=== PATIENT | male | born 1955 | race African-American/Black ===

== ENCOUNTER 2017-06-08 00:54 | Inpatient (IN) | payer MEDICAID ==
[2017-06-08] VITALS (7 sets, daily range): BP systolic 123–177; BP diastolic 65–109
[~2017-06-08] VITALS: Ht 188 cm; Wt 147.9 kg
[~2017-06-08 00:54] MED LIST: ALBUTEROL SULF8.5 GM INH; AMLODIPINE BESYL5 MG ORAL; AMOXICILLIN500 MG ORAL; ASPIR-LOW81 MG ORAL; CARVEDILOL12.5 MG ORAL; FAMOTIDINE20 MG ORAL; FUROSEMIDE40 MG ORAL; LOSARTAN POTASS50 MG ORAL; MELOXICAM7.5 MG PO; METFORMIN HCL500 M1 ORAL; PREDNISONE20 MG ORAL; QVAR7.3 G2 IH; RANEXA500 MG ORAL; SIMVASTATIN20 MG ORAL; TYLENOL WITH C1 EAC2 ORAL; VENTOLIN HFA18 GM INH
[2017-06-08] MEDS ORDERED: Aspirin Baby 81mg ORAL ONE (01:15)
--- NOTE | 2017-06-08 01:19 | Emergency Room Report ---
History of Present Illness General Chief Complaint: Chest Pain Source: Patient, Medical Record Present Illness HPI Patient presents with complaints of midsternal and right-sided chest pain Started about one hour prior to arrival Patient reports off and on however for the past 2 weeks Patient reports recent outpatient workup with the cigarette examiner who reported that everything looked okay Denies any vomiting or diarrhea he does feel mildly short of breath at times Worsening with exertion Denies any change in medications recently denies any fevers chills Allergies: Coded Allergies: No Known Allergies (Unverified , 03/24/16) Patient History Past Medical History: see triage record Pertinent Family History: none Reviewed Nursing Documentation: PMH: Agreed, PSxH: Agreed Nursing Documentation-PMH Hx Cardiac Problems: Yes - 5 stents placed in 2011 Hx Hypertension: Yes Hx Asthma: Yes Hx Diabetes: Yes Hx Cancer: No Hx Gastrointestinal Problems: No Hx Neurological Problems: No Review of Systems All Other Systems: negative except mentioned in HPI Physical Exam Vital Signs Date Time Temp Pulse Resp B/P Pulse Ox O2 Delivery O2 Flow Rate FiO2 06/08/17 00:58 98.4 91 18 177/109 96 Room Air Sp02 EP Interpretation: reviewed, normal General Appearance: well appearing, no apparent distress Head: normocephalic, atraumatic Eyes: bilateral eye EOMI, bilateral eye PERRL ENT: hearing grossly normal, normal pharynx, TMs + canals normal, uvula midline Neck: full range of motion, supple, no meningismus, no bony tend Respiratory: lungs clear, normal breath sounds, no rhonchi, no respiratory distress, no retraction, no accessory muscle use Cardiovascular #1: normal peripheral pulses, regular rate, rhythm, no gallop, no JVD, no murmur, edema - Dependent bilateral lower extremity Gastrointestinal: normal bowel sounds, non tender, soft, no mass, no organomegaly, non-distended, no guarding, no hernia, no pulsatile mass, no rebound Genitourinary: no CVA tenderness Musculoskeletal: normal inspection Neurologic: oriented x3, responsive, cigarette book maker III-XII nml as tested, motor strength/ tone normal, sensory intact Psychiatric: mood/affect normal Skin: warm/dry, other - Dependent edema bilaterally Lymphatic: no adenopathy Medical Decision Making Diagnostic Impression: Primary Impression: ACS (acute coronary syndrome) ER Course Patient is a fairly complex patient with multiple differential to consideration including but not limited to cardiac cardiopulmonary and vascular emergencies Patient's blood work is at baseline levels Chest x-ray shows concerning findings with a wide mediastinum however compared to multiple previous x-rays appears unchanged which is more reassuring Labs Test 06/08/17 01:12 White Blood Count 6.0 K/UL (4.8-10.8) Red Blood Count 4.58 M/UL (4.70-6.10) Hemoglobin 14.2 G/DL (14.2-18.0) Hematocrit 45.3 % (42.0-52.0) Mean Corpuscular Volume 99 FL (80-99) Mean Corpuscular Hemoglobin 31.1 PG (27.0-31.0) Mean Corpuscular Hemoglobin Concent 31.4 G/DL (32.0-36.0) Red Cell Distribution Width 12.9 % (11.6-14.8) Platelet Count 158 K/UL (150-450) Mean Platelet Volume 10.3 FL (6.5-10.1) Neutrophils (%) (Auto) 39.0 % (45.0-75.0) Lymphocytes (%) (Auto) 46.2 % (20.0-45.0) Monocytes (%) (Auto) 11.1 % (1.0-10.0) Eosinophils (%) (Auto) 2.0 % (0.0-3.0) Basophils (%) (Auto) 1.6 % (0.0-2.0) Sodium Level 144 mEQ/L (135-145) Potassium Level 4.0 mEQ/L (3.4-4.9) Chloride Level 102 mEQ/L (98-107) Carbon Dioxide Level 29 mEQ/L (20-30) Anion Gap 13 (5-15) Blood Urea Nitrogen 15 mg/dL (7-23) Creatinine 1.3 mg/dL (0.7-1.2) Estimat Glomerular Filtration Rate > 60 mL/min (>60) Glucose Level 131 mg/dL (74-106) Calcium Level 9.3 mg/dL (8.6-10.2) Total Bilirubin 0.5 mg/dL (0.0-1.2) Aspartate Amino Transf (AST/SGOT) 21 U/L (5-40) Alanine Aminotransferase (ALT/SGPT) 17 U/L (3-41) Alkaline Phosphatase 67 U/L (40-129) Total Creatine Kinase 187 U/L (38-174) Creatine Kinase MB 2.3 ng/mL (< 6.7) Creatine Kinase MB Relative Index 1.2 Troponin I < 0.30 ng/mL (<=0.30) Pro-B-Type Natriuretic Peptide 108 pg/mL (0-125) Total Protein 7.1 g/dL (6.6-8.7) Albumin 4.5 g/dL (3.5-5.2) Globulin 2.6 g/dL Albumin/Globulin Ratio 1.7 (1.0-2.7) Lipase 37 U/L (< 60) EKG Diagnostic Results Rate: normal Rhythm: NSR ST Segments: no acute changes Rhythm Strip Diag. Results EP Interpretation: yes Rate: 64 Rhythm: NSR, no PVC's, no ectopy Chest X-Ray Diagnostic Results Chest X-Ray Diagnostic Results : Chest X-Ray Ordered: Yes # of Views/Limited/Complete: 1 View Indication: Chest Pain EP Interpretation: Yes Interpretation: no consolidation, no effusion, no pneumothorax, other - Aorta is tortuous, similar to previous x-ray Impression: No acute disease Interpreting ER Provider: adeilne mina DO Last Vital Signs Date Time Temp Pulse Resp B/P Pulse Ox O2 Delivery O2 Flow Rate FiO2 06/08/17 00:58 98.4 91 18 177/109 96 Room Air Status: improved Disposition: ADMITTED INPATIENT Condition: Serious ADELINE MINA D.O. Jun 08, 2017 01:19
[2017-06-08 01:35] LABS: BASOPHILS % (AUTO) 1.6 % (0.0-2.0); LYMPHOCYTES % (AUTO) 46.2 % (20.0-45.0); MEAN CORPUSCULAR HEMOGLOBIN 31.1 PG (27.0-31.0); MEAN CORPUSCULAR HGB CONC 31.4 G/DL (32.0-36.0); MEAN CORPUSCULAR VOLUME 99 FL (80-99); MEAN PLATELET VOLUME 10.3 FL (6.5-10.1); MONOCYTES % (AUTO) 11.1 % (1.0-10.0); PLATELET COUNT 158 K/UL (150-450); RED BLOOD COUNT 4.58 M/UL (4.70-6.10); RED CELL DISTRIBUTION WIDTH 12.9 % (11.6-14.8)
[2017-06-08 01:46] LABS: ALANINE AMINOTRANSFERASE 17 U/L (3-41); ALBUMIN/GLOBULIN RATIO 1.7 (1.0-2.7); ASPARTATE AMINO TRANSFERASE 21 U/L (5-40); CALCIUM 9.3 mg/dL (8.6-10.2); CARBON DIOXIDE 29 mEQ/L (20-30); CREATININE 1.3 mg/dL (0.7-1.2); GLOMERULAR FILTRATION RATE > 60 mL/min (>60); HEMOLYSIS 7; LIPASE 37 U/L (< 60); TOTAL PROTEIN 7.1 g/dL (6.6-8.7)
[2017-06-08 01:47] LABS: ANION GAP 13 (5-15); CHLORIDE 102 mEQ/L (98-107); SODIUM 144 mEQ/L (135-145); TROPONIN I < 0.30 ng/mL (<=0.30)
[2017-06-08 01:57] LABS: CKMB 2.3 ng/mL (< 6.7)
[2017-06-08] MEDS ORDERED: Morphine Sulfate 4mg/ml Inj IVP ONE (03:00)
[2017-06-08] MEDS ORDERED: IBUPROFEN800 MG ORAL (03:03)
[2017-06-08] MEDS ORDERED: NITROGLYCERIN0.4 MG SL (03:06)
[2017-06-08] MEDS ORDERED: ISOSORBIDE MONO10 MG PO (03:06)
[2017-06-08] MEDS ORDERED: Ketorolac 30mg Inj IV PRN (07:00)
[2017-06-08] MEDS ORDERED: DuoNeb 0.5-3(2.5)mg/3ml neb HHN PRN (07:00)
[2017-06-08] MEDS ORDERED: Nitroglycerin Subl 0.4mg tab (Bottle Of 25) SL PRN (07:00)
[2017-06-08] MEDS ORDERED: Enalaprilat 2.5mg/2ml Inj IV PRN (07:00)
[2017-06-08] MEDS ORDERED: Miralax 17gm pkt ORAL PRN (07:00)
[2017-06-08] MEDS ORDERED: Diltiazem 25mg/5ml IV PRN (07:00)
[2017-06-08] MEDS: Morphine Sulfate 2mg/ml Inj IVP PRN ×2 (08:33→21:57)
[2017-06-08] MEDS: Aspirin Baby 81mg ORAL SCH (08:33)
[2017-06-08] MEDS: Losartan 50mg tab ORAL SCH (08:37)
[2017-06-08 08:38] LABS: TROPONIN I < 0.30 ng/mL (<=0.30)
--- NOTE | 2017-06-08 11:19 | Diagnostic Imaging Report ---
Indication: Chest pain Comparison: 03/24/16 A single view chest radiograph was obtained. Findings: No definite infiltrate or pulmonary vascular congestion identified. The heart is enlarged. The aorta is mildly enlarged consistent with atherosclerotic vascular disease. The bones are osteopenic. Impression: No acute disease
[2017-06-08] MEDS ORDERED: NovoLOG Insulin Flexpen SUBQ SCH (11:30)
[2017-06-08] MEDS: Heparin 5000 units/ml inj SUBQ SCH ×2 (14:02→21:55)
--- NOTE | 2017-06-08 14:22 | History and Physical ---
History of Present Illness General Date patient seen: Jun 08, 2017 Reason for Hospitalization: Chest Pain Present Illness HPI 62 year old with hx of CAD, s/p stents presented to ER with complaints of midsternal and right-sided chest pain, Started about one hour prior to arrival, for the past 2 weeks Worsening with exertion. because of hx of CAD, he is admitted to telemetry for further work up. Allergies: Coded Allergies: No Known Allergies (Unverified , 03/24/16) Medication History Scheduled Albuterol Sulfate (Ventolin Hfa), 1 PUFF INH EVERY 6 HOURS, (Reported) Albuterol Sulfate* (Albuterol Sulfate Mdi*), 2 PUFF INH Q6H Amlodipine Besylate* (Amlodipine Besylate*), 5 MG ORAL DAILY, (Reported) Amoxicillin* (Amoxil*), 500 MG ORAL THREE TIMES A DAY Aspirin* (Aspir-Low*), 81 MG ORAL DAILY, (Reported) Carvedilol* (Carvedilol*), 12.5 MG ORAL DAILY, (Reported) Furosemide* (Lasix*), 20 MG ORAL DAILY, (Reported) Ibuprofen* (Motrin*), 800 MG ORAL THREE TIMES A DAY, (Reported) Isosorbide Mononitrate (Isosorbide Mononitrate), 10 MG PO DAILY, (Reported) Losartan Potassium* (Losartan Potassium*), 50 MG ORAL DAILY, (Reported) Meloxicam* (Meloxicam*), 7.5 MG PO DAILY, (Reported) Metformin Hcl* (Metformin Hcl*), 500 MG ORAL TWICE A DAY, (Reported) Nitroglycerin (Nitroglycerin), 0.4 MG SL every 5 min x 3 dose, (Reported) Prednisone* (Prednisone*), 40 MG ORAL DAILY Ranolazine* (Ranexa*), 1,000 MG ORAL EVERY 12 HOURS, (Reported) Simvastatin (Zocor), 20 MG ORAL BEDTIME, (Reported) Scheduled PRN Acetaminophen With Codeine (T#3) (Tylenol With Codeine #3 Tablet), 1 TAB ORAL BID PRN for For Pain, (Reported) Famotidine (Famotidine), 20 MG ORAL BID PRN for heart burn , (Reported) Miscellaneous Medications Beclomethasone Dipropionate (Qvar), 80 MCG IH, (Reported) Patient History Healthcare decision maker Resuscitation status Full Code Advanced Directive on File No Past Medical/Surgical History Past Medical/Surgical History: (1) CAD (coronary artery disease) Review of Systems All Other Systems: negative except mentioned in HPI Physical Exam General Appearance: WD/WN, no apparent distress, mild distress Lines, tubes and drains: central line HEENT: normocephalic, anicteric Neck: non-tender, normal alignment Respiratory/Chest: chest wall non-tender, lungs clear, normal breath sounds, no respiratory distress Cardiovascular/Chest: normal peripheral pulses, normal rate Abdomen: normal bowel sounds Last 24 Hour Vital Signs Date Time Temp Pulse Resp B/P Pulse Ox O2 Delivery O2 Flow Rate FiO2 06/08/17 12:00 74 06/08/17 12:00 97.8 77 21 154/105 97 Nasal Cannula 3.0 06/08/17 11:57 78 16 Nasal Cannula 2.0 28 06/08/17 11:00 Nasal Cannula 2.0 28 06/08/17 10:55 98 Nasal Cannula 2.0 28 06/08/17 08:37 123/65 06/08/17 08:36 70 123/65 06/08/17 08:00 81 06/08/17 08:00 97.7 70 20 123/65 95 06/08/17 04:40 98.6 81 17 126/80 97 Nasal Cannula 2.0 06/08/17 03:30 98.6 81 17 126/80 97 Nasal Cannula 2.0 06/08/17 02:30 98.4 86 17 125/85 93 Room Air 06/08/17 01:30 98.4 89 16 177/109 95 Room Air 06/08/17 01:30 89 16 Room Air 06/08/17 00:58 98.4 91 18 177/109 96 Room Air Intake and Output 06/07/17 06/08/17 19:00 07:00 Intake Total 0 ml Balance 0 ml Intake Oral 0 ml Laboratory Tests Test 06/08/17 01:12 06/08/17 07:50 White Blood Count 6.0 K/UL (4.8-10.8) Red Blood Count 4.58 M/UL (4.70-6.10) L Hemoglobin 14.2 G/DL (14.2-18.0) Hematocrit 45.3 % (42.0-52.0) Mean Corpuscular Volume 99 FL (80-99) Mean Corpuscular Hemoglobin 31.1 PG (27.0-31.0) H Mean Corpuscular Hemoglobin Concent 31.4 G/DL (32.0-36.0) L Red Cell Distribution Width 12.9 % (11.6-14.8) Platelet Count 158 K/UL (150-450) Mean Platelet Volume 10.3 FL (6.5-10.1) H Neutrophils (%) (Auto) 39.0 % (45.0-75.0) L Lymphocytes (%) (Auto) 46.2 % (20.0-45.0) H Monocytes (%) (Auto) 11.1 % (1.0-10.0) H Eosinophils (%) (Auto) 2.0 % (0.0-3.0) Basophils (%) (Auto) 1.6 % (0.0-2.0) Sodium Level 144 mEQ/L (135-145) Potassium Level 4.0 mEQ/L (3.4-4.9) Chloride Level 102 mEQ/L (98-107) Carbon Dioxide Level 29 mEQ/L (20-30) Anion Gap 13 (5-15) Blood Urea Nitrogen 15 mg/dL (7-23) Creatinine 1.3 mg/dL (0.7-1.2) H Estimat Glomerular Filtration Rate > 60 mL/min (>60) Glucose Level 131 mg/dL (74-106) H Calcium Level 9.3 mg/dL (8.6-10.2) Total Bilirubin 0.5 mg/dL (0.0-1.2) Aspartate Amino Transf (AST/SGOT) 21 U/L (5-40) Alanine Aminotransferase (ALT/SGPT) 17 U/L (3-41) Alkaline Phosphatase 67 U/L (40-129) Total Creatine Kinase 187 U/L (38-174) H Creatine Kinase MB 2.3 ng/mL (< 6.7) Creatine Kinase MB Relative Index 1.2 Troponin I < 0.30 ng/mL (<=0.30) < 0.30 ng/mL (<=0.30) Pro-B-Type Natriuretic Peptide 108 pg/mL (0-125) Total Protein 7.1 g/dL (6.6-8.7) Albumin 4.5 g/dL (3.5-5.2) Globulin 2.6 g/dL Albumin/Globulin Ratio 1.7 (1.0-2.7) Lipase 37 U/L (< 60) Height (Feet): 6 Height (Inches): 2.00 Weight (Pounds): 326 Medications Current Medications Medications (Trade) Dose Ordered Sig/Saima Route PRN Reason Start Time Stop Time Status Last Admin Dose Admin Acetaminophen (Tylenol) 650 mg Q4H PRN ORAL T>100.5 06/08/17 07:00 07/08/17 06:59 Albuterol/ Ipratropium (DuoNeb 0.5-3(2.5)mg/3ml) 3 ml Q4H PRN HHN Shortness of Breath 06/08/17 07:00 06/13/17 06:59 Amlodipine Besylate (Norvasc) 5 mg DAILY ORAL 06/08/17 09:00 07/08/17 08:59 06/08/17 08:36 Aspirin (ASA) 162 mg DAILY ORAL 06/08/17 09:00 07/08/17 08:59 06/08/17 08:33 Dextrose (Dextrose 50%) STAT PRN IV Hypoglycemia 06/08/17 04:30 07/08/17 04:29 Diltiazem HCl (Cardizem) 10 mg EVERY HOUR PRN IV heart rate more than 120 06/08/17 07:00 07/08/17 06:59 Enalaprilat (Vasotec) 2.5 mg Q6H PRN IV sbp more than 160 06/08/17 07:00 07/08/17 06:59 Furosemide (Lasix) 20 mg DAILY ORAL 06/08/17 09:00 07/08/17 08:59 06/08/17 08:32 Heparin Sodium (Porcine) (Heparin 5000 units/ml) 5,000 units EVERY 8 HOURS SUBQ 06/08/17 14:00 07/08/17 13:59 06/08/17 14:02 Losartan Potassium (Cozaar) 50 mg DAILY ORAL 06/08/17 09:00 07/08/17 08:59 06/08/17 08:37 Metformin HCl (Glucophage) 500 mg BID ORAL 06/08/17 18:00 07/08/17 17:59 Morphine Sulfate (Morphine Sulfate) 2 mg Q4H PRN IVP Severe Pain (Pain Scale 7-10) 06/08/17 07:00 06/15/17 06:59 06/08/17 08:33 Nitroglycerin (Ntg) 0.4 mg Q5MIN X 3 DOSES PRN SL Prn Chest Pain 06/08/17 07:00 07/08/17 06:59 Ondansetron HCl (Zofran) 4 mg Q6H PRN IVP Nausea & Vomiting 06/08/17 07:00 07/08/17 06:59 Polyethylene Glycol (Miralax) 17 gm DAILYPRN PRN ORAL Constipation 06/08/17 07:00 07/08/17 06:59 Temazepam (Restoril) 15 mg HSPRN PRN ORAL Insomnia 06/08/17 21:00 06/15/17 20:59 Assessment/Plan Problem List: (1) ACS (acute coronary syndrome) ICD Codes: I24.9 - Acute ischemic heart disease, unspecified SNOMED: 907182385 (2) Costochondritis ICD Codes: M94.0 - Chondrocostal junction syndrome [[place]] SNOMED: 60811564 (3) CAD (coronary artery disease) ICD Codes: I25.10 - Atherosclerotic heart disease of [place] coronary artery without angina pectoris SNOMED: 94215965 Assessment/Plan serial ekg, troponin, echo cariology to see. dvt prophylaxis symptomatic treatment. KASSANDRA DUNN Jun 08, 2017 14:22
--- NOTE | 2017-06-08 14:23 | Cardiology Report ---
APPROVED REPORT EKG Measurement Heart [id number] Normal sinus rhythm Normal ECG
--- NOTE | 2017-06-08 14:31 | Diagnostic Imaging Report ---
APPROVED REPORT CPT Code: 22666 Present Symptoms Comments: Pain [place] BILATERAL: Imaging reveals a patent deep venous system bilaterally. There is no evidence of thrombus within the femoral, popliteal or tibial segments. The greater saphenous veins are also within normal limits. Doppler indicates normal spontaneous flow within these segments.
--- NOTE | 2017-06-08 15:11 | Cardiology Report ---
APPROVED REPORT EXAM: Two-dimensional and M-mode echocardiogram with Doppler and color Doppler. INDICATION Left Ventricular Function M-Mode DIMENSIONS IVSd2.3 (0.7-1.1cm)Left Atrium (MM)3.9 (1.6-4.0cm) LVDd6.6 (3.5-5.6cm)Aortic Root3.7 (2.0-3.7cm) PWd1.0 (0.7-1.1cm)Aortic Cusp Exc.2.3 (1.5-2.0cm) LVDs4.6 (2.5-4.0cm) PWs1.6 cm Normal left ventricular systolic function and wall motion. Mild left ventricular enlargement. Left ventricular ejection fraction estimated to be 55 %. Moderate left ventricular hypertrophy. Trivial pericardial effusion. Mild right atrial enlargement. Mild to moderate left atrial enlargement. Mild right ventricular enlargement. Normal appearing aortic, mitral, puImonic and tricuspid valves. Mild mitral annulus and aortic root calcification. IVC dilated at 1.8 cm with physiologic collapse. A color flow and spectral Doppler study was performed and revealed: No aortic regurgitation. Trace mitral regurgitation. Left ventricular diastolic function is Grade II, pseudo-normal LV physiology. Trace tricuspid regurgitation. Tricuspid systolic velocities suggests peak right ventricular systolic pressure of 25 mmHg. No pulmonic regurgitation present.
[2017-06-08] MEDS: metFORMIN 500mg tab ORAL SCH (18:15)
[2017-06-09] VITALS: BP 132/77
[2017-06-09 04:00] VITALS: BP 145/82
[2017-06-09] MEDS: Heparin 5000 units/ml inj SUBQ SCH (05:33)
[2017-06-09 06:28] LABS: BASOPHILS % (AUTO) 1.7 % (0.0-2.0); EOSINOPHILS % (AUTO) 1.9 % (0.0-3.0); LYMPHOCYTES % (AUTO) 37.6 % (20.0-45.0); MEAN CORPUSCULAR HGB CONC 31.5 G/DL (32.0-36.0); MEAN CORPUSCULAR VOLUME 102 FL (80-99); MEAN PLATELET VOLUME 11.3 FL (6.5-10.1); MONOCYTES % (AUTO) 9.8 % (1.0-10.0); PLATELET COUNT 137 K/UL (150-450); RED BLOOD COUNT 4.18 M/UL (4.70-6.10); RED CELL DISTRIBUTION WIDTH 13.2 % (11.6-14.8); WHITE BLOOD COUNT 5.4 K/UL (4.8-10.8)
[2017-06-09 06:49] LABS: PROTHROMBIN TIME 10.2 SEC (9.30-11.50)
[2017-06-09 06:52] LABS: CHOLESTEROL 150 mg/dL (< 200); CHOLESTEROL/HDL RATIO 3.7 (3.3-4.4); CRP QUANT < 0.3 mg/dL (< 0.5); HEMOLYSIS 13; LDL CHOLESTEROL (CALC.) 61 mg/dL (60-99)
[2017-06-09 06:59] LABS: TROPONIN I < 0.30 ng/mL (<=0.30)
[2017-06-09 08:00] VITALS: BP 143/90
[2017-06-09] MEDS: metFORMIN 500mg tab ORAL SCH (08:42)
[2017-06-09] MEDS: Losartan 50mg tab ORAL SCH (08:42)
[2017-06-09] MEDS: Aspirin Baby 81mg ORAL SCH (08:44)
[2017-06-09] MEDS: Morphine Sulfate 2mg/ml Inj IVP PRN (11:01)
--- NOTE | 2017-06-09 11:09 | Pulmonology Progress Note ---
Assessment/Plan Problems: (1) ACS (acute coronary syndrome) (2) Costochondritis (3) CAD (coronary artery disease) Assessment/Plan echo noted cardiology consult pending symptomatic treatment Subjective ROS Limited/Unobtainable: No Allergies: Coded Allergies: No Known Allergies (Unverified , 03/24/16) Objective Last 24 Hour Vital Signs Date Time Temp Pulse Resp B/P Pulse Ox O2 Delivery O2 Flow Rate FiO2 06/09/17 08:42 143/90 06/09/17 08:42 83 143/90 06/09/17 08:00 97.5 80 22 143/90 94 Nasal Cannula 2.0 06/09/17 08:00 84 06/09/17 07:56 70 18 Nasal Cannula 2.0 28 06/09/17 07:55 97 Nasal Cannula 2.0 28 06/09/17 07:55 Nasal Cannula 2.0 28 06/09/17 04:00 128 06/09/17 04:00 76 06/09/17 04:00 97.5 70 20 145/82 Nasal Cannula 2.0 06/09/17 00:00 97.7 71 132/77 20 Nasal Cannula 2.0 06/09/17 00:00 71 06/08/17 20:00 76 06/08/17 20:00 97.5 76 22 129/74 95 Nasal Cannula 2.0 06/08/17 19:30 95 Nasal Cannula 2.0 28 06/08/17 19:30 Nasal Cannula 2.0 28 06/08/17 19:30 76 18 Nasal Cannula 2.0 28 06/08/17 16:00 78 06/08/17 16:00 97.6 70 21 144/97 100 Nasal Cannula 2.0 06/08/17 12:00 74 06/08/17 12:00 97.8 77 21 154/105 97 Nasal Cannula 3.0 06/08/17 11:57 78 16 Nasal Cannula 2.0 28 Intake and Output 06/08/17 06/09/17 19:00 07:00 Intake Total 600 ml 700 ml Balance 600 ml 700 ml Intake Oral 600 ml 700 ml # Voids 1 1 # Bowel Movements 1 General Appearance: WD/WN Respiratory/Chest: chest wall non-tender, lungs clear Cardiovascular: normal peripheral pulses, normal rate Abdomen: normal bowel sounds, soft, non tender Genitourinary: normal external genitalia Extremities: no cyanosis Skin: no rash Laboratory Tests 06/09/17 06:00: White Blood Count 5.4, Red Blood Count 4.18L, Hemoglobin 13.4L, Hematocrit 42.5 , Mean Corpuscular Volume 102H, Mean Corpuscular Hemoglobin 32.0H, Mean Corpuscular Hemoglobin Concent 31.5L, Red Cell Distribution Width 13.2, Platelet Count 137L, Mean Platelet Volume 11.3H, Neutrophils (%) (Auto) 49.0, Lymphocytes (%) (Auto) 37.6, Monocytes (%) (Auto) 9.8, Eosinophils (%) (Auto) 1.9, Basophils (%) (Auto) 1.7, Prothrombin Time 10.2, Prothromb Time International Ratio 1.0, Activated Partial Thromboplast Time 28, Troponin I < 0.30, C-Reactive Protein, Quantitative < 0.3, Triglycerides Level 238H, Cholesterol Level 150, LDL Cholesterol 61, HDL Cholesterol 41, Cholesterol/HDL Ratio 3.7, Thyroid Stimulating Hormone (TSH) 1.710 Current Medications Medications (Trade) Dose Ordered Sig/Saima Route PRN Reason Start Time Stop Time Status Last Admin Dose Admin Acetaminophen (Tylenol) 650 mg Q4H PRN ORAL T>100.5 06/08/17 07:00 07/08/17 06:59 Albuterol/ Ipratropium (DuoNeb 0.5-3(2.5)mg/3ml) 3 ml Q4H PRN HHN Shortness of Breath 06/08/17 07:00 06/13/17 06:59 Amlodipine Besylate (Norvasc) 5 mg DAILY ORAL 06/08/17 09:00 07/08/17 08:59 06/09/17 08:42 Aspirin (ASA) 162 mg DAILY ORAL 06/08/17 09:00 07/08/17 08:59 06/09/17 08:44 Dextrose (Dextrose 50%) STAT PRN IV Hypoglycemia 06/08/17 04:30 07/08/17 04:29 Diltiazem HCl (Cardizem) 10 mg EVERY HOUR PRN IV heart rate more than 120 06/08/17 07:00 07/08/17 06:59 Enalaprilat (Vasotec) 2.5 mg Q6H PRN IV sbp more than 160 06/08/17 07:00 07/08/17 06:59 Furosemide (Lasix) 20 mg DAILY ORAL 06/08/17 09:00 07/08/17 08:59 06/09/17 08:42 Heparin Sodium (Porcine) (Heparin 5000 units/ml) 5,000 units EVERY 8 HOURS SUBQ 06/08/17 14:00 07/08/17 13:59 06/09/17 05:33 Losartan Potassium (Cozaar) 50 mg DAILY ORAL 06/08/17 09:00 07/08/17 08:59 06/09/17 08:42 Metformin HCl (Glucophage) 500 mg BID ORAL 06/08/17 18:00 07/08/17 17:59 06/09/17 08:42 Morphine Sulfate (Morphine Sulfate) 2 mg Q4H PRN IVP Severe Pain (Pain Scale 7-10) 06/08/17 07:00 06/15/17 06:59 06/09/17 11:01 Nitroglycerin (Ntg) 0.4 mg Q5MIN X 3 DOSES PRN SL Prn Chest Pain 06/08/17 07:00 07/08/17 06:59 Ondansetron HCl (Zofran) 4 mg Q6H PRN IVP Nausea & Vomiting 06/08/17 07:00 07/08/17 06:59 06/09/17 11:03 Polyethylene Glycol (Miralax) 17 gm DAILYPRN PRN ORAL Constipation 06/08/17 07:00 07/08/17 06:59 Temazepam (Restoril) 15 mg HSPRN PRN ORAL Insomnia 06/08/17 21:00 06/15/17 20:59 KASSANDRA DUNN Jun 09, 2017 11:09
--- NOTE | 2017-06-09 11:23 | Cardiology Progress Note ---
Assessment/Plan Assessment/Plan [id number] Objective Last 24 Hour Vital Signs Date Time Temp Pulse Resp B/P Pulse Ox O2 Delivery O2 Flow Rate FiO2 06/09/17 08:42 143/90 06/09/17 08:42 83 143/90 06/09/17 08:00 97.5 80 22 143/90 94 Nasal Cannula 2.0 06/09/17 08:00 84 06/09/17 07:56 70 18 Nasal Cannula 2.0 28 06/09/17 07:55 97 Nasal Cannula 2.0 28 06/09/17 07:55 Nasal Cannula 2.0 28 06/09/17 04:00 128 06/09/17 04:00 76 06/09/17 04:00 97.5 70 20 145/82 Nasal Cannula 2.0 06/09/17 00:00 97.7 71 132/77 20 Nasal Cannula 2.0 06/09/17 00:00 71 06/08/17 20:00 76 06/08/17 20:00 97.5 76 22 129/74 95 Nasal Cannula 2.0 06/08/17 19:30 95 Nasal Cannula 2.0 28 06/08/17 19:30 Nasal Cannula 2.0 28 06/08/17 19:30 76 18 Nasal Cannula 2.0 28 06/08/17 16:00 78 06/08/17 16:00 97.6 70 21 144/97 100 Nasal Cannula 2.0 06/08/17 12:00 74 06/08/17 12:00 97.8 77 21 154/105 97 Nasal Cannula 3.0 06/08/17 11:57 78 16 Nasal Cannula 2.0 28 Intake and Output 06/08/17 06/09/17 19:00 07:00 Intake Total 600 ml 700 ml Balance 600 ml 700 ml Intake Oral 600 ml 700 ml # Voids 1 1 # Bowel Movements 1 Laboratory Tests Test 06/09/17 06:00 White Blood Count 5.4 K/UL (4.8-10.8) Red Blood Count 4.18 M/UL (4.70-6.10) L Hemoglobin 13.4 G/DL (14.2-18.0) L Hematocrit 42.5 % (42.0-52.0) Mean Corpuscular Volume 102 FL (80-99) H Mean Corpuscular Hemoglobin 32.0 PG (27.0-31.0) H Mean Corpuscular Hemoglobin Concent 31.5 G/DL (32.0-36.0) L Red Cell Distribution Width 13.2 % (11.6-14.8) Platelet Count 137 K/UL (150-450) L Mean Platelet Volume 11.3 FL (6.5-10.1) H Neutrophils (%) (Auto) 49.0 % (45.0-75.0) Lymphocytes (%) (Auto) 37.6 % (20.0-45.0) Monocytes (%) (Auto) 9.8 % (1.0-10.0) Eosinophils (%) (Auto) 1.9 % (0.0-3.0) Basophils (%) (Auto) 1.7 % (0.0-2.0) Prothrombin Time 10.2 SEC (9.30-11.50) Prothromb Time International Ratio 1.0 (0.9-1.1) Activated Partial Thromboplast Time 28 SEC (23-33) Troponin I < 0.30 ng/mL (<=0.30) C-Reactive Protein, Quantitative < 0.3 mg/dL (< 0.5) Triglycerides Level 238 mg/dL (< 150) H Cholesterol Level 150 mg/dL (< 200) LDL Cholesterol 61 mg/dL (60-99) HDL Cholesterol 41 mg/dL (> 60) Cholesterol/HDL Ratio 3.7 (3.3-4.4) Thyroid Stimulating Hormone (TSH) 1.710 uIU/mL (0.300-4.500) VIOLA TAVARES Jun 09, 2017 11:23
[2017-06-09 12:00] VITALS: BP 142/88
--- NOTE | 2017-06-09 23:15 | Consultation ---
DATE OF CONSULTATION: 06/09/2017 CARDIOLOGY CONSULTATION CONSULTING PHYSICIAN: Hussain Sanchez M.D. REFERRING PHYSICIAN: Natalya Hargrove M.D. REASON FOR REFERRAL: Chest pain. HISTORY OF PRESENT ILLNESS: This is a 62-year-old gentleman with history of coronary artery disease and multiple other risk factors. He had a myocardial infarction in 2014, received 5 stents. He presented to the hospital with several days of intermittent pain in the right side of the sternum that lasted only between 1 to 5 second,s not exertional. In fact, when he does exercise and do usual routine activities, he never gets the chest pain. The pain comes on only when he is lying down. No exacerbation with twisting, turning, coughing, breathing, eating or activity that he is able to identify. He does not have any PND. Uses 2 pillows for comfort. No dizziness or lightheadedness on standing. No palpitations and no other chest discomfort. The pain is different than what he experienced with his myocardial infarction 2 years ago. PAST MEDICAL HISTORY: Positive for diabetes, high blood pressure, high cholesterol, heart attack, asthma, and sleep apnea for which he has not yet been prescribed CPAP. No cancer. No stroke. No hepatitis or tuberculosis. No ulcers. No kidney, liver problems, thyroid problems, anemia, or arthritis. ALLERGIC: He is not allergic to any medications. SOCIAL HISTORY: He smokes and drinks on the weekends only. No drug use. He used to work with the [employer], he does not any more, he is retired. REVIEW OF SYSTEMS: Gastrointestinal: He denies any nausea, vomiting, diarrhea, or constipation. Genitourinary: He denies. Pulmonary: Occasional wheezing. Constitutional: Negative. Neurological: Negative. PHYSICAL EXAMINATION: GENERAL: An elderly gentleman, overweight. NECK: Supple. No jugular venous distention. LUNGS: He seemed to be clear to auscultation and percussion. CARDIAC: S1 is normal. S2 is normal. Regular rate and rhythm. No heaves, thrills, or gallops noted. ABDOMEN: Soft and nontender. Positive bowel sounds. Obese. EXTREMITIES: Show no clubbing, cyanosis, no edema. NEUROLOGICALLY: He is awake, alert, responsive, in no apparent respiratory distress. LABORATORY DATA: His echocardiogram shows ejection fraction of 55%, dilated IVC with physiological collapse, no significant valvular regurgitation, diastolic dysfunction of grade 1. EKG, sinus rhythm, normal QRS axis, no ST or T wave abnormalities of any kind. LABORATORY VALUES: White count 5.4, hemoglobin 13.4, and platelet count of 137,000. Sodium is 144, potassium 4.0, chloride 102, bicarb 29, BUN 15, creatinine 1.3, and glucose of 131. CK of 187. Three sets of cardiac enzymes are all negative. Natriuretic peptide is only 108. Triglycerides are 238, cholesterol 150 with an LDL of 61 and HDL of 41 and TSH of 1.7. Coags, INR 1.0 and PTT of 28. A chest x-ray performed in the emergency room shows no acute disease. The official echocardiogram reading shows ejection fraction of 55%. No significant changes from the preliminary report. A venous duplex study shows patent deep venous system bilaterally no evidence of thrombus being documented. ASSESSMENT: 1. Atypical chest pain. 2. History of coronary disease. 3. Diabetes mellitus. 4. Hypertension. 5. Hyperlipidemia. Dr. Hargrove, this patient was seen in cardiac consultation. The patient's pain only lasted approximately 1 to 5 seconds, not exertional, different from the pain that he had from his prior myocardial infarction. EKG is unremarkable. Echocardiogram is unremarkable. Three sets of cardiac enzymes are unremarkable. The pain unlikely to be ischemic in origin. He has had a stress test performed by his audit machine operator approximately 2 weeks ago and he is having followup appointment with his audit machine operator coming up in the next few days. I see no reason to perform any other testing at this time. He may be discharged home with followup with his usual audit machine operator. He should be continued on his aspirin and antiplatelet agents as well as statins that he was taking on prior to his hospitalization. He has also been on some Isordil that he should be continued as well. Hussain Sanchez M.D. DR: ERIN JOB#: [id number] CC:
--- NOTE | 2017-06-11 10:27 | Discharge Summary ---
Discharge Summary Hospital Course Date of Admission Jun 08, 2017 at 02:06 Date of Discharge Jun 09, 2017 at 13:40 Admitting Diagnosis acute coronary syndrome HPI Mannie Lemus is a 62 year old male who was admitted on Jun 08, 2017 at 02: 06 for Acute Coronary Syndrome Hospital Course [id number] Discharge Discharge Disposition Patient was discharged to Home (01) Discharge Diagnoses: Christina Tejeda NP Jun 11, 2017 10:27
--- NOTE | 2017-06-12 05:45 | Discharge Summary 2 SIG ---
DATE OF ADMISSION: 06/08/2017 DATE OF DISCHARGE: 06/09/2017 BLOW TORCH OPERATOR: Hussain Sanchez M.D. BRIEF HOSPITAL COURSE: The patient is a 62-year-old male with a history of coronary artery disease, status post stent, presented to ED complaining of midsternal right-sided chest pain that started an hour prior to arrival. Symptoms had been on and off for the past two weeks and symptoms worsened. On arrival to ED, blood pressure was elevated to 177/109. Blood work was stable. Troponin was negative. He had an EKG done that showed normal sinus rhythm and chest x-ray showed findings with wide mediastinum, however, compared to multiple previous x-ray appeared unchanged. Due to his risk factors, he was admitted to telemetry for cardiac evaluation and was admitted for acute coronary syndrome, costochondritis, and coronary artery disease. Cardiac markers were monitored. He was seen by Dr. Sanchez. His echocardiogram showed ejection fraction of 55% with dilated IVC with physiological collapse, no significant valvular regurgitation, diastolic dysfunction of grade 1. EKG showed no ST to T-wave abnormalities. Lipid panel was checked. LDL was 61. TSH was normal. Venous duplex of lower extremity showed no evidence of thrombus. Three sets of cardiac enzymes were unremarkable. Pain unlikely to be ischemic in origin. He had a stress test done by his home care rn two weeks prior to admission and has followup appointments with home care rn. No further workup was needed. He was continued on his aspirin and antiplatelet agents as well as his antihypertensives. He underwent physical therapy evaluation and was eventually discharged home. FINAL DIAGNOSES: 1. Coronary artery disease. 2. Costochondritis. 3. Diabetes mellitus. 4. Hypertension. 5. Hyperlipidemia. DISCHARGE DISPOSITION: The patient was discharged home. DISCHARGE MEDICATIONS: Refer to medication list. Continue with aspirin and Zocor. FOLLOWUP: The patient is to follow up with his home care rn in a week. Natalya Hargrove M.D. I have been assigned to dictate discharge summary on this account and I was not involved in the patient's management. Christina Tejeda N.P. DR: THELMA JOB#: [id number] CC: HEIDE
== END 2017-06-09 13:40 | disposition home or self-care (01) | DRG 203 ==
LOC: EMR 01:21 → 2E 02:06 → EDBEDREQ 02:43 → 2E 03:31
DX: M94.0 Chondrocostal junction syndrome [Tietze] (principal); I10 Essential (primary) hypertension; I25.10 Atherosclerotic heart disease of native coronary artery without angina pectoris; Z95.5 Presence of coronary angioplasty implant and graft; I25.2 Old myocardial infarction; E11.9 Type 2 diabetes mellitus without complications; E78.5 Hyperlipidemia, unspecified; J45.909 Unspecified asthma, uncomplicated
CPT/HCPCS: 36415; 71010; 80053; 80061; 82550; 82553; 82962; 83690; 83880; 84443; 84484; 85025; 85610; 85730; 86140; 93005; 93306; 93970; 94664; 94760; J1815; J2405

== ENCOUNTER 2018-12-15 10:48 | Inpatient (IN) | payer MEDICAID ==
[~2018-12-15] VITALS: Ht 182.9 cm; Wt 148.3 kg
[~2018-12-15 10:48] MED LIST changes: +IBUPROFEN800 MG ORAL; +ISOSORBIDE MONO10 MG PO; +NITROGLYCERIN0.4 MG SL
--- NOTE | 2018-12-15 10:52 | NUR ---
ED Nurse Note: Pt came into the Er from home w/ complaints of SOB for a couple of days. Pt presented in the Er sating at 88% on room air and having to catch his breath in between words. Pt denies pain. A + O x4. Skin warm to touch. Hx of asthma, 5 stents. Pt put on 6L via face mask and sating at 96%.
[2018-12-15 10:54] VITALS: BP 109/62
--- NOTE | 2018-12-15 11:07 | NUR ---
ED Nurse Note: Called RT
[2018-12-15] MEDS ORDERED: Solu-MEDROL 125mg Inj IVP ONE (11:15)
[2018-12-15] MEDS: Albuterol ud Inhalation HHN SCH ×3 (11:20→11:49)
[2018-12-15] MEDS: Ipratropium 0.02% Inh Soln 2.5ml UD HHN SCH ×3 (11:20→11:49)
[2018-12-15 11:38] LABS: HEMATOCRIT 27.9 % (42.0-52.0); HEMOGLOBIN 8.6 G/DL (14.2-18.0); MEAN CORPUSCULAR VOLUME 105 FL (80-99); PLATELET COUNT 43 K/UL (150-450); RED BLOOD COUNT 2.67 M/UL (4.70-6.10); RED CELL DISTRIBUTION WIDTH 13.7 % (11.6-14.8); WHITE BLOOD COUNT 3.1 K/UL (4.8-10.8)
[2018-12-15 11:46] LABS: ANION GAP 8 mmol/L (5-15); BLOOD UREA NITROGEN 17 mg/dL (7-18); CALCIUM 8.9 MG/DL (8.5-10.1); CARBON DIOXIDE 29 MMOL/L (21-32); CHLORIDE 101 MMOL/L (98-107); CREATININE 1.4 MG/DL (0.55-1.30); POTASSIUM 3.8 MMOL/L (3.5-5.1); SODIUM 138 MMOL/L (136-145)
[2018-12-15 11:58] LABS: ALANINE AMINOTRANSFERASE 10 U/L (12-78); ALBUMIN 3.3 G/DL (3.4-5.0); ALBUMIN/GLOBULIN RATIO 0.8 (1.0-2.7); ALKALINE PHOSPHATASE 76 U/L (46-116); ASPARTATE AMINO TRANSFERASE 19 U/L (15-37); BILIRUBIN,TOTAL 1.9 MG/DL (0.2-1.0); CKMB 1.1 NG/ML (0.0-3.6); CREATINE KINASE 397 U/L (26-308)
[2018-12-15 11:59] LABS: BILIRUBIN,DIRECT 0.5 MG/DL (0.0-0.3)
--- NOTE | 2018-12-15 12:10 | NUR ---
ED Nurse Note: Xray at the bedside.
[2018-12-15] MEDS ORDERED: LISINOPRIL5 MG ORAL (12:12)
[2018-12-15] MEDS ORDERED: TAMOXIFEN CITRA10 MG ORAL (12:12)
[2018-12-15 12:25] VITALS: BP 93/47
[2018-12-15] MEDS ORDERED: Oseltamivir 75mg cap ORAL ONE (12:30)
--- NOTE | 2018-12-15 12:30 | Diagnostic Imaging Report ---
Indication: Dyspnea Comparison: None A single view chest radiograph was obtained. Findings: Pulmonary vascular congestion and prominence of the interstitium noted. Heart is enlarged. The bones are unremarkable. IMPRESSION: CHF
--- NOTE | 2018-12-15 12:34 | NUR ---
ED Nurse Note: Notified ERMD of troponin level of 0.420. Will cont to monitor.
--- NOTE | 2018-12-15 12:52 | NUR ---
ED Nurse Note: Called Tele and Per Brooke, room is still not ready 216, will give us a call back once room is ready
[2018-12-15 12:56] LABS: APPEARANCE,URINE CLEAR; BILIRUBIN, URINE NEGATIVE (NEGATIVE); COLOR,URINE BROWN; GLUCOSE, URINE (UA) NEGATIVE (NEGATIVE); KETONES,URINE NEGATIVE (NEGATIVE); LEUKOCYTE ESTERASE ,URINE 1+ (NEGATIVE); NITRITE,URINE NEGATIVE (NEGATIVE); PH,URINE 6 (4.5-8.0); PROTEIN,URINE 2+ (NEGATIVE); UROBILINOGEN,URINE 8 MG/DL (0.0-1.0)
--- NOTE | 2018-12-15 13:15 | NUR ---
ED Nurse Note: Gave telephone report to GREG Pittman. Bed unavailable. Will call back.
[2018-12-15] MEDS ORDERED: Albuterol/Ipratropium 3ml neb HHN PRN (13:30)
[2018-12-15] MEDS ORDERED: Miralax 17gm pkt ORAL PRN (13:30)
--- NOTE | 2018-12-15 13:55 | NUR ---
ED Nurse Note: Pt transferred to Tele unit. No acute distress noted. Left ER w/ all belongings.
--- NOTE | 2018-12-15 14:00 | NUR ---
NURSE NOTES: Received patient via gurney, report given by GREG Fairbanks. Patient is awake, alert and oriented x4. No signs and symptoms of acute distress noted at this time. Patient on 2 liter Nasal cannula. Heart monitor on. Bed in lowest position with two side rails up, break engaged. Will continue to monitor and follow the plan of care.
--- NOTE | 2018-12-15 14:03 | Emergency Room Report ---
History of Present Illness General Chief Complaint: Dyspnea/Respdistress Source: Patient Present Illness HPI 63-year-old male presents ED for evaluation. Patient complaining of shortness of breath and dizziness 2 days. History of asthma. States he's had a productive cough. Denies fevers or chills. Denies chest pain. Did not receive flu vaccine this year. Also complaining of dizziness. States that just recently his blood pressure medications were changed and he's been having a bad reaction to them. States he was recently switched to lisinopril. No other aggravating relieving factors. Denies any other associated symptoms Allergies: Coded Allergies: No Known Allergies (Unverified , 03/24/16) Patient History Past Medical History: DM, HTN, CAD, asthma Past Surgical History: none Pertinent Family History: none Social History: Denies: smoking, alcohol use, drug use Immunizations: UTD Reviewed Nursing Documentation: PMH: Agreed; PSxH: Agreed Nursing Documentation-PMH Past Medical History: No History, Except For Hx Cardiac Problems: Yes - 5 stents Hx Hypertension: Yes Hx Asthma: Yes Hx Diabetes: Yes - Type 2 Review of Systems All Other Systems: negative except mentioned in HPI Physical Exam Vital Signs Date Time Temp Pulse Resp B/P (MAP) Pulse Ox O2 Delivery O2 Flow Rate FiO2 12/15/18 10:52 99.3 107 21 109/62 84 Room Air 12/15/18 10:54 6.0 12/15/18 10:54 96 Sp02 EP Interpretation: reviewed, normal General Appearance: no apparent distress, alert, GCS 15, non-toxic Head: normocephalic Eyes: bilateral eye normal inspection, bilateral eye PERRL ENT: normal ENT inspection Neck: normal inspection Respiratory: chest non-tender, normal breath sounds, speaking full sentences, wheezing Cardiovascular #1: regular rate, rhythm, no edema Gastrointestinal: normal bowel sounds, non tender, soft, non-distended, no guarding, no rebound Rectal: deferred Genitourinary: no CVA tenderness Musculoskeletal: normal inspection Neurologic: alert, oriented x3, responsive, motor strength/tone normal, sensory intact, speech normal Psychiatric: normal inspection Skin: normal inspection Lymphatic: normal inspection Medical Decision Making Diagnostic Impression: Primary Impression: Influenza A Additional Impressions: Asthma Qualified Codes: J45.909 - Unspecified asthma, uncomplicated CHF (congestive heart failure) Qualified Codes: I50.9 - Heart failure, unspecified Elevated troponin ER Course Hospital Course 63-year-old M presenting to ED with respiratory distress, cough and crackles Differential diagnoses include: Pneumonia, CHF exacerbation, pneumothorax, fluid overload Clinical course Patient placed on stretcher. On guide visitor. After initial history and physical, I ordered nebulizer treatments. I ordered labs, IV fluids, EKG, chest x-ray, blood cultures, UA. Labs - no leukocytosis, hemoglobin/hematocrit stable, electrolytes ok, trop 0.420, BNP elevated, lactic ok CXR -cardiomegaly, interstitial congestion EKG- NSR, no acute ischemic changes interprted by me Patient denies chest pain. Influenza positive. Given aspirin. Given antibiotics. Given Tamiflu. given lasix Case discussed with Dr. Sullivan and he agreed to the patient to his service for further care and support I feel this is a highly complex case requiring extensive working including EKG/ Rhythm strip, Xray/CT/US, Blood/urine lab work, repeat exams while in ED, and administration of strong opiates/narcotics for pain control, admission to hospital or close patient follow up. Diagnosis - influenza A, asthma, CHF, elevated troponin Patient admitted to telemetry in serious condition Labs Test 12/15/18 11:15 12/15/18 12:40 White Blood Count 3.1 K/UL (4.8-10.8) Red Blood Count 2.67 M/UL (4.70-6.10) Hemoglobin 8.6 G/DL (14.2-18.0) Hematocrit 27.9 % (42.0-52.0) Mean Corpuscular Volume 105 FL (80-99) Mean Corpuscular Hemoglobin 32.3 PG (27.0-31.0) Mean Corpuscular Hemoglobin Concent 30.9 G/DL (32.0-36.0) Red Cell Distribution Width 13.7 % (11.6-14.8) Platelet Count 43 K/UL (150-450) Mean Platelet Volume 7.4 FL (6.5-10.1) Neutrophils (%) (Auto) % (45.0-75.0) Lymphocytes (%) (Auto) % (20.0-45.0) Monocytes (%) (Auto) % (1.0-10.0) Eosinophils (%) (Auto) % (0.0-3.0) Basophils (%) (Auto) % (0.0-2.0) Differential Total Cells Counted 100 Neutrophils % (Manual) 48 % (45-75) Lymphocytes % (Manual) 37 % (20-45) Monocytes % (Manual) 7 % (1-10) Eosinophils % (Manual) 0 % (0-3) Basophils % (Manual) 0 % (0-2) Band Neutrophils 8 % (0-8) Platelet Estimate Decreased Platelet Morphology Normal Hypochromasia 1+ Macrocytosis 2+ Sodium Level 138 MMOL/L (136-145) Potassium Level 3.8 MMOL/L (3.5-5.1) Chloride Level 101 MMOL/L (98-107) Carbon Dioxide Level 29 MMOL/L (21-32) Anion Gap 8 mmol/L (5-15) Blood Urea Nitrogen 17 mg/dL (7-18) Creatinine 1.4 MG/DL (0.55-1.30) Estimat Glomerular Filtration Rate > 60 mL/min (>60) Glucose Level 126 MG/DL (74-106) Lactic Acid Level 1.30 mmol/L (0.4-2.0) Calcium Level 8.9 MG/DL (8.5-10.1) Total Bilirubin 1.9 MG/DL (0.2-1.0) Direct Bilirubin 0.5 MG/DL (0.0-0.3) Aspartate Amino Transf (AST/SGOT) 19 U/L (15-37) Alanine Aminotransferase (ALT/SGPT) 10 U/L (12-78) Alkaline Phosphatase 76 U/L (46-116) Total Creatine Kinase 397 U/L (26-308) Creatine Kinase MB 1.1 NG/ML (0.0-3.6) Creatine Kinase MB Relative Index 0.2 Troponin I 0.420 ng/mL (0.000-0.056) Pro-B-Type Natriuretic Peptide 2333 pg/mL (0-125) Total Protein 7.3 G/DL (6.4-8.2) Albumin 3.3 G/DL (3.4-5.0) Globulin 4.0 g/dL Albumin/Globulin Ratio 0.8 (1.0-2.7) Urine Color Brown Urine Appearance Clear Urine pH 6 (4.5-8.0) Urine Specific [place] 1.010 (1.005-1.035) Urine Protein 2+ (NEGATIVE) Urine Glucose (UA) Negative (NEGATIVE) Urine Ketones Negative (NEGATIVE) Urine Blood Negative (NEGATIVE) Urine Nitrite Negative (NEGATIVE) Urine Bilirubin Negative (NEGATIVE) Urine Urobilinogen 8 MG/DL (0.0-1.0) Urine Leukocyte Esterase 1+ (NEGATIVE) Urine RBC 0 /HPF (0 - 0) Urine WBC 0-2 /HPF (0 - 0) Urine Squamous Epithelial Cells None /LPF (NONE/OCC) Urine Bacteria Occasional /HPF (NONE) Urine Mucus Few /LPF (NONE/OCC) EKG Diagnostic Results Rate: normal Rhythm: NSR ST Segments: no acute changes ASA given to the pt in ED: No Rhythm Strip Diag. Results EP Interpretation: yes Rhythm: NSR, no PVC's, no ectopy Chest X-Ray Diagnostic Results Chest X-Ray Diagnostic Results : Chest X-Ray Ordered: Yes # of Views/Limited/Complete: 1 View Indication: Shortness of Breath EP Interpretation: Yes Interpretation: no pneumothorax, other - pulmonary congestion Impression: Other - chf Electronically Signed by: Electronically signed by Luan Khan MD Last Vital Signs Date Time Temp Pulse Resp B/P (MAP) Pulse Ox O2 Delivery O2 Flow Rate FiO2 12/15/18 12:25 99.1 95 21 93/47 98 Simple Mask 6.0 12/15/18 10:54 96 Status: improved Disposition: ADMITTED INPATIENT Condition: Serious Referrals: [facility],REFERRING (PCP) Luan Khan MD Dec 15, 2018 14:03
--- NOTE | 2018-12-15 14:57 | Consultation ---
History of Present Illness General Date patient seen: Dec 15, 2018 Chief Complaint: Dyspnea/Respdistress Present Illness HPI 63 y/o M with hx of DM, HTN, CAD s/p stents x5, asthma presents to ED on 12/15 with 2 days of SOB, dizziness, productive cough Denied f/c, CP Allergies: Coded Allergies: No Known Allergies (Unverified , 03/24/16) Medication History Scheduled Albuterol Sulfate (Ventolin Hfa), 1 PUFF INH EVERY 6 HOURS, (Reported) Albuterol Sulfate* (Albuterol Sulfate Mdi*), 2 PUFF INH Q6H Amlodipine Besylate* (Amlodipine Besylate*), 5 MG ORAL DAILY, (Reported) Amoxicillin* (Amoxil*), 500 MG ORAL THREE TIMES A DAY Aspirin* (Aspir-Low*), 81 MG ORAL DAILY, (Reported) Carvedilol* (Carvedilol*), 12.5 MG ORAL DAILY, (Reported) Furosemide* (Lasix*), 20 MG ORAL DAILY, (Reported) Ibuprofen* (Motrin*), 800 MG ORAL THREE TIMES A DAY, (Reported) Isosorbide Mononitrate (Isosorbide Mononitrate), 10 MG PO DAILY, (Reported) Lisinopril (Lisinopril*), 5 MG ORAL DAILY, (Reported) Losartan Potassium* (Losartan Potassium*), 50 MG ORAL DAILY, (Reported) Meloxicam* (Meloxicam*), 7.5 MG PO DAILY, (Reported) Metformin Hcl* (Metformin Hcl*), 500 MG ORAL TWICE A DAY, (Reported) Nitroglycerin (Nitroglycerin), 0.4 MG SL every 5 min x 3 dose, (Reported) Prednisone* (Prednisone*), 40 MG ORAL DAILY Ranolazine* (Ranexa*), 1,000 MG ORAL EVERY 12 HOURS, (Reported) Simvastatin (Zocor), 20 MG ORAL BEDTIME, (Reported) Tamoxifen Citrate* (Nolvadex*), 20 MG ORAL TWICE A DAY, (Reported) Scheduled PRN Acetaminophen With Codeine (T#3) (Tylenol With Codeine #3 Tablet), 1 TAB ORAL BID PRN for For Pain, (Reported) Famotidine (Famotidine), 20 MG ORAL BID PRN for heart burn , (Reported) Miscellaneous Medications Beclomethasone Dipropionate (Qvar), 80 MCG IH, (Reported) Patient History Healthcare decision maker Resuscitation status Advanced Directive on File Patient History Narrative Pmhx: as above Shx: Denies: smoking, alcohol use, drug use Fhx: non contributory Review of Systems ROS Narrative General Appearance: no apparent distress, alert, non-toxic HEENT: normocephalic normal ENT inspection Neck: normal inspection Respiratory: chest non-tender, normal breath sounds, speaking full sentences, wheezing Cardiovascular: regular rate, rhythm, no edema Gastrointestinal: normal bowel sounds, non tender, soft, non-distended, no guarding, no rebound Genitourinary: no CVA tenderness Musculoskeletal: normal inspection Neurologic: alert, oriented x3, responsive, motor strength/tone normal, sensory intact, speech normal Psychiatric: normal inspection Skin: normal inspection Physical Exam Physical Exam Narrative HEENT: Eyes: bilateral eye normal inspection, bilateral eye PERRL, normal ENT inspection Neck: normal inspection Respiratory: chest non-tender, normal breath sounds, speaking full sentences, wheezing Cardiovascular : regular rate, rhythm, no edema Gastrointestinal: normal bowel sounds, non tender, soft, non-distended, no guarding, no rebound Genitourinary: no CVA tenderness Musculoskeletal: normal inspection Neurologic: alert, oriented x3, responsive, motor strength/tone normal, sensory intact, speech normal Psychiatric: normal inspection Skin: normal inspection Last 24 Hour Vital Signs Date Time Temp Pulse Resp B/P (MAP) Pulse Ox O2 Delivery O2 Flow Rate FiO2 12/15/18 13:53 98.7 100 18 102/52 91 Nasal Cannula 3.0 12/15/18 12:25 99.1 95 21 93/47 98 Simple Mask 6.0 12/15/18 12:00 99 18 97 Simple Mask 6.0 12/15/18 11:49 96 25 96 12/15/18 11:32 97 23 98 12/15/18 11:20 93 24 100 Simple Mask 6.0 12/15/18 10:54 101 32 Simple Mask 6.0 96 12/15/18 10:54 99.3 101 32 109/62 96 Nasal Cannula 6.0 12/15/18 10:52 99.3 107 21 109/62 84 Room Air Laboratory Tests Test 12/15/18 11:15 12/15/18 12:40 White Blood Count 3.1 K/UL (4.8-10.8) L Red Blood Count 2.67 M/UL (4.70-6.10) L Hemoglobin 8.6 G/DL (14.2-18.0) L Hematocrit 27.9 % (42.0-52.0) L Mean Corpuscular Volume 105 FL (80-99) H Mean Corpuscular Hemoglobin 32.3 PG (27.0-31.0) H Mean Corpuscular Hemoglobin Concent 30.9 G/DL (32.0-36.0) L Red Cell Distribution Width 13.7 % (11.6-14.8) Platelet Count 43 K/UL (150-450) L Mean Platelet Volume 7.4 FL (6.5-10.1) Neutrophils (%) (Auto) % (45.0-75.0) Lymphocytes (%) (Auto) % (20.0-45.0) Monocytes (%) (Auto) % (1.0-10.0) Eosinophils (%) (Auto) % (0.0-3.0) Basophils (%) (Auto) % (0.0-2.0) Differential Total Cells Counted 100 Neutrophils % (Manual) 48 % (45-75) Lymphocytes % (Manual) 37 % (20-45) Monocytes % (Manual) 7 % (1-10) Eosinophils % (Manual) 0 % (0-3) Basophils % (Manual) 0 % (0-2) Band Neutrophils 8 % (0-8) Platelet Estimate Decreased L Platelet Morphology Normal Hypochromasia 1+ Macrocytosis 2+ Sodium Level 138 MMOL/L (136-145) Potassium Level 3.8 MMOL/L (3.5-5.1) Chloride Level 101 MMOL/L (98-107) Carbon Dioxide Level 29 MMOL/L (21-32) Anion Gap 8 mmol/L (5-15) Blood Urea Nitrogen 17 mg/dL (7-18) Creatinine 1.4 MG/DL (0.55-1.30) H Estimat Glomerular Filtration Rate > 60 mL/min (>60) Glucose Level 126 MG/DL (74-106) H Lactic Acid Level 1.30 mmol/L (0.4-2.0) Calcium Level 8.9 MG/DL (8.5-10.1) Total Bilirubin 1.9 MG/DL (0.2-1.0) H Direct Bilirubin 0.5 MG/DL (0.0-0.3) H Aspartate Amino Transf (AST/SGOT) 19 U/L (15-37) Alanine Aminotransferase (ALT/SGPT) 10 U/L (12-78) L Alkaline Phosphatase 76 U/L (46-116) Total Creatine Kinase 397 U/L (26-308) H Creatine Kinase MB 1.1 NG/ML (0.0-3.6) Creatine Kinase MB Relative Index 0.2 Troponin I 0.420 ng/mL (0.000-0.056) Pro-B-Type Natriuretic Peptide 2333 pg/mL (0-125) H Total Protein 7.3 G/DL (6.4-8.2) Albumin 3.3 G/DL (3.4-5.0) L Globulin 4.0 g/dL Albumin/Globulin Ratio 0.8 (1.0-2.7) L Urine Color Brown Urine Appearance Clear Urine pH 6 (4.5-8.0) Urine Specific [place] 1.010 (1.005-1.035) Urine Protein 2+ (NEGATIVE) H Urine Glucose (UA) Negative (NEGATIVE) Urine Ketones Negative (NEGATIVE) Urine Blood Negative (NEGATIVE) Urine Nitrite Negative (NEGATIVE) Urine Bilirubin Negative (NEGATIVE) Urine Urobilinogen 8 MG/DL (0.0-1.0) H Urine Leukocyte Esterase 1+ (NEGATIVE) H Urine RBC 0 /HPF (0 - 0) Urine WBC 0-2 /HPF (0 - 0) Urine Squamous Epithelial Cells None /LPF (NONE/OCC) Urine Bacteria Occasional /HPF (NONE) Urine Mucus Few /LPF (NONE/OCC) H Microbiology Date/Time Source Procedure Growth Status 12/15/18 11:15 Nasal Nares Influenza Types A,B Antigen (PEPE) - Final Complete Height (Feet): 6 Weight (Pounds): 327 Medications Current Medications Medications (Trade) Dose Ordered Sig/Saima Route PRN Reason Start Time Stop Time Status Last Admin Dose Admin Acetaminophen (Tylenol) 650 mg Q4H PRN ORAL Fever 12/15/18 13:30 01/14/19 13:29 Albuterol/ Ipratropium (Albuterol/ Ipratropium) 3 ml Q4H PRN HHN Shortness of Breath 2/27/19 13:30 12/20/18 13:29 Amlodipine Besylate (Norvasc) 5 mg DAILY ORAL 12/16/18 09:00 01/15/19 08:59 Aspirin (Ecotrin) 81 mg DAILY ORAL 12/16/18 09:00 01/15/19 08:59 Carvedilol (Coreg) 12.5 mg DAILY ORAL 12/16/18 09:00 01/15/19 08:59 Dextrose (Dextrose 50%) 25 ml Q30M PRN IV Hypoglycemia 12/15/18 13:30 01/14/19 13:29 Dextrose (Dextrose 50%) 50 ml Q30M PRN IV Hypoglycemia 12/15/18 13:30 01/14/19 13:29 Furosemide (Lasix) 40 mg EVERY 8 HOURS IV 12/15/18 22:00 01/14/19 21:59 Insulin Aspart (NovoLOG) BEFORE MEALS AND HS SUBQ 12/15/18 16:30 01/14/19 16:29 Ondansetron HCl (Zofran) 4 mg Q6H PRN IVP Nausea & Vomiting 12/15/18 13:30 01/14/19 13:29 Polyethylene Glycol (Miralax) 17 gm DAILYPRN PRN ORAL Constipation 12/15/18 13:30 01/14/19 13:29 Temazepam (Restoril) 15 mg HSPRN PRN ORAL Insomnia 12/15/18 13:30 12/22/18 13:29 Assessment/Plan Assessment/Plan Abx: Levaquin x1 12/15 Tamiflu x1 12/15 Assessment: URI/bronchitis 2ry to Influenza A -CXR: Pulmonary vascular congestion and prominence of the interstitium noted Afebrile Pancytopenia DM HTN CAD s/p stents x5 asthma Plan: -Continue Tamiflu #1/5 -f/u cx -Monitor CBC/CMP, temperatures -Droplets precautions -breathing treatments Thank you for this consultation. Will continue to follow along with you. Discussed with Marbella Medina M.D. Dec 15, 2018 14:57
[2018-12-15 16:00] VITALS: BP 107/57
--- NOTE | 2018-12-15 16:58 | Cardiology Report ---
APPROVED REPORT EXAM: Two-dimensional and M-mode echocardiogram with Doppler and color Doppler. INDICATION LV FUNCTION M-Mode DIMENSIONS IVSd0.9 (0.7-1.1cm)Left Atrium (MM)4.0 (1.6-4.0cm) LVDd5.4 (3.5-5.6cm)Aortic Root3.1 (2.0-3.7cm) PWd0.9 (0.7-1.1cm)Aortic Cusp Exc.2.4 (1.5-2.0cm) IVSs1.2 cm LVDs4.7 (2.5-4.0cm) PWs1.1 cm Normal left ventricular chamber size . Apical hypokinesis Left ventricular ejection fraction estimated to be50 %. Mild left ventricular hypertrophy. Anterior Echo-free space, may be due to pericardial fat or effusion. All other cardiac chamber sizes are within normal limits. Focal aortic valve sclerosis with adequate cusp excursion. Thickened mitral valve leaflets with normal excursion. Mitral annulus and aortic root calcification. Pulmonic valve not well visualized. Normal tricuspid valve structure. IVC dilated at 2.3 cm with physiologic collapse suggestive of increased RA pressure. A color flow and spectral Doppler study was performed and revealed: No evidence aortic insufficiency. Trace mitral regurgitation. Mitral diastolic velocities suggest reduced left ventricular relaxation c/w mild LV diastolic dysfunction (Grade I). Trace tricuspid regurgitation. Tricuspid systolic velocities suggests peak right ventricular systolic pressure of 24 mmHg.
--- NOTE | 2018-12-15 17:04 | NUR ---
CASE MANAGEMENT: INITIAL REVIEW 12/15/2018 63 YO M PRESENTED TO OUR ED FROM HOME CC: SOB. PMHx: DM. HTN. CAD. ASTHMA. SI: DYSPNEA. DIZZINESS. T 99.3 HR 107 RR 21 B/P 109/62 SATS 84% ON RA WBC 3.1 CR 1.4 GLU 126 TBILI 1.9 DBILI 0.5 ALT 10 TOTAL CK 397 TROPONIN 0.42 AND 0.384 BNP 2333 IS: DUO NEB HHN X1 NS BOLUS X1 SOLU MEDROL IV X1 INFLUENZA A(+) 2D ECHO (EF 50%) CXR (+ CHF) PATIENT ADMITTED TO TELE 12/15/2018 @ 1149 DCP: PATIENT TO BE DISCHARGED TO HOME ONCE MEDICALLY CLEARED. PLAN OF CARE: -Droplets precautions -breathing treatments Addendum: 12/15/18 at 1924 by Azul Morrell CM INTERQUAL MET FOR ACUTE
[2018-12-15] MEDS: NovoLOG Insulin Flexpen SUBQ SCH ×2 (17:11→22:19)
[2018-12-15] MEDS: Oseltamivir 75mg cap ORAL SCH (17:21)
[2018-12-15 18:57] LABS: INR 1.3 (0.9-1.1)
--- NOTE | 2018-12-15 19:26 | NUR ---
HAND-OFF: Report given to GREG Zazueta.
[2018-12-15 19:28] LABS: FERRITIN 696 NG/ML (8-388)
--- NOTE | 2018-12-15 19:30 | NUR ---
NURSE NOTES: Received report from Ovidio Lester RN. patient in bed asleep with no S/S of acute pain or discomfort at this time with at bedside. Kept clean, dry, and comfortable in bed. IV line intact and patent SL. Needs and anticipated and attended and safety precautions in place; siderails x3 up, call light within reach, bed in lowest position, brakes and alarm on at all times. Cardiac monitoring in place per protocol. On NC at 2L,tolerating well with 02 sat at 95%. Will continue plan of care and monitor for any changes noted.
[2018-12-15 19:46] LABS: % IRON SATURATION 6 % (15-50); IRON 12 ug/dL (50-175); TOTAL IRON BINDING CAPACITY 208 ug/dL (250-450)
[2018-12-15 20:00] VITALS: BP 143/70
--- NOTE | 2018-12-15 20:53 | Cardiology Progress Note ---
Assessment/Plan Assessment/Plan The patient is seen and examined, full consult note will be dictated. Objective Last 24 Hour Vital Signs Date Time Temp Pulse Resp B/P (MAP) Pulse Ox O2 Delivery O2 Flow Rate FiO2 12/15/18 16:00 94 12/15/18 16:00 98.1 90 20 107/57 (74) 94 12/15/18 14:36 Nasal Cannula 3.0 12/15/18 13:53 98.7 100 18 102/52 91 Nasal Cannula 3.0 12/15/18 12:25 99.1 95 21 93/47 98 Simple Mask 6.0 12/15/18 12:00 99 18 97 Simple Mask 6.0 12/15/18 11:49 96 25 96 12/15/18 11:32 97 23 98 12/15/18 11:20 93 24 100 Simple Mask 6.0 12/15/18 10:54 101 32 Simple Mask 6.0 96 12/15/18 10:54 99.3 101 32 109/62 96 Nasal Cannula 6.0 12/15/18 10:52 99.3 107 21 109/62 84 Room Air Laboratory Tests Test 12/15/18 11:15 12/15/18 12:40 12/15/18 14:50 12/15/18 18:20 White Blood Count 3.1 K/UL (4.8-10.8) L Red Blood Count 2.67 M/UL (4.70-6.10) L Hemoglobin 8.6 G/DL (14.2-18.0) L Hematocrit 27.9 % (42.0-52.0) L Mean Corpuscular Volume 105 FL (80-99) H Mean Corpuscular Hemoglobin 32.3 PG (27.0-31.0) H Mean Corpuscular Hemoglobin Concent 30.9 G/DL (32.0-36.0) L Red Cell Distribution Width 13.7 % (11.6-14.8) Platelet Count 43 K/UL (150-450) L Mean Platelet Volume 7.4 FL (6.5-10.1) Neutrophils (%) (Auto) % (45.0-75.0) Lymphocytes (%) (Auto) % (20.0-45.0) Monocytes (%) (Auto) % (1.0-10.0) Eosinophils (%) (Auto) % (0.0-3.0) Basophils (%) (Auto) % (0.0-2.0) Differential Total Cells Counted 100 Neutrophils % (Manual) 48 % (45-75) Lymphocytes % (Manual) 37 % (20-45) Monocytes % (Manual) 7 % (1-10) Eosinophils % (Manual) 0 % (0-3) Basophils % (Manual) 0 % (0-2) Band Neutrophils 8 % (0-8) Platelet Estimate Decreased L Platelet Morphology Normal Hypochromasia 1+ Macrocytosis 2+ Sodium Level 138 MMOL/L (136-145) Potassium Level 3.8 MMOL/L (3.5-5.1) Chloride Level 101 MMOL/L (98-107) Carbon Dioxide Level 29 MMOL/L (21-32) Anion Gap 8 mmol/L (5-15) Blood Urea Nitrogen 17 mg/dL (7-18) Creatinine 1.4 MG/DL (0.55-1.30) H Estimat Glomerular Filtration Rate > 60 mL/min (>60) Glucose Level 126 MG/DL (74-106) H Lactic Acid Level 1.30 mmol/L (0.4-2.0) Calcium Level 8.9 MG/DL (8.5-10.1) Total Bilirubin 1.9 MG/DL (0.2-1.0) H Direct Bilirubin 0.5 MG/DL (0.0-0.3) H Aspartate Amino Transf (AST/SGOT) 19 U/L (15-37) Alanine Aminotransferase (ALT/SGPT) 10 U/L (12-78) L Alkaline Phosphatase 76 U/L (46-116) Total Creatine Kinase 397 U/L (26-308) H Creatine Kinase MB 1.1 NG/ML (0.0-3.6) Creatine Kinase MB Relative Index 0.2 Troponin I 0.420 ng/mL (0.000-0.056) 0.384 ng/mL (0.000-0.056) Pro-B-Type Natriuretic Peptide 2333 pg/mL (0-125) H Total Protein 7.3 G/DL (6.4-8.2) Albumin 3.3 G/DL (3.4-5.0) L Globulin 4.0 g/dL Albumin/Globulin Ratio 0.8 (1.0-2.7) L Pending Urine Color Brown Urine Appearance Clear Urine pH 6 (4.5-8.0) Urine Specific [place] 1.010 (1.005-1.035) Urine Protein 2+ (NEGATIVE) H Urine Glucose (UA) Negative (NEGATIVE) Urine Ketones Negative (NEGATIVE) Urine Blood Negative (NEGATIVE) Urine Nitrite Negative (NEGATIVE) Urine Bilirubin Negative (NEGATIVE) Urine Urobilinogen 8 MG/DL (0.0-1.0) H Urine Leukocyte Esterase 1+ (NEGATIVE) H Urine RBC 0 /HPF (0 - 0) Urine WBC 0-2 /HPF (0 - 0) Urine Squamous Epithelial Cells None /LPF (NONE/OCC) Urine Bacteria Occasional /HPF (NONE) Urine Mucus Few /LPF (NONE/OCC) H Reticulocyte Count 0.4 % (0.0-2.0) Sickle Cell Screen Pending Haptoglobin Pending Prothrombin Time 13.4 SEC (9.30-11.50) H Prothromb Time International Ratio 1.3 (0.9-1.1) H Fibrinogen 751 mg/dL (200-400) H Iron Level 12 ug/dL (50-175) L Total Iron Binding Capacity 208 ug/dL (250-450) L Percent Iron Saturation 6 % (15-50) L Unsaturated Iron Binding 196 ug/dL (112-346) Ferritin 696 NG/ML (8-388) H Total Protein (PEP) Pending Albumin (PEP) Pending Globulin (PEP) Pending Evati-[id number] Pending Chpzz-6-Qhcchygng Pending Beta Globulins Pending Beta Gamma Globulin Pending PEP Abnormal Protein Bands Pending Protein Electrophoresis Interpret Pending Carcinoembryonic Antigen Pending Vitamin B12 Level 395 PG/ML (193-986) Folate 11.7 NG/ML (8.6-58.9) Hepatitis A IgM Antibody Pending Hepatitis B Surface Antigen Pending Hepatitis B Core IgM Antibody Pending Hepatitis C Antibody Pending HIV (1&2) Antibody Rapid Negative (NEGATIVE) Microbiology Date/Time Source Procedure Growth Status 12/15/18 11:15 Nasal Nares Influenza Types A,B Antigen (PEPE) - Final Complete Baljeet Cervantes MD Dec 15, 2018 20:53
[2018-12-15] MEDS ORDERED: Heparin 5000 units/ml inj SUBQ SCH (21:00)
[2018-12-15] MEDS ORDERED: Promethazine/Codeine 5ml UD ORAL PRN (22:15)
[2018-12-16] VITALS: BP 136/79
--- NOTE | 2018-12-16 00:48 | NUR ---
NURSE NOTES: Patient placed on NPO status after midnight for ABD US (complete) in the morning. Will continue to monitor
--- NOTE | 2018-12-16 01:54 | NUR ---
NURSE NOTES: Patient in bed asleep with no S/S of distress or discomfort noted. Will continue to monitor
[2018-12-16 04:00] VITALS: BP 103/65
[2018-12-16] MEDS: NovoLOG Insulin Flexpen SUBQ SCH ×4 (06:28→21:09)
[2018-12-16 07:09] LABS: ANION GAP 6 mmol/L (5-15); BLOOD UREA NITROGEN 24 mg/dL (7-18); CALCIUM 9.4 MG/DL (8.5-10.1); CARBON DIOXIDE 31 MMOL/L (21-32); CHLORIDE 105 MMOL/L (98-107); CREATININE 1.3 MG/DL (0.55-1.30); POTASSIUM 4.4 MMOL/L (3.5-5.1); SODIUM 142 MMOL/L (136-145)
--- NOTE | 2018-12-16 07:24 | NUR ---
CASE MANAGEMENT:REVIEW 12/16/18 SI: INFLUENZA A. CHF. ELEVATED TROPONIN 97.5 86 20 103/65 94% ON 3L/NC BUN+24 IS: NORVASC PO QD ASA PO QD COREG PO QD IV LASIX Q8HRS TAMIFLU PO BID : TELEMETRY STATUS DCP; FROM HOME PLAN: DROPLET PRECAUTION
--- NOTE | 2018-12-16 07:30 | NUR ---
HAND-OFF: Report given to Annalisa Vu RN. patient in stable condition, endorsed plan of care
[2018-12-16 08:28] VITALS: BP 118/76
[2018-12-16] MEDS: Carvedilol 12.5mg tab ORAL SCH (08:30)
[2018-12-16] MEDS: Oseltamivir 75mg cap ORAL SCH ×2 (08:30→17:39)
[2018-12-16] MEDS: Aspirin EC 81mg tab ORAL SCH (08:33)
--- NOTE | 2018-12-16 10:19 | Diagnostic Imaging Report ---
Indication: Cough Technique: One view of the chest Comparison: 06/08/2017 Findings: There is bilateral diffuse mild interstitial edema. The pleural spaces are clear. No focal airspace consolidation. The heart is mildly enlarged Impression: Cardiomegaly with mild bilateral interstitial edema
[2018-12-16] MEDS ORDERED: Promethazine/Codeine 5ml UD ORAL PRN (10:30)
--- NOTE | 2018-12-16 10:43 | Consultation ---
History of Present Illness General Date patient seen: Dec 16, 2018 Chief Complaint: Dyspnea/Respdistress Present Illness HPI 63-year-old male with hx of CHF, HTN, CAD, DM, COPD presented to ED for evaluation of shortness of breath and dizziness 2 days and productive cough. He had chills once last week. Denies chest pain. No other aggravating relieving factors. Denies any other associated symptoms. His troponin was elevated and he is admitted to telemetry for further work up. Allergies: Coded Allergies: No Known Allergies (Unverified , 03/24/16) Medication History Scheduled Albuterol Sulfate (Ventolin Hfa), 1 PUFF INH EVERY 6 HOURS, (Reported) Albuterol Sulfate* (Albuterol Sulfate Mdi*), 2 PUFF INH Q6H Amlodipine Besylate* (Amlodipine Besylate*), 5 MG ORAL DAILY, (Reported) Amoxicillin* (Amoxil*), 500 MG ORAL THREE TIMES A DAY Aspirin* (Aspir-Low*), 81 MG ORAL DAILY, (Reported) Carvedilol* (Carvedilol*), 12.5 MG ORAL DAILY, (Reported) Furosemide* (Lasix*), 20 MG ORAL DAILY, (Reported) Ibuprofen* (Motrin*), 800 MG ORAL THREE TIMES A DAY, (Reported) Isosorbide Mononitrate (Isosorbide Mononitrate), 10 MG PO DAILY, (Reported) Lisinopril (Lisinopril*), 5 MG ORAL DAILY, (Reported) Losartan Potassium* (Losartan Potassium*), 50 MG ORAL DAILY, (Reported) Meloxicam* (Meloxicam*), 7.5 MG PO DAILY, (Reported) Metformin Hcl* (Metformin Hcl*), 500 MG ORAL TWICE A DAY, (Reported) Nitroglycerin (Nitroglycerin), 0.4 MG SL every 5 min x 3 dose, (Reported) Prednisone* (Prednisone*), 40 MG ORAL DAILY Ranolazine* (Ranexa*), 1,000 MG ORAL EVERY 12 HOURS, (Reported) Simvastatin (Zocor), 20 MG ORAL BEDTIME, (Reported) Tamoxifen Citrate* (Nolvadex*), 20 MG ORAL TWICE A DAY, (Reported) Scheduled PRN Acetaminophen With Codeine (T#3) (Tylenol With Codeine #3 Tablet), 1 TAB ORAL BID PRN for For Pain, (Reported) Famotidine (Famotidine), 20 MG ORAL BID PRN for heart burn , (Reported) Miscellaneous Medications Beclomethasone Dipropionate (Qvar), 80 MCG IH, (Reported) Patient History Healthcare decision maker Resuscitation status Full Code Advanced Directive on File Past Medical/Surgical History Past Medical/Surgical History: (1) COPD (chronic obstructive pulmonary disease) (2) Morbid obesity (3) History of hypertension (4) Diabetes mellitus (5) CAD (coronary artery disease) (6) CHF (congestive heart failure) Review of Systems All Other Systems: negative except mentioned in HPI Physical Exam General Appearance: WD/WN, no apparent distress Lines, tubes and drains: peripheral HEENT: normocephalic, atraumatic Neck: non-tender, normal alignment Respiratory/Chest: chest wall non-tender, lungs clear Breasts: no masses Cardiovascular/Chest: normal peripheral pulses Abdomen: normal bowel sounds, non tender Extremities: normal range of motion Skin Exam: warm/dry Neurologic: telecommunications support II-XII grossly normal Last 24 Hour Vital Signs Date Time Temp Pulse Resp B/P (MAP) Pulse Ox O2 Delivery O2 Flow Rate FiO2 12/16/18 09:00 Nasal Cannula 3.0 12/16/18 08:30 84 118/76 12/16/18 08:30 84 118/76 12/16/18 08:28 97.6 84 21 118/76 (90) 94 12/16/18 08:10 Nasal Cannula 3.0 32 12/16/18 08:10 95 Nasal Cannula 3.0 32 12/16/18 08:10 91 22 Nasal Cannula 3.0 32 12/16/18 04:00 97.5 86 20 103/65 (78) 94 12/16/18 04:00 78 12/16/18 00:00 85 12/16/18 00:00 97.9 88 19 136/79 (98) 95 12/15/18 21:00 Nasal Cannula 3.0 12/15/18 20:00 87 12/15/18 20:00 97.6 86 18 143/70 (94) 94 12/15/18 16:00 94 12/15/18 16:00 98.1 90 20 107/57 (74) 94 12/15/18 14:36 Nasal Cannula 3.0 12/15/18 13:53 98.7 100 18 102/52 91 Nasal Cannula 3.0 12/15/18 12:25 99.1 95 21 93/47 98 Simple Mask 6.0 12/15/18 12:00 99 18 97 Simple Mask 6.0 12/15/18 11:49 96 25 96 12/15/18 11:32 97 23 98 12/15/18 11:20 93 24 100 Simple Mask 6.0 12/15/18 10:54 101 32 Simple Mask 6.0 96 12/15/18 10:54 99.3 101 32 109/62 96 Nasal Cannula 6.0 12/15/18 10:52 99.3 107 21 109/62 84 Room Air Intake and Output 12/15/18 12/16/18 19:00 07:00 Intake Total 740 ml Balance 740 ml Intake Oral 240 ml IV Total 500 ml # Voids 2 2 # Bowel Movements 1 Laboratory Tests Test 12/15/18 11:15 12/15/18 12:40 12/15/18 14:50 12/15/18 18:20 White Blood Count 3.1 K/UL (4.8-10.8) L Red Blood Count 2.67 M/UL (4.70-6.10) L Hemoglobin 8.6 G/DL (14.2-18.0) L Hematocrit 27.9 % (42.0-52.0) L Mean Corpuscular Volume 105 FL (80-99) H Mean Corpuscular Hemoglobin 32.3 PG (27.0-31.0) H Mean Corpuscular Hemoglobin Concent 30.9 G/DL (32.0-36.0) L Red Cell Distribution Width 13.7 % (11.6-14.8) Platelet Count 43 K/UL (150-450) L Mean Platelet Volume 7.4 FL (6.5-10.1) Neutrophils (%) (Auto) % (45.0-75.0) Lymphocytes (%) (Auto) % (20.0-45.0) Monocytes (%) (Auto) % (1.0-10.0) Eosinophils (%) (Auto) % (0.0-3.0) Basophils (%) (Auto) % (0.0-2.0) Differential Total Cells Counted 100 Neutrophils % (Manual) 48 % (45-75) Lymphocytes % (Manual) 37 % (20-45) Monocytes % (Manual) 7 % (1-10) Eosinophils % (Manual) 0 % (0-3) Basophils % (Manual) 0 % (0-2) Band Neutrophils 8 % (0-8) Platelet Estimate Decreased L Platelet Morphology Normal Hypochromasia 1+ Macrocytosis 2+ Sodium Level 138 MMOL/L (136-145) Potassium Level 3.8 MMOL/L (3.5-5.1) Chloride Level 101 MMOL/L (98-107) Carbon Dioxide Level 29 MMOL/L (21-32) Anion Gap 8 mmol/L (5-15) Blood Urea Nitrogen 17 mg/dL (7-18) Creatinine 1.4 MG/DL (0.55-1.30) H Estimat Glomerular Filtration Rate > 60 mL/min (>60) Glucose Level 126 MG/DL (74-106) H Lactic Acid Level 1.30 mmol/L (0.4-2.0) Calcium Level 8.9 MG/DL (8.5-10.1) Total Bilirubin 1.9 MG/DL (0.2-1.0) H Direct Bilirubin 0.5 MG/DL (0.0-0.3) H Aspartate Amino Transf (AST/SGOT) 19 U/L (15-37) Alanine Aminotransferase (ALT/SGPT) 10 U/L (12-78) L Alkaline Phosphatase 76 U/L (46-116) Total Creatine Kinase 397 U/L (26-308) H Creatine Kinase MB 1.1 NG/ML (0.0-3.6) Creatine Kinase MB Relative Index 0.2 Troponin I 0.420 ng/mL (0.000-0.056) 0.384 ng/mL (0.000-0.056) Pro-B-Type Natriuretic Peptide 2333 pg/mL (0-125) H Total Protein 7.3 G/DL (6.4-8.2) Albumin 3.3 G/DL (3.4-5.0) L Globulin 4.0 g/dL Albumin/Globulin Ratio 0.8 (1.0-2.7) L Pending Urine Color Brown Urine Appearance Clear Urine pH 6 (4.5-8.0) Urine Specific [place] 1.010 (1.005-1.035) Urine Protein 2+ (NEGATIVE) H Urine Glucose (UA) Negative (NEGATIVE) Urine Ketones Negative (NEGATIVE) Urine Blood Negative (NEGATIVE) Urine Nitrite Negative (NEGATIVE) Urine Bilirubin Negative (NEGATIVE) Urine Urobilinogen 8 MG/DL (0.0-1.0) H Urine Leukocyte Esterase 1+ (NEGATIVE) H Urine RBC 0 /HPF (0 - 0) Urine WBC 0-2 /HPF (0 - 0) Urine Squamous Epithelial Cells None /LPF (NONE/OCC) Urine Bacteria Occasional /HPF (NONE) Urine Mucus Few /LPF (NONE/OCC) H Reticulocyte Count 0.4 % (0.0-2.0) Sickle Cell Screen Pending Haptoglobin Pending Prothrombin Time 13.4 SEC (9.30-11.50) H Prothromb Time International Ratio 1.3 (0.9-1.1) H Fibrinogen 751 mg/dL (200-400) H Iron Level 12 ug/dL (50-175) L Total Iron Binding Capacity 208 ug/dL (250-450) L Percent Iron Saturation 6 % (15-50) L Unsaturated Iron Binding 196 ug/dL (112-346) Ferritin 696 NG/ML (8-388) H Total Protein (PEP) Pending Albumin (PEP) Pending Globulin (PEP) Pending Hmqou-8-Rpvikpnas Pending Qdlis-6-Smeekmblv Pending Beta Globulins Pending Beta Gamma Globulin Pending PEP Abnormal Protein Bands Pending Protein Electrophoresis Interpret Pending Carcinoembryonic Antigen Pending Vitamin B12 Level 395 PG/ML (193-986) Folate 11.7 NG/ML (8.6-58.9) Hepatitis A IgM Antibody Pending Hepatitis B Surface Antigen Pending Hepatitis B Core IgM Antibody Pending Hepatitis C Antibody Pending HIV (1&2) Antibody Rapid Negative (NEGATIVE) Test 12/16/18 06:15 Sodium Level 142 MMOL/L (136-145) Potassium Level 4.4 MMOL/L (3.5-5.1) Chloride Level 105 MMOL/L (98-107) Carbon Dioxide Level 31 MMOL/L (21-32) Anion Gap 6 mmol/L (5-15) Blood Urea Nitrogen 24 mg/dL (7-18) H Creatinine 1.3 MG/DL (0.55-1.30) Estimat Glomerular Filtration Rate > 60 mL/min (>60) Glucose Level 150 MG/DL (74-106) H Calcium Level 9.4 MG/DL (8.5-10.1) Troponin I 0.197 ng/mL (0.000-0.056) Microbiology Date/Time Source Procedure Growth Status 12/15/18 11:15 Nasal Nares Influenza Types A,B Antigen (PEPE) - Final Complete Height (Feet): 6 Height (Inches): 0.00 Weight (Pounds): 327 Medications Current Medications Medications (Trade) Dose Ordered Sig/Saima Route PRN Reason Start Time Stop Time Status Last Admin Dose Admin Acetaminophen (Tylenol) 650 mg Q4H PRN ORAL Fever 12/15/18 13:30 01/14/19 13:29 Albuterol/ Ipratropium (Albuterol/ Ipratropium) 3 ml Q4H PRN HHN Shortness of Breath 12/15/18 13:30 12/20/18 13:29 Amlodipine Besylate (Norvasc) 5 mg DAILY ORAL 12/16/18 09:00 01/15/19 08:59 12/16/18 08:30 Aspirin (Ecotrin) 81 mg DAILY ORAL 12/16/18 09:00 01/15/19 08:59 Carvedilol (Coreg) 12.5 mg DAILY ORAL 12/16/18 09:00 01/15/19 08:59 12/16/18 08:30 Dextrose (Dextrose 50%) 25 ml Q30M PRN IV Hypoglycemia 12/15/18 13:30 01/14/19 13:29 Dextrose (Dextrose 50%) 50 ml Q30M PRN IV Hypoglycemia 12/15/18 13:30 01/14/19 13:29 Furosemide (Lasix) 40 mg EVERY 8 HOURS IV 12/15/18 22:00 01/14/19 21:59 12/16/18 06:25 Insulin Aspart (NovoLOG) BEFORE MEALS AND HS SUBQ 12/15/18 16:30 01/14/19 16:29 12/16/18 06:28 Ondansetron HCl (Zofran) 4 mg Q6H PRN IVP Nausea & Vomiting 12/15/18 13:30 01/14/19 13:29 Oseltamivir Phosphate (Tamiflu) 75 mg TWICE A DAY ORAL 12/15/18 18:00 12/20/18 17:59 12/16/18 08:30 Polyethylene Glycol (Miralax) 17 gm DAILYPRN PRN ORAL Constipation 12/15/18 13:30 01/14/19 13:29 Promethazine HCl/ Codeine (Phenergan with Codeine) 5 ml Q6HR PRN ORAL For Cough 12/15/18 22:15 01/14/19 22:14 12/15/18 23:00 Temazepam (Restoril) 15 mg HSPRN PRN ORAL Insomnia 12/15/18 13:30 12/22/18 13:29 Assessment/Plan Problem List: (1) Acute bronchitis ICD Codes: J20.9 - Acute bronchitis, unspecified SNOMED: 34660163 (2) ACS (acute coronary syndrome) ICD Codes: I24.9 - Acute ischemic heart disease, unspecified SNOMED: 253544830 (3) Severe anemia ICD Codes: D64.9 - Anemia, unspecified SNOMED: 028958220 (4) COPD (chronic obstructive pulmonary disease) ICD Codes: J44.9 - Chronic obstructive pulmonary disease, unspecified SNOMED: 65987685 (5) Diabetes mellitus ICD Codes: E11.9 - Type 2 diabetes mellitus without complications SNOMED: 83934053 (6) History of hypertension ICD Codes: Z86.79 - Personal history of other diseases of the circulatory system SNOMED: 115493620 (7) Morbid obesity ICD Codes: E66.01 - Morbid (severe) obesity due to excess calories SNOMED: 155075231 Assessment/Plan respiratory treatment check sputum iv abx anemia w/u pt is not in heart failure sliding scale diabetic diet echocardiogram Natalya Hargrove MD Dec 16, 2018 10:43
--- NOTE | 2018-12-16 10:45 | NUR ---
RADIOLOGY DEPT CHEST X-RAY DONE.-P.DYE
--- NOTE | 2018-12-16 11:02 | Diagnostic Imaging Report ---
Indication: Abdominal distention, abnormal liver function tests, history of cirrhosis Technique: Vicente-scale and duplex images of the upper abdomen were obtained Comparison: none Findings: Gallbladder demonstrate wall thickening. No stones. No pericholecystic fluid. Sonographic Renae's sign is negative Common bile duct measures 4 mm in diameter. No intrahepatic biliary ductal dilatation. Liver demonstrates increased echogenicity, likely due to fatty change. Area of focal sparing is seen in the usual location adjacent to the gallbladder fossa Portal vein and hepatic veins are patent. To and fro flow is seen within the left portal vein. Hepatopedal flow is seen within the main and right portal veins Pancreas is obscured by bowel gas. Spleen is unremarkable. Left kidney measures 14.4 cm in length. Right kidney measures 12 point cm length. Both kidneys demonstrate normal echogenicity. Both kidneys demonstrate cysts. No focal abnormality . Abdominal aorta is partially obscured by bowel gas, visualized portions are non-aneurysmal . Impression: Increased hepatic echogenicity, consistent with hepatocellular disease, likely fatty change. To and fro flow within the left portal vein, could indicate hypertension Negative for gallstones. However, mild gallbladder wall thickening is noted. This could be an artifact of under distention or could be related to the hepatocellular changes, but the possibility of acute acalculous cholecystitis should also be considered. Consider hepatobiliary nuclear scan if there is high clinical suspicion Negative for dilated bile ducts Area of focal sparing of the fatty liver noted adjacent to the gallbladder fossa Incidental finding bilateral renal cysts Note inability to visualize pancreas and portions of the abdominal aorta
[2018-12-16 11:33] LABS: INR 1.2 (0.9-1.1)
[2018-12-16 11:38] LABS: LACTATE DEHYDROGENASE 185 U/L (81-234)
--- NOTE | 2018-12-16 11:56 | Diagnostic Imaging Report ---
APPROVED REPORT CPT Code: 91864 Present Symptoms Comments: TDS due to the body habitus BILATERAL: Imaging reveals a patent deep venous system bilaterally. There is no evidence of thrombus within the common femoral, superficial femoral, popliteal or tibial segments. The greater saphenous veins are within normal limits. Doppler indicates normal spontaneous flow within these segments.
[2018-12-16 12:00] VITALS: BP 95/53
[2018-12-16 12:07] LABS: % IRON SATURATION 20 % (15-50); IRON 36 ug/dL (50-175); TOTAL IRON BINDING CAPACITY 184 ug/dL (250-450)
[2018-12-16 16:00] VITALS: BP 110/65
--- NOTE | 2018-12-16 16:07 | Infectious Diseases Prog Note ---
Assessment/Plan Assessment/Plan Assessment: URI/bronchitis 2ry to Influenza A -12/15 CXR: Cardiomegaly with mild bilateral interstitial edema -CXR: Pulmonary vascular congestion and prominence of the interstitium noted Afebrile Pancytopenia DM HTN CAD s/p stents x5 asthma Plan: -Continue Tamiflu #2/5 -Levaquin #2/5 per pulm -f/u cx -Monitor CBC/CMP, temperatures -Droplets precautions -breathing treatments Thank you for this consultation. Will continue to follow along with you. Discussed with RN. Subjective Allergies: Coded Allergies: No Known Allergies (Unverified , 03/24/16) Subjective afebrile at 3l NC Objective Vital Signs Last 24 Hour Vital Signs Date Time Temp Pulse Resp B/P (MAP) Pulse Ox O2 Delivery O2 Flow Rate FiO2 12/16/18 15:30 81 20 100 Nasal Cannula 3.0 32 12/16/18 15:26 81 21 98 Nasal Cannula 3.0 32 12/16/18 12:00 86 12/16/18 12:00 97.0 87 22 95/53 (67) 95 12/16/18 09:00 Nasal Cannula 3.0 12/16/18 08:30 84 118/76 12/16/18 08:30 84 118/76 12/16/18 08:28 97.6 84 21 118/76 (90) 94 12/16/18 08:10 Nasal Cannula 3.0 32 12/16/18 08:10 95 Nasal Cannula 3.0 32 12/16/18 08:10 91 22 Nasal Cannula 3.0 32 12/16/18 08:00 88 12/16/18 04:00 97.5 86 20 103/65 (78) 94 12/16/18 04:00 78 12/16/18 00:00 85 12/16/18 00:00 97.9 88 19 136/79 (98) 95 12/15/18 21:00 Nasal Cannula 3.0 12/15/18 20:00 87 12/15/18 20:00 97.6 86 18 143/70 (94) 94 Height (Feet): 6 Height (Inches): 0.00 Weight (Pounds): 327 Objective General Appearance: no apparent distress, alert, non-toxic HEENT: normocephalic normal ENT inspection Neck: normal inspection Respiratory: chest non-tender, normal breath sounds, speaking full sentences, wheezing Cardiovascular: regular rate, rhythm, no edema Gastrointestinal: normal bowel sounds, non tender, soft, non-distended, no guarding, no rebound Genitourinary: no CVA tenderness Musculoskeletal: normal inspection Neurologic: alert, oriented x3, responsive, motor strength/tone normal, sensory intact, speech normal Psychiatric: normal inspection Skin: normal inspection Microbiology Date/Time Source Procedure Growth Status 12/15/18 11:15 Nasal Nares Influenza Types A,B Antigen (PEPE) - Final Complete Laboratory Tests Test 12/15/18 18:20 12/16/18 06:15 12/16/18 10:20 12/16/18 11:14 Reticulocyte Count 0.4 % (0.0-2.0) 0.4 % (0.0-2.0) Sickle Cell Screen Negative (Negative) Haptoglobin Pending Prothrombin Time 13.4 SEC (9.30-11.50) H 12.7 SEC (9.30-11.50) H Prothromb Time International Ratio 1.3 (0.9-1.1) H 1.2 (0.9-1.1) H Fibrinogen 751 mg/dL (200-400) H Iron Level 12 ug/dL (50-175) L 36 ug/dL (50-175) L Total Iron Binding Capacity 208 ug/dL (250-450) L 184 ug/dL (250-450) L Percent Iron Saturation 6 % (15-50) L 20 % (15-50) Unsaturated Iron Binding 196 ug/dL (112-346) 148 ug/dL (112-346) Ferritin 696 NG/ML (8-388) H Total Protein (PEP) 6.8 g/dL (6.0-8.5) Albumin (PEP) 3.2 g/dL (2.9-4.4) Globulin (PEP) 3.6 g/dL (2.2-3.9) Albumin/Globulin Ratio 0.9 (0.7-1.7) Csvsc-7-Fpfzlwrcj 0.5 g/dL (0.0-0.4) H Nuqmj-4-Kmzfrrfrw 0.7 g/dL (0.4-1.0) Beta Globulins 1.0 g/dL (0.7-1.3) Beta Gamma Globulin 1.3 g/dL (0.4-1.8) PEP Abnormal Protein Bands Not observed g/dL (Not Protein Electrophoresis Interpret Comment (.) Carcinoembryonic Antigen 1.6 ng/mL (0.0-4.7) Pending Vitamin B12 Level 395 PG/ML (193-986) 484 PG/ML (193-986) Folate 11.7 NG/ML (8.6-58.9) 12.9 NG/ML (8.6-58.9) Hepatitis A IgM Antibody Negative (Negative) Hepatitis B Surface Antigen Negative (Negative) Hepatitis B Core IgM Antibody Negative (Negative) Hepatitis C Antibody <0.1 s/co ratio HIV (1&2) Antibody Rapid Negative (NEGATIVE) Sodium Level 142 MMOL/L (136-145) Potassium Level 4.4 MMOL/L (3.5-5.1) Chloride Level 105 MMOL/L (98-107) Carbon Dioxide Level 31 MMOL/L (21-32) Anion Gap 6 mmol/L (5-15) Blood Urea Nitrogen 24 mg/dL (7-18) H Creatinine 1.3 MG/DL (0.55-1.30) Estimat Glomerular Filtration Rate > 60 mL/min (>60) Glucose Level 150 MG/DL (74-106) H Calcium Level 9.4 MG/DL (8.5-10.1) Troponin I 0.197 ng/mL (0.000-0.056) Stool Occult Blood Pending Erythrocyte Sedimentation Rate 122 MM/HR (0-20) H Activated Partial Thromboplast Time 35 SEC (23-33) H Lactate Dehydrogenase 185 U/L (81-234) Current Medications Medications (Trade) Dose Ordered Sig/Saima Route PRN Reason Start Time Stop Time Status Last Admin Dose Admin Acetaminophen (Tylenol) 650 mg Q4H PRN ORAL Fever 12/15/18 13:30 01/14/19 13:29 Albuterol/ Ipratropium (Albuterol/ Ipratropium) 3 ml Q4H PRN HHN Shortness of Breath 12/15/18 13:30 12/20/18 13:29 Amlodipine Besylate (Norvasc) 5 mg DAILY ORAL 12/16/18 09:00 01/15/19 08:59 12/16/18 08:30 Aspirin (Ecotrin) 81 mg DAILY ORAL 12/16/18 09:00 01/15/19 08:59 Carvedilol (Coreg) 12.5 mg DAILY ORAL 12/16/18 09:00 01/15/19 08:59 12/16/18 08:30 Dextrose (Dextrose 50%) 25 ml Q30M PRN IV Hypoglycemia 12/15/18 13:30 01/14/19 13:29 Dextrose (Dextrose 50%) 50 ml Q30M PRN IV Hypoglycemia 12/15/18 13:30 01/14/19 13:29 Furosemide (Lasix) 40 mg DAILY IV 12/17/18 09:00 01/14/19 21:59 Insulin Aspart (NovoLOG) BEFORE MEALS AND HS SUBQ 12/15/18 16:30 01/14/19 16:29 12/16/18 12:19 Levofloxacin 100 ml @ 100 mls/hr Q24H IVPB 12/16/18 12:00 12/23/18 11:59 12/16/18 12:19 Ondansetron HCl (Zofran) 4 mg Q6H PRN IVP Nausea & Vomiting 12/15/18 13:30 01/14/19 13:29 Oseltamivir Phosphate (Tamiflu) 75 mg TWICE A DAY ORAL 12/15/18 18:00 12/20/18 17:59 12/16/18 08:30 Polyethylene Glycol (Miralax) 17 gm DAILYPRN PRN ORAL Constipation 12/15/18 13:30 01/14/19 13:29 Promethazine HCl/ Codeine (Phenergan with Codeine) 5 ml Q4H PRN ORAL For Cough 12/16/18 10:30 01/15/19 10:29 Temazepam (Restoril) 15 mg HSPRN PRN ORAL Insomnia 12/15/18 13:30 12/22/18 13:29 Theophylline (Ismael-Dur) 100 mg EVERY 12 HOURS ORAL 12/16/18 21:00 01/15/19 20:59 Marbella Lynn M.D. Dec 16, 2018 16:07
--- NOTE | 2018-12-16 19:44 | NUR ---
HAND-OFF: Report given to DEVON GARZA.
[2018-12-16 20:00] VITALS: BP 108/73
[2018-12-16] MEDS: Theophylline ER 100mg ORAL SCH (21:07)
[2018-12-17] VITALS: BP 107/64
[2018-12-17 04:00] VITALS: BP 121/66
[2018-12-17] MEDS: NovoLOG Insulin Flexpen SUBQ SCH (05:56)
--- NOTE | 2018-12-17 07:13 | NUR ---
HAND-OFF: Report given to Ovidio Lester RN. Patient in stable condition, endorsed plan of care.
--- NOTE | 2018-12-17 07:14 | NUR ---
NURSE NOTES: Received report from GREG Zazueta. Pt is lying comfortably in semi-fowlers with no sign of distress. Pt is A+Ox4 and denies pain/SOB. Respirations are even and unlabored on room air. IV site is patent, intact, and saline locked. Bed is at lowest position, brakes engaged, side rails x2, bed side table and call light within reach. Pt is in stable condition at this time; will continue to monitor.
[2018-12-17 07:22] LABS: HEMATOCRIT 27.9 % (42.0-52.0); HEMOGLOBIN 8.7 G/DL (14.2-18.0); MEAN CORPUSCULAR VOLUME 105 FL (80-99); PLATELET COUNT 44 K/UL (150-450); RED BLOOD COUNT 2.67 M/UL (4.70-6.10); RED CELL DISTRIBUTION WIDTH 13.6 % (11.6-14.8); WHITE BLOOD COUNT 2.6 K/UL (4.8-10.8)
[2018-12-17 07:44] LABS: ANION GAP 6 mmol/L (5-15); BLOOD UREA NITROGEN 28 mg/dL (7-18); CALCIUM 9.2 MG/DL (8.5-10.1); CARBON DIOXIDE 31 MMOL/L (21-32); CHLORIDE 104 MMOL/L (98-107); CREATININE 1.3 MG/DL (0.55-1.30); SODIUM 141 MMOL/L (136-145)
[2018-12-17 08:00] VITALS: BP 98/65
[2018-12-17] MEDS ORDERED: TAMIFLU75 MG ORAL (08:44)
--- NOTE | 2018-12-17 08:47 | Consultation ---
Consult Note Assessment/Plan Patient seen at the request of HMO Discussed with Dr Sullivan yesterday Will dc home on Tamiflu and tapering steroids Jaskaran Ac MD Dec 17, 2018 08:47
[2018-12-17] MEDS: Carvedilol 12.5mg tab ORAL SCH (09:00)
[2018-12-17] MEDS: Aspirin EC 81mg tab ORAL SCH (09:10)
[2018-12-17] MEDS: Theophylline ER 100mg ORAL SCH (09:10)
[2018-12-17] MEDS: Oseltamivir 75mg cap ORAL SCH (09:10)
[2018-12-17 09:15] VITALS: BP 104/63
--- NOTE | 2018-12-17 09:55 | NUR ---
NURSE NOTES: Patient discharged home per Dr. Ac's order. All discharge instructions explained to patient and girl friend, verbalized understanding. Herat monitor removed and returned to quality assurance monitor chassis, ID band removed and placed in shredder, IV removed. Patient received a new prescription as well, patient received all his belongings and the vasquez money. Patient discharged home, self care in stable condition.
--- NOTE | 2018-12-17 10:26 | NUR ---
REHAB MED PT NOTE CONSULT KATRINA MACIAS COMPLETED, PATIENT REFUSED THE NEED FOR CONTINUED PT, AMBULATES WITH SPC WITH SUPERVISION. NO SKILLD NEEDS AT THIS TIME, DC PT. ALEENA ARBOLEDA PT DPT Addendum: 12/17/18 at 1026 by ALEENA ARBOLEDA PT Amended: Links added.
--- NOTE | 2018-12-17 10:43 | Consultation ---
Consult Note Consult Note History of Present Illness General Date patient seen: December 17, 2018 Chief Complaint: Dyspnea Present Illness HPI 63-year-old male with hx of CHF, HTN, CAD, DM, COPD presented to ED for evaluation of shortness of breath and dizziness 2 days and productive cough. He had chills once last week. Denies chest pain. No other aggravating relieving factors. Denies any other associated symptoms. His troponin was elevated and he is admitted to telemetry for further work up. he was also found to be positive for influenza. Allergies: Coded Allergies: No Known Allergies (Unverified , 03/24/16) Medication History Scheduled Albuterol Sulfate (Ventolin Hfa), 1 PUFF INH EVERY 6 HOURS, (Reported) Albuterol Sulfate* (Albuterol Sulfate Mdi*), 2 PUFF INH Q6H Amlodipine Besylate* (Amlodipine Besylate*), 5 MG ORAL DAILY, (Reported) Amoxicillin* (Amoxil*), 500 MG ORAL THREE TIMES A DAY Aspirin* (Aspir-Low*), 81 MG ORAL DAILY, (Reported) Carvedilol* (Carvedilol*), 12.5 MG ORAL DAILY, (Reported) Furosemide* (Lasix*), 20 MG ORAL DAILY, (Reported) Ibuprofen* (Motrin*), 800 MG ORAL THREE TIMES A DAY, (Reported) Isosorbide Mononitrate (Isosorbide Mononitrate), 10 MG PO DAILY, (Reported) Lisinopril (Lisinopril*), 5 MG ORAL DAILY, (Reported) Losartan Potassium* (Losartan Potassium*), 50 MG ORAL DAILY, (Reported) Meloxicam* (Meloxicam*), 7.5 MG PO DAILY, (Reported) Metformin Hcl* (Metformin Hcl*), 500 MG ORAL TWICE A DAY, (Reported) Nitroglycerin (Nitroglycerin), 0.4 MG SL every 5 min x 3 dose, (Reported) Prednisone* (Prednisone*), 40 MG ORAL DAILY Ranolazine* (Ranexa*), 1,000 MG ORAL EVERY 12 HOURS, (Reported) Simvastatin (Zocor), 20 MG ORAL BEDTIME, (Reported) Tamoxifen Citrate* (Nolvadex*), 20 MG ORAL TWICE A DAY, (Reported) Scheduled PRN Acetaminophen With Codeine (T#3) (Tylenol With Codeine #3 Tablet), 1 TAB ORAL BID PRN for For Pain, (Reported) Famotidine (Famotidine), 20 MG ORAL BID PRN for heart burn , (Reported) Miscellaneous Medications Beclomethasone Dipropionate (Qvar), 80 MCG IH, (Reported) Patient History Healthcare decision maker Resuscitation status Full Code Advanced Directive on File Past Medical/Surgical History Past Medical/Surgical History: (1) COPD (chronic obstructive pulmonary disease) (2) Morbid obesity (3) History of hypertension (4) Diabetes mellitus (5) CAD (coronary artery disease) (6) CHF (congestive heart failure) ROS Review of Systems All Other Systems: negative except mentioned in HPI Physical Exam Physical Exam General Appearance: WD/WN, no apparent distress Lines, tubes and drains: peripheral HEENT: normocephalic, atraumatic Neck: non-tender, normal alignment Respiratory/Chest: chest wall non-tender, lungs clear Breasts: no masses Cardiovascular/Chest: normal peripheral pulses Abdomen: normal bowel sounds, non tender Extremities: normal range of motion Skin Exam: warm/dry Neurologic: respiratory manager II-XII grossly normal Last 24 Hour Vital Signs Date Time Temp Pulse Resp B/P (MAP) Pulse Ox O2 Delivery O2 Flow Rate FiO2 12/16/18 09:00 Nasal Cannula 3.0 12/16/18 08:30 84 118/76 12/16/18 08:30 84 118/76 12/16/18 08:28 97.6 84 21 118/76 (90) 94 12/16/18 08:10 Nasal Cannula 3.0 32 12/16/18 08:10 95 Nasal Cannula 3.0 32 12/16/18 08:10 91 22 Nasal Cannula 3.0 32 12/16/18 04:00 97.5 86 20 103/65 (78) 94 12/16/18 04:00 78 12/16/18 00:00 85 12/16/18 00:00 97.9 88 19 136/79 (98) 95 12/15/18 21:00 Nasal Cannula 3.0 12/15/18 20:00 87 12/15/18 20:00 97.6 86 18 143/70 (94) 94 12/15/18 16:00 94 12/15/18 16:00 98.1 90 20 107/57 (74) 94 12/15/18 14:36 Nasal Cannula 3.0 12/15/18 13:53 98.7 100 18 102/52 91 Nasal Cannula 3.0 12/15/18 12:25 99.1 95 21 93/47 98 Simple Mask 6.0 12/15/18 12:00 99 18 97 Simple Mask 6.0 12/15/18 11:49 96 25 96 12/15/18 11:32 97 23 98 12/15/18 11:20 93 24 100 Simple Mask 6.0 12/15/18 10:54 101 32 Simple Mask 6.0 96 12/15/18 10:54 99.3 101 32 109/62 96 Nasal Cannula 6.0 12/15/18 10:52 99.3 107 21 109/62 84 Room Air Intake and Output 12/15/18 12/16/18 19:00 07:00 Intake Total 740 ml Balance 740 ml Intake Oral 240 ml IV Total 500 ml # Voids 2 2 # Bowel Movements 1 Laboratory Tests Test 12/15/18 11:15 12/15/18 12:40 12/15/18 14:50 12/15/18 18:20 White Blood Count 3.1 K/UL (4.8-10.8) L Red Blood Count 2.67 M/UL (4.70-6.10) L Hemoglobin 8.6 G/DL (14.2-18.0) L Hematocrit 27.9 % (42.0-52.0) L Mean Corpuscular Volume 105 FL (80-99) H Mean Corpuscular Hemoglobin 32.3 PG (27.0-31.0) H Mean Corpuscular Hemoglobin Concent 30.9 G/DL (32.0-36.0) L Red Cell Distribution Width 13.7 % (11.6-14.8) Platelet Count 43 K/UL (150-450) L Mean Platelet Volume 7.4 FL (6.5-10.1) Neutrophils (%) (Auto) % (45.0-75.0) Lymphocytes (%) (Auto) % (20.0-45.0) Monocytes (%) (Auto) % (1.0-10.0) Eosinophils (%) (Auto) % (0.0-3.0) Basophils (%) (Auto) % (0.0-2.0) Differential Total Cells Counted 100 Neutrophils % (Manual) 48 % (45-75) Lymphocytes % (Manual) 37 % (20-45) Monocytes % (Manual) 7 % (1-10) Eosinophils % (Manual) 0 % (0-3) Basophils % (Manual) 0 % (0-2) Band Neutrophils 8 % (0-8) Platelet Estimate Decreased L Platelet Morphology Normal Hypochromasia 1+ Macrocytosis 2+ Sodium Level 138 MMOL/L (136-145) Potassium Level 3.8 MMOL/L (3.5-5.1) Chloride Level 101 MMOL/L (98-107) Carbon Dioxide Level 29 MMOL/L (21-32) Anion Gap 8 mmol/L (5-15) Blood Urea Nitrogen 17 mg/dL (7-18) Creatinine 1.4 MG/DL (0.55-1.30) H Estimat Glomerular Filtration Rate > 60 mL/min (>60) Glucose Level 126 MG/DL (74-106) H Lactic Acid Level 1.30 mmol/L (0.4-2.0) Calcium Level 8.9 MG/DL (8.5-10.1) Total Bilirubin 1.9 MG/DL (0.2-1.0) H Direct Bilirubin 0.5 MG/DL (0.0-0.3) H Aspartate Amino Transf (AST/SGOT) 19 U/L (15-37) Alanine Aminotransferase (ALT/SGPT) 10 U/L (12-78) L Alkaline Phosphatase 76 U/L (46-116) Total Creatine Kinase 397 U/L (26-308) H Creatine Kinase MB 1.1 NG/ML (0.0-3.6) Creatine Kinase MB Relative Index 0.2 Troponin I 0.420 ng/mL (0.000-0.056) 0.384 ng/mL (0.000-0.056) Pro-B-Type Natriuretic Peptide 2333 pg/mL (0-125) H Total Protein 7.3 G/DL (6.4-8.2) Albumin 3.3 G/DL (3.4-5.0) L Globulin 4.0 g/dL Albumin/Globulin Ratio 0.8 (1.0-2.7) L Pending Urine Color Brown Urine Appearance Clear Urine pH 6 (4.5-8.0) Urine Specific [place] 1.010 (1.005-1.035) Urine Protein 2+ (NEGATIVE) H Urine Glucose (UA) Negative (NEGATIVE) Urine Ketones Negative (NEGATIVE) Urine Blood Negative (NEGATIVE) Urine Nitrite Negative (NEGATIVE) Urine Bilirubin Negative (NEGATIVE) Urine Urobilinogen 8 MG/DL (0.0-1.0) H Urine Leukocyte Esterase 1+ (NEGATIVE) H Urine RBC 0 /HPF (0 - 0) Urine WBC 0-2 /HPF (0 - 0) Urine Squamous Epithelial Cells None /LPF (NONE/OCC) Urine Bacteria Occasional /HPF (NONE) Urine Mucus Few /LPF (NONE/OCC) H Reticulocyte Count 0.4 % (0.0-2.0) Sickle Cell Screen Pending Haptoglobin Pending Prothrombin Time 13.4 SEC (9.30-11.50) H Prothromb Time International Ratio 1.3 (0.9-1.1) H Fibrinogen 751 mg/dL (200-400) H Iron Level 12 ug/dL (50-175) L Total Iron Binding Capacity 208 ug/dL (250-450) L Percent Iron Saturation 6 % (15-50) L Unsaturated Iron Binding 196 ug/dL (112-346) Ferritin 696 NG/ML (8-388) H Total Protein (PEP) Pending Albumin (PEP) Pending Globulin (PEP) Pending Iwydq-[id number] Pending Edagk-4-Dhvtpuzhj Pending Beta Globulins Pending Beta Gamma Globulin Pending PEP Abnormal Protein Bands Pending Protein Electrophoresis Interpret Pending Carcinoembryonic Antigen Pending Vitamin B12 Level 395 PG/ML (193-986) Folate 11.7 NG/ML (8.6-58.9) Hepatitis A IgM Antibody Pending Hepatitis B Surface Antigen Pending Hepatitis B Core IgM Antibody Pending Hepatitis C Antibody Pending HIV (1&2) Antibody Rapid Negative (NEGATIVE) Test 12/16/18 06:15 Sodium Level 142 MMOL/L (136-145) Potassium Level 4.4 MMOL/L (3.5-5.1) Chloride Level 105 MMOL/L (98-107) Carbon Dioxide Level 31 MMOL/L (21-32) Anion Gap 6 mmol/L (5-15) Blood Urea Nitrogen 24 mg/dL (7-18) H Creatinine 1.3 MG/DL (0.55-1.30) Estimat Glomerular Filtration Rate > 60 mL/min (>60) Glucose Level 150 MG/DL (74-106) H Calcium Level 9.4 MG/DL (8.5-10.1) Troponin I 0.197 ng/mL (0.000-0.056) Microbiology Date/Time Source Procedure Growth Status 12/15/18 11:15 Nasal Nares Influenza Types A,B Antigen (PEPE) - Final Complete Height (Feet): 6 Height (Inches): 0.00 Weight (Pounds): 327 Medications Current Medications Medications (Trade) Dose Ordered Sig/Saima Route PRN Reason Start Time Stop Time Status Last Admin Dose Admin Acetaminophen (Tylenol) 650 mg Q4H PRN ORAL Fever 12/15/18 13:30 01/14/19 13:29 Albuterol/ Ipratropium (Albuterol/ Ipratropium) 3 ml Q4H PRN HHN Shortness of Breath 12/15/18 13:30 12/20/18 13:29 Amlodipine Besylate (Norvasc) 5 mg DAILY ORAL 12/16/18 09:00 01/15/19 08:59 12/16/18 08:30 Aspirin (Ecotrin) 81 mg DAILY ORAL 12/16/18 09:00 01/15/19 08:59 Carvedilol (Coreg) 12.5 mg DAILY ORAL 12/16/18 09:00 01/15/19 08:59 12/16/18 08:30 Dextrose (Dextrose 50%) 25 ml Q30M PRN IV Hypoglycemia 12/15/18 13:30 01/14/19 13:29 Dextrose (Dextrose 50%) 50 ml Q30M PRN IV Hypoglycemia 12/15/18 13:30 01/14/19 13:29 Furosemide (Lasix) 40 mg EVERY 8 HOURS IV 12/15/18 22:00 01/14/19 21:59 12/16/18 06:25 Insulin Aspart (NovoLOG) BEFORE MEALS AND HS SUBQ 12/15/18 16:30 01/14/19 16:29 12/16/18 06:28 Ondansetron HCl (Zofran) 4 mg Q6H PRN IVP Nausea & Vomiting 12/15/18 13:30 01/14/19 13:29 Oseltamivir Phosphate (Tamiflu) 75 mg TWICE A DAY ORAL 12/15/18 18:00 12/20/18 17:59 12/16/18 08:30 Polyethylene Glycol (Miralax) 17 gm DAILYPRN PRN ORAL Constipation 12/15/18 13:30 01/14/19 13:29 Promethazine HCl/ Codeine (Phenergan with Codeine) 5 ml Q6HR PRN ORAL For Cough 12/15/18 22:15 01/14/19 22:14 12/15/18 23:00 Temazepam (Restoril) 15 mg HSPRN PRN ORAL Insomnia 12/15/18 13:30 12/22/18 13:29 Assessment/Plan Assessment/Plan Assessment/Plan Problem List: (1) Acute bronchitis ICD Codes: J20.9 - Acute bronchitis, secondary to influenza SNOMED: 93465671 (2) ACS (acute coronary syndrome) ICD Codes: I24.9 - Acute ischemic heart disease, unspecified SNOMED: 930040571 (3) Severe anemia ICD Codes: D64.9 - Anemia, unspecified SNOMED: 498891315 (4) COPD (chronic obstructive pulmonary disease) ICD Codes: J44.9 - Chronic obstructive pulmonary disease, unspecified SNOMED: 68385140 (5) Diabetes mellitus ICD Codes: E11.9 - Type 2 diabetes mellitus without complications SNOMED: 51503041 (6) History of hypertension ICD Codes: Z86.79 - Personal history of other diseases of the circulatory system SNOMED: 769550628 (7) Morbid obesity ICD Codes: E66.01 - Morbid (severe) obesity due to excess calories SNOMED: 288451739 Assessment/Plan I will discharge him home today on oral Tamiflu. Outpatient follow-up Jaskaran Ac MD Dec 17, 2018 10:43
--- NOTE | 2018-12-17 14:19 | Consultation ---
History of Present Illness General Date patient seen: Dec 16, 2018 Chief Complaint: Dyspnea/Respdistress Present Illness Allergies: Coded Allergies: No Known Allergies (Unverified , 03/24/16) Medication History Scheduled Albuterol Sulfate (Ventolin Hfa), 1 PUFF INH EVERY 6 HOURS, (Reported) Amlodipine Besylate* (Amlodipine Besylate*), 5 MG ORAL DAILY, (Reported) Aspirin* (Aspir-Low*), 81 MG ORAL DAILY, (Reported) Carvedilol* (Carvedilol*), 12.5 MG ORAL DAILY, (Reported) Furosemide* (Lasix*), 20 MG ORAL DAILY, (Reported) Ibuprofen* (Motrin*), 800 MG ORAL THREE TIMES A DAY, (Reported) Isosorbide Mononitrate (Isosorbide Mononitrate), 10 MG PO DAILY, (Reported) Lisinopril (Lisinopril*), 5 MG ORAL DAILY, (Reported) Losartan Potassium* (Losartan Potassium*), 50 MG ORAL DAILY, (Reported) Meloxicam* (Meloxicam*), 7.5 MG PO DAILY, (Reported) Metformin Hcl* (Metformin Hcl*), 500 MG ORAL TWICE A DAY, (Reported) Nitroglycerin (Nitroglycerin), 0.4 MG SL every 5 min x 3 dose, (Reported) Oseltamivir Phosphate (Tamiflu), 75 MG ORAL TWICE A DAY Prednisone* (Prednisone*), 40 MG ORAL DAILY Ranolazine* (Ranexa*), 1,000 MG ORAL EVERY 12 HOURS, (Reported) Simvastatin (Zocor), 20 MG ORAL BEDTIME, (Reported) Tamoxifen Citrate* (Nolvadex*), 20 MG ORAL TWICE A DAY, (Reported) Scheduled PRN Acetaminophen With Codeine (T#3) (Tylenol With Codeine #3 Tablet), 1 TAB ORAL BID PRN for For Pain, (Reported) Famotidine (Famotidine), 20 MG ORAL BID PRN for heart burn , (Reported) Miscellaneous Medications Beclomethasone Dipropionate (Qvar), 80 MCG IH, (Reported) Discontinued Medications Albuterol Sulfate* (Albuterol Sulfate Mdi*), 2 PUFF INH Q6H Discontinued Reason: MD discontinued med Amoxicillin* (Amoxil*), 500 MG ORAL THREE TIMES A DAY Discontinued Reason: MD discontinued med Patient History Healthcare decision maker Resuscitation status Full Code Advanced Directive on File Physical Exam Last 24 Hour Vital Signs Date Time Temp Pulse Resp B/P (MAP) Pulse Ox O2 Delivery O2 Flow Rate FiO2 12/17/18 09:15 97.8 77 20 104/63 (77) 97 12/17/18 09:00 Nasal Cannula 3.0 12/17/18 09:00 77 104/63 12/17/18 09:00 77 104/63 12/17/18 08:00 75 12/17/18 08:00 97.8 77 20 98/65 (76) 97 12/17/18 07:55 100 20 92 Room Air 21 12/17/18 07:55 100 20 92 Room Air 21 12/17/18 07:35 100 20 Room Air 21 12/17/18 07:35 Room Air 21 12/17/18 07:35 92 Room Air 21 12/17/18 04:59 79 20 100 Nasal Cannula 3.0 32 12/17/18 04:59 75 20 99 Nasal Cannula 3.0 32 12/17/18 04:52 75 20 98 Nasal Cannula 3.0 32 12/17/18 04:47 75 20 100 Nasal Cannula 3.0 32 12/17/18 04:00 97.0 82 20 121/66 (84) 97 12/17/18 04:00 75 12/17/18 00:00 79 12/17/18 00:00 98.2 82 19 107/64 (78) 99 12/16/18 23:38 Nasal Cannula 3.0 32 12/16/18 23:38 Nasal Cannula 3.0 32 12/16/18 21:00 Nasal Cannula 3.0 12/16/18 20:40 75 20 100 Nasal Cannula 3.0 32 12/16/18 20:32 71 20 100 Nasal Cannula 3.0 32 12/16/18 20:32 100 Nasal Cannula 3.0 32 12/16/18 20:32 Nasal Cannula 3.0 32 12/16/18 20:31 71 20 Nasal Cannula 3.0 32 12/16/18 20:00 98.5 84 19 108/73 (85) 98 12/16/18 20:00 80 12/16/18 16:00 94 12/16/18 16:00 96.7 76 23 110/65 (80) 95 12/16/18 15:30 81 20 100 Nasal Cannula 3.0 32 12/16/18 15:26 81 21 98 Nasal Cannula 3.0 32 Intake and Output 12/16/18 12/17/18 19:00 07:00 Intake Total 200 ml Balance 200 ml Intake Oral 200 ml # Voids 2 2 Laboratory Tests Test 12/17/18 06:35 White Blood Count 2.6 K/UL (4.8-10.8) L Red Blood Count 2.67 M/UL (4.70-6.10) L Hemoglobin 8.7 G/DL (14.2-18.0) L Hematocrit 27.9 % (42.0-52.0) L Mean Corpuscular Volume 105 FL (80-99) H Mean Corpuscular Hemoglobin 32.7 PG (27.0-31.0) H Mean Corpuscular Hemoglobin Concent 31.3 G/DL (32.0-36.0) L Red Cell Distribution Width 13.6 % (11.6-14.8) Platelet Count 44 K/UL (150-450) L Mean Platelet Volume 8.5 FL (6.5-10.1) Neutrophils (%) (Auto) % (45.0-75.0) Lymphocytes (%) (Auto) % (20.0-45.0) Monocytes (%) (Auto) % (1.0-10.0) Eosinophils (%) (Auto) % (0.0-3.0) Basophils (%) (Auto) % (0.0-2.0) Differential Total Cells Counted 100 Neutrophils % (Manual) 46 % (45-75) Lymphocytes % (Manual) 46 % (20-45) H Monocytes % (Manual) 3 % (1-10) Eosinophils % (Manual) 0 % (0-3) Basophils % (Manual) 0 % (0-2) Band Neutrophils 5 % (0-8) Platelet Estimate Decreased L Platelet Morphology Normal Hypochromasia 1+ Anisocytosis Macrocytosis 1+ Sodium Level 141 MMOL/L (136-145) Potassium Level 4.0 MMOL/L (3.5-5.1) Chloride Level 104 MMOL/L (98-107) Carbon Dioxide Level 31 MMOL/L (21-32) Anion Gap 6 mmol/L (5-15) Blood Urea Nitrogen 28 mg/dL (7-18) H Creatinine 1.3 MG/DL (0.55-1.30) Estimat Glomerular Filtration Rate > 60 mL/min (>60) Glucose Level 104 MG/DL (74-106) Calcium Level 9.2 MG/DL (8.5-10.1) Troponin I 0.268 ng/mL (0.000-0.056) C-Reactive Protein, Quantitative 11.7 mg/dL (0.00-0.90) H Height (Feet): 6 Height (Inches): 0.00 Weight (Pounds): 327 Assessment/Plan Assessment/Plan Hematology Consult Note RFC: Pancytopenia eval DOS: 10/15/19 RESaqib MD: Cintia ENCISO 63-year-old male with hx of CHF, HTN, CAD, DM, COPD presented to ED for evaluation of shortness of breath and dizziness 2 days and productive cough. He had chills once last week. Denies chest pain. No other aggravating relieving factors. Denies any other associated symptoms. His troponin was elevated and he is admitted to telemetry for further work up. he was also found to be positive for influenza. Noted to have pancytopenia and heme consulted Allergies: Coded Allergies: No Known Allergies (Unverified , 03/24/16) Medication History Scheduled Albuterol Sulfate (Ventolin Hfa), 1 PUFF INH EVERY 6 HOURS, (Reported) Albuterol Sulfate* (Albuterol Sulfate Mdi*), 2 PUFF INH Q6H Amlodipine Besylate* (Amlodipine Besylate*), 5 MG ORAL DAILY, (Reported) Amoxicillin* (Amoxil*), 500 MG ORAL THREE TIMES A DAY Aspirin* (Aspir-Low*), 81 MG ORAL DAILY, (Reported) Carvedilol* (Carvedilol*), 12.5 MG ORAL DAILY, (Reported) Furosemide* (Lasix*), 20 MG ORAL DAILY, (Reported) Ibuprofen* (Motrin*), 800 MG ORAL THREE TIMES A DAY, (Reported) Isosorbide Mononitrate (Isosorbide Mononitrate), 10 MG PO DAILY, (Reported) Lisinopril (Lisinopril*), 5 MG ORAL DAILY, (Reported) Losartan Potassium* (Losartan Potassium*), 50 MG ORAL DAILY, (Reported) Meloxicam* (Meloxicam*), 7.5 MG PO DAILY, (Reported) Metformin Hcl* (Metformin Hcl*), 500 MG ORAL TWICE A DAY, (Reported) Nitroglycerin (Nitroglycerin), 0.4 MG SL every 5 min x 3 dose, (Reported) Prednisone* (Prednisone*), 40 MG ORAL DAILY Ranolazine* (Ranexa*), 1,000 MG ORAL EVERY 12 HOURS, (Reported) Simvastatin (Zocor), 20 MG ORAL BEDTIME, (Reported) Tamoxifen Citrate* (Nolvadex*), 20 MG ORAL TWICE A DAY, (Reported) Scheduled PRN Acetaminophen With Codeine (T#3) (Tylenol With Codeine #3 Tablet), 1 TAB ORAL BID PRN for For Pain, (Reported) Famotidine (Famotidine), 20 MG ORAL BID PRN for heart burn , (Reported) Miscellaneous Medications Beclomethasone Dipropionate (Qvar), 80 MCG IH, (Reported) Patient History Healthcare decision maker Resuscitation status Full Code Advanced Directive on File Past Medical/Surgical History Past Medical/Surgical History: (1) COPD (chronic obstructive pulmonary disease) (2) Morbid obesity (3) History of hypertension (4) Diabetes mellitus (5) CAD (coronary artery disease) (6) CHF (congestive heart failure) ROS Review of Systems All Other Systems: negative except mentioned in HPI Physical Exam Physical Exam General Appearance: WD/WN, no apparent distress Lines, tubes and drains: peripheral HEENT: normocephalic, atraumatic Neck: non-tender, normal alignment Respiratory/Chest: chest wall non-tender, lungs clear Breasts: no masses Cardiovascular/Chest: normal peripheral pulses Abdomen: normal bowel sounds, non tender Extremities: normal range of motion Skin Exam: warm/dry 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 of 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 II-XII grossly normal Last 24 Hour Vital Signs Date Time Temp Pulse Resp B/P (MAP) Pulse Ox O2 Delivery O2 Flow Rate FiO2 12/16/18 09:00 Nasal Cannula 3.0 12/16/18 08:30 84 118/76 12/16/18 08:30 84 118/76 12/16/18 08:28 97.6 84 21 118/76 (90) 94 12/16/18 08:10 Nasal Cannula 3.0 32 12/16/18 08:10 95 Nasal Cannula 3.0 32 12/16/18 08:10 91 22 Nasal Cannula 3.0 32 12/16/18 04:00 97.5 86 20 103/65 (78) 94 12/16/18 04:00 78 12/16/18 00:00 85 12/16/18 00:00 97.9 88 19 136/79 (98) 95 12/15/18 21:00 Nasal Cannula 3.0 12/15/18 20:00 87 12/15/18 20:00 97.6 86 18 143/70 (94) 94 12/15/18 16:00 94 12/15/18 16:00 98.1 90 20 107/57 (74) 94 12/15/18 14:36 Nasal Cannula 3.0 12/15/18 13:53 98.7 100 18 102/52 91 Nasal Cannula 3.0 12/15/18 12:25 99.1 95 21 93/47 98 Simple Mask 6.0 12/15/18 12:00 99 18 97 Simple Mask 6.0 12/15/18 11:49 96 25 96 12/15/18 11:32 97 23 98 12/15/18 11:20 93 24 100 Simple Mask 6.0 12/15/18 10:54 101 32 Simple Mask 6.0 96 12/15/18 10:54 99.3 101 32 109/62 96 Nasal Cannula 6.0 12/15/18 10:52 99.3 107 21 109/62 84 Room Air Intake and Output 12/15/18 12/16/18 19:00 07:00 Intake Total 740 ml Balance 740 ml Intake Oral 240 ml IV Total 500 ml # Voids 2 2 # Bowel Movements 1 Laboratory Tests Test 12/15/18 11:15 12/15/18 12:40 12/15/18 14:50 12/15/18 18:20 White Blood Count 3.1 K/UL (4.8-10.8) L Red Blood Count 2.67 M/UL (4.70-6.10) L Hemoglobin 8.6 G/DL (14.2-18.0) L Hematocrit 27.9 % (42.0-52.0) L Mean Corpuscular Volume 105 FL (80-99) H Mean Corpuscular Hemoglobin 32.3 PG (27.0-31.0) H Mean Corpuscular Hemoglobin Concent 30.9 G/DL (32.0-36.0) L Red Cell Distribution Width 13.7 % (11.6-14.8) Platelet Count 43 K/UL (150-450) L Mean Platelet Volume 7.4 FL (6.5-10.1) Neutrophils (%) (Auto) % (45.0-75.0) Lymphocytes (%) (Auto) % (20.0-45.0) Monocytes (%) (Auto) % (1.0-10.0) Eosinophils (%) (Auto) % (0.0-3.0) Basophils (%) (Auto) % (0.0-2.0) Differential Total Cells Counted 100 Neutrophils % (Manual) 48 % (45-75) Lymphocytes % (Manual) 37 % (20-45) Monocytes % (Manual) 7 % (1-10) Eosinophils % (Manual) 0 % (0-3) Basophils % (Manual) 0 % (0-2) Band Neutrophils 8 % (0-8) Platelet Estimate Decreased L Platelet Morphology Normal Hypochromasia 1+ Macrocytosis 2+ Sodium Level 138 MMOL/L (136-145) Potassium Level 3.8 MMOL/L (3.5-5.1) Chloride Level 101 MMOL/L (98-107) Carbon Dioxide Level 29 MMOL/L (21-32) Anion Gap 8 mmol/L (5-15) Blood Urea Nitrogen 17 mg/dL (7-18) Creatinine 1.4 MG/DL (0.55-1.30) H Estimat Glomerular Filtration Rate > 60 mL/min (>60) Glucose Level 126 MG/DL (74-106) H Lactic Acid Level 1.30 mmol/L (0.4-2.0) Calcium Level 8.9 MG/DL (8.5-10.1) Total Bilirubin 1.9 MG/DL (0.2-1.0) H Direct Bilirubin 0.5 MG/DL (0.0-0.3) H Aspartate Amino Transf (AST/SGOT) 19 U/L (15-37) Alanine Aminotransferase (ALT/SGPT) 10 U/L (12-78) L Alkaline Phosphatase 76 U/L (46-116) Total Creatine Kinase 397 U/L (26-308) H Creatine Kinase MB 1.1 NG/ML (0.0-3.6) Creatine Kinase MB Relative Index 0.2 Troponin I 0.420 ng/mL (0.000-0.056) 0.384 ng/mL (0.000-0.056) Pro-B-Type Natriuretic Peptide 2333 pg/mL (0-125) H Total Protein 7.3 G/DL (6.4-8.2) Albumin 3.3 G/DL (3.4-5.0) L Globulin 4.0 g/dL Albumin/Globulin Ratio 0.8 (1.0-2.7) L Pending Urine Color Brown Urine Appearance Clear Urine pH 6 (4.5-8.0) Urine Specific [place] 1.010 (1.005-1.035) Urine Protein 2+ (NEGATIVE) H Urine Glucose (UA) Negative (NEGATIVE) Urine Ketones Negative (NEGATIVE) Urine Blood Negative (NEGATIVE) Urine Nitrite Negative (NEGATIVE) Urine Bilirubin Negative (NEGATIVE) Urine Urobilinogen 8 MG/DL (0.0-1.0) H Urine Leukocyte Esterase 1+ (NEGATIVE) H Urine RBC 0 /HPF (0 - 0) Urine WBC 0-2 /HPF (0 - 0) Urine Squamous Epithelial Cells None /LPF (NONE/OCC) Urine Bacteria Occasional /HPF (NONE) Urine Mucus Few /LPF (NONE/OCC) H Reticulocyte Count 0.4 % (0.0-2.0) Sickle Cell Screen Pending Haptoglobin Pending Prothrombin Time 13.4 SEC (9.30-11.50) H Prothromb Time International Ratio 1.3 (0.9-1.1) H Fibrinogen 751 mg/dL (200-400) H Iron Level 12 ug/dL (50-175) L Total Iron Binding Capacity 208 ug/dL (250-450) L Percent Iron Saturation 6 % (15-50) L Unsaturated Iron Binding 196 ug/dL (112-346) Ferritin 696 NG/ML (8-388) H Total Protein (PEP) Pending Albumin (PEP) Pending Globulin (PEP) Pending [id number] Pending [id number] Pending Beta Globulins Pending Beta Gamma Globulin Pending PEP Abnormal Protein Bands Pending Protein Electrophoresis Interpret Pending Carcinoembryonic Antigen Pending Vitamin B12 Level 395 PG/ML (193-986) Folate 11.7 NG/ML (8.6-58.9) Hepatitis A IgM Antibody Pending Hepatitis B Surface Antigen Pending Hepatitis B Core IgM Antibody Pending Hepatitis C Antibody Pending HIV (1&2) Antibody Rapid Negative (NEGATIVE) Test 12/16/18 06:15 Sodium Level 142 MMOL/L (136-145) Potassium Level 4.4 MMOL/L (3.5-5.1) Chloride Level 105 MMOL/L (98-107) Carbon Dioxide Level 31 MMOL/L (21-32) Anion Gap 6 mmol/L (5-15) Blood Urea Nitrogen 24 mg/dL (7-18) H Creatinine 1.3 MG/DL (0.55-1.30) Estimat Glomerular Filtration Rate > 60 mL/min (>60) Glucose Level 150 MG/DL (74-106) H Calcium Level 9.4 MG/DL (8.5-10.1) Troponin I 0.197 ng/mL (0.000-0.056) Microbiology Date/Time Source Procedure Growth Status 12/15/18 11:15 Nasal Nares Influenza Types A,B Antigen (PEPE) - Final Complete Height (Feet): 6 Height (Inches): 0.00 Weight (Pounds): 327 Medications Current Medications Medications (Trade) Dose Ordered Sig/Saima Route PRN Reason Start Time Stop Time Status Last Admin Dose Admin Acetaminophen (Tylenol) 650 mg Q4H PRN ORAL Fever 12/15/18 13:30 01/14/19 13:29 Albuterol/ Ipratropium (Albuterol/ Ipratropium) 3 ml Q4H PRN HHN Shortness of Breath 12/15/18 13:30 12/20/18 13:29 Amlodipine Besylate (Norvasc) 5 mg DAILY ORAL 12/16/18 09:00 01/15/19 08:59 12/16/18 08:30 Aspirin (Ecotrin) 81 mg DAILY ORAL 12/16/18 09:00 01/15/19 08:59 Carvedilol (Coreg) 12.5 mg DAILY ORAL 12/16/18 09:00 01/15/19 08:59 12/16/18 08:30 Dextrose (Dextrose 50%) 25 ml Q30M PRN IV Hypoglycemia 12/15/18 13:30 01/14/19 13:29 Dextrose (Dextrose 50%) 50 ml Q30M PRN IV Hypoglycemia 12/15/18 13:30 01/14/19 13:29 Furosemide (Lasix) 40 mg EVERY 8 HOURS IV 12/15/18 22:00 01/14/19 21:59 12/16/18 06:25 Insulin Aspart (NovoLOG) BEFORE MEALS AND HS SUBQ 12/15/18 16:30 01/14/19 16:29 12/16/18 06:28 Ondansetron HCl (Zofran) 4 mg Q6H PRN IVP Nausea & Vomiting 12/15/18 13:30 01/14/19 13:29 Oseltamivir Phosphate (Tamiflu) 75 mg TWICE A DAY ORAL 12/15/18 18:00 12/20/18 17:59 12/16/18 08:30 Polyethylene Glycol (Miralax) 17 gm DAILYPRN PRN ORAL Constipation 12/15/18 13:30 01/14/19 13:29 Promethazine HCl/ Codeine (Phenergan with Codeine) 5 ml Q6HR PRN ORAL For Cough 12/15/18 22:15 01/14/19 22:14 12/15/18 23:00 Temazepam (Restoril) 15 mg HSPRN PRN ORAL Insomnia 12/15/18 13:30 12/22/18 13:29 Assessment/Plan # Pancytopenia -- multiple etiologies could be related to underlying liver disease, medication-induced, infection versus viral syndrome --> peripheral smear has been ordered and does not show significant abnormalities: is wnl --> Medications have been reviewed, no major culprits noted --> Continue to monitor for improvement, trend cbc --> Hep panel and HIV have been ordered and are negative --> US abd shows fatty liver, no other major changes --> consider other causes, infections that could contribute --> reverse isolation if ANC is <2000 --> Give neupogen if ANC <1000 --> Transfuse if hgb <7, with 1 unit prbc --> consider bone marrow biopsy if no other causes are found # Anemia of chronic disease (or of iron deficiency) due to underlying chronic medical issues, multifactorial --> Anemia workup has been ordered --> No evidence of hemolysis is noted, peripheral smear has been reviewed. --> Hgb goal >7. Transfuse prn. --> Epogen or iron at this time is not particularly indicated --> Medications have been reviewed # Acute bronchitis --> improved with abx, pulm has been consulted # r/o ACS (acute coronary syndrome) --> currently chest pain free # COPD (chronic obstructive pulmonary disease) --> no evidence of exacerbation # Diabetes mellitus --> accuchecks qac and qhs --> insulin as required, bs goal <120 pre-prandial The timing of this note does not necessarily reflect the time of the patient was seen. Greatly appreciate consultation. Timoteo Stafford MD Dec 17, 2018 14:19
--- NOTE | 2018-12-18 00:35 | General Progress Note ---
Assessment/Plan Assessment/Plan Assessment/Plan # Pancytopenia -- multiple etiologies could be related to underlying liver disease, medication-induced, infection versus viral syndrome --> peripheral smear has been ordered and does not show significant abnormalities: is wnl --> Medications have been reviewed, no major culprits noted --> Continue to monitor for improvement, trend cbc --> Hep panel and HIV have been ordered and are negative --> US abd shows fatty liver, no other major changes --> consider other causes, infections that could contribute --> reverse isolation if ANC is <2000 --> Give neupogen if ANC <1000 --> Transfuse if hgb <7, with 1 unit prbc --> consider bone marrow biopsy if no other causes are found # Anemia of chronic disease (or of iron deficiency) due to underlying chronic medical issues, multifactorial --> Anemia workup has been ordered --> No evidence of hemolysis is noted, peripheral smear has been reviewed. --> Hgb goal >7. Transfuse prn. --> Epogen or iron at this time is not particularly indicated --> Medications have been reviewed # Acute bronchitis --> improved with abx, pulm has been consulted # r/o ACS (acute coronary syndrome) --> currently chest pain free # COPD (chronic obstructive pulmonary disease) --> no evidence of exacerbation # Diabetes mellitus --> accuchecks qac and qhs --> insulin as required, bs goal <120 pre-prandial The timing of this note does not necessarily reflect the time of the patient was seen. Greatly appreciate consultation. Subjective Date patient seen: Dec 17, 2018 Constitutional: Denies: no symptoms, chills, diaphoresis, fever, malaise, weakness, other HEENT: Denies: no symptoms, eye pain, blurred vision, tearing, double vision, ear pain, ear discharge, nose pain, nose congestion, throat pain, throat swelling, mouth pain, mouth swelling, other Cardiovascular: Denies: no symptoms, chest pain, edema, irregular heart rate, lightheadedness, palpitations, syncope, other Respiratory: Denies: no symptoms, cough, orthopnea, shortness of breath, SOB with excertion, SOB at rest, sputum, stridor, wheezing, other Neurologic/Psychiatric: Denies: no symptoms, anxiety, depressed, emotional problems, headache, numbness, paresthesia, pre-existing deficit, seizure, tingling, tremors, weakness, other Hematologic/Lymphatic: Denies: no symptoms, anemia, easy bleeding, easy bruising, other Allergies: Coded Allergies: No Known Allergies (Unverified , 03/24/16) Subjective 12/17:seen by bedside, awake, comfortable, no acute distress. Objective Last 24 Hour Vital Signs Date Time Temp Pulse Resp B/P (MAP) Pulse Ox O2 Delivery O2 Flow Rate FiO2 12/17/18 09:15 97.8 77 20 104/63 (77) 97 12/17/18 09:00 Nasal Cannula 3.0 12/17/18 09:00 77 104/63 12/17/18 09:00 77 104/63 12/17/18 08:00 75 12/17/18 08:00 97.8 77 20 98/65 (76) 97 12/17/18 07:55 100 20 92 Room Air 21 12/17/18 07:55 100 20 92 Room Air 21 12/17/18 07:35 100 20 Room Air 21 12/17/18 07:35 Room Air 21 12/17/18 07:35 92 Room Air 21 12/17/18 04:59 79 20 100 Nasal Cannula 3.0 32 12/17/18 04:59 75 20 99 Nasal Cannula 3.0 32 12/17/18 04:52 75 20 98 Nasal Cannula 3.0 32 12/17/18 04:47 75 20 100 Nasal Cannula 3.0 32 12/17/18 04:00 97.0 82 20 121/66 (84) 97 12/17/18 04:00 75 Laboratory Tests 12/17/18 06:35: White Blood Count 2.6L, Red Blood Count 2.67L, Hemoglobin 8.7L, Hematocrit 27.9L , Mean Corpuscular Volume 105H, Mean Corpuscular Hemoglobin 32.7H, Mean Corpuscular Hemoglobin Concent 31.3L, Red Cell Distribution Width 13.6, Platelet Count 44L, Mean Platelet Volume 8.5, Neutrophils (%) (Auto) , Lymphocytes (%) (Auto) , Monocytes (%) (Auto) , Eosinophils (%) (Auto) , Basophils (%) (Auto) , Differential Total Cells Counted 100, Neutrophils % ( Manual) 46, Lymphocytes % (Manual) 46H, Monocytes % (Manual) 3, Eosinophils % ( Manual) 0, Basophils % (Manual) 0, Band Neutrophils 5, Platelet Estimate DecreasedL, Platelet Morphology Normal, Hypochromasia 1+, Anisocytosis , Macrocytosis 1+, Sodium Level 141, Potassium Level 4.0, Chloride Level 104, Carbon Dioxide Level 31, Anion Gap 6, Blood Urea Nitrogen 28H, Creatinine 1.3, Estimat Glomerular Filtration Rate > 60, Glucose Level 104, Calcium Level 9.2, Troponin I 0.268H, C-Reactive Protein, Quantitative 11.7H Height (Feet): 6 Height (Inches): 0.00 Weight (Pounds): 327 Objective Physical Exam General Appearance: WD/WN, no apparent distress Lines, tubes and drains: peripheral HEENT: normocephalic, atraumatic Neck: non-tender, normal alignment Respiratory/Chest: chest wall non-tender, lungs clear Breasts: no masses Cardiovascular/Chest: normal peripheral pulses Abdomen: normal bowel sounds, non tender Extremities: normal range of motion Skin Exam: warm/dry Neurologic: consultant intern II-XII grossly normal Timoteo Stafford MD Dec 18, 2018 00:35
--- NOTE | 2018-12-19 12:26 | NUR ---
CASE MANAGEMENT: CM review and clinical information (face sheet/ ER MD notes/ H&P/ progress notes) faxed to [facility] @ [phone]
--- NOTE | 2018-12-20 08:20 | Discharge Summary ---
Discharge Summary Discharge Summary _ DATE OF ADMISSION: 12/15/2018 DATE OF DISCHARGE: 12/17/2018 DISCHARGED BY: Dr. Ac REASON FOR ADMISSION: 63 years old male with past medical history of coronary artery disease, status post stents x5, diabetes mellitus, hypertension, asthma, presented to emergency department complaining of shortness of breath productive cough and dizziness for 2 days. He denied chest pain and palpitation. Upon evaluation patient was found to have a positive rapid influenza screen test for influenza type A. Noted elevation of troponin -0.42 and elevated pro BNP , otherwise no leukocytosis , stable electrolytes , lactic acid within normal limits. Chest x-ray revealed evidence of cardiomegaly, interstitial congestion. EKG revealed normal sinus rhythm, no acute ischemic changes. In emergency department patient received aspirin, Tamiflu, diuretic, and started on antibiotics. Hand held nebulizing treatment with bronchodilator provided. Patient received 1 dose of steroid. Patient was admitted for further management to telemetry floor. 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 Billy LOUIS specialist Dr. Burk medical technologist clinical/oncologist Dr. Stafford [facility] COURSE: Patient admitted to telemetry floor. Patient placed on droplet isolation. Patient continued on Tamiflu and empiric antibiotics. Blood cultures were negative. Supplemental oxygen provided as needed to keep pulse oximetry above 92%. Pulmonary toilet provided. Patient was started on Theodur . Antitussive provided as needed. Venous duplex bilateral lower extremity revealed no evidence of acute DVT. DVT prophylaxis provided. Serial troponin trending down. Telemetry revealed sinus rhythm no acute ischemic changes. Patient denied chest pain. Echocardiogram revealed ejection fraction of 50% with mild left ventricular hypertrophy and apical hypokinesis. Right ventricular systolic pressure of 24. Patient was on diuresis with close monitoring of volumes and cardiorenal parameters Follow-up chest x-ray revealed improvement in congestion. Pressfitter followed. Anti-failure antiplatelet and antihypertensive regimen were continued. Patient was recommended to follow-up with chain hoist operator as outpatient Patient noted to have pancytopenia. Hematology consulted. Abdominal ultrasound revealed increased hepatic echogenicity consistent with hepatocellular disease likely fatty liver, but was negative for gallstones and dilated bile ducts. LFT remained stable. Hepatitis panel was negative. HIV test was nonreactive. SPEP was unremarkable. Per medical technologist clinical, other causes such as current infection , could contribute to pancytopenia as well needed Monitor CBC as outpatient and if continued to be pancytopenic , consider bone marrow biopsy, if no other causes will be found. Stool for occult blood was negative. CEA was within normal limits. Anemia workup was consistent with anemia of chronic disease. Hemoglobin and hematocrit were closely monitored with goal to keep hemoglobin above 7. Prior to discharge hemoglobin 8.7 hematocrit 27.9. Platelets 44, WBC 2.6. Blood sugar was managed with sliding scale of insulin. Blood pressure was managed with current regimen of antihypertensive and remained stable. Patient stabilized and was discharged home on Tamiflu to complete the course. Patient to follow-up with primary care provider and outpatient chain hoist operator for further management FINAL DIAGNOSES: Influenza A Acute bronchitis due to influenza type A ACS History of coronary artery disease, status post stents x5 COPD/asthma Diabetes mellitus Hypertension Morbid obesity Pancytopenia DISCHARGE MEDICATIONS: See Medication Reconciliation list. DISCHARGE INSTRUCTIONS: Patient was discharged home . Follow up with primary care provider in one week and his chain hoist operator per insurance. I have been assigned to dictate discharge summary for this account. I was not involved in the patient's management. Jena Lucero NP Dec 20, 2018 08:20
--- NOTE | 2018-12-20 11:21 | NUR ---
*-* INSURANCE *-* ALL CLINICALS, REVIEWS AND INTERQUAL FAXED TO: [facility] WAN:[place] P:[phone] F:[phone]
== END 2018-12-17 09:55 | disposition home or self-care (01) | DRG 113 ==
LOC: EMR 11:40 → MERGE 11:40 → 2E 11:49 → EDBEDREQ 12:34 → 2E 15:05
DX: J10.1 Influenza due to other identified influenza virus with other respiratory manifestations (principal); D61.818 Other pancytopenia; I24.9 Acute ischemic heart disease, unspecified; E66.01 Morbid (severe) obesity due to excess calories; Z68.41 Body mass index [BMI] 40.0-44.9, adult; E11.9 Type 2 diabetes mellitus without complications; I10 Essential (primary) hypertension; D63.8 Anemia in other chronic diseases classified elsewhere; J44.9 Chronic obstructive pulmonary disease, unspecified; I25.10 Atherosclerotic heart disease of native coronary artery without angina pectoris; Z95.5 Presence of coronary angioplasty implant and graft
CPT/HCPCS: 36415; 71045; 76700; 80048; 80053; 81003; 82248; 82270; 82378; 82550; 82553; 82607; 82728; 82746; 82962; 83010; 83540; 83550; 83605; 83615; 83880; 84165; 84484; 85007; 85025; 85044; 85060; 85384; 85610; 85651; 85660; 85730; 86140; 86703; 86705; 86709; 86710; 86803; 87040; 87070; 87205; 87340; 93005; 93306; 93970; 94640; 94664; 94760; 96365; 96375; 99285; J1815; J7620

== ENCOUNTER 2019-02-06 19:37 | Inpatient (IN) | payer MEDICAID ==
[~2019-02-06] VITALS: Ht 188 cm; Wt 143.3 kg
--- NOTE | 2019-02-06 00:30 | NUR ---
NURSE NOTES: Received pt and report from GREG Cloud from ER. Pt's Tele overflow to SDU. Pt was seen in ER for severe anemia, CHF. Pt's AOx4, in no acute distress. VS stable. SR on classroom monitor. On 2L/NC. Pt had 1 unit of PRBC given in ER, he has 1 more unit to be given here ( total 2 units PRBC). No skin issues noted. All belongings were kept by his . His signed the form. He has his walking cane with him. Call light within reach, bed in low and locked position. Will continue to monitor. Addendum: 02/07/19 at 0716 by JORDAN MICHELLE RN RN Wrong date, it's 02/07/19 for the admitting note.
[~2019-02-06 19:37] MED LIST changes: +LISINOPRIL5 MG ORAL; +TAMIFLU75 MG ORAL; +TAMOXIFEN CITRA10 MG ORAL
[2019-02-06] MEDS ORDERED: Solu-MEDROL 125mg Inj IVP ONE (20:00)
[2019-02-06] MEDS: Albuterol ud Inhalation HHN SCH ×3 (20:11→20:37)
[2019-02-06] MEDS: Ipratropium 0.02% Inh Soln 2.5ml UD HHN SCH ×3 (20:11→20:36)
--- NOTE | 2019-02-06 20:15 | NUR ---
ED Nurse Note: RECIEVED PT FROM HOME WITH C/O HAVING DIZZINESS AND WEAKNESS WITH SOB SINCE LEAVING HOSPITAL IN NOVEMBER, PT WITH AND DENIES CP OR ANY PAIN, PT NOTED TO HAVE SOB ON EXERTION, WALKING WITH CANE DUE TO WEAKNESS, PT IMMEDIATELY GOWNED AND PLACED ON CARDIAC MONITORING, V/S STABLE, WILL START ORDERS AND RESUME CARE ORDERED BY MD, PT ASKED TO HAVE OXYGEN STATING IT MAKES HIM FEEL BETTER, PT PLACED ON 2L N/C BY TRIAGE NURSE FOR COMFORT, MD AWARE AND STATES OK.
--- NOTE | 2019-02-06 20:15 | NUR ---
[place] umana in EDM - 02/07/19 at 0035 by AMY ED Nurse Note: RECIEVED PT FROM HOME WITH C/O HAVING INTERMITTENT DIZZINESS AND WEAKNESS ALSONG WITH SOB SINCE HE LEFT HOSPITAL IN NOVEMBER AND STATES JUST CANT TAKE THE DIZZINESS ANY MORE, PT ANAYA CP, BNOT
--- NOTE | 2019-02-06 20:15 | NUR ---
ED Nurse Note: RECIEVED PT FROM HOME WITH C/O HAVING INTERMITTENT DIZZINESS AND WEAKNESS ALSONG WITH SOB SINCE HE LEFT HOSPITAL IN NOVEMBER AND STATES JUST CANT TAKE THE DIZZINESS ANY MORE, PT ANAYA NORMAN, BNOT
[2019-02-06] MEDS ORDERED: CLOPIDOGREL75 MG ORAL (20:21)
[2019-02-06] MEDS ORDERED: NEURONTIN300 MG ORAL (20:21)
[2019-02-06] MEDS ORDERED: VITAMIN D22000 UNIT PO (20:21)
[2019-02-06 20:40] LABS: HEMATOCRIT 20.6 % (42.0-52.0); MEAN CORPUSCULAR VOLUME 97 FL (80-99); PLATELET COUNT 31 K/UL (150-450); RED BLOOD COUNT 2.13 M/UL (4.70-6.10); RED CELL DISTRIBUTION WIDTH 14.9 % (11.6-14.8); WHITE BLOOD COUNT 3.6 K/UL (4.8-10.8)
[2019-02-06 20:55] LABS: HEMOGLOBIN 6.8 G/DL (14.2-18.0)
[2019-02-06 21:00] VITALS: BP 135/74
[2019-02-06 21:00] LABS: ANION GAP 7 mmol/L (5-15); BLOOD UREA NITROGEN 15 mg/dL (7-18); CALCIUM 8.9 MG/DL (8.5-10.1); CARBON DIOXIDE 30 MMOL/L (21-32); CHLORIDE 103 MMOL/L (98-107); CREATININE 1.1 MG/DL (0.55-1.30); POTASSIUM 4.1 MMOL/L (3.5-5.1); SODIUM 140 MMOL/L (136-145)
[2019-02-06 21:13] LABS: ALANINE AMINOTRANSFERASE 14 U/L (12-78); ALBUMIN 3.4 G/DL (3.4-5.0); ALBUMIN/GLOBULIN RATIO 0.8 (1.0-2.7); ALKALINE PHOSPHATASE 108 U/L (46-116); ASPARTATE AMINO TRANSFERASE 15 U/L (15-37); BILIRUBIN,TOTAL 0.9 MG/DL (0.2-1.0); CKMB 1.1 NG/ML (0.0-3.6); CREATINE KINASE 41 U/L (26-308)
--- NOTE | 2019-02-06 21:33 | Emergency Room Report ---
History of Present Illness General Chief Complaint: Dyspnea/Respdistress Source: Patient (Luan Khan MD) Present Illness HPI 63-year-old male presents ED for evaluation. Complaining of several days of shortness of breath and dizziness. States that he's been coughing. States that he was admitted here in November for similar presentation. States that after discharge never got better. States his cough is productive with yellowish phlegm. Denies fevers or chills. Denies chest pain. No other aggravating relieving factors. Denies any other associated symptoms (Luan Khan MD) Allergies: Coded Allergies: No Known Allergies (Unverified , 03/24/16) Patient History Past Medical History: DM, HTN, CAD, CHF, asthma Pertinent Family History: none Social History: Denies: smoking, alcohol use, drug use Immunizations: UTD Reviewed Nursing Documentation: PMH: Agreed; PSxH: Agreed (Luan Khan MD) Nursing Documentation-PMH Past Medical History: No History, Except For Hx Cardiac Problems: Yes - 5 stents placed in 2011, CHF, CAD Hx Hypertension: Yes - high cholesterol Hx Asthma: Yes Hx Diabetes: Yes Hx Cancer: No Hx Gastrointestinal Problems: Yes Hx Neurological Problems: No (Luan Khan MD) Review of Systems All Other Systems: negative except mentioned in HPI (Luan Khan MD) Physical Exam Vital Signs Date Time Temp Pulse Resp B/P (MAP) Pulse Ox O2 Delivery O2 Flow Rate FiO2 02/06/19 19:54 92 20 134/76 90 Room Air 02/06/19 20:00 2.0 28 Sp02 EP Interpretation: reviewed, normal General Appearance: no apparent distress, alert, GCS 15, non-toxic, obese Head: normocephalic, atraumatic Eyes: bilateral eye normal inspection, bilateral eye PERRL ENT: hearing grossly normal, normal pharynx, no angioedema, normal voice Neck: full range of motion, supple/symm/no masses Respiratory: chest non-tender, speaking full sentences, wheezing Cardiovascular #1: regular rate, rhythm, no edema Cardiovascular #2: 2+ carotid (R), 2+ carotid (L), 2+ radial (R), 2+ radial (L) , 2+ dorsalis pedis (R), 2+ dorsalis pedis (L) Gastrointestinal: normal bowel sounds, non tender, soft, non-distended, no guarding, no rebound Rectal: deferred Genitourinary: normal inspection, no CVA tenderness Musculoskeletal: back normal, gait/station normal, normal range of motion, non- tender Neurologic: alert, oriented x3, responsive, motor strength/tone normal, sensory intact, speech normal Psychiatric: judgement/insight normal, memory normal, mood/affect normal, no suicidal/homicidal ideation Reflexes: 3+ bicep (R), 3+ bicep (L), 3+ tricep (R), 3+ tricep (L), 3+ knee (R) , 3+ knee (L) Skin: normal color, no rash, warm/dry, well hydrated Lymphatic: no adenopathy (Luan Khan MD) Medical Decision Making Diagnostic Impression: Primary Impression: COPD (chronic obstructive pulmonary disease) Qualified Codes: J44.9 - Chronic obstructive pulmonary disease, unspecified Additional Impressions: Morbid obesity Severe anemia CHF exacerbation Qualified Codes: I50.9 - Heart failure, unspecified Labs Test 02/06/19 20:15 02/06/19 20:50 White Blood Count 3.6 K/UL (4.8-10.8) Red Blood Count 2.13 M/UL (4.70-6.10) Hemoglobin 6.8 G/DL (14.2-18.0) Hematocrit 20.6 % (42.0-52.0) Mean Corpuscular Volume 97 FL (80-99) Mean Corpuscular Hemoglobin 32.0 PG (27.0-31.0) Mean Corpuscular Hemoglobin Concent 33.2 G/DL (32.0-36.0) Red Cell Distribution Width 14.9 % (11.6-14.8) Platelet Count 31 K/UL (150-450) Mean Platelet Volume 11.4 FL (6.5-10.1) Neutrophils (%) (Auto) % (45.0-75.0) Lymphocytes (%) (Auto) % (20.0-45.0) Monocytes (%) (Auto) % (1.0-10.0) Eosinophils (%) (Auto) % (0.0-3.0) Basophils (%) (Auto) % (0.0-2.0) Sodium Level 140 MMOL/L (136-145) Potassium Level 4.1 MMOL/L (3.5-5.1) Chloride Level 103 MMOL/L (98-107) Carbon Dioxide Level 30 MMOL/L (21-32) Anion Gap 7 mmol/L (5-15) Blood Urea Nitrogen 15 mg/dL (7-18) Creatinine 1.1 MG/DL (0.55-1.30) Estimat Glomerular Filtration Rate > 60 mL/min (>60) Glucose Level 103 MG/DL (74-106) Calcium Level 8.9 MG/DL (8.5-10.1) Total Bilirubin 0.9 MG/DL (0.2-1.0) Aspartate Amino Transf (AST/SGOT) 15 U/L (15-37) Alanine Aminotransferase (ALT/SGPT) 14 U/L (12-78) Alkaline Phosphatase 108 U/L (46-116) Total Creatine Kinase 41 U/L (26-308) Creatine Kinase MB 1.1 NG/ML (0.0-3.6) Creatine Kinase MB Relative Index 2.6 Troponin I 0.002 ng/mL (0.000-0.056) Pro-B-Type Natriuretic Peptide 846 pg/mL (0-125) Total Protein 7.6 G/DL (6.4-8.2) Albumin 3.4 G/DL (3.4-5.0) Globulin 4.2 g/dL Albumin/Globulin Ratio 0.8 (1.0-2.7) (Luan Khan MD) ER Course Patient presents with shortness of breath and noted to have anemia and CHF exacerbation. He is resting comfortably. He was signed out to me for pending transferred to outside hospital based on insurance. Insurance unable to transfer patient. Patient will be admitted here. I discussed the case with Dr. Ac who will admit. (Tolu Leyva MD) EKG Diagnostic Results Rate: normal Rhythm: NSR ST Segments: no acute changes ASA given to the pt in ED: No (Luan Khan MD) Rhythm Strip Diag. Results EP Interpretation: yes Rhythm: NSR, no PVC's, no ectopy (Luan Khan MD) Chest X-Ray Diagnostic Results Chest X-Ray Diagnostic Results : Chest X-Ray Ordered: Yes # of Views/Limited/Complete: 1 View Indication: Shortness of Breath EP Interpretation: Yes Interpretation: no pneumothorax, other - bilateral interstitial congestion. cardiomegaly Impression: Other - chf/pneumonia Electronically Signed by: Electronically signed by Luan Khan MD (Luan Khan MD) Last Vital Signs Date Time Temp Pulse Resp B/P (MAP) Pulse Ox O2 Delivery O2 Flow Rate FiO2 02/06/19 20:49 97 20 100 Nasal Cannula 2.0 28 02/06/19 19:54 134/76 Status: improved (Luan Khan MD) Status: improved (Tolu Leyva MD) Disposition: ADMITTED INPATIENT Condition: Serious Referrals: [facility],REFERRING (PCP) Luan Khan MD Feb 06, 2019 21:33 Tolu Leyva MD Feb 06, 2019 23:31
[2019-02-06 21:40] LABS: INR 1.1 (0.9-1.1)
--- NOTE | 2019-02-06 21:59 | NUR ---
Spoke with Catarina at [facility],labs,v/s updated, clinicals, face sheet, EKG faxed to [phone] as requested.
--- NOTE | 2019-02-06 22:00 | NUR ---
ED Nurse Note: PT CONTINUES TO REST QUIETLY IN BED, AWAKE AND ALERT, PT LAB RESULTS NOTED WITH VERY LOW BLOOD COUNTS AND NEEDS TO HAVE BLOOD TRANSFUSION, AT [facility] EXPLAINING TO PT, PT AGREES BUT IS ALSO BEING PREPARED FOR TRANSFER, MD WILL ORDER BLOOD AND STATES TO TRANSFUSE FAST CAN BEFORE TRANSFER, PT SIGNED CONSENT FORM, CONTINUES TO DENY HAVING ANY PAIN, NO SOB NOTED AT REST, V/S STABLE, NAD OR CHANGES NOTED, WILL CONTINUE TO MONITOR.
[2019-02-06 23:00] VITALS: BP 122/71
--- NOTE | 2019-02-06 23:05 | NUR ---
ED Nurse Note: PT BEING STARTED ON BLOOD TRANSFUSION OF PRBC'S, UNIT PROTOCOL FOLLOWED, STAYED AT BEDSIDE WITH PT FOR FIRST 15 MINUTES, NO S/S OF REACTION NOTED, PT TOLERATED WELL, PT NOW BEING ADMITTED HERE FOR ADMISSON, PT IS AWARE AND AGREES, WILL CONTINUE TO CLOSELY MONITOR AND PREPARE FOR ADMISSION.
--- NOTE | 2019-02-07 00:10 | NUR ---
ED Nurse Note: REPORT CALLED TO FLOOR NURSE GREG ORTEGA ON UNIT, PT BEING TAKEN TO FLOOR BED FOR ADMISSION, PT BLOOD TRANSFUSION AT [facility] FOR 1ST UNIT, PT TOLERATED WELL, PT USING URINAL X 2 AFTER LASIX GIVEN ALSO, DENIES CP OR ANY PAIN, NO SOB OR LABORED BREATHING AND NADNOTED DURING PT TRANSPORT TO FLOOR VIA GURNEY AND ACLS PROTOCOLS. PT PRESENT ALSO.
[2019-02-07 00:30] VITALS: BP 136/75
--- NOTE | 2019-02-07 00:30 | NUR ---
NURSE NOTES: Received pt and report from GREG Cloud from ER. Pt's Tele overflow to SDU. Pt was seen in ER for severe anemia, CHF. Pt's AOx4, in no acute distress. VS stable. SR on security monitor. On 2L/NC. Pt had 1 unit of PRBC given in ER, he has 1 more unit to be given here ( total 2 units PRBC). No skin issues noted. All belongings were kept by his . His signed the form. He has his walking cane with him. Call light within reach, bed in low and locked position. Will continue to monitor.
[2019-02-07 00:47] LABS: BILIRUBIN, URINE NEGATIVE (NEGATIVE); GLUCOSE, URINE (UA) NEGATIVE (NEGATIVE); KETONES,URINE NEGATIVE (NEGATIVE); LEUKOCYTE ESTERASE ,URINE NEGATIVE (NEGATIVE); NITRITE,URINE NEGATIVE (NEGATIVE); PH,URINE 7 (4.5-8.0); PROTEIN,URINE NEGATIVE (NEGATIVE); UROBILINOGEN,URINE 8 MG/DL (0.0-1.0)
[2019-02-07 00:49] LABS: APPEARANCE,URINE CLEAR; COLOR,URINE YELLOW
--- NOTE | 2019-02-07 01:00 | NUR ---
NURSE NOTES: Dr. Jimenez called back for admitting orders. All orders noted and carried out. Pt's resting in bed, watching TV, running PRBc with no adverse reaction noted. He has Left wrist 18G and Right AC 22G, both are intact and patent. Will continue to monitor.
--- NOTE | 2019-02-07 02:30 | Consultation ---
DATE OF CONSULTATION: 02/06/2019 CARDIOLOGY CONSULTATION CONSULTING PHYSICIAN: Roberto Jimenez M.D. REQUESTING PHYSICIAN: Jaskaran Ac M.D. REASON FOR CONSULTATION: Congestive heart failure. HISTORY OF PRESENT ILLNESS: This is a 63-year-old male who presented to the emergency room with several days of progressive shortness of breath. He has also been coughing and has felt dizzy. He was hospitalized about a month ago with similar symptoms and states he never improved. However, he has not had any new followup care. He has cough productive of yellow sputum. He has not had chest pain or leg swelling. His evaluation in the emergency room was notable for significantly low hemoglobin level and signs of acute congestive heart failure. I have been asked to assist with cardiovascular care. PAST MEDICAL HISTORY: Coronary artery disease, history of coronary stents, congestive heart failure, COPD, hypertensive heart disease, type 2 diabetes mellitus, diabetic neuropathy, osteoarthritis, degenerative disk disease, hyperlipidemia, and peptic ulcer disease. ALLERGIES: None. MEDICATIONS: Prior to admission, reviewed and reconciled. FAMILY HISTORY: Noncontributory. SOCIAL HISTORY: No current smoking, alcohol, or substance abuse. REVIEW OF SYSTEMS: He has had cough and sputum production. No history of abnormal blood clotting. No history of thyroid disorder. He is on anti-lipid therapy. He is on oral therapy for diabetes. There is no history of seizure or stroke. He takes Neurontin for neuropathy. There is no history of prostate cancer. He is on tamoxifen, unclear why at this time. PHYSICAL EXAMINATION: VITAL SIGNS: Blood pressure 134/76, pulse 92, respiratory rate 20, and afebrile. HEENT: Conjunctivae pink. Oropharynx clear. NECK: Supple. Jugular venous pressure elevated. LUNGS: With bilateral rales. CARDIAC: Regular rhythm and rate. Normal S1 and S2 with a fourth heart sound. A 1/6 systolic murmur at apex. ABDOMEN: Soft and nontender. EXTREMITIES: Trace dependent edema. LABORATORY DATA: White count 3.6, hemoglobin 6.8, MCV 97, and platelet count is 31,000. Sodium 140, potassium 4.1, bicarbonate 30, BUN 15, and creatinine 1.1. Troponin negative. Pro-natriuretic peptide 846. Albumin 3.4. IMPRESSION: 1. Acute diastolic congestive heart failure. 2. Pancytopenia with severe anemia and thrombocytopenia. 3. Ischemic cardiomyopathy. 4. Hypertensive heart disease. 5. Type 2 diabetes mellitus. 6. Polypharmacy. 7. COPD exacerbation. PLAN: 1. Packed red cell transfusions. 2. Discontinue all anti-platelet drugs. 3. Hold nonsteroidal drugs. 4. Hold tamoxifen for now. 5. Diuresis with intravenous loop diuretic. 6. Replace potassium as needed. 7. Insulin titration by sliding scale. 8. Stepwise titration of antihypertensive drugs. 9. Stool occult blood studies. 10. Intravenous steroids with caution. 11. Echocardiogram . 12. Serial troponin levels. 13. Further recommendations to follow based on clinical course. Roberto Jimenez M.D. DR: PABLO JOB#: [id number] CC:
[2019-02-07 04:00] VITALS: BP 143/92
--- NOTE | 2019-02-07 04:10 | NUR ---
NURSE NOTES: Finished the second unit of PRBC, no adverse reactions noted. VS stable. Afebrile. Pt's sleeping in bed, with eyes closed, in no acute distress. is at the bed side. Will continue to monitor.
[2019-02-07 06:06] LABS: HEMATOCRIT 26.9 % (42.0-52.0); HEMOGLOBIN 8.7 G/DL (14.2-18.0); MEAN CORPUSCULAR VOLUME 96 FL (80-99); PLATELET COUNT 26 K/UL (150-450); RED BLOOD COUNT 2.79 M/UL (4.70-6.10); RED CELL DISTRIBUTION WIDTH 16.5 % (11.6-14.8); WHITE BLOOD COUNT 2.8 K/UL (4.8-10.8)
[2019-02-07] MEDS: NovoLOG Insulin Flexpen SUBQ SCH ×4 (06:30→20:38)
[2019-02-07] MEDS ORDERED: NovoLOG Insulin Flexpen SUBQ SCH (06:30)
[2019-02-07 06:47] LABS: ALANINE AMINOTRANSFERASE 12 U/L (12-78); ALBUMIN 3.3 G/DL (3.4-5.0); ALBUMIN/GLOBULIN RATIO 0.6 (1.0-2.7); ALKALINE PHOSPHATASE 109 U/L (46-116); ANION GAP 8 mmol/L (5-15); ASPARTATE AMINO TRANSFERASE 13 U/L (15-37); BILIRUBIN,TOTAL 1.4 MG/DL (0.2-1.0); BLOOD UREA NITROGEN 12 mg/dL (7-18); CARBON DIOXIDE 29 MMOL/L (21-32); CHLORIDE 101 MMOL/L (98-107); POTASSIUM 4.3 MMOL/L (3.5-5.1); SODIUM 138 MMOL/L (136-145)
[2019-02-07 06:52] LABS: BILIRUBIN,DIRECT 0.3 MG/DL (0.0-0.3)
--- NOTE | 2019-02-07 07:30 | NUR ---
HAND-OFF: Report given to GREG Mendez.
[2019-02-07 08:00] VITALS: BP 127/66
[2019-02-07] MEDS ORDERED: Lisinopril 20mg tab ORAL SCH (09:00)
[2019-02-07] MEDS: Solu-MEDROL 40mg Inj IVP SCH ×2 (09:15→20:37)
[2019-02-07] MEDS: Carvedilol 12.5mg tab ORAL SCH ×2 (09:16→20:35)
--- NOTE | 2019-02-07 09:21 | Diagnostic Imaging Report ---
Indication: Shortness of breath Technique: One view of the chest Comparison: 12/10/2018 Findings: Body habitus limits evaluation. The heart is enlarged. There is mild interstitial congestion. No focal airspace consolidation. The aorta is tortuous and ectatic. Extent of interstitial edema is similar to that seen on the prior study Impression: Interstitial edema, similar to prior exam of 12/16/2018 Cardiomegaly
--- NOTE | 2019-02-07 09:59 | History & Physical ---
History and Physical History & Physicial HISTORY OF PRESENT ILLNESS: This is a 63-year-old male who presented to the emergency room with several days of progressive shortness of breath. He has also been coughing and has felt dizzy. He was hospitalized about a month ago with similar symptoms and states he never improved. However, he has not had any new followup care. He has cough productive of yellow sputum. He has not had chest pain or leg swelling. His evaluation in the emergency room was notable for significantly low hemoglobin level and signs of acute congestive heart failure. He is also noted to be pancytopenic. PAST MEDICAL HISTORY: Coronary artery disease, history of coronary stents, congestive heart failure, COPD, hypertensive heart disease, type 2 diabetes mellitus, diabetic neuropathy, osteoarthritis, degenerative disk disease, hyperlipidemia, and peptic ulcer disease. ALLERGIES: None. MEDICATIONS: Prior to admission, reviewed and reconciled. FAMILY HISTORY: Noncontributory. SOCIAL HISTORY: No current smoking, alcohol, or substance abuse. REVIEW OF SYSTEMS: He has had cough and sputum production. No history of abnormal blood clotting. No history of thyroid disorder. He is on anti-lipid therapy. He is on oral therapy for diabetes. There is no history of seizure or stroke. He takes Neurontin for neuropathy. There is no history of prostate cancer. He is on tamoxifen, unclear why at this time. PHYSICAL EXAMINATION: VITAL SIGNS: Blood pressure 134/76, pulse 92, respiratory rate 20, and afebrile. HEENT: Conjunctivae pink. Oropharynx clear. NECK: Supple. Jugular venous pressure elevated. LUNGS: With bilateral rales. CARDIAC: Regular rhythm and rate. Normal S1 and S2 with a fourth heart sound. A 1/6 systolic murmur at apex. ABDOMEN: Soft and nontender. EXTREMITIES: Trace dependent edema. LABORATORY DATA: White count 3.6, hemoglobin 6.8, MCV 97, and platelet count is 31,000. Sodium 140, potassium 4.1, bicarbonate 30, BUN 15, and creatinine 1.1. Troponin negative. Pro-natriuretic peptide 846. Albumin 3.4. IMPRESSION: 1. Acute diastolic congestive heart failure. 2. Pancytopenia with severe anemia and thrombocytopenia. 3. Ischemic cardiomyopathy. 4. Hypertensive heart disease. 5. Type 2 diabetes mellitus. 6. Polypharmacy. PLAN: 1. Packed red cell transfusions. 2. Discontinue all anti-platelet drugs. 3. Hold nonsteroidal drugs. 4. Hold tamoxifen for now. 5. Diuresis with intravenous loop diuretic. 6. Replace potassium as needed. 7. Insulin titration by sliding scale. 8. Stepwise titration of antihypertensive drugs. 9. Stool occult blood studies. 10. DC steroids 11. Echocardiogram ordered. 12. Serial troponin levels. 13. Further recommendations to follow based on clinical course. Jaskaran Ac M.D. Jaskaran Ac MD Feb 07, 2019 09:59
--- NOTE | 2019-02-07 11:52 | NUR ---
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 RESPIRATORY DISTRESS SI:DIZZINESS . ANEMIA . SOB VS: BP 134/76, P 92, T 98.4, RR 20, SpO2 90 on 2.0L O2 NC WBC 3.6, RBC 2.13, Hgb 6.8, Hct 20.6 CXR Impression: Interstitial edema. Cardiomegaly. IS:SOLU-MEDROL 125mg IVP ATROVENT 500mcg HHN PROVENTIL 5mg HHN NS x1L IV LEVOFLOXACIN 150ml IVPB LASIX 40mg IV ADMITTED TO SDU DCP: RETURN HOME
[2019-02-07 12:00] VITALS: BP 109/67
--- NOTE | 2019-02-07 12:25 | Cardiology Report ---
APPROVED REPORT EKG Measurement Heart [id number] Normal sinus rhythm Low voltage QRS Borderline ECG
--- NOTE | 2019-02-07 13:03 | Cardiology Report ---
APPROVED REPORT EXAM: Two-dimensional and M-mode echocardiogram with Doppler and color Doppler. INDICATION Congestive Heart Failure M-Mode DIMENSIONS IVSd2.6 (0.7-1.1cm)Left Atrium (MM)4.1 (1.6-4.0cm) LVDd4.9 (3.5-5.6cm)Aortic Root3.9 (2.0-3.7cm) PWd1.3 (0.7-1.1cm)Aortic Cusp Exc.2.3 (1.5-2.0cm) LVDs3.7 (2.5-4.0cm) PWs1.2 cm Normal left ventricular chamber size, systolic function and wall motion. Left ventricular ejection fraction estimated to be 55 %. Mild left ventricular hypertrophy. Anterior Echo-free space, may be due to pericardial fat or effusion. Mild left atrial enlargement. Right cardiac chamber sizes are within normal limits. Focal aortic valve sclerosis with adequate cusp excursion. Mild aortic root dilatation. Mildly thickened mitral valve leaflets with normal excursion. Mild mitral annulus and aortic root calcification. Pulmonic valve not well visualized. Normal tricuspid valve structure. IVC is normal in size with physiological collapse. A color flow and spectral Doppler study was performed and revealed: Trace aortic insufficiency. Trace mitral regurgitation. Mitral inflow velocities indicates possible pseudo normalization pattern implying significant left ventricular diastolic dysfunction (Grade II). Trace tricuspid regurgitation. Tricuspid systolic velocities suggests peak right ventricular systolic pressure of 13 mmHg. No pulmonic regurgitation present.
--- NOTE | 2019-02-07 14:23 | NUR ---
NURSE NOTES: pt transferred to 2E as ordered, condition stable, report given to YVETTE RN.
--- NOTE | 2019-02-07 14:25 | NUR ---
NURSE NOTES: Pt received from GREG Mendez alert and oriented x4 with no acute s/s of SOB. On 2L NC, no s/s of SOB. at bedside. IV site asymptomatic and patent. Belongings all with patient - signed with transferring and receiving RN. No wounds noted upon transfer. Bed in lowest position, HOB elevated. Belongings and call light within reach.
--- NOTE | 2019-02-07 15:10 | NUR ---
*-* INSURANCE *-* ALL CLINICALS AND REVIEWS HAVE BEEN FAXED TO: [facility] F:[phone]
[2019-02-07 16:00] VITALS: BP 131/75
--- NOTE | 2019-02-07 19:15 | NUR ---
HAND-OFF: Report given to GREG Raymond. No acute s/s of distress.
--- NOTE | 2019-02-07 19:20 | NUR ---
NURSE NOTES: received pt from GREG Nathan. pt alert and talkative. at bedside. no acute distress noted, no c/o or discomfort. bed locked and at the lowest position, call light within reach. education provided to call for help when help needed, pt verbalized understanding. will continue to monitor.
[2019-02-07 20:00] VITALS: BP 94/45
--- NOTE | 2019-02-07 22:34 | NUR ---
NURSE NOTES: Dr Ac gave orders for full code. order carried out.
[2019-02-08] VITALS: BP 102/54
--- NOTE | 2019-02-08 01:45 | Progress Note ---
DATE: 02/07/2019 CARDIOLOGY PROGRESS NOTE SUBJECTIVE: The patient was transfused a total of 2 units of packed red blood cells yesterday evening. He was also concomitantly diuresed. His intake and output is slightly negative following these interventions. He is less short of breath. OBJECTIVE: GENERAL: He continues to have episodes of low range blood pressure this evening, earlier 123/79 and now 94/45, heart rate , and respiratory rate 18. LUNGS: With rales. CARDIAC: Regular rhythm and rate. Normal S1 and S2. A 1/6 systolic murmur at apex. ABDOMEN: Soft. EXTREMITIES: Trace edema. LABORATORY DATA: Echocardiogram performed, revealed normal ejection fraction with diastolic dysfunction, no pulmonary hypertension, and PA systolic pressure of 13. White count 2.8, hemoglobin 8.7, and platelet count 26,000. Potassium 4.3, BUN 12, creatinine 1, and magnesium 1.7. Pro-natriuretic peptide 1170. IMPRESSION: 1. Severe anemia. 2. Pancytopenia. 3. Acute diastolic congestive heart failure. 4. Hypertensive heart disease. 5. Ischemic cardiomyopathy. 6. Hypomagnesemia. 7. Paroxysmal bronchospasm. 8. Chronic obstructive pulmonary disease. PLAN: 1. Steroids with taper per primary care physician. 2. Recheck hemoglobin. Transfuse for further drop. 3. Holding all anti-platelet therapy. 4. Cautious diuresis. 5. IV magnesium. 6. Hold parameters for antihypertensive drugs. 7. Consider Hematology consult. Roberto Jimenez M.D. DR: EUNICE JOB#: [id number] CC:
[2019-02-08 04:00] VITALS: BP 101/52
[2019-02-08] MEDS: NovoLOG Insulin Flexpen SUBQ SCH (05:49)
--- NOTE | 2019-02-08 06:24 | NUR ---
NURSE NOTES: pt remains in stable condition, no acute distress, no change of condition, all needs met during my shift. will endorse pt to incoming nurse.
--- NOTE | 2019-02-08 07:29 | NUR ---
NURSE NOTES: Received report from GREG Mes[place]. Patient is sitting in bed and eating his breakfast, A/O x4. Breathing un labored in room air. IV site patent and asymptomatic. Safety precaution in place; side rails X2 up, call light and bed side table within reach, bed in lowest position, brakes engaged. Will continue the taylor of care.
--- NOTE | 2019-02-08 07:30 | NUR ---
HAND-OFF: Report given to GREG Lester.
[2019-02-08 08:00] VITALS: BP 139/86
[2019-02-08 08:18] LABS: HEMATOCRIT 25.9 % (42.0-52.0); HEMOGLOBIN 8.4 G/DL (14.2-18.0); MEAN CORPUSCULAR VOLUME 95 FL (80-99); PLATELET COUNT 28 K/UL (150-450); RED BLOOD COUNT 2.72 M/UL (4.70-6.10); RED CELL DISTRIBUTION WIDTH 17.6 % (11.6-14.8); WHITE BLOOD COUNT 3.2 K/UL (4.8-10.8)
[2019-02-08 08:30] LABS: ANION GAP 7 mmol/L (5-15); BLOOD UREA NITROGEN 22 mg/dL (7-18); CALCIUM 9.3 MG/DL (8.5-10.1); CARBON DIOXIDE 29 MMOL/L (21-32); CHLORIDE 101 MMOL/L (98-107); CREATININE 1.1 MG/DL (0.55-1.30); POTASSIUM 4.8 MMOL/L (3.5-5.1); SODIUM 137 MMOL/L (136-145)
[2019-02-08] MEDS: Solu-MEDROL 40mg Inj IVP SCH (08:39)
[2019-02-08 08:40] VITALS: BP 139/86
[2019-02-08] MEDS: Carvedilol 12.5mg tab ORAL SCH (08:40)
[2019-02-08] MEDS ORDERED: Lisinopril 20mg tab ORAL SCH (09:00)
--- NOTE | 2019-02-08 09:19 | Pulmonology Progress Note ---
Assessment/Plan Assessment/Plan IMPRESSION: 1. Acute diastolic congestive heart failure. 2. Pancytopenia with severe anemia and thrombocytopenia. 3. Ischemic cardiomyopathy. 4. Hypertensive heart disease. 5. Type 2 diabetes mellitus. 6. Polypharmacy. PLAN: 1. Packed red cell transfusions. 2. Discontinue all anti-platelet drugs. 3. Hold nonsteroidal drugs. 4. Hold tamoxifen for now. 5. Diuresis with intravenous loop diuretic. Will increase to 60 mg Lasix on dc 6. Replace potassium as needed. 7. Insulin titration by sliding scale. 8. Stepwise titration of antihypertensive drugs. 9. Stool occult blood studies. 10. DC steroids 11. Echocardiogram ordered. 12. Serial troponin levels. 13. Further recommendations to follow based on clinical course. Dc home Subjective Interval Events: Much better Constitutional: Reports: no symptoms HEENT: Repors: no symptoms Respiratory: Reports: no symptoms Cardiovascular: Reports: no symptoms Gastrointestinal/Abdominal: Reports: no symptoms Genitourinary: Reports: no symptoms Allergies: Coded Allergies: No Known Allergies (Unverified , 03/24/16) Objective Last 24 Hour Vital Signs Date Time Temp Pulse Resp B/P (MAP) Pulse Ox O2 Delivery O2 Flow Rate FiO2 02/08/19 08:40 139/86 02/08/19 08:40 139/86 02/08/19 08:40 72 139/86 02/08/19 08:00 97.7 72 20 139/86 (103) 98 02/08/19 04:00 97.7 64 20 101/52 (68) 98 02/08/19 04:00 68 02/08/19 00:00 97.5 80 20 102/54 (70) 100 02/08/19 00:00 75 02/07/19 21:00 Nasal Cannula 2.0 02/07/19 20:35 78 94/45 02/07/19 20:00 79 02/07/19 20:00 98.2 78 20 94/45 (61) 96 02/07/19 17:40 123/70 02/07/19 16:00 96.5 77 18 131/75 (93) 96 02/07/19 16:00 75 02/07/19 13:00 109/67 02/07/19 12:00 77 02/07/19 12:00 Nasal Cannula 2.0 02/07/19 12:00 96.1 79 18 109/67 (81) 94 Intake and Output 02/07/19 02/08/19 19:00 07:00 Intake Total 750 ml Output Total 1400 ml Balance -650 ml Intake Oral 750 ml Output Urine Total 1400 ml # Voids 3 General Appearance: no acute distress HEENT: normocephalic Respiratory/Chest: chest wall non-tender, lungs clear Cardiovascular: normal peripheral pulses, normal rate Abdomen: normal bowel sounds Extremities: no cyanosis Microbiology Date/Time Source Procedure Growth Status 02/06/19 20:55 Blood Blood Culture - Preliminary NO GROWTH AFTER 24 HOURS Resulted 02/06/19 20:40 Blood Blood Culture - Preliminary NO GROWTH AFTER 24 HOURS Resulted Laboratory Tests 02/08/19 07:45: White Blood Count 3.2L, Red Blood Count 2.72L, Hemoglobin 8.4L, Hematocrit 25.9L , Mean Corpuscular Volume 95, Mean Corpuscular Hemoglobin 31.0, Mean Corpuscular Hemoglobin Concent 32.5, Red Cell Distribution Width 17.6H, Platelet Count 28L, Mean Platelet Volume 7.1, Neutrophils (%) (Auto) , Lymphocytes (%) (Auto) , Monocytes (%) (Auto) , Eosinophils (%) (Auto) , Basophils (%) (Auto) , Neutrophils % (Manual) [Pending], Lymphocytes % (Manual) [Pending], Platelet Estimate [Pending], Platelet Morphology [Pending], Sodium Level 137, Potassium Level 4.8, Chloride Level 101, Carbon Dioxide Level 29, Anion Gap 7, Blood Urea Nitrogen 22H, Creatinine 1.1, Estimat Glomerular Filtration Rate > 60, Glucose Level 144H, Calcium Level 9.3 Current Medications Medications (Trade) Dose Ordered Sig/Saima Route PRN Reason Start Time Stop Time Status Last Admin Dose Admin Carvedilol (Coreg) 12.5 mg EVERY 12 HOURS ORAL 02/07/19 09:00 03/09/19 08:59 02/08/19 08:40 Dextrose (Dextrose 50%) 25 ml Q30M PRN IV Hypoglycemia 02/07/19 01:00 03/09/19 00:59 Dextrose (Dextrose 50%) 50 ml Q30M PRN IV Hypoglycemia 02/07/19 01:00 03/09/19 00:59 Famotidine (Pepcid) 20 mg BID ORAL 02/07/19 09:00 03/09/19 08:59 02/08/19 08:40 Furosemide (Lasix) 20 mg DAILY IV 02/07/19 09:00 03/09/19 08:59 02/08/19 08:39 Gabapentin (Neurontin) 300 mg THREE TIMES A DAY ORAL 02/07/19 09:00 03/09/19 08:59 02/08/19 08:40 Insulin Aspart (NovoLOG) BEFORE MEALS AND HS SUBQ 02/07/19 06:30 03/09/19 06:29 02/08/19 05:49 Isosorbide Dinitrate (Isordil) 20 mg TID ORAL 02/07/19 09:00 03/09/19 08:59 02/08/19 08:40 Lisinopril (Prinivil) 20 mg DAILY ORAL 02/08/19 09:00 03/10/19 08:59 02/08/19 08:40 Methylprednisolone Sodium Succinate (Solu-MEDROL) 40 mg EVERY 12 HOURS IVP 02/07/19 09:00 03/09/19 08:59 02/08/19 08:39 Jaskaran Ac MD Feb 08, 2019 09:19
[2019-02-08] MEDS ORDERED: FUROSEMIDE40 MG ORAL (09:21)
--- NOTE | 2019-02-08 10:20 | NUR ---
NURSE NOTES: Patient discharged home, self care per dr. Moctezuma's order. discharge instructions explained to patient and his , verbalized understanding. ID band removed. Heart monitor removed and returned to generation engineering technologist. IV line discontinued. Patient received a new prescription. Patient went home with his in stable condition and with private car.
--- NOTE | 2019-02-08 23:30 | Progress Note ---
DATE: 02/08/2019 CARDIOLOGY PROGRESS NOTE SUBJECTIVE: The patient's condition has improved. He is not short of breath. He has been transfused 2 units of packed cells. No new bleeding signs are noted. OBJECTIVE: VITAL SIGNS: Blood pressure 139/86, pulse 72, and respirations 20. Afebrile. LUNGS: Few rales. HEART: Regular rhythm and rate. Normal S1, S2 with a 1/6 systolic murmur at the apex. ABDOMEN: Soft and nontender. EXTREMITIES: Trace edema. LABORATORY DATA: White count 3.3, hemoglobin 8.4, and platelets 28,000. Potassium 4.8, BUN 22, and creatinine 1.1. IMPRESSION: 1. Acute diastolic congestive heart failure, now compensated. 2. Severe anemia and pancytopenia status post transfusions, now stabilized with no active bleeding despite low platelet counts. 3. Type 2 diabetes mellitus. 4. Hypomagnesemia status post replacement therapy. 5. Chronic obstructive pulmonary disease exacerbation with paroxysmal bronchospasm. 6. Ischemic cardiomyopathy with stable angina. PLAN: 1. No additional diuresis. 2. Monitor blood counts. 3. Transfuse as needed. 4. Holding anti-platelet therapy. 5. Reassess continued use of tamoxifen. 6. Would avoid heparin products. 7. Titrate antihypertensives. 8. Steroid taper. 9. Inhaled bronchodilators. 10. Close outpatient followup with respect to blood count. Roberto Jimenez M.D. DR: VINH JOB#: [id number] CC:
--- NOTE | 2019-02-09 11:38 | Discharge Summary ---
Discharge Summary Discharge Summary _ DATE OF ADMISSION: 02/06/2019 DATE OF DISCHARGE: 02/08/2019 DISCHARGED BY: Dr. Ac REASON FOR ADMISSION: 63 years old male with past medical history of coronary artery disease , status post coronary stents, congestive heart failure, COPD, hypertensive heart disease, type 2 diabetes mellitus, diabetic neuropathy, osteoarthritis, degenerative disc disease, hyperlipidemia, peptic ulcer disease, presented to the emergency department with several day of progressive shortness of breath. Patient reported productive cough with yellow phlegm production, no hemoptysis. Patient felt dizzy. Patient was hospitalized about a month ago with similar symptoms and stated that he had never improved, although patient did not have any follow-up care after discharge. Patient denied chest pain . Patient denied leg swelling. Upon evaluation in emergency department , patient was found to have signs of acute congestive heart failure and severe anemia. Hemoglobin 6.8, hematocrit 20.6 , WBC 3.6, platelet count -31. Troponin was negative . EKG revealed sinus rhythm, no acute ischemic changes. Pro BNP 846. Lactic acid within normal limits. Chest x-ray revealed interstitial edema. Patient subsequently admitted to telemetry floor for further management. CONSULTANTS: manager solar Dr. Jimenez [facility]: Patient admitted to telemetry floor. Patient was transfused with 2 units of packed red blood cells. Cardiology consult was requested. Echocardiogram revealed preserved ejection fraction of 55% with mild left ventricular hypertrophy. No evidence of wall motion abnormality. Right ventricular systolic pressure of 13. Significant left ventricular diastolic dysfunction grade 2. All antiplatelet therapy was discontinued. All nonsteroidal anti-inflammatory medication were discontinued. Patient started on diuresis with intravenous loop diuretic with close monitoring of volumes and cardiorenal parameters. Electrolytes were corrected as needed. Renal parameters were closely monitored. Serial troponins were negative. EKG revealed no acute ischemic changes . Patient was ruled out for acute SC. Antihypertensive medications were stepwise titrated to keep blood pressure under control. Blood pressure eventually was controlled with GIOVANNI inhibitor, beta-darlyn and diuretic. Nitrates were continued. Supplemental oxygen provided as needed to keep pulse oximetry 100%. Pulmonary toilet with bronchodilator provided [id number] and as needed. Patient started on intravenous steroids with caution . Patient started on empiric antibiotics. Blood cultures were negative. GI prophylaxis provided. Blood sugar was managed with sliding scale of insulin. Blood counts were closely monitored. No evidence of bleeding. Patient undergone transfusion of 2 units of packed red blood cells. Stool for occult blood was ordered , but patientdid not provide any specimen. Hold all antiplatelet therapy, nonsteroid anti-inflammatory medication on discharge. Steroids were discontinued prior to discharge. Prior to discharge hemoglobin 8.4, hematocrit 25.9, platelet count 28. WBC 3.2. Patient was stabilized and ready for discharge home. Recommended outpatient follow-up with preventive maintenance engineer due to pancytopenia. FINAL DIAGNOSES: Acute diastolic congestive heart failure Severe anemia requiring transfusion Pancytopenia with severe anemia and thrombocytopenia COPD exacerbation with paroxysmal bronchospasm Ischemic cardiomyopathy with stable angina Hypertensive heart disease Type 2 diabetes mellitus Hypomagnesemia DISCHARGE MEDICATIONS: See Medication Reconciliation list. DISCHARGE INSTRUCTIONS: Patient was discharged home . Follow up with primary care provider in one week. Recommended outpatient follow-up with a preventive maintenance engineer. I have been assigned to dictate discharge summary for this account. I was not involved in the patient's management. Management. Jena Lucero NP Feb 09, 2019 11:38
== END 2019-02-08 10:20 | disposition home or self-care (01) | DRG 194 ==
LOC: EMR 20:10 → 2W 23:16 → EDBEDREQ 23:27 → 2E 02-07 15:08
PROC: 30233N1 Transfusion of Nonautologous Red Blood Cells into Peripheral Vein, Percutaneous Approach (ICD-10-PCS; principal; 2019-02-06)
DX: I11.0 Hypertensive heart disease with heart failure (principal); D61.818 Other pancytopenia; D69.6 Thrombocytopenia, unspecified; E11.40 Type 2 diabetes mellitus with diabetic neuropathy, unspecified; J44.1 Chronic obstructive pulmonary disease with (acute) exacerbation; E83.42 Hypomagnesemia; I50.31 Acute diastolic (congestive) heart failure; I25.5 Ischemic cardiomyopathy; Z95.5 Presence of coronary angioplasty implant and graft; I25.118 Atherosclerotic heart disease of native coronary artery with other forms of angina pectoris; M19.90 Unspecified osteoarthritis, unspecified site; E78.5 Hyperlipidemia, unspecified
CPT/HCPCS: 36415; 71045; 80048; 80053; 81003; 82248; 82550; 82553; 82962; 83605; 83735; 83880; 84484; 85007; 85025; 85610; 85730; 86850; 86900; 86901; 86920; 87040; 93005; 93306; 94640; 96365; 96375; 96376; 99285; J1815

== ENCOUNTER 2019-03-11 18:47 | Inpatient (IN) | payer MEDICAID ==
[~2019-03-11] VITALS: Ht 190.5 cm; Wt 142.4 kg
[~2019-03-11 18:47] MED LIST changes: +CLOPIDOGREL75 MG ORAL; +NEURONTIN300 MG ORAL; +VITAMIN D22000 UNIT PO
--- NOTE | 2019-03-11 18:50 | NUR ---
ED Nurse Note: Patient wheeled into ED c/o dizziness since yesterday, patient reports of having 10/10 in his "anus hole". patient is difficult to understand however is alert and oriented x4, denies any numbness or tingling senssation in extremeties. Patient was complainign of SOB, placed patient on 2 liters nasal cannula.
[2019-03-11] MEDS ORDERED: UNOBMED (18:51)
[2019-03-11 18:52] VITALS: BP 94/45
--- NOTE | 2019-03-11 19:06 | Emergency Room Report ---
History of Present Illness General Chief Complaint: Dizziness Source: Medical Record Present Illness HPI This is a 63-year-old male with multiple medical problems, including coronary artery disease, congestive heart failure with an ejection fraction of 55%, anemia, hypertension, who complains of dizziness that is nonspecific for the last 2 days. He denies any abdominal pain. He denies any shortness of breath or chest pain. No exacerbating or relieving factor. He denies any fall. No other associated symptoms. He states that he was recently admitted in the hospital and had a blood transfusion. He denies any black, tarry stool. Allergies: Coded Allergies: No Known Allergies (Unverified , 03/24/16) Patient History Past Medical History: see triage record Pertinent Family History: unable to obtain Nursing Documentation-[facility] Past Medical History: No History, Except For Hx Cardiac Problems: Yes Hx Hypertension: Yes Hx Asthma: Yes Hx Diabetes: Yes Hx Cancer: No Hx Gastrointestinal Problems: Yes Hx Neurological Problems: Yes Hx Dizziness: Yes Review of Systems All Other Systems: negative except mentioned in HPI Physical Exam Vital Signs Date Time Temp Pulse Resp B/P (MAP) Pulse Ox O2 Delivery O2 Flow Rate FiO2 03/11/19 18:49 98.4 95 17 91/41 (58) 97 Nasal Cannula 2.0 General Appearance: well appearing, no apparent distress Head: normocephalic, atraumatic ENT: hearing grossly normal, normal voice Neck: full range of motion, supple Respiratory: normal inspection, normal breath sounds, no respiratory distress, speaking full sentences Cardiovascular #1: regular rate, rhythm, no edema Gastrointestinal: normal bowel sounds, non tender, soft, other - non melanotic stool Rectal: normal exam Musculoskeletal: no calf tenderness Neurologic: alert, normal gait Psychiatric: mood/affect normal Skin: no rash Procedures Critical Care Time Critical Care Time I spent 35 minutes in critical care time on this patient. This included review of medical records, nursing notes, discussion with the patient, multiple evaluations. This time was not spent on other patients. This time was not spent on procedures. Medical Decision Making Diagnostic Impression: Primary Impression: Severe anemia ER Course Patient presented with a significant complexity or risk requiring multiple bedside evaluations. I was particularly concerned about blood loss anemia, congestive heart failure, acute squandered syndrome, metabolic derangement, arrhythmia. Rectal exam was done. No evidence of hemorrhoids. According the , the patient has been struggling with constipation. He has been on stool softeners as well. Patient is significantly anemic. The patient did have an episode of hypotension but then it resolved after IV bolus. The patient is not tachycardic. No evidence of gastric intestinal bleeding. Renal function is getting progressively worse. I've typed and crossed 2 units of blood. The patient regarding the risk and benefits of transfusion. The first unit has been ordered for transfusion. I discussed this with the admitting doctor, who was accepted for admission and will admit the patient to D telemetry unit. I feel the patient is stable for telemetry. patient has an elevated troponin. However, the patient has no chest pain or short of breath. acute coronary syndrome unlikely. There are no dynamic EKG changes. Laboratory Tests Test 03/11/19 19:00 White Blood Count 3.0 K/UL (4.8-10.8) L Red Blood Count 1.75 M/UL (4.70-6.10) L Hemoglobin 5.3 G/DL (14.2-18.0) *L Hematocrit 15.5 % (42.0-52.0) L Mean Corpuscular Volume 88 FL (80-99) Mean Corpuscular Hemoglobin 30.3 PG (27.0-31.0) Mean Corpuscular Hemoglobin Concent 34.2 G/DL (32.0-36.0) Red Cell Distribution Width 17.8 % (11.6-14.8) H Platelet Count 17 K/UL (150-450) L Mean Platelet Volume 6.4 FL (6.5-10.1) L Neutrophils (%) (Auto) % (45.0-75.0) Lymphocytes (%) (Auto) % (20.0-45.0) Monocytes (%) (Auto) % (1.0-10.0) Eosinophils (%) (Auto) % (0.0-3.0) Basophils (%) (Auto) % (0.0-2.0) Neutrophils % (Manual) Pending Lymphocytes % (Manual) Pending Platelet Estimate Pending Platelet Morphology Pending Sodium Level 136 MMOL/L (136-145) Potassium Level 3.4 MMOL/L (3.5-5.1) L Chloride Level 99 MMOL/L (98-107) Carbon Dioxide Level 24 MMOL/L (21-32) Anion Gap 13 mmol/L (5-15) Blood Urea Nitrogen 42 mg/dL (7-18) H Creatinine 2.7 MG/DL (0.55-1.30) H Estimate Glomerular Filtration Rate 29.0 mL/min (>60) Glucose Level 151 MG/DL (74-106) H Calcium Level 8.7 MG/DL (8.5-10.1) Total Bilirubin 1.8 MG/DL (0.2-1.0) H Direct Bilirubin 1.2 MG/DL (0.0-0.3) H Aspartate Amino Transferase (AST) 14 U/L (15-37) L Alanine Aminotransferase (ALT) 13 U/L (12-78) Alkaline Phosphatase 80 U/L (46-116) Troponin I 0.134 ng/mL (0.000-0.056) Total Protein 7.7 G/DL (6.4-8.2) Albumin 2.7 G/DL (3.4-5.0) L Globulin 5.0 g/dL Albumin/Globulin Ratio 0.5 (1.0-2.7) L EKG Diagnostic Results EKG Time: 19:06 Rate: normal Rhythm: NSR ST Segments: no acute changes Rhythm Strip Diag. Results Rhythm Strip Time: 19:06 EP Interpretation: yes Rhythm: NSR Last Vital Signs Date Time Temp Pulse Resp B/P (MAP) Pulse Ox O2 Delivery O2 Flow Rate FiO2 03/11/19 18:49 98.4 95 17 91/41 (58) 97 Nasal Cannula 2.0 Disposition: ADMITTED INPATIENT Condition: Serious PARTHA LR March 11, 2019 19:06
[2019-03-11 19:40] LABS: ANION GAP 13 mmol/L (5-15); BLOOD UREA NITROGEN 42 mg/dL (7-18); CALCIUM 8.7 MG/DL (8.5-10.1); CARBON DIOXIDE 24 MMOL/L (21-32); CHLORIDE 99 MMOL/L (98-107); CREATININE 2.7 MG/DL (0.55-1.30); POTASSIUM 3.4 MMOL/L (3.5-5.1); SODIUM 136 MMOL/L (136-145)
[2019-03-11 19:45] LABS: HEMATOCRIT 15.5 % (42.0-52.0); MEAN CORPUSCULAR VOLUME 88 FL (80-99); PLATELET COUNT 17 K/UL (150-450); RED BLOOD COUNT 1.75 M/UL (4.70-6.10); RED CELL DISTRIBUTION WIDTH 17.8 % (11.6-14.8)
[2019-03-11 19:48] LABS: HEMOGLOBIN 5.3 G/DL (14.2-18.0)
[2019-03-11 19:51] LABS: ALANINE AMINOTRANSFERASE 13 U/L (12-78); ALBUMIN 2.7 G/DL (3.4-5.0); ALBUMIN/GLOBULIN RATIO 0.5 (1.0-2.7); ALKALINE PHOSPHATASE 80 U/L (46-116); ASPARTATE AMINO TRANSFERASE 14 U/L (15-37); BILIRUBIN,TOTAL 1.8 MG/DL (0.2-1.0)
[2019-03-11 19:53] LABS: BILIRUBIN,DIRECT 1.2 MG/DL (0.0-0.3)
--- NOTE | 2019-03-11 20:00 | NUR ---
ED Nurse Note: Consent for blood signed by patient.
--- NOTE | 2019-03-11 20:45 | NUR ---
ED Nurse Note: Patient's blood pressure has seen no changes and has remained in the 80s range, Dr. Osorio notified and aware. given verbal order for 500mL bolus.
[2019-03-11] MEDS ORDERED: Sodium Chloride 550 ML IV SCH (21:00)
--- NOTE | 2019-03-11 21:19 | NUR ---
ED Nurse Note: blood transfusion started
--- NOTE | 2019-03-11 21:34 | NUR ---
ED Nurse Note: Patient tolerated 15 minutes of blood transfusion well. Per Dr. Osorio's orders. patient will go up once blood pressure is in the upper 90s
--- NOTE | 2019-03-11 21:40 | NUR ---
ED Nurse Note: Patient is still reporting pain in the anus area, received order for 1000mg tylenol
[2019-03-11] MEDS ORDERED: Acetaminophen 500mg (ES) tab ORAL ONE (21:45)
[2019-03-11 21:46] VITALS: BP 88/45
--- NOTE | 2019-03-11 22:00 | NUR ---
NURSE NOTES: Received report from Chivo Rodrigues, VISION MIXER. Awaiting patient's arrival.
--- NOTE | 2019-03-11 22:30 | NUR ---
NURSE NOTES: Patient arrived on unit at 2230. He is A/O x4, sinus rhythm on tobacco stripper hand. Patient vomited x1 and felt slight dizziness. On 2L O2 via nasal cannula and saturating well. Skin is intact. Left hand 20g IV, intact and patent, currently transfusing 1 unit pRBC. Bed alarmed, locked in lowest position with side rails up x2. Call light left within reach. Caregiver remains at bedside. Will call Dr. Yashira MD for admission orders.
--- NOTE | 2019-03-11 23:15 | NUR ---
NURSE NOTES: Received admitting orders from Dr. Yashira MD. wants to continue current order of blood transfusion from ER. Noted and carried out.
[2019-03-11] MEDS ORDERED: FERROUS SULFAT325 M2 ORAL (23:25)
[2019-03-11] MEDS ORDERED: STOOL SOFTENER1 EAC3 PO (23:25)
[2019-03-11] MEDS ORDERED: COZAAR100 MG ORAL (23:25)
[2019-03-11] MEDS ORDERED: HYDROCHLOROTHIA25 MG ORAL (23:25)
--- NOTE | 2019-03-11 23:26 | NUR ---
TRANSFER TO FLOOR: Patient transferred to SDU as ordered, per Report given to GREG Gonzalez
[2019-03-11] MEDS ORDERED: LIDOCAINE30 GM TP (23:29)
[2019-03-11] MEDS ORDERED: Nitroglycerin Subl 0.4mg tab SL PRN (23:30)
[2019-03-12] VITALS: BP 130/53
[2019-03-12] MEDS ORDERED: Albuterol 90mcg Inhaler 8gm INH SCH
--- NOTE | 2019-03-12 | NUR ---
NURSE NOTES: 1st unit of pRBC transfused. Will warehouse picker 2nd unit.
[2019-03-12] MEDS: Albuterol 90mcg Inhaler 8gm INH SCH ×5 (01:00→19:00)
--- NOTE | 2019-03-12 03:00 | NUR ---
NURSE NOTES: 2nd unit of ordered pRBCs transfused. No adverse reaction observed. Will continue to monitor.
[2019-03-12 04:00] VITALS: BP 91/57
[2019-03-12 06:12] LABS: HEMATOCRIT 19.7 % (42.0-52.0); MEAN CORPUSCULAR VOLUME 90 FL (80-99); PLATELET COUNT 18 K/UL (150-450); RED BLOOD COUNT 2.18 M/UL (4.70-6.10); RED CELL DISTRIBUTION WIDTH 17.1 % (11.6-14.8); WHITE BLOOD COUNT 2.8 K/UL (4.8-10.8)
[2019-03-12 06:28] LABS: ANION GAP 10 mmol/L (5-15); BLOOD UREA NITROGEN 48 mg/dL (7-18); CALCIUM 8.7 MG/DL (8.5-10.1); CARBON DIOXIDE 25 MMOL/L (21-32); CHLORIDE 101 MMOL/L (98-107); CREATININE 3.1 MG/DL (0.55-1.30); POTASSIUM 3.8 MMOL/L (3.5-5.1); SODIUM 136 MMOL/L (136-145)
[2019-03-12 06:29] LABS: HEMOGLOBIN 6.5 G/DL (14.2-18.0)
--- NOTE | 2019-03-12 06:35 | NUR ---
NURSE NOTES: Dr. Yashira MD made aware of patient's H&H this morning. New orders received. Noted and carried out.
--- NOTE | 2019-03-12 07:05 | NUR ---
HAND-OFF: Report given to Osmany Leos RN and Floyd Ham RN.
--- NOTE | 2019-03-12 07:37 | NUR ---
NURSE NOTES: Received patient from GERG Badillo. patient is sleeping, but arousable to voice and verbally responsive. denies pain at this time. patient is on 2 liters oxygen via nasal cannula with no s/sx of distress noted. IV site is patent and intact. bed in lowest position and locked, siderails up X2, call light within reach. will continue to monitor.
[2019-03-12] MEDS: Tylenol #3 tab (300mg/30mg) ORAL PRN ×2 (07:57→16:47)
[2019-03-12 08:00] VITALS: BP 106/69
[2019-03-12] MEDS ORDERED: Furosemide 40mg tab ORAL SCH (09:00)
[2019-03-12] MEDS ORDERED: Losartan 50mg tab ORAL SCH (09:00)
[2019-03-12] MEDS ORDERED: Lisinopril 2.5mg tab ORAL SCH (09:00)
--- NOTE | 2019-03-12 09:36 | NUR ---
NURSE NOTES: started transfusion of 1 unit of PRBCs per MD order. pretransfusion vitals signs were stable. no s/sx of adverse reaction. will continue to monitor.
[2019-03-12 12:00] VITALS: BP 107/51
--- NOTE | 2019-03-12 14:30 | Consultation ---
DATE OF CONSULTATION: 03/12/2019 CONSULTING PHYSICIAN: Stephan Santos M.D. REFERRING PHYSICIAN: Jaskaran Ac M.D. REASON FOR CONSULTATION: 1. Acute kidney injury. 2. Hypotension. HISTORY OF PRESENT ILLNESS: The patient is a 63-year-old gentleman with multiple medical problems, admitted overnight for further evaluation and care of severe anemia. He had been feeling lightheaded and dizzy. When noted to have a hemoglobin of 5.3 in the emergency room and a platelet count of 17, as such he was admitted for further evaluation and care, where his creatinine overnight has worsened from 2.7 to 3.1. Prior to this, the patient had normal renal function. ALLERGIES: No known drug allergies. PAST MEDICAL HISTORY: 1. Hypertension. 2. Coronary artery disease. 3. Vitamin D deficiency. 4. Iron deficiency. 5. Diabetes mellitus. 6. Hyperlipidemia. FAMILY HISTORY: Positive for hypertension and diabetes. PAST SURGICAL HISTORY: Noncontributory. REVIEW OF SYSTEMS: NEUROLOGIC: The patient denies headache or change in vision. He was feeling lightheaded and dizzy. CARDIOVASCULAR: No current chest pain, palpitations, or angina. PULMONARY: No difficulty breathing, productive cough, sputum. GASTROINTESTINAL/GENITOURINARY: No change in bowel habits. No nausea, vomiting, or diarrhea. ENDOCRINOLOGY: No night sweats, fevers, or chills. MUSCULOSKELETAL: The patient feeling weak, tired, and fatigue. PHYSICAL EXAMINATION: VITAL SIGNS: Blood pressure 106/69, pulse 101, temperature 98.1, and 98% oxygen saturation on 2 L nasal cannula. GENERAL: The patient awake, alert, not in distress. HEENT: Extraocular muscles intact. No lymphadenopathy noted. Oropharyngeal mucosa, clear and dry. CARDIOVASCULAR: S1, S2. No rubs or gallops. Regular rate. PULMONARY: Clear to auscultation bilaterally. No rales, rhonchi or wheezes. ABDOMEN: Nondistended and nontender. EXTREMITIES: No edema noted. LABORATORY DATA: Labs dated March 12, 2019, sodium 136, potassium 3.8, creatinine 3.1. Hemoglobin 6.5, platelet count 18, and white cell count 2.8. ASSESSMENT AND PLAN: 1. Acute kidney injury, at this time most likely secondary to severe volume depletion along with being hypotensive while on GIOVANNI inhibitor and ARB therapy. The patient was also taking at home NSAIDs. Meloxicam, ibuprofen will be discontinued. Due to his hypotension nature currently Norvasc, lisinopril, and losartan have all been discontinued. At this time, avoid any nephrotoxins. Renal ultrasound has been ordered. 2. Severe anemia, could be secondary to heavy NSAID use. Defer management to Gastroenterology. 3. Hypotension. All antihypertensive medications will be temporarily discontinued. The patient is receiving volume in the form of blood transfusion. We will monitor carefully during his hospitalization. 4. Diabetes mellitus. Defer management to primary care physician. Let me take this opportunity to thank Dr. Ac. Stephan Santos MD DR: CHELSEY/SHERIDAN JOB#: [id number] CC:
--- NOTE | 2019-03-12 15:17 | History & Physical ---
History and Physical History & Physicial REASON FOR ADMISSION: 1. ANEMIA. 2. Hypotension. HISTORY OF PRESENT ILLNESS: The patient is a 63-year-old gentleman with multiple medical problems, admitted overnight for further evaluation and care of severe anemia. He had been feeling lightheaded and dizzy. When noted to have a hemoglobin of 5.3 in the emergency room and a platelet count of 17, as such he was admitted for further evaluation and care, where his creatinine overnight has worsened from 2.7 to 3.1. Prior to this, the patient had normal renal function. His caregiver reports painful hemorrhoids but no dark stools or fresh blood per rectum ALLERGIES: No known drug allergies. PAST MEDICAL HISTORY: 1. Hypertension. 2. Coronary artery disease. 3. Vitamin D deficiency. 4. Iron deficiency. 5. Diabetes mellitus. 6. Hyperlipidemia. FAMILY HISTORY: Positive for hypertension and diabetes. PAST SURGICAL HISTORY: Noncontributory. REVIEW OF SYSTEMS: NEUROLOGIC: The patient denies headache or change in vision. He was feeling lightheaded and dizzy. CARDIOVASCULAR: No current chest pain, palpitations, or angina. PULMONARY: No difficulty breathing, productive cough, sputum. GASTROINTESTINAL/GENITOURINARY: No change in bowel habits. No nausea, vomiting, or diarrhea. ENDOCRINOLOGY: No night sweats, fevers, or chills. MUSCULOSKELETAL: The patient feeling weak, tired, and fatigue. PHYSICAL EXAMINATION: VITAL SIGNS: Blood pressure 106/69, pulse 101, temperature 98.1, and 98% oxygen saturation on 2 L nasal cannula. GENERAL: The patient awake, alert, not in distress. HEENT: Extraocular muscles intact. No lymphadenopathy noted. Oropharyngeal mucosa, clear and dry. CARDIOVASCULAR: S1, S2. No rubs or gallops. Regular rate. PULMONARY: Clear to auscultation bilaterally. No rales, rhonchi or wheezes. ABDOMEN: Nondistended and nontender. EXTREMITIES: No edema noted. LABORATORY DATA: Labs dated March 12, 2019, sodium 136, potassium 3.8, creatinine 3.1. Hemoglobin 6.5, platelet count 18, and white cell count 2.8. ASSESSMENT AND PLAN: 1. Acute kidney injury, at this time most likely secondary to severe volume depletion along with being hypotensive while on GIOVANNI inhibitor and ARB therapy. Renal consult requested. Renal ultrasound has been ordered. 2. Severe anemia, could be secondary to heavy NSAID use. Defer management to Gastroenterology. Consulted GI. 3. Hypotension. All antihypertensive medications will be temporarily discontinued. The patient is receiving volume in the form of blood transfusion. We will monitor carefully during his hospitalization. 4. Diabetes mellitus. MD Yashira Marinelli Omar Syed MD March 12, 2019 15:17
[2019-03-12 16:00] VITALS: BP 121/42
--- NOTE | 2019-03-12 16:15 | NUR ---
NURSE NOTES: transfused total of 2 units of PRBCs as per MD order. Vitals signs are stable. No s/sx of adverse reaction noted. will continue to monitor.
--- NOTE | 2019-03-12 16:40 | NUR ---
CASE MANAGEMENT: REVIEW 63Y/M PRESENTED TO ED FROM HOME CC: DIZZINESS X4 DAYS SI: ANEMIA . RENAL FAILURE T 98.4 HR 95 RR 17 BP 88/45 SAT 97% NC/2L WBC 3.0 H/H 5.3/15.5 BLAST CELL 3 BUN 42 CR 2.7 TROPONIN I 0.134 IS: NS IVF BOLUS X1 PRBC 2 UNITS PATIENT ADMITTED TO STEP DOWN UNIT 03/11/2019 DCP: PATIENT IS FROM HOME
[2019-03-12 16:53] LABS: HEMATOCRIT 23.1 % (42.0-52.0); HEMOGLOBIN 8.1 G/DL (14.2-18.0); MEAN CORPUSCULAR VOLUME 88 FL (80-99); PLATELET COUNT 44 K/UL (150-450); RED BLOOD COUNT 2.64 M/UL (4.70-6.10); RED CELL DISTRIBUTION WIDTH 14.9 % (11.6-14.8); WHITE BLOOD COUNT 3.3 K/UL (4.8-10.8)
[2019-03-12] MEDS ORDERED: VITAMIN D250000 UNI1 ORAL (18:03)
[2019-03-12] MEDS ORDERED: AMLODIPINE BESY10 MG ORAL (18:03)
[2019-03-12] MEDS ORDERED: FUROSEMIDE20 M1 ORAL (18:04)
[2019-03-12] MEDS ORDERED: VITAMIN B COMP1 EAC5 PO (18:07)
[2019-03-12] MEDS ORDERED: DOCUSATE SODIU250 MG ORAL (18:07)
--- NOTE | 2019-03-12 19:16 | NUR ---
HAND-OFF: Report given to GREG Bhandari. patient is in stable condition.
--- NOTE | 2019-03-12 19:17 | NUR ---
NURSE NOTES: Received patient from Rosie GARZA. Patient in bed talking with caregiver at bedside. The patient is saturating well on room air. Bed at its lowest, call light in reach and bed rails up X3. Will continue to monitor.
[2019-03-12 20:00] VITALS: BP 119/54
--- NOTE | 2019-03-12 21:29 | General Progress Note ---
Assessment/Plan Assessment/Plan: Assessment - Significant degree of pancytopenia - (+) Blast cells on peripheral blood Recommendations - advance po diet - Recommend heme-Onc consultation - Hold of on GI w/u at this time Thank you Helio Hodge Subjective Allergies: Coded Allergies: No Known Allergies (Unverified , 03/24/16) Objective Last 24 Hour Vital Signs Date Time Temp Pulse Resp B/P (MAP) Pulse Ox O2 Delivery O2 Flow Rate FiO2 03/12/19 19:52 87 18 95 Room Air 21 03/12/19 16:00 94 03/12/19 16:00 Nasal Cannula 2.0 03/12/19 16:00 98.9 93 24 121/42 (68) 98 03/12/19 12:52 80 20 96 Nasal Cannula 2.0 28 03/12/19 12:52 80 20 97 Nasal Cannula 2.0 28 03/12/19 12:00 Nasal Cannula 2.0 03/12/19 12:00 82 03/12/19 12:00 98.2 87 24 107/51 (69) 100 03/12/19 08:46 106/69 03/12/19 08:46 90 106/69 03/12/19 08:45 106/69 03/12/19 08:00 98.1 90 23 106/69 (81) 98 03/12/19 08:00 101 03/12/19 08:00 Nasal Cannula 2.0 03/12/19 07:27 77 20 96 Nasal Cannula 2.0 28 03/12/19 07:26 83 20 97 Nasal Cannula 2.0 28 03/12/19 07:24 83 20 96 Nasal Cannula 2.0 28 03/12/19 04:00 97.5 83 18 91/57 (68) 96 03/12/19 04:00 Nasal Cannula 2.0 03/12/19 03:56 80 03/12/19 01:00 Nasal Cannula 2.0 28 03/12/19 01:00 Nasal Cannula 2.0 28 03/12/19 00:00 Nasal Cannula 2.0 03/12/19 00:00 98.2 84 24 130/53 (78) 100 03/11/19 23:59 82 03/11/19 22:52 Nasal Cannula 2.0 03/11/19 22:15 98.4 87 17 92/58 97 Nasal Cannula 2.0 03/11/19 21:46 98.4 92 17 88/45 97 Nasal Cannula 2.0 Intake and Output 03/11/19 03/12/19 19:00 07:00 Intake Total 0 ml 240 ml Output Total 0 ml Balance 0 ml 240 ml Intake Oral 0 ml 240 ml Output Urine Total 0 ml Laboratory Tests 03/12/19 05:44: White Blood Count 2.8L, Red Blood Count 2.18L, Hemoglobin 6.5*L, Hematocrit 19.7L, Mean Corpuscular Volume 90, Mean Corpuscular Hemoglobin 30.0, Mean Corpuscular Hemoglobin Concent 33.2, Red Cell Distribution Width 17.1H, Platelet Count 18L, Mean Platelet Volume 9.4, Neutrophils (%) (Auto) , Lymphocytes (%) (Auto) , Monocytes (%) (Auto) , Eosinophils (%) (Auto) , Basophils (%) (Auto) , Differential Total Cells Counted 100, Neutrophils % ( Manual) 29L, Lymphocytes % (Manual) 54H, Monocytes % (Manual) 15H, Eosinophils % (Manual) 0, Basophils % (Manual) 0, Band Neutrophils 2, Nucleated Red Blood Cells 1, Reactive Lymphocytes Occasional, Platelet Estimate DecreasedL, Platelet Morphology Normal, Hypochromasia 1+, Anisocytosis 2+, Sodium Level 136 , Potassium Level 3.8, Chloride Level 101, Carbon Dioxide Level 25, Anion Gap 10 , Blood Urea Nitrogen 48H, Creatinine 3.1H, Estimat Glomerular Filtration Rate 24.7, Glucose Level 139H, Calcium Level 8.7, Troponin I 0.122H 03/12/19 16:15: White Blood Count 3.3L, Red Blood Count 2.64L, Hemoglobin 8.1L, Hematocrit 23.1L , Mean Corpuscular Volume 88, Mean Corpuscular Hemoglobin 30.5, Mean Corpuscular Hemoglobin Concent 34.8, Red Cell Distribution Width 14.9H, Platelet Count 44#L, Mean Platelet Volume 11.8H, Neutrophils (%) (Auto) , Lymphocytes (%) (Auto) , Monocytes (%) (Auto) , Eosinophils (%) (Auto) , Basophils (%) (Auto) , Differential Total Cells Counted 100, Neutrophils % ( Manual) 34L, Lymphocytes % (Manual) 43, Monocytes % (Manual) 10, Eosinophils % ( Manual) 0, Basophils % (Manual) 0, Band Neutrophils 4, Nucleated Red Blood Cells , Platelet Estimate DecreasedL, Platelet Morphology Normal, Hypochromasia 2+, Anisocytosis 2+, Blast Cells % 9*H Height (Feet): 6 Height (Inches): 3.00 Weight (Pounds): 291 Helio Hodge MD March 12, 2019 21:29
[2019-03-13] VITALS: BP 111/62
[2019-03-13] MEDS: Albuterol 90mcg Inhaler 8gm INH SCH ×3 (01:41→19:32)
--- NOTE | 2019-03-13 02:30 | NUR ---
NURSE NOTES: Patient was washed and changed by caregiver at bedside.
[2019-03-13] MEDS: Tylenol #3 tab (300mg/30mg) ORAL PRN ×2 (02:54→21:14)
--- NOTE | 2019-03-13 03:00 | NUR ---
NURSE NOTES: Patient stands with the assistance of his caregiver to use a urinal. Bed is at its lowest position, call light in reach and x3 bed rails up.
[2019-03-13 04:00] VITALS: BP 93/44
--- NOTE | 2019-03-13 04:15 | Consultation ---
DATE OF CONSULTATION: 03/12/2019 GASTROENTEROLOGY CONSULTATION CONSULTING PHYSICIAN: Helio Hodge M.D. CHIEF COMPLAINT: I was asked to see this patient by Dr. Jaskaran Ac for evaluation of anemia. HISTORY OF PRESENT ILLNESS: The patient is very unfortunate 63-year-old man who was brought into the hospital due to severe anemia and pancytopenia. He had some symptoms of dizziness and his platelet count was down to 17,000. He has received blood transfusion. He feels better. He is on a clear liquid diet. The nursing staff have advanced him to cardiac diet. The patient has had a previous history of anemia, but noted the workup has been done with respect to the GI tract. PAST MEDICAL HISTORY: History of hypertension, coronary artery disease, vitamin D deficiency, iron deficiency, diabetes, and hyperlipidemia, h/o pancytopenia FAMILY HISTORY: Positive for hypertension and diabetes. SOCIAL HISTORY: The patient's is at bedside. He looks after the patient's parents. REVIEW OF SYSTEMS: Otherwise negative. PHYSICAL EXAMINATION: GENERAL: Debilitated man, seen in his room. HEENT: Normocephalic and atraumatic. Sclerae anicteric. Oropharynx clear. NECK: Supple. CHEST: Clear to auscultation. CARDIOVASCULAR: Revealed regular rate. ABDOMEN: Soft, obese with good bowel sounds. EXTREMITIES: Revealed trace edema. LABORATORY DATA: As noted. ASSESSMENT: This patient presents with severe pancytopenia of unclear etiology. Given the blast cell abnormalities and low platelets, I would suspect that the patient anemia has hematologic basis, and the Hematology-Oncology consultation should be obtained to rule out any hematological malignancies, specifically the blast cells. The patient at some point in the future should undergo a colonoscopy, but this should be deferred for now until the above matters are being resolved. RECOMMENDATIONS: 1. Advance diet. 2. Recommend heme-Onc consultation. 3. Transfuse as needed. 4. Defer GI workup at this time. Thank you for asking me to participate in the care of this patient. Helio Hodge M.D. DR: DIANA JOB#: [id number] CC: HEIDE
--- NOTE | 2019-03-13 05:36 | NUR ---
NURSE NOTES: Patient is using a urinal with the help of his caregiver. Patient is sitting in bed with respiratory care specialist at bed side. Patient refuses to lay down at thia time. Bed is at its lowest position, call light in reach bed rails X2 up. Will continue to monitor.
[2019-03-13 06:06] LABS: MEAN CORPUSCULAR VOLUME 87 FL (80-99); PLATELET COUNT 19 K/UL (150-450); RED BLOOD COUNT 2.66 M/UL (4.70-6.10); RED CELL DISTRIBUTION WIDTH 14.7 % (11.6-14.8)
[2019-03-13 06:36] LABS: ANION GAP 11 mmol/L (5-15); BLOOD UREA NITROGEN 48 mg/dL (7-18); CALCIUM 8.9 MG/DL (8.5-10.1); CARBON DIOXIDE 24 MMOL/L (21-32); CHLORIDE 100 MMOL/L (98-107); CREATININE 1.7 MG/DL (0.55-1.30); POTASSIUM 3.6 MMOL/L (3.5-5.1); SODIUM 135 MMOL/L (136-145)
--- NOTE | 2019-03-13 07:17 | NUR ---
NURSE NOTES: Received patient from GREG Bhandari. patient is sleeping but arousable to voice and verbally responsive. he is on 2 liters of oxygen via nasal cannula with no acute distress noted. IV site is patent and intact. patient denies pain at this time. caregiver is at bedside. bed in lowest position and locked, siderails up X2, call light within reach. will continue to monitor.
--- NOTE | 2019-03-13 07:19 | NUR ---
HAND-OFF: Report given to Rosie GARZA.
[2019-03-13 08:00] VITALS: BP 117/64
[2019-03-13] MEDS ORDERED: Tubing Blood Filter IV ONE (08:10)
[2019-03-13] MEDS ORDERED: NS 275ml ONE (08:10)
--- NOTE | 2019-03-13 10:25 | Pulmonology Progress Note ---
Assessment/Plan Assessment/Plan ASSESSMENT AND PLAN: 1. Acute kidney injury, Improved. Cr 1.7. 2. Severe anemia, Suspect hematologic malignancy; has blasts on smear 3. Hypotension. Corrected 4. Diabetes mellitus. 5. Painful hemmorhoids; consulted surgery Jaskaran Ac MD Subjective Interval Events: None new Constitutional: Reports: no symptoms HEENT: Repors: no symptoms Respiratory: Reports: no symptoms Cardiovascular: Reports: no symptoms Gastrointestinal/Abdominal: Reports: no symptoms Genitourinary: Reports: no symptoms Allergies: Coded Allergies: No Known Allergies (Unverified , 03/24/16) Objective Last 24 Hour Vital Signs Date Time Temp Pulse Resp B/P (MAP) Pulse Ox O2 Delivery O2 Flow Rate FiO2 03/13/19 08:05 Nasal Cannula 03/13/19 08:02 Nasal Cannula 03/13/19 08:00 Nasal Cannula 2.0 03/13/19 08:00 88 03/13/19 08:00 98.6 86 20 117/64 (81) 99 03/13/19 04:00 98.1 89 21 93/44 (60) 95 03/13/19 04:00 Room Air 03/13/19 04:00 91 03/13/19 01:42 90 20 100 Nasal Cannula 2.0 28 03/13/19 01:42 90 20 100 Nasal Cannula 2.0 28 03/13/19 00:00 Nasal Cannula 2.0 03/13/19 00:00 98.1 90 20 111/62 (78) 97 03/12/19 23:44 89 03/12/19 22:32 89 03/12/19 20:00 Room Air 03/12/19 20:00 97.7 84 18 119/54 (75) 95 03/12/19 19:52 87 18 95 Room Air 21 03/12/19 19:00 Nasal Cannula 03/12/19 19:00 Nasal Cannula 03/12/19 16:00 94 03/12/19 16:00 Nasal Cannula 2.0 03/12/19 16:00 98.9 93 24 121/42 (68) 98 03/12/19 12:52 80 20 96 Nasal Cannula 2.0 28 03/12/19 12:52 80 20 97 Nasal Cannula 2.0 28 03/12/19 12:00 Nasal Cannula 2.0 03/12/19 12:00 82 03/12/19 12:00 98.2 87 24 107/51 (69) 100 Intake and Output 03/12/19 03/13/19 19:00 07:00 Intake Total 710 ml 200 ml Output Total 400 ml 600 ml Balance 310 ml -400 ml Intake Oral 210 ml 200 ml Blood Product 500 ml Output Urine Total 400 ml 600 ml # Voids 1 1 General Appearance: no acute distress HEENT: normocephalic Respiratory/Chest: chest wall non-tender, lungs clear Cardiovascular: normal peripheral pulses, normal rate Abdomen: normal bowel sounds Microbiology Date/Time Source Procedure Growth Status 03/11/19 21:30 Nasal Nares MRSA Culture - Final NO METHICILLIN RESISTANT STAPH AUREUS... Complete Laboratory Tests 03/12/19 16:15: White Blood Count 3.3L, Red Blood Count 2.64L, Hemoglobin 8.1L, Hematocrit 23.1L , Mean Corpuscular Volume 88, Mean Corpuscular Hemoglobin 30.5, Mean Corpuscular Hemoglobin Concent 34.8, Red Cell Distribution Width 14.9H, Platelet Count 44#L, Mean Platelet Volume 11.8H, Neutrophils (%) (Auto) , Lymphocytes (%) (Auto) , Monocytes (%) (Auto) , Eosinophils (%) (Auto) , Basophils (%) (Auto) , Differential Total Cells Counted 100, Neutrophils % ( Manual) 34L, Lymphocytes % (Manual) 43, Monocytes % (Manual) 10, Eosinophils % ( Manual) 0, Basophils % (Manual) 0, Blast Cells % 9*H, Band Neutrophils 4, Nucleated Red Blood Cells , Platelet Estimate DecreasedL, Platelet Morphology Normal, Hypochromasia 2+, Anisocytosis 2+ 03/13/19 05:42: White Blood Count 3.0L, Red Blood Count 2.66L, Hemoglobin 8.0L, Hematocrit 23.0L , Mean Corpuscular Volume 87, Mean Corpuscular Hemoglobin 30.1, Mean Corpuscular Hemoglobin Concent 34.7, Red Cell Distribution Width 14.7, Platelet Count 19#L, Mean Platelet Volume 11.1H, Neutrophils (%) (Auto) , Lymphocytes (% ) (Auto) , Monocytes (%) (Auto) , Eosinophils (%) (Auto) , Basophils (%) (Auto) , Differential Total Cells Counted 100, Neutrophils % (Manual) 37L, Lymphocytes % (Manual) 48H, Monocytes % (Manual) 15H, Eosinophils % (Manual) 0, Basophils % (Manual) 0, Band Neutrophils 0, Platelet Estimate DecreasedL, Platelet Morphology Normal, Anisocytosis 1+, Sodium Level 135L, Potassium Level 3.6, Chloride Level 100, Carbon Dioxide Level 24, Anion Gap 11, Blood Urea Nitrogen 48H, Creatinine 1.7H, Estimat Glomerular Filtration Rate 49.4, Glucose Level 128H, Calcium Level 8.9 Current Medications Medications (Trade) Dose Ordered Sig/Saima Route PRN Reason Start Time Stop Time Status Last Admin Dose Admin Acetaminophen/ Codeine Phosphate (Tylenol #3) 1 tab BID PRN ORAL For Pain 03/11/19 23:30 03/18/19 23:29 03/13/19 02:54 Albuterol Sulfate (Proventil MDI) 1 puff Q6HRT INH 03/12/19 00:00 04/11/19 00:00 03/13/19 01:41 Famotidine (Pepcid) 20 mg BID PRN ORAL heart burn 03/11/19 23:30 04/10/19 23:29 Nitroglycerin (Ntg) 0.4 mg PRN PRN SL chest pain 03/11/19 23:30 04/10/19 23:29 Jaskaran Ac MD March 13, 2019 10:25
[2019-03-13 11:55] VITALS: BP 126/52
--- NOTE | 2019-03-13 12:07 | Nephrology Progress Note ---
Assessment/Plan Assessment/Plan: A/P 1) ILIA- multifact ATN from hypotension/severe anemia/NSAIDS while on GIOVANNI-I/ARB - BP improved, s/p bld tx, and Cr down to 1.7 - continue to hold GIOVANNI-I and ARB (do not recc that combination at DC, one or the other) 2) Anemia- per GI mgmt - s/p blood tx 3) Pancytopenia- ?? may be secondary to NSAIDS 4) Hypotension- resolved Subjective Date patient seen: March 13, 2019 Time patient seen: 12:03 ROS Limited/Unobtainable: No Allergies: Coded Allergies: No Known Allergies (Unverified , 03/24/16) Subjective Patient feeling much better. No acute distress Objective Last 24 Hour Vital Signs Date Time Temp Pulse Resp B/P (MAP) Pulse Ox O2 Delivery O2 Flow Rate FiO2 03/13/19 11:59 Nasal Cannula 2.0 03/13/19 11:55 99.9 86 21 126/52 (76) 99 03/13/19 08:05 Nasal Cannula 03/13/19 08:02 Nasal Cannula 03/13/19 08:00 Nasal Cannula 2.0 03/13/19 08:00 88 03/13/19 08:00 98.6 86 20 117/64 (81) 99 03/13/19 04:00 98.1 89 21 93/44 (60) 95 03/13/19 04:00 Room Air 03/13/19 04:00 91 03/13/19 01:42 90 20 100 Nasal Cannula 2.0 28 03/13/19 01:42 90 20 100 Nasal Cannula 2.0 28 03/13/19 00:00 Nasal Cannula 2.0 03/13/19 00:00 98.1 90 20 111/62 (78) 97 03/12/19 23:44 89 03/12/19 22:32 89 03/12/19 20:00 Room Air 03/12/19 20:00 97.7 84 18 119/54 (75) 95 03/12/19 19:52 87 18 95 Room Air 21 03/12/19 19:00 Nasal Cannula 03/12/19 19:00 Nasal Cannula 03/12/19 16:00 94 03/12/19 16:00 Nasal Cannula 2.0 03/12/19 16:00 98.9 93 24 121/42 (68) 98 03/12/19 12:52 80 20 96 Nasal Cannula 2.0 28 03/12/19 12:52 80 20 97 Nasal Cannula 2.0 28 Intake and Output 03/12/19 03/13/19 18:59 06:59 Intake Total 710 ml 200 ml Output Total 400 ml 600 ml Balance 310 ml -400 ml Intake Oral 210 ml 200 ml Blood Product 500 ml Output Urine Total 400 ml 600 ml # Voids 1 1 Laboratory Tests 03/12/19 16:15: White Blood Count 3.3L, Red Blood Count 2.64L, Hemoglobin 8.1L, Hematocrit 23.1L , Mean Corpuscular Volume 88, Mean Corpuscular Hemoglobin 30.5, Mean Corpuscular Hemoglobin Concent 34.8, Red Cell Distribution Width 14.9H, Platelet Count 44#L, Mean Platelet Volume 11.8H, Neutrophils (%) (Auto) , Lymphocytes (%) (Auto) , Monocytes (%) (Auto) , Eosinophils (%) (Auto) , Basophils (%) (Auto) , Differential Total Cells Counted 100, Neutrophils % ( Manual) 34L, Lymphocytes % (Manual) 43, Monocytes % (Manual) 10, Eosinophils % ( Manual) 0, Basophils % (Manual) 0, Blast Cells % 9*H, Band Neutrophils 4, Nucleated Red Blood Cells , Platelet Estimate DecreasedL, Platelet Morphology Normal, Hypochromasia 2+, Anisocytosis 2+ 03/13/19 05:42: White Blood Count 3.0L, Red Blood Count 2.66L, Hemoglobin 8.0L, Hematocrit 23.0L , Mean Corpuscular Volume 87, Mean Corpuscular Hemoglobin 30.1, Mean Corpuscular Hemoglobin Concent 34.7, Red Cell Distribution Width 14.7, Platelet Count 19#L, Mean Platelet Volume 11.1H, Neutrophils (%) (Auto) , Lymphocytes (% ) (Auto) , Monocytes (%) (Auto) , Eosinophils (%) (Auto) , Basophils (%) (Auto) , Differential Total Cells Counted 100, Neutrophils % (Manual) 37L, Lymphocytes % (Manual) 48H, Monocytes % (Manual) 15H, Eosinophils % (Manual) 0, Basophils % (Manual) 0, Band Neutrophils 0, Platelet Estimate DecreasedL, Platelet Morphology Normal, Anisocytosis 1+, Sodium Level 135L, Potassium Level 3.6, Chloride Level 100, Carbon Dioxide Level 24, Anion Gap 11, Blood Urea Nitrogen 48H, Creatinine 1.7H, Estimat Glomerular Filtration Rate 49.4, Glucose Level 128H, Calcium Level 8.9 Height (Feet): 6 Height (Inches): 3.00 Weight (Pounds): 314 General Appearance: no apparent distress, alert EENT: normal ENT inspection Neck: normal alignment Cardiovascular: normal rate, regular rhythm Respiratory/Chest: lungs clear, normal breath sounds Abdomen: non tender, soft Edema: no edema noted Arm (L), no edema noted Arm (R), no edema noted Leg (L), no edema noted Leg (R), no edema noted Pedal (L), no edema noted Pedal (R), no edema noted Generalized Stephan Santos MD March 13, 2019 12:07
--- NOTE | 2019-03-13 14:23 | NUR ---
CASE MANAGEMENT: REVIEW 03/13/2019 SI: ANEMIA . RENAL FAILURE T 99.9 HR 86 RR 21 B/P 126/52 SATS 99% ON 2L/NC WBC 3 NA 135 BUN 48 CR 1.7 GLU 128 IS: PROVENTIL INH Q6HRT SDU DCP: PATIENT IS FROM HOME PLAN OF CARE: US RENAL
--- NOTE | 2019-03-13 15:36 | General Progress Note ---
Assessment/Plan Assessment/Plan: Assessment - Significant degree of pancytopenia - (+) Blast cells on peripheral blood - Altagracia-anal ulcer/lesion Recommendations - Colorectal surgery evaluation - Recommend heme-Onc consultation - follow labs and exam Subjective Allergies: Coded Allergies: No Known Allergies (Unverified , 03/24/16) Subjective c/o perianal pain has had it prior to admission previously Rx'd with lidocaine Rx Objective Last 24 Hour Vital Signs Date Time Temp Pulse Resp B/P (MAP) Pulse Ox O2 Delivery O2 Flow Rate FiO2 03/13/19 13:35 86 18 96 Nasal Cannula 2.0 28 03/13/19 13:31 86 18 96 Nasal Cannula 2.0 28 03/13/19 12:00 84 03/13/19 11:59 Nasal Cannula 2.0 03/13/19 11:55 99.9 86 21 126/52 (76) 99 03/13/19 08:05 Nasal Cannula 03/13/19 08:02 Nasal Cannula 03/13/19 08:00 Nasal Cannula 2.0 03/13/19 08:00 88 03/13/19 08:00 98.6 86 20 117/64 (81) 99 03/13/19 04:00 98.1 89 21 93/44 (60) 95 03/13/19 04:00 Room Air 03/13/19 04:00 91 03/13/19 01:42 90 20 100 Nasal Cannula 2.0 28 03/13/19 01:42 90 20 100 Nasal Cannula 2.0 28 03/13/19 00:00 Nasal Cannula 2.0 03/13/19 00:00 98.1 90 20 111/62 (78) 97 03/12/19 23:44 89 03/12/19 22:32 89 03/12/19 20:00 Room Air 03/12/19 20:00 97.7 84 18 119/54 (75) 95 03/12/19 19:52 87 18 95 Room Air 21 03/12/19 19:00 Nasal Cannula 03/12/19 19:00 Nasal Cannula 03/12/19 16:00 94 03/12/19 16:00 Nasal Cannula 2.0 03/12/19 16:00 98.9 93 24 121/42 (68) 98 Intake and Output 03/12/19 03/13/19 18:59 06:59 Intake Total 710 ml 200 ml Output Total 400 ml 600 ml Balance 310 ml -400 ml Intake Oral 210 ml 200 ml Blood Product 500 ml Output Urine Total 400 ml 600 ml # Voids 1 1 Laboratory Tests 03/12/19 16:15: White Blood Count 3.3L, Red Blood Count 2.64L, Hemoglobin 8.1L, Hematocrit 23.1L , Mean Corpuscular Volume 88, Mean Corpuscular Hemoglobin 30.5, Mean Corpuscular Hemoglobin Concent 34.8, Red Cell Distribution Width 14.9H, Platelet Count 44#L, Mean Platelet Volume 11.8H, Neutrophils (%) (Auto) , Lymphocytes (%) (Auto) , Monocytes (%) (Auto) , Eosinophils (%) (Auto) , Basophils (%) (Auto) , Differential Total Cells Counted 100, Neutrophils % ( Manual) 34L, Lymphocytes % (Manual) 43, Monocytes % (Manual) 10, Eosinophils % ( Manual) 0, Basophils % (Manual) 0, Blast Cells % 9*H, Band Neutrophils 4, Nucleated Red Blood Cells , Platelet Estimate DecreasedL, Platelet Morphology Normal, Hypochromasia 2+, Anisocytosis 2+ 03/13/19 05:42: White Blood Count 3.0L, Red Blood Count 2.66L, Hemoglobin 8.0L, Hematocrit 23.0L , Mean Corpuscular Volume 87, Mean Corpuscular Hemoglobin 30.1, Mean Corpuscular Hemoglobin Concent 34.7, Red Cell Distribution Width 14.7, Platelet Count 19#L, Mean Platelet Volume 11.1H, Neutrophils (%) (Auto) , Lymphocytes (% ) (Auto) , Monocytes (%) (Auto) , Eosinophils (%) (Auto) , Basophils (%) (Auto) , Differential Total Cells Counted 100, Neutrophils % (Manual) 37L, Lymphocytes % (Manual) 48H, Monocytes % (Manual) 15H, Eosinophils % (Manual) 0, Basophils % (Manual) 0, Band Neutrophils 0, Platelet Estimate DecreasedL, Platelet Morphology Normal, Anisocytosis 1+, Sodium Level 135L, Potassium Level 3.6, Chloride Level 100, Carbon Dioxide Level 24, Anion Gap 11, Blood Urea Nitrogen 48H, Creatinine 1.7H, Estimat Glomerular Filtration Rate 49.4, Glucose Level 128H, Calcium Level 8.9 Height (Feet): 6 Height (Inches): 3.00 Weight (Pounds): 314 Objective Obese AA man NCAT supple CTA RRR abd soft obese Rectal: could not tolerate complete exam due to pain, ulcerated lesion seen (R) side close to anus no edema Helio Hodge MD March 13, 2019 15:36
--- NOTE | 2019-03-13 15:55 | Consultation ---
History of Present Illness General Date patient seen: March 13, 2019 Reason for Hospitalization: Dizziness Present Illness HPI 63 year old male presents with weakness, fatigue, severe anemia, pancytopenia, rectal pain, pelvic pain for over 1 week. accompanies patient and gives part of history. Has been admitted multiple times in the past few months at different hospitals. States has been declining recently. pain mainly from rectal area. states he has been constipated over the past week and has been straining. surgery called to evaluate and assist with care. states pain with BM. unsure if any blood with BM. no n/v. has been using hemorrhoid cream and wipes for him. Allergies: Coded Allergies: No Known Allergies (Unverified , 03/24/16) Medication History Scheduled Amlodipine Besylate* (Amlodipine Besylate*), 10 MG ORAL DAILY, (Reported) Aspirin* (Aspir-Low*), 81 MG ORAL DAILY, (Reported) Beclomethasone Dipropionate (Qvar), 80 MCG IH DAILY, (Reported) Clopidogrel* (Clopidogrel*), 75 MG ORAL DAILY, (Reported) Ergocalciferol (Vitamin D2)* (Vitamin D*), 50,000 UNIT ORAL ONCE A WEEK, ( Reported) Famotidine (Famotidine), 20 MG ORAL QHS, (Reported) Ferrous Sulfate (Ferrous Sulfate), 325 MG ORAL BID, (Reported) Furosemide* (Lasix*), 20 MG ORAL BID, (Reported) Hydrochlorothiazide* (Hydrochlorothiazide*), 25 MG ORAL DAILY, (Reported) Lisinopril (Lisinopril*), 5 MG ORAL DAILY, (Reported) Losartan Potassium (Cozaar), 100 MG ORAL DAILY, (Reported) Meloxicam* (Meloxicam*), 7.5 MG PO DAILY, (Reported) Metformin Hcl* (Metformin Hcl*), 500 MG ORAL TWICE A DAY, (Reported) Simvastatin (Zocor), 20 MG ORAL BEDTIME, (Reported) Vitamin B Complex (Vitamin B Complex), 1 EACH PO DAILY, (Reported) Scheduled PRN Acetaminophen With Codeine (T#3) (Tylenol With Codeine #3 Tablet), 1 TAB ORAL Q8HR PRN for For Pain, (Reported) Albuterol Sulfate (Ventolin Hfa), 1 PUFF INH EVERY 6 HOURS PRN for Shortness of Breath, (Reported) Docusate Sodium* (Docusate Sodium*), 250 MG ORAL DAILY PRN for Constipation, ( Reported) Ibuprofen* (Motrin*), 800 MG ORAL TID PRN for For Pain, (Reported) Nitroglycerin (Nitroglycerin), 0.4 MG SL every 5 min x 3 dose PRN for CHEST PAIN , (Reported) Discontinued Medications Amlodipine Besylate* (Amlodipine Besylate*), 5 MG ORAL DAILY, (Reported) Discontinued Reason: Prescription changed Ergocalciferol (Vitamin D2) (Vitamin D2), Unknown Dose PO, (Reported) Discontinued Reason: Prescription changed Gabapentin (Neurontin), 300 MG ORAL THREE TIMES A DAY, (Reported) Discontinued Reason: Pt stopped taking med Sennosides/Docusate Sodium (Stool Softener Tablet), 1 EACH PO, (Reported) Discontinued Reason: Prescription changed Patient History History Provided By: Patient, Family Member, Significant Other, Medical Record , PMD Healthcare decision maker Resuscitation status Full Code Advanced Directive on File Past Medical/Surgical History Past Medical/Surgical History: (1) Rectal pain (2) Severe anemia (3) Renal failure (4) Vomiting (5) CAD (coronary artery disease) (6) Costochondritis (7) ACS (acute coronary syndrome) (8) Diabetes mellitus (9) History of hypertension (10) COPD (chronic obstructive pulmonary disease) (11) Morbid obesity (12) Acute bronchitis Review of Systems Review of Symptoms General ROS: no weight loss or fever Psychological ROS: no depression or mood changes, no memory loss Ophthalmic ROS: no visual changes or eye irritation ENT ROS: no nasal congestion, hearing loss, dizziness Allergy and Immunology ROS: no allergic symptoms or urticaria Hematological and Lymphatic ROS: no swollen glands, unusual bleeding or bruising Endocrine ROS: no polyuria, polydipsia, weight changes, temperature intolerance Respiratory ROS: no cough, shortness of breath, or wheezing Cardiovascular ROS: no chest pain or dyspnea on exertion Gastrointestinal ROS: denies abdominal pain, bright red blood in stool. Musculoskeletal ROS: no myalgias or arthralgias Neurological ROS: no TIA or stroke symptoms Dermatological ROS: no new or changing skin lesions, rashes or pruritis Physical Exam Physical Exam General appearance: alert, cooperative, no distress, appears stated age Head: Normocephalic, without obvious abnormality, atraumatic Eyes: conjunctivae/corneas clear. PERRL, EOM's intact. Fundi benign Throat: Lips, mucosa, and tongue normal. Teeth and gums normal Neck: supple, symmetrical, trachea midline, no adenopathy, thyroid: not enlarged, symmetric, no tenderness/mass/nodules, no carotid bruit and no JVD Lungs: clear to auscultation bilaterally Heart: regular rate and rhythm, S1, S2 normal, no murmur, click, rub or gallop Abdomen: soft, non-tender. Bowel sounds normal. No masses, no organomegaly Extremities: extremities normal, atraumatic, no cyanosis or edema Pulses: 2+ and symmetric Skin: Skin color, texture, turgor normal. No rashes or lesions Neurologic: Grossly normal Last 24 Hour Vital Signs Date Time Temp Pulse Resp B/P (MAP) Pulse Ox O2 Delivery O2 Flow Rate FiO2 03/13/19 13:35 86 18 96 Nasal Cannula 2.0 28 03/13/19 13:31 86 18 96 Nasal Cannula 2.0 28 03/13/19 12:00 84 03/13/19 11:59 Nasal Cannula 2.0 03/13/19 11:55 99.9 86 21 126/52 (76) 99 03/13/19 08:05 Nasal Cannula 03/13/19 08:02 Nasal Cannula 03/13/19 08:00 Nasal Cannula 2.0 03/13/19 08:00 88 03/13/19 08:00 98.6 86 20 117/64 (81) 99 03/13/19 04:00 98.1 89 21 93/44 (60) 95 03/13/19 04:00 Room Air 03/13/19 04:00 91 03/13/19 01:42 90 20 100 Nasal Cannula 2.0 28 03/13/19 01:42 90 20 100 Nasal Cannula 2.0 28 03/13/19 00:00 Nasal Cannula 2.0 03/13/19 00:00 98.1 90 20 111/62 (78) 97 03/12/19 23:44 89 03/12/19 22:32 89 03/12/19 20:00 Room Air 03/12/19 20:00 97.7 84 18 119/54 (75) 95 03/12/19 19:52 87 18 95 Room Air 21 03/12/19 19:00 Nasal Cannula 03/12/19 19:00 Nasal Cannula 03/12/19 16:00 94 03/12/19 16:00 Nasal Cannula 2.0 03/12/19 16:00 98.9 93 24 121/42 (68) 98 Intake and Output 03/12/19 03/13/19 18:59 06:59 Intake Total 710 ml 200 ml Output Total 400 ml 600 ml Balance 310 ml -400 ml Intake Oral 210 ml 200 ml Blood Product 500 ml Output Urine Total 400 ml 600 ml # Voids 1 1 Laboratory Tests Test 03/12/19 16:15 03/13/19 05:42 White Blood Count 3.3 K/UL (4.8-10.8) L 3.0 K/UL (4.8-10.8) L Red Blood Count 2.64 M/UL (4.70-6.10) L 2.66 M/UL (4.70-6.10) L Hemoglobin 8.1 G/DL (14.2-18.0) L 8.0 G/DL (14.2-18.0) L Hematocrit 23.1 % (42.0-52.0) L 23.0 % (42.0-52.0) L Mean Corpuscular Volume 88 FL (80-99) 87 FL (80-99) Mean Corpuscular Hemoglobin 30.5 PG (27.0-31.0) 30.1 PG (27.0-31.0) Mean Corpuscular Hemoglobin Concent 34.8 G/DL (32.0-36.0) 34.7 G/DL (32.0-36.0) Red Cell Distribution Width 14.9 % (11.6-14.8) H 14.7 % (11.6-14.8) Platelet Count 44 K/UL (150-450) #L 19 K/UL (150-450) #L Mean Platelet Volume 11.8 FL (6.5-10.1) H 11.1 FL (6.5-10.1) H Neutrophils (%) (Auto) % (45.0-75.0) % (45.0-75.0) Lymphocytes (%) (Auto) % (20.0-45.0) % (20.0-45.0) Monocytes (%) (Auto) % (1.0-10.0) % (1.0-10.0) Eosinophils (%) (Auto) % (0.0-3.0) % (0.0-3.0) Basophils (%) (Auto) % (0.0-2.0) % (0.0-2.0) Differential Total Cells Counted 100 100 Neutrophils % (Manual) 34 % (45-75) L 37 % (45-75) L Lymphocytes % (Manual) 43 % (20-45) 48 % (20-45) H Monocytes % (Manual) 10 % (1-10) 15 % (1-10) H Eosinophils % (Manual) 0 % (0-3) 0 % (0-3) Basophils % (Manual) 0 % (0-2) 0 % (0-2) Blast Cells % 9 % (0-0) *H Band Neutrophils 4 % (0-8) 0 % (0-8) Nucleated Red Blood Cells /100 WBC Platelet Estimate Decreased L Decreased L Platelet Morphology Normal Normal Hypochromasia 2+ Anisocytosis 2+ 1+ Sodium Level 135 MMOL/L (136-145) L Potassium Level 3.6 MMOL/L (3.5-5.1) Chloride Level 100 MMOL/L (98-107) Carbon Dioxide Level 24 MMOL/L (21-32) Anion Gap 11 mmol/L (5-15) Blood Urea Nitrogen 48 mg/dL (7-18) H Creatinine 1.7 MG/DL (0.55-1.30) H Estimat Glomerular Filtration Rate 49.4 mL/min (>60) Glucose Level 128 MG/DL (74-106) H Calcium Level 8.9 MG/DL (8.5-10.1) Height (Feet): 6 Height (Inches): 3.00 Weight (Pounds): 314 Medications Current Medications Medications (Trade) Dose Ordered Sig/Saima Route PRN Reason Start Time Stop Time Status Last Admin Dose Admin Acetaminophen/ Codeine Phosphate (Tylenol #3) 1 tab BID PRN ORAL For Pain 03/11/19 23:30 03/18/19 23:29 03/13/19 02:54 Albuterol Sulfate (Proventil MDI) 1 puff Q6HRT INH 03/12/19 00:00 04/11/19 00:00 03/13/19 13:31 Famotidine (Pepcid) 20 mg BID PRN ORAL heart burn 03/11/19 23:30 04/10/19 23:29 Nitroglycerin (Ntg) 0.4 mg PRN PRN SL chest pain 03/11/19 23:30 04/10/19 23:29 Assessment/Plan Problem List: (1) Rectal pain Assessment & Plan: 63 M with multiple medical comorbidities, severe anemia, pancytopenia, rectal pain. unfortunately patient not able to tolerate exam from discomfort and could not perform ABE or full rectal exam at bedside. of note there a foul odor and abnormal drainage in nany-rectal area. there is also abnormal skin tissue almost like an eshcar noted. could potential be hemorrhoids but anticipate more going on Recommend examination under anesthesia given findings on bedside exam need to further evaluate given abnormalities on exam and degree of pain and discomfort patient having cardiac history, will need clearance first appreciate GI input thank you will follow with recs. ICD Codes: K62.89 - Other specified diseases of anus and rectum SNOMED: 69432984 (2) Severe anemia ICD Codes: D64.9 - Anemia, unspecified SNOMED: [id number] Franklin Lim March 13, 2019 15:55
[2019-03-13 16:00] VITALS: BP 152/84
--- NOTE | 2019-03-13 16:49 | NUR ---
NURSE NOTES: called and left message for Dr. Ac regarding patient's temperature of 102.0; awaiting call back. ice packs applied.
--- NOTE | 2019-03-13 17:04 | NUR ---
NURSE NOTES: Informed Dr. Lim regarding fever 102.0 with new order of antibiotic and tylenol. Order carried out.
[2019-03-13] MEDS: Zosyn 3.375gm q8h **Extended infusion IVPB SCH ×2 (17:41)
--- NOTE | 2019-03-13 19:23 | NUR ---
HAND-OFF: Report given to GREG Roth. RN made aware of fever.
--- NOTE | 2019-03-13 19:30 | NUR ---
NURSE NOTES: Received Pt is resting on the bed and awake. Family; stays at bedside. No sign of acute distress noted. IV site intact and no sign of infiltration noted. Denied pain at this time. No fever noted at this time. On O2 2L via nasal cannula and SaO2 99% noted. Educated Pt regarding MN NPO for CT abdomen. Placed fall precaution. Will continue to care plan.
[2019-03-13 20:00] VITALS: BP 108/54
[2019-03-13] MEDS ORDERED: Piperacillin/Tazobactam 2.25 GM in D5W 55 ML IVPB SCH (22:00)
[2019-03-14] VITALS: BP 102/53
[2019-03-14] MEDS: Albuterol 90mcg Inhaler 8gm INH SCH ×4 (01:14→19:53)
[2019-03-14 04:00] VITALS: BP 105/62
[2019-03-14] MEDS: Zosyn 3.375gm q8h **Extended infusion IVPB SCH ×6 (05:31→21:28)
[2019-03-14 06:32] LABS: ANION GAP 8 mmol/L (5-15); BLOOD UREA NITROGEN 30 mg/dL (7-18); CALCIUM 8.8 MG/DL (8.5-10.1); CARBON DIOXIDE 27 MMOL/L (21-32); CHLORIDE 104 MMOL/L (98-107); CREATININE 1.1 MG/DL (0.55-1.30); POTASSIUM 3.4 MMOL/L (3.5-5.1); SODIUM 139 MMOL/L (136-145)
[2019-03-14 06:38] LABS: HEMATOCRIT 24.2 % (42.0-52.0); MEAN CORPUSCULAR VOLUME 91 FL (80-99); PLATELET COUNT 21 K/UL (150-450); RED BLOOD COUNT 2.66 M/UL (4.70-6.10); WHITE BLOOD COUNT 2.6 K/UL (4.8-10.8)
--- NOTE | 2019-03-14 07:09 | NUR ---
HAND-OFF: Report given to GREG Almaraz. Pt is resting on the bed and no sign of acute distress noted. ON MN NPO for CT abdomen.
--- NOTE | 2019-03-14 07:10 | NUR ---
NURSE NOTES: RECEIVED PATIENT FROM Sharon MOCK RN. PATIENT IS LYING IN BED, AWAKE, ALERT AND ORIENTED. 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 ON O2 AT 2L NC. NO SIGNS OF DISTRESS. NOTED AT THE BEDSIDE. NPO FOR PROCEDURE TODAY. HE USES THE URINAL. IV ON R AC G20, SL. BED AT LOWEST POSITION. SIDE RAILS UP. CALL LIGHT WITHIN REACH. WILL CONTINUE TO MONITOR.
[2019-03-14 08:00] VITALS: BP 104/62
--- NOTE | 2019-03-14 09:00 | NUR ---
NURSE NOTES: DR FORD SPOKE WITH THE PATIENT AND RE THE BONE MARROW PROCEDURE. WILL CONTINUE TO MONITOR.
--- NOTE | 2019-03-14 09:59 | Pulmonology Progress Note ---
Assessment/Plan Assessment/Plan ASSESSMENT AND PLAN: 1. Acute kidney injury, Improved. Cr 1.7. 2. 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 Hypotension. Corrected 4. Diabetes mellitus. 5. Painful hemorrhoids; consulted surgery; recommend EUA Jaskaran Ac MD Subjective Interval Events: Seen by surgery Constitutional: Reports: no symptoms HEENT: Repors: no symptoms Respiratory: Reports: no symptoms Cardiovascular: Reports: no symptoms Gastrointestinal/Abdominal: Reports: no symptoms Genitourinary: Reports: no symptoms Allergies: Coded Allergies: No Known Allergies (Unverified , 03/24/16) Objective Last 24 Hour Vital Signs Date Time Temp Pulse Resp B/P (MAP) Pulse Ox O2 Delivery O2 Flow Rate FiO2 03/14/19 07:26 85 16 96 Nasal Cannula 2.0 03/14/19 07:24 84 16 96 Nasal Cannula 2.0 03/14/19 04:00 Nasal Cannula 2.0 03/14/19 04:00 99.0 90 23 105/62 (76) 99 03/14/19 04:00 93 03/14/19 01:15 83 18 99 Nasal Cannula 2.0 03/14/19 01:14 83 18 99 Nasal Cannula 2.0 03/14/19 00:00 Nasal Cannula 2.0 03/14/19 00:00 81 03/14/19 00:00 98.1 82 23 102/53 (69) 99 03/13/19 20:00 Nasal Cannula 2.0 03/13/19 20:00 86 03/13/19 20:00 98.5 82 23 108/54 (72) 99 03/13/19 19:33 81 18 97 Nasal Cannula 2.0 28 03/13/19 19:32 82 18 97 Nasal Cannula 2.0 28 03/13/19 17:44 99.0 03/13/19 16:00 106 03/13/19 16:00 102.0 101 23 152/84 (106) 99 03/13/19 15:49 Nasal Cannula 2.0 03/13/19 13:35 86 18 96 Nasal Cannula 2.0 28 03/13/19 13:31 86 18 96 Nasal Cannula 2.0 28 03/13/19 12:00 84 03/13/19 11:59 Nasal Cannula 2.0 03/13/19 11:55 99.9 86 21 126/52 (76) 99 Intake and Output 03/13/19 03/14/19 19:00 07:00 Intake Total 277.5 ml 110.0 ml Output Total 1150 ml Balance -872.5 ml 110.0 ml Intake Oral 250 ml IV Total 27.5 ml 110.0 ml Output Urine Total 1150 ml # Voids 5 General Appearance: no acute distress HEENT: normocephalic Respiratory/Chest: chest wall non-tender Cardiovascular: normal peripheral pulses, normal rate Abdomen: normal bowel sounds Microbiology Date/Time Source Procedure Growth Status 03/11/19 21:30 Nasal Nares MRSA Culture - Final NO METHICILLIN RESISTANT STAPH AUREUS... Complete 03/11/19 21:30 Rectum VRE Culture - Final NO VANCOMYCIN RESISTANT ENTEROCOCCUS ... Complete Laboratory Tests 03/14/19 05:05: White Blood Count 2.6L, Red Blood Count 2.66L, Hemoglobin 8.0L, Hematocrit 24.2L , Mean Corpuscular Volume 91, Mean Corpuscular Hemoglobin 30.3, Mean Corpuscular Hemoglobin Concent 33.2, Red Cell Distribution Width 16.0H, Platelet Count 21L, Mean Platelet Volume 11.9H, Neutrophils (%) (Auto) , Lymphocytes (%) (Auto) , Monocytes (%) (Auto) , Eosinophils (%) (Auto) , Basophils (%) (Auto) , Differential Total Cells Counted 100, Neutrophils % ( Manual) 41L, Lymphocytes % (Manual) 42, Monocytes % (Manual) 17H, Eosinophils % (Manual) 0, Basophils % (Manual) 0, Band Neutrophils 0, Platelet Estimate DecreasedL, Platelet Morphology Normal, Anisocytosis 1+, Sodium Level 139, Potassium Level 3.4L, Chloride Level 104, Carbon Dioxide Level 27, Anion Gap 8, Blood Urea Nitrogen 30H, Creatinine 1.1, Estimat Glomerular Filtration Rate > 60 , Glucose Level 119H, Calcium Level 8.8 Current Medications Medications (Trade) Dose Ordered Sig/Saima Route PRN Reason Start Time Stop Time Status Last Admin Dose Admin Acetaminophen (Tylenol) 650 mg Q4H PRN ORAL Mild Pain/Temp > 100.5 03/13/19 17:15 04/12/19 17:14 03/14/19 05:30 Acetaminophen/ Codeine Phosphate (Tylenol #3) 1 tab BID PRN ORAL PAIN 4-10 03/13/19 17:15 03/18/19 23:29 03/13/19 21:14 Albuterol Sulfate (Proventil MDI) 1 puff Q6HRT INH 03/12/19 00:00 04/11/19 00:00 03/14/19 07:24 Famotidine (Pepcid) 20 mg BID PRN ORAL heart burn 03/11/19 23:30 04/10/19 23:29 Nitroglycerin (Ntg) 0.4 mg PRN PRN SL chest pain 03/11/19 23:30 04/10/19 23:29 Piperacillin Sod/ Tazobactam Sod 3.375 gm/Sodium Chloride 110 ml @ 27.5 mls/hr EVERY 8 HOURS IVPB 03/13/19 18:00 03/20/19 17:59 03/14/19 05:31 Jaskaran Ac MD March 14, 2019 09:59
--- NOTE | 2019-03-14 11:45 | NUR ---
NURSE NOTES: PATIENT BROUGHT DOWN FOR CT SCAN AND NOW BACK TO THE UNIT. STILL DECIDING ON THE CONSENT FOR THE PROCEDURE. WILL CONTINUE TO MONITOR.
--- NOTE | 2019-03-14 11:52 | General Progress Note ---
Assessment/Plan Assessment/Plan: Assessment - Significant degree of pancytopenia - (+) Blast cells on peripheral blood, ? lymphoma - Altagracia-anal ulcer/lesion/abscess Recommendations - Colorectal surgery evaluation - Recommend heme-Onc consultation - follow labs and exam Subjective Allergies: Coded Allergies: No Known Allergies (Unverified , 03/24/16) Subjective no new complaints d/w surgery Objective Last 24 Hour Vital Signs Date Time Temp Pulse Resp B/P (MAP) Pulse Ox O2 Delivery O2 Flow Rate FiO2 03/14/19 08:00 Nasal Cannula 2.0 03/14/19 08:00 81 03/14/19 08:00 99.0 80 24 104/62 (76) 100 03/14/19 07:26 85 16 96 Nasal Cannula 2.0 28 03/14/19 07:24 84 16 96 Nasal Cannula 2.0 28 03/14/19 04:00 Nasal Cannula 2.0 03/14/19 04:00 99.0 90 23 105/62 (76) 99 03/14/19 04:00 93 03/14/19 01:15 83 18 99 Nasal Cannula 2.0 28 03/14/19 01:14 83 18 99 Nasal Cannula 2.0 28 03/14/19 00:00 Nasal Cannula 2.0 03/14/19 00:00 81 03/14/19 00:00 98.1 82 23 102/53 (69) 99 03/13/19 20:00 Nasal Cannula 2.0 03/13/19 20:00 86 03/13/19 20:00 98.5 82 23 108/54 (72) 99 03/13/19 19:33 81 18 97 Nasal Cannula 2.0 28 03/13/19 19:32 82 18 97 Nasal Cannula 2.0 28 03/13/19 17:44 99.0 03/13/19 16:00 106 03/13/19 16:00 102.0 101 23 152/84 (106) 99 03/13/19 15:49 Nasal Cannula 2.0 03/13/19 13:35 86 18 96 Nasal Cannula 2.0 28 03/13/19 13:31 86 18 96 Nasal Cannula 2.0 28 03/13/19 12:00 84 03/13/19 11:59 Nasal Cannula 2.0 03/13/19 11:55 99.9 86 21 126/52 (76) 99 Intake and Output 03/13/19 03/14/19 19:00 07:00 Intake Total 277.5 ml 123.0 ml Output Total 1150 ml Balance -872.5 ml 123.0 ml Intake Oral 250 ml IV Total 27.5 ml 123.0 ml Output Urine Total 1150 ml # Voids 5 Laboratory Tests 03/14/19 05:05: White Blood Count 2.6L, Red Blood Count 2.66L, Hemoglobin 8.0L, Hematocrit 24.2L , Mean Corpuscular Volume 91, Mean Corpuscular Hemoglobin 30.3, Mean Corpuscular Hemoglobin Concent 33.2, Red Cell Distribution Width 16.0H, Platelet Count 21L, Mean Platelet Volume 11.9H, Neutrophils (%) (Auto) , Lymphocytes (%) (Auto) , Monocytes (%) (Auto) , Eosinophils (%) (Auto) , Basophils (%) (Auto) , Differential Total Cells Counted 100, Neutrophils % ( Manual) 41L, Lymphocytes % (Manual) 42, Monocytes % (Manual) 17H, Eosinophils % (Manual) 0, Basophils % (Manual) 0, Band Neutrophils 0, Platelet Estimate DecreasedL, Platelet Morphology Normal, Anisocytosis 1+, Sodium Level 139, Potassium Level 3.4L, Chloride Level 104, Carbon Dioxide Level 27, Anion Gap 8, Blood Urea Nitrogen 30H, Creatinine 1.1, Estimat Glomerular Filtration Rate > 60 , Glucose Level 119H, Calcium Level 8.8 Height (Feet): 6 Height (Inches): 3.00 Weight (Pounds): 311 Objective Obese AA man NCAT supple CTA RRR abd soft obese no edema Helio Hodge MD March 14, 2019 11:52
[2019-03-14 12:00] VITALS: BP 113/68
--- NOTE | 2019-03-14 12:25 | Nephrology Progress Note ---
Assessment/Plan Assessment/Plan: A/P 1) ILIA- multifact ATN from hypotension/severe anemia/NSAIDS while on GIOVANNI-I/ARB - BP improved, resolved, Cr back to 1.1 - continue to hold GIOVANNI-I and ARB (do not recc that combination at DC, one or the other) 2) Anemia- per GI mgmt - s/p blood tx - EGD in am 3) Pancytopenia- ?? may be secondary to NSAIDS 4) Hypotension- resolved 5) Hypokalemia- will replace Subjective Date patient seen: March 14, 2019 Time patient seen: 12:24 ROS Limited/Unobtainable: No Allergies: Coded Allergies: No Known Allergies (Unverified , 03/24/16) Subjective Patient improved. No overt distress Objective Last 24 Hour Vital Signs Date Time Temp Pulse Resp B/P (MAP) Pulse Ox O2 Delivery O2 Flow Rate FiO2 03/14/19 08:00 Nasal Cannula 2.0 03/14/19 08:00 81 03/14/19 08:00 99.0 80 24 104/62 (76) 100 03/14/19 07:26 85 16 96 Nasal Cannula 2.0 28 03/14/19 07:24 84 16 96 Nasal Cannula 2.0 28 03/14/19 04:00 Nasal Cannula 2.0 03/14/19 04:00 99.0 90 23 105/62 (76) 99 03/14/19 04:00 93 03/14/19 01:15 83 18 99 Nasal Cannula 2.0 28 03/14/19 01:14 83 18 99 Nasal Cannula 2.0 28 03/14/19 00:00 Nasal Cannula 2.0 03/14/19 00:00 81 03/14/19 00:00 98.1 82 23 102/53 (69) 99 03/13/19 20:00 Nasal Cannula 2.0 03/13/19 20:00 86 03/13/19 20:00 98.5 82 23 108/54 (72) 99 03/13/19 19:33 81 18 97 Nasal Cannula 2.0 28 03/13/19 19:32 82 18 97 Nasal Cannula 2.0 28 03/13/19 17:44 99.0 03/13/19 16:00 106 03/13/19 16:00 102.0 101 23 152/84 (106) 99 03/13/19 15:49 Nasal Cannula 2.0 03/13/19 13:35 86 18 96 Nasal Cannula 2.0 28 03/13/19 13:31 86 18 96 Nasal Cannula 2.0 28 Intake and Output 03/13/19 03/14/19 19:00 07:00 Intake Total 277.5 ml 123.0 ml Output Total 1150 ml Balance -872.5 ml 123.0 ml Intake Oral 250 ml IV Total 27.5 ml 123.0 ml Output Urine Total 1150 ml # Voids 5 Laboratory Tests 03/14/19 05:05: White Blood Count 2.6L, Red Blood Count 2.66L, Hemoglobin 8.0L, Hematocrit 24.2L , Mean Corpuscular Volume 91, Mean Corpuscular Hemoglobin 30.3, Mean Corpuscular Hemoglobin Concent 33.2, Red Cell Distribution Width 16.0H, Platelet Count 21L, Mean Platelet Volume 11.9H, Neutrophils (%) (Auto) , Lymphocytes (%) (Auto) , Monocytes (%) (Auto) , Eosinophils (%) (Auto) , Basophils (%) (Auto) , Differential Total Cells Counted 100, Neutrophils % ( Manual) 41L, Lymphocytes % (Manual) 42, Monocytes % (Manual) 17H, Eosinophils % (Manual) 0, Basophils % (Manual) 0, Band Neutrophils 0, Platelet Estimate DecreasedL, Platelet Morphology Normal, Anisocytosis 1+, Sodium Level 139, Potassium Level 3.4L, Chloride Level 104, Carbon Dioxide Level 27, Anion Gap 8, Blood Urea Nitrogen 30H, Creatinine 1.1, Estimat Glomerular Filtration Rate > 60 , Glucose Level 119H, Calcium Level 8.8 Height (Feet): 6 Height (Inches): 3.00 Weight (Pounds): 311 General Appearance: no apparent distress, alert EENT: PERRL/EOMI, normal ENT inspection Neck: normal alignment, supple Cardiovascular: normal rate, regular rhythm Respiratory/Chest: lungs clear, normal breath sounds Abdomen: non tender, soft Edema: no edema noted Arm (L), no edema noted Arm (R), no edema noted Leg (L), no edema noted Leg (R), no edema noted Pedal (L), no edema noted Pedal (R), no edema noted Generalized Stephan Santos MD March 14, 2019 12:25
--- NOTE | 2019-03-14 12:48 | Consultation ---
History of Present Illness General Chief Complaint: Dizziness Present Illness Allergies: Coded Allergies: No Known Allergies (Unverified , 03/24/16) Medication History Scheduled Amlodipine Besylate* (Amlodipine Besylate*), 10 MG ORAL DAILY, (Reported) Aspirin* (Aspir-Low*), 81 MG ORAL DAILY, (Reported) Beclomethasone Dipropionate (Qvar), 80 MCG IH DAILY, (Reported) Clopidogrel* (Clopidogrel*), 75 MG ORAL DAILY, (Reported) Ergocalciferol (Vitamin D2)* (Vitamin D*), 50,000 UNIT ORAL ONCE A WEEK, ( Reported) Famotidine (Famotidine), 20 MG ORAL QHS, (Reported) Ferrous Sulfate (Ferrous Sulfate), 325 MG ORAL BID, (Reported) Furosemide* (Lasix*), 20 MG ORAL BID, (Reported) Hydrochlorothiazide* (Hydrochlorothiazide*), 25 MG ORAL DAILY, (Reported) Lisinopril (Lisinopril*), 5 MG ORAL DAILY, (Reported) Losartan Potassium (Cozaar), 100 MG ORAL DAILY, (Reported) Meloxicam* (Meloxicam*), 7.5 MG PO DAILY, (Reported) Metformin Hcl* (Metformin Hcl*), 500 MG ORAL TWICE A DAY, (Reported) Simvastatin (Zocor), 20 MG ORAL BEDTIME, (Reported) Vitamin B Complex (Vitamin B Complex), 1 EACH PO DAILY, (Reported) Scheduled PRN Acetaminophen With Codeine (T#3) (Tylenol With Codeine #3 Tablet), 1 TAB ORAL Q8HR PRN for For Pain, (Reported) Albuterol Sulfate (Ventolin Hfa), 1 PUFF INH EVERY 6 HOURS PRN for Shortness of Breath, (Reported) Docusate Sodium* (Docusate Sodium*), 250 MG ORAL DAILY PRN for Constipation, ( Reported) Ibuprofen* (Motrin*), 800 MG ORAL TID PRN for For Pain, (Reported) Nitroglycerin (Nitroglycerin), 0.4 MG SL every 5 min x 3 dose PRN for CHEST PAIN , (Reported) Discontinued Medications Amlodipine Besylate* (Amlodipine Besylate*), 5 MG ORAL DAILY, (Reported) Discontinued Reason: Prescription changed Ergocalciferol (Vitamin D2) (Vitamin D2), Unknown Dose PO, (Reported) Discontinued Reason: Prescription changed Gabapentin (Neurontin), 300 MG ORAL THREE TIMES A DAY, (Reported) Discontinued Reason: Pt stopped taking med Sennosides/Docusate Sodium (Stool Softener Tablet), 1 EACH PO, (Reported) Discontinued Reason: Prescription changed Patient History Healthcare decision maker Resuscitation status Full Code Advanced Directive on File Physical Exam Last 24 Hour Vital Signs Date Time Temp Pulse Resp B/P (MAP) Pulse Ox O2 Delivery O2 Flow Rate FiO2 03/14/19 08:00 Nasal Cannula 2.0 03/14/19 08:00 81 03/14/19 08:00 99.0 80 24 104/62 (76) 100 03/14/19 07:26 85 16 96 Nasal Cannula 2.0 28 03/14/19 07:24 84 16 96 Nasal Cannula 2.0 28 03/14/19 04:00 Nasal Cannula 2.0 03/14/19 04:00 99.0 90 23 105/62 (76) 99 03/14/19 04:00 93 03/14/19 01:15 83 18 99 Nasal Cannula 2.0 28 03/14/19 01:14 83 18 99 Nasal Cannula 2.0 28 03/14/19 00:00 Nasal Cannula 2.0 03/14/19 00:00 81 03/14/19 00:00 98.1 82 23 102/53 (69) 99 03/13/19 20:00 Nasal Cannula 2.0 03/13/19 20:00 86 03/13/19 20:00 98.5 82 23 108/54 (72) 99 03/13/19 19:33 81 18 97 Nasal Cannula 2.0 28 03/13/19 19:32 82 18 97 Nasal Cannula 2.0 28 03/13/19 17:44 99.0 03/13/19 16:00 106 03/13/19 16:00 102.0 101 23 152/84 (106) 99 03/13/19 15:49 Nasal Cannula 2.0 03/13/19 13:35 86 18 96 Nasal Cannula 2.0 28 03/13/19 13:31 86 18 96 Nasal Cannula 2.0 28 Intake and Output 03/13/19 03/14/19 19:00 07:00 Intake Total 277.5 ml 123.0 ml Output Total 1150 ml Balance -872.5 ml 123.0 ml Intake Oral 250 ml IV Total 27.5 ml 123.0 ml Output Urine Total 1150 ml # Voids 5 Laboratory Tests Test 03/14/19 05:05 White Blood Count 2.6 K/UL (4.8-10.8) L Red Blood Count 2.66 M/UL (4.70-6.10) L Hemoglobin 8.0 G/DL (14.2-18.0) L Hematocrit 24.2 % (42.0-52.0) L Mean Corpuscular Volume 91 FL (80-99) Mean Corpuscular Hemoglobin 30.3 PG (27.0-31.0) Mean Corpuscular Hemoglobin Concent 33.2 G/DL (32.0-36.0) Red Cell Distribution Width 16.0 % (11.6-14.8) H Platelet Count 21 K/UL (150-450) L Mean Platelet Volume 11.9 FL (6.5-10.1) H Neutrophils (%) (Auto) % (45.0-75.0) Lymphocytes (%) (Auto) % (20.0-45.0) Monocytes (%) (Auto) % (1.0-10.0) Eosinophils (%) (Auto) % (0.0-3.0) Basophils (%) (Auto) % (0.0-2.0) Differential Total Cells Counted 100 Neutrophils % (Manual) 41 % (45-75) L Lymphocytes % (Manual) 42 % (20-45) Monocytes % (Manual) 17 % (1-10) H Eosinophils % (Manual) 0 % (0-3) Basophils % (Manual) 0 % (0-2) Band Neutrophils 0 % (0-8) Platelet Estimate Decreased L Platelet Morphology Normal Anisocytosis 1+ Sodium Level 139 MMOL/L (136-145) Potassium Level 3.4 MMOL/L (3.5-5.1) L Chloride Level 104 MMOL/L (98-107) Carbon Dioxide Level 27 MMOL/L (21-32) Anion Gap 8 mmol/L (5-15) Blood Urea Nitrogen 30 mg/dL (7-18) H Creatinine 1.1 MG/DL (0.55-1.30) Estimat Glomerular Filtration Rate > 60 mL/min (>60) Glucose Level 119 MG/DL (74-106) H Calcium Level 8.8 MG/DL (8.5-10.1) Height (Feet): 6 Height (Inches): 3.00 Weight (Pounds): 311 Medications Current Medications Medications (Trade) Dose Ordered Sig/Saima Route PRN Reason Start Time Stop Time Status Last Admin Dose Admin Acetaminophen (Tylenol) 650 mg Q4H PRN ORAL Mild Pain/Temp > 100.5 03/13/19 17:15 04/12/19 17:14 03/14/19 05:30 Acetaminophen/ Codeine Phosphate (Tylenol #3) 1 tab BID PRN ORAL PAIN 4-10 03/13/19 17:15 03/18/19 23:29 03/13/19 21:14 Albuterol Sulfate (Proventil MDI) 1 puff Q6HRT INH 03/12/19 00:00 04/11/19 00:00 03/14/19 07:24 Famotidine (Pepcid) 20 mg BID PRN ORAL heart burn 03/11/19 23:30 04/10/19 23:29 Nitroglycerin (Ntg) 0.4 mg PRN PRN SL chest pain 03/11/19 23:30 04/10/19 23:29 Piperacillin Sod/ Tazobactam Sod 3.375 gm/Sodium Chloride 110 ml @ 27.5 mls/hr EVERY 8 HOURS IVPB 03/13/19 18:00 03/20/19 17:59 03/14/19 05:31 Potassium Chloride (K-Dur) 40 meq ONCE ORAL 03/14/19 13:30 03/14/19 14:30 Assessment/Plan Assessment/Plan: Heme Consult General Date patient seen: March 14, 2019 Reason for Hospitalization: Dizziness RFC: Pancytopenia, blasts on smear REQ MD: Pia Ac HPI 63 year old male presents with weakness, fatigue, severe anemia, pancytopenia, rectal pain, pelvic pain for over 1 week. accompanies patient and gives part of history. Has been admitted multiple times in the past few months at different hospitals. States has been declining recently. pain mainly from rectal area. states he has been constipated over the past week and has been straining. surgery called to evaluate and assist with care. states pain with BM. unsure if any blood with BM. no n/v. has been using hemorrhoid cream and wipes for him. Coded Allergies: No Known Allergies (Unverified , 03/24/16) Medication History Scheduled Amlodipine Besylate* (Amlodipine Besylate*), 10 MG ORAL DAILY, (Reported) Aspirin* (Aspir-Low*), 81 MG ORAL DAILY, (Reported) Beclomethasone Dipropionate (Qvar), 80 MCG IH DAILY, (Reported) Clopidogrel* (Clopidogrel*), 75 MG ORAL DAILY, (Reported) Ergocalciferol (Vitamin D2)* (Vitamin D*), 50,000 UNIT ORAL ONCE A WEEK, ( Reported) Famotidine (Famotidine), 20 MG ORAL QHS, (Reported) Ferrous Sulfate (Ferrous Sulfate), 325 MG ORAL BID, (Reported) Furosemide* (Lasix*), 20 MG ORAL BID, (Reported) Hydrochlorothiazide* (Hydrochlorothiazide*), 25 MG ORAL DAILY, (Reported) Lisinopril (Lisinopril*), 5 MG ORAL DAILY, (Reported) Losartan Potassium (Cozaar), 100 MG ORAL DAILY, (Reported) Meloxicam* (Meloxicam*), 7.5 MG PO DAILY, (Reported) Metformin Hcl* (Metformin Hcl*), 500 MG ORAL TWICE A DAY, (Reported) Simvastatin (Zocor), 20 MG ORAL BEDTIME, (Reported) Vitamin B Complex (Vitamin B Complex), 1 EACH PO DAILY, (Reported) Scheduled PRN Acetaminophen With Codeine (T#3) (Tylenol With Codeine #3 Tablet), 1 TAB ORAL Q8HR PRN for For Pain, (Reported) Albuterol Sulfate (Ventolin Hfa), 1 PUFF INH EVERY 6 HOURS PRN for Shortness of Breath, (Reported) Docusate Sodium* (Docusate Sodium*), 250 MG ORAL DAILY PRN for Constipation, ( Reported) Ibuprofen* (Motrin*), 800 MG ORAL TID PRN for For Pain, (Reported) Nitroglycerin (Nitroglycerin), 0.4 MG SL every 5 min x 3 dose PRN for CHEST PAIN , (Reported) Discontinued Medications Amlodipine Besylate* (Amlodipine Besylate*), 5 MG ORAL DAILY, (Reported) Discontinued Reason: Prescription changed Ergocalciferol (Vitamin D2) (Vitamin D2), Unknown Dose PO, (Reported) Discontinued Reason: Prescription changed Gabapentin (Neurontin), 300 MG ORAL THREE TIMES A DAY, (Reported) Discontinued Reason: Pt stopped taking med Sennosides/Docusate Sodium (Stool Softener Tablet), 1 EACH PO, (Reported) Discontinued Reason: Prescription changed Patient History History Provided By: Patient, Family Member, Significant Other, Medical Record , PMD Healthcare decision maker Resuscitation status Full Code Advanced Directive on File Past Medical/Surgical History Past Medical/Surgical History: (1) Rectal pain (2) Severe anemia (3) Renal failure (4) Vomiting (5) CAD (coronary artery disease) (6) Costochondritis (7) ACS (acute coronary syndrome) (8) Diabetes mellitus (9) History of hypertension (10) COPD (chronic obstructive pulmonary disease) (11) Morbid obesity (12) Acute bronchitis Review of Systems Review of Symptoms General ROS: no weight loss or fever Psychological ROS: no depression or mood changes, no memory loss Ophthalmic ROS: no visual changes or eye irritation ENT ROS: no nasal congestion, hearing loss, dizziness Allergy and Immunology ROS: no allergic symptoms or urticaria Hematological and Lymphatic ROS: no swollen glands, unusual bleeding or bruising Endocrine ROS: no polyuria, polydipsia, weight changes, temperature intolerance Respiratory ROS: no cough, shortness of breath, or wheezing Cardiovascular ROS: no chest pain or dyspnea on exertion Gastrointestinal ROS: denies abdominal pain, bright red blood in stool. Musculoskeletal ROS: no myalgias or arthralgias Neurological ROS: no TIA or stroke symptoms Dermatological ROS: no new or changing skin lesions, rashes or pruritis Physical Exam Physical Exam General appearance: alert, cooperative, no distress, appears stated age Head: Normocephalic, without obvious abnormality, atraumatic Eyes: conjunctivae/corneas clear. PERRL, EOM's intact. Fundi benign Throat: Lips, mucosa, and tongue normal. Teeth and gums normal Neck: supple, symmetrical, trachea midline, no adenopathy, thyroid: not enlarged, symmetric, no tenderness/mass/nodules, no carotid bruit and no JVD Lungs: clear to auscultation bilaterally Heart: regular rate and rhythm, S1, S2 normal, no murmur, click, rub or gallop Abdomen: soft, non-tender. Bowel sounds normal. No masses, no organomegaly Extremities: extremities normal, atraumatic, no cyanosis or edema Pulses: 2+ and symmetric Skin: Skin color, texture, turgor normal. No rashes or lesions Neurologic: Grossly normal Last 24 Hour Vital Signs Last 24 Hour Vital Signs Date Time Temp Pulse Resp B/P (MAP) Pulse Ox O2 Delivery O2 Flow Rate FiO2 03/14/19 08:00 Nasal Cannula 2.0 03/14/19 08:00 81 03/14/19 08:00 99.0 80 24 104/62 (76) 100 03/14/19 07:26 85 16 96 Nasal Cannula 2.0 28 03/14/19 07:24 84 16 96 Nasal Cannula 2.0 28 03/14/19 04:00 Nasal Cannula 2.0 03/14/19 04:00 99.0 90 23 105/62 (76) 99 03/14/19 04:00 93 03/14/19 01:15 83 18 99 Nasal Cannula 2.0 28 03/14/19 01:14 83 18 99 Nasal Cannula 2.0 28 03/14/19 00:00 Nasal Cannula 2.0 03/14/19 00:00 81 03/14/19 00:00 98.1 82 23 102/53 (69) 99 03/13/19 20:00 Nasal Cannula 2.0 03/13/19 20:00 86 03/13/19 20:00 98.5 82 23 108/54 (72) 99 03/13/19 19:33 81 18 97 Nasal Cannula 2.0 28 03/13/19 19:32 82 18 97 Nasal Cannula 2.0 28 03/13/19 17:44 99.0 03/13/19 16:00 106 03/13/19 16:00 102.0 101 23 152/84 (106) 99 03/13/19 15:49 Nasal Cannula 2.0 03/13/19 13:35 86 18 96 Nasal Cannula 2.0 28 03/13/19 13:31 86 18 96 Nasal Cannula 2.0 28 Active Scripts Medications Dose Route/Sig Max Daily Dose Days Date Category Dose Instructions Vitamin B Complex 1 Each Tablet 1 Each PO DAILY 03/12/19 Reported Docusate Sodium* (Docusate Sodium) 250 Mg Capsule 250 Mg ORAL DAILY PRN 03/12/19 Reported Lasix* (Furosemide) 20 Mg Tablet 20 Mg ORAL BID 03/12/19 Reported Vitamin D* (Ergocalciferol (Vitamin D2)*) 50,000 Unit Capsule 50,000 Unit ORAL ONCE A WEEK 03/12/19 Reported (SATURDAYS) Amlodipine Besylate* (Amlodipine Besylate) 10 Mg Tablet 10 Mg ORAL DAILY 03/12/19 Reported Cozaar (Losartan Potassium) 100 Mg Tablet 100 Mg ORAL DAILY 03/11/19 Reported Hydrochlorothiazide* (Hydrochlorothiazide) 25 Mg Tablet 25 Mg ORAL DAILY 03/11/19 Reported Ferrous Sulfate 325 Mg Tablet.dr 325 Mg ORAL BID 03/11/19 Reported Clopidogrel* (Clopidogrel Bisulfate) 75 Mg Tablet 75 Mg ORAL DAILY 02/06/19 Reported Lisinopril* (Lisinopril) 5 Mg Tablet 5 Mg ORAL DAILY 12/15/18 Reported Nitroglycerin 0.4 Mg Tab.subl 0.4 Mg SL EVERY 5 MIN X 3 DOSE PRN 06/08/17 Reported Motrin* (Ibuprofen) 800 Mg Tablet 800 Mg ORAL TID PRN 06/08/17 Reported Famotidine 20 Mg Tablet 20 Mg ORAL QHS 03/24/16 Reported Tylenol With Codeine #3 Tablet (Acetaminophen/Codeine Phosphate) Y Tab 1 Tab ORAL Q8HR PRN 03/24/16 Reported Metformin Hcl* (Metformin HCl) 500 Mg Tablet 500 Mg ORAL TWICE A DAY 03/24/16 Reported Zocor (Simvastatin) 20 Mg Tablet 20 Mg ORAL BEDTIME 03/24/16 Reported Meloxicam* (Meloxicam) 7.5 Mg Tablet 7.5 Mg PO DAILY 03/24/16 Reported Aspir-Low* (Aspirin) 81 Mg Tablet.dr 81 Mg ORAL DAILY 03/24/16 Reported Qvar (Beclomethasone Dipropionate) 7.3 Gm Aer.w.adap 80 Mcg IH DAILY 03/24/16 Reported Ventolin Hfa (Albuterol Sulfate) 18 Gm Hfa.aer.ad 1 Puff INH EVERY 6 HOURS PRN 03/24/16 Reported Last 24 Hour Vital Signs Date Time Temp Pulse Resp B/P (MAP) Pulse Ox O2 Delivery O2 Flow Rate FiO2 03/14/19 08:00 Nasal Cannula 2.0 03/14/19 08:00 81 03/14/19 08:00 99.0 80 24 104/62 (76) 100 03/14/19 07:26 85 16 96 Nasal Cannula 2.0 28 03/14/19 07:24 84 16 96 Nasal Cannula 2.0 28 03/14/19 04:00 Nasal Cannula 2.0 03/14/19 04:00 99.0 90 23 105/62 (76) 99 03/14/19 04:00 93 03/14/19 01:15 83 18 99 Nasal Cannula 2.0 28 03/14/19 01:14 83 18 99 Nasal Cannula 2.0 28 03/14/19 00:00 Nasal Cannula 2.0 03/14/19 00:00 81 03/14/19 00:00 98.1 82 23 102/53 (69) 99 03/13/19 20:00 Nasal Cannula 2.0 03/13/19 20:00 86 03/13/19 20:00 98.5 82 23 108/54 (72) 99 03/13/19 19:33 81 18 97 Nasal Cannula 2.0 28 03/13/19 19:32 82 18 97 Nasal Cannula 2.0 28 03/13/19 17:44 99.0 03/13/19 16:00 106 03/13/19 16:00 102.0 101 23 152/84 (106) 99 03/13/19 15:49 Nasal Cannula 2.0 03/13/19 13:35 86 18 96 Nasal Cannula 2.0 28 03/13/19 13:31 86 18 96 Nasal Cannula 2.0 28 Assessment and Recs: # Pancytopenia -- multiple etiologies could be related to underlying liver disease, in this case has blasts++, that are persistent, though these are new compared to prior admissions, concerning for more serious process such as leukemia --> peripheral smear has been ordered and shows blasts --> FLOW CYTOMETRY has been ordered of peripheral blood --> BONE MARROW BIOPSY has been recommended at this time he wants to hold off making decision, again stressed to him this is a critical issue that needs to be addressed claudia --> Medications have been reviewed, no major culprits noted --> Continue to monitor for improvement, trend cbc --> Hep panel and HIV have been ordered and are negative --> US abd shows fatty liver, no other major changes --> consider other causes, infections that could contribute --> reverse isolation if ANC is <2000 --> Give neupogen if ANC <1000 --> Transfuse if hgb <7, with 1 unit prbc --> consider bone marrow biopsy if no other causes are found # Anemia of chronic disease due to underlying chronic medical issues, multifactorial --> Anemia workup has been ordered/reviewed, ferritin is 696 --> No evidence of hemolysis is noted, peripheral smear has been reviewed. --> Hgb goal >7. Transfuse prn. --> Epogen or iron at this time is not particularly indicated --> Medications have been reviewed # Rectal pain -- unfortunately patient not able to tolerate exam from discomfort and could not perform ABE or full rectal exam at bedside. of note there a foul odor and abnormal drainage in nany-rectal area. there is also abnormal skin tissue almost like an eshcar noted. could potential be hemorrhoids but anticipate more going on --> as per surg # Acute bronchitis --> improved with abx, pulm has been consulted # r/o ACS (acute coronary syndrome) --> currently chest pain free # COPD (chronic obstructive pulmonary disease) --> no evidence of exacerbation # Diabetes mellitus --> accuchecks qac and qhs --> insulin as required, bs goal <120 pre-prandial The timing of this note does not necessarily reflect the time of the patient was seen. Greatly appreciate consultation. Timoteo Stafford MD March 14, 2019 12:47
[2019-03-14] MEDS: Tylenol #3 tab (300mg/30mg) ORAL PRN ×2 (13:41→22:47)
--- NOTE | 2019-03-14 13:53 | NUR ---
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 HYPOKALEMIA VS: BP 104/62, P 75, T 99.0, RR 24, SpO2 96 on NC WBC 2.6, RBC 2.66, H&H 8.0/24.2, K 3.4, BUN [address]: Findings are suggestive of perianal phlegmon and open wound versus changes related to manipulation. IS:TYLENOL 650mg K-DUR 40meq ZOSYN 110ml IVPB SDU STATUS
--- NOTE | 2019-03-14 14:53 | Cardiology Report ---
APPROVED REPORT EKG Measurement Heart [id number] MD [id number] Sinus rhythm with frequent premature ventricular complexes Low voltage QRS Prolonged QT Abnormal ECG
[2019-03-14 16:00] VITALS: BP 109/50
--- NOTE | 2019-03-14 19:35 | Surgery Progress Note ---
Surgery Progress Note Subjective Additional Comments no acute events. responded well to transfusion. no n/v/f/c. still with perirectal pain. CT done, pending results. Objective Last 24 Hour Vital Signs Date Time Temp Pulse Resp B/P (MAP) Pulse Ox O2 Delivery O2 Flow Rate FiO2 03/14/19 16:00 Nasal Cannula 2.0 03/14/19 13:47 Nasal Cannula 03/14/19 13:42 Nasal Cannula 03/14/19 12:00 75 03/14/19 12:00 Nasal Cannula 2.0 03/14/19 12:00 97.9 76 20 113/68 (83) 99 03/14/19 08:00 Nasal Cannula 2.0 03/14/19 08:00 81 03/14/19 08:00 99.0 80 24 104/62 (76) 100 03/14/19 07:26 85 16 96 Nasal Cannula 2.0 28 03/14/19 07:24 84 16 96 Nasal Cannula 2.0 28 03/14/19 04:00 Nasal Cannula 2.0 03/14/19 04:00 99.0 90 23 105/62 (76) 99 03/14/19 04:00 93 03/14/19 01:15 83 18 99 Nasal Cannula 2.0 28 03/14/19 01:14 83 18 99 Nasal Cannula 2.0 28 03/14/19 00:00 Nasal Cannula 2.0 03/14/19 00:00 81 03/14/19 00:00 98.1 82 23 102/53 (69) 99 03/13/19 20:00 Nasal Cannula 2.0 03/13/19 20:00 86 03/13/19 20:00 98.5 82 23 108/54 (72) 99 I&O Intake and Output 03/13/19 03/14/19 18:59 06:59 Intake Total 277.5 ml 110.0 ml Output Total 1150 ml Balance -872.5 ml 110.0 ml Intake Oral 250 ml IV Total 27.5 ml 110.0 ml Output Urine Total 1150 ml # Voids 5 Dressing: other Wound: other Drains: other Cardiovascular: RSR Respiratory: clear Abdomen: soft, flat, non-tender, present bowel sounds, non-distended Extremities: no edema, no tenderness, no cyanosis Laboratory Tests Test 5/27/19 05:05 White Blood Count 2.6 K/UL (4.8-10.8) L Red Blood Count 2.66 M/UL (4.70-6.10) L Hemoglobin 8.0 G/DL (14.2-18.0) L Hematocrit 24.2 % (42.0-52.0) L Mean Corpuscular Volume 91 FL (80-99) Mean Corpuscular Hemoglobin 30.3 PG (27.0-31.0) Mean Corpuscular Hemoglobin Concent 33.2 G/DL (32.0-36.0) Red Cell Distribution Width 16.0 % (11.6-14.8) H Platelet Count 21 K/UL (150-450) L Mean Platelet Volume 11.9 FL (6.5-10.1) H Neutrophils (%) (Auto) % (45.0-75.0) Lymphocytes (%) (Auto) % (20.0-45.0) Monocytes (%) (Auto) % (1.0-10.0) Eosinophils (%) (Auto) % (0.0-3.0) Basophils (%) (Auto) % (0.0-2.0) Differential Total Cells Counted 100 Neutrophils % (Manual) 41 % (45-75) L Lymphocytes % (Manual) 42 % (20-45) Monocytes % (Manual) 17 % (1-10) H Eosinophils % (Manual) 0 % (0-3) Basophils % (Manual) 0 % (0-2) Band Neutrophils 0 % (0-8) Platelet Estimate Decreased L Platelet Morphology Normal Anisocytosis 1+ Sodium Level 139 MMOL/L (136-145) Potassium Level 3.4 MMOL/L (3.5-5.1) L Chloride Level 104 MMOL/L (98-107) Carbon Dioxide Level 27 MMOL/L (21-32) Anion Gap 8 mmol/L (5-15) Blood Urea Nitrogen 30 mg/dL (7-18) H Creatinine 1.1 MG/DL (0.55-1.30) Estimat Glomerular Filtration Rate > 60 mL/min (>60) Glucose Level 119 MG/DL (74-106) H Calcium Level 8.8 MG/DL (8.5-10.1) Plan Problems: (1) Rectal pain Assessment & Plan: 63 M with multiple medical comorbidities, severe anemia, pancytopenia, rectal pain. unfortunately patient not able to tolerate exam from discomfort and could not perform ABE or full rectal exam at bedside. of note there a foul odor and abnormal drainage in nany-rectal area. there is also abnormal skin tissue almost like an eshcar noted. could potential be hemorrhoids but anticipate more going on Recommend examination under anesthesia given findings on bedside exam need to further evaluate given abnormalities on exam and degree of pain and discomfort patient having cardiac history, will need clearance first appreciate GI input pending final CT read Bone marrow biopsy as per Heme thank you will follow with recs. (2) Severe anemia Franklin Lim March 14, 2019 19:35
--- NOTE | 2019-03-14 19:39 | NUR ---
HAND-OFF: Report given to Chivo Bhatia RN.
--- NOTE | 2019-03-14 19:59 | NUR ---
NURSE NOTES: recvd pt. Pt is awake and alert AOX4, is at bedside. Pt is on NC @ 2L with no sign of sob or resp distress, Pt is SR-ST on registered nurse cardiac telemetry. DR Lim aware of thrombocytopenia. Fall and aspiration precautions in place. Bed in lowest locked position, call light within reach, will continue with plan of care.
[2019-03-14 20:00] VITALS: BP 128/70
--- NOTE | 2019-03-14 21:27 | NUR ---
NURSE NOTES: pt c/o 07/28 pain, called dr Ac for new pain med orders, awaiting call back
[2019-03-15] VITALS: BP 118/65
[2019-03-15] MEDS: Albuterol 90mcg Inhaler 8gm INH SCH ×4 (01:05→19:16)
[2019-03-15 04:00] VITALS: BP 118/65
[2019-03-15] MEDS: Zosyn 3.375gm q8h **Extended infusion IVPB SCH ×6 (05:55→22:12)
[2019-03-15] MEDS: Tylenol #3 tab (300mg/30mg) ORAL PRN ×3 (05:55→22:13)
--- NOTE | 2019-03-15 07:15 | NUR ---
NURSE NOTES: Received patient from GREG Lynn. Patient VS stable at this time. Patient sleeping at this time. Patient at the bedside. Patient showing sinus rhythm on the equipment monitor phototypesetting at this time. Patient on 2L nasal canula with stable oxygen saturation. Patient denies acute distress. Patient has urinal at the bedside with dark dhruv urine. emptied at this time. Patient needs a bone marrow biopsy. Patient refusing to sign consent at this time. He wishes to speak with the MD. Will notify and follow up with Dr wiley. Patient has left antecubital 20G PIV that is patent, asymptomatic, and running Zosyn at this time. Patient bed in low position with bed alarm on and call light in reach at this time. Patient did not have new labs drawn today. Will follow up.
--- NOTE | 2019-03-15 07:55 | NUR ---
NURSE NOTES: Spoke with Dr Stafford. Notified him that the patient wishes to speak with him. Patient refusing to give consent for biopsy.
[2019-03-15 08:00] VITALS: BP 106/58
--- NOTE | 2019-03-15 09:00 | NUR ---
NURSE NOTES: Dr Stafford spoke with patient regarding Biopsy. He reported that the patient does not wish to have the biopsy until the cytology lab results come back or Thursday.
--- NOTE | 2019-03-15 09:42 | Pulmonology Progress Note ---
Assessment/Plan Assessment/Plan ASSESSMENT AND PLAN: 1. Acute kidney injury, Improved. 2. 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 Hypotension. Corrected 4. Diabetes mellitus. 5. Painful hemorrhoids; consulted surgery; recommend EUA Jaskaran Ac MD Subjective Interval Events: Continues to complain of rectal pain Constitutional: Reports: no symptoms HEENT: Repors: no symptoms Respiratory: Reports: no symptoms Cardiovascular: Reports: no symptoms Gastrointestinal/Abdominal: Reports: other Allergies: Coded Allergies: No Known Allergies (Unverified , 03/24/16) Subjective rectal pain Objective Last 24 Hour Vital Signs Date Time Temp Pulse Resp B/P (MAP) Pulse Ox O2 Delivery O2 Flow Rate FiO2 03/15/19 08:00 97.1 80 20 106/58 (74) 97 03/15/19 07:28 Nasal Cannula 03/15/19 07:28 Nasal Cannula 03/15/19 06:32 98.3 03/15/19 04:00 86 03/15/19 04:00 Nasal Cannula 2.0 03/15/19 04:00 98.3 83 20 118/65 (82) 100 03/15/19 01:05 85 18 94 Nasal Cannula 2.0 03/15/19 01:05 85 18 94 Nasal Cannula 2.0 03/15/19 00:00 92 03/15/19 00:00 Nasal Cannula 2.0 03/15/19 00:00 98.9 90 20 118/65 (82) 99 03/14/19 20:00 Nasal Cannula 2.0 03/14/19 20:00 86 03/14/19 20:00 97.3 84 18 128/70 (89) 99 03/14/19 19:53 83 18 98 Nasal Cannula 2.0 28 03/14/19 19:53 83 18 98 Nasal Cannula 2.0 28 03/14/19 16:00 98.2 88 24 109/50 (69) 100 03/14/19 16:00 89 03/14/19 16:00 Nasal Cannula 2.0 03/14/19 13:47 Nasal Cannula 03/14/19 13:42 Nasal Cannula 03/14/19 12:00 75 03/14/19 12:00 Nasal Cannula 2.0 03/14/19 12:00 97.9 76 20 113/68 (83) 99 Intake and Output 03/14/19 03/15/19 19:00 07:00 Intake Total 1702.5 ml Balance 1702.5 ml Intake Oral 1500 ml IV Total 202.5 ml # Voids 6 3 # Bowel Movements 1 General Appearance: no acute distress HEENT: normocephalic Respiratory/Chest: chest wall non-tender, lungs clear Cardiovascular: normal peripheral pulses, normal rate Abdomen: normal bowel sounds Current Medications Medications (Trade) Dose Ordered Sig/Saima Route PRN Reason Start Time Stop Time Status Last Admin Dose Admin Acetaminophen (Tylenol) 650 mg Q4H PRN ORAL Mild Pain/Temp > 100.5 03/13/19 17:15 04/12/19 17:14 03/14/19 05:30 Acetaminophen/ Codeine Phosphate (Tylenol #3) 1 tab Q6H PRN ORAL for pain 4-10 03/14/19 22:15 03/21/19 22:14 03/15/19 05:55 Albuterol Sulfate (Proventil MDI) 1 puff Q6HRT INH 03/12/19 00:00 04/11/19 00:00 03/15/19 01:05 Famotidine (Pepcid) 20 mg BID PRN ORAL heart burn 03/11/19 23:30 04/10/19 23:29 Nitroglycerin (Ntg) 0.4 mg PRN PRN SL chest pain 03/11/19 23:30 04/10/19 23:29 Piperacillin Sod/ Tazobactam Sod 3.375 gm/Sodium Chloride 110 ml @ 27.5 mls/hr EVERY 8 HOURS IVPB 03/13/19 18:00 03/20/19 17:59 03/15/19 05:55 Jaskaran Ac MD March 15, 2019 09:42
--- NOTE | 2019-03-15 10:22 | GI Progress Note ---
Assessment/Plan Problems: (1) COPD (chronic obstructive pulmonary disease) ICD Codes: J44.9 - Chronic obstructive pulmonary disease, unspecified SNOMED: 84457643 (2) Vomiting ICD Codes: R11.10 - Vomiting, unspecified SNOMED: 328797519 (3) Rectal pain ICD Codes: K62.89 - Other specified diseases of anus and rectum SNOMED: 63119629 (4) Diabetes mellitus ICD Codes: E11.9 - Type 2 diabetes mellitus without complications SNOMED: 32682669 (5) Severe anemia ICD Codes: D64.9 - Anemia, unspecified SNOMED: 339759113 Status: stable Status Narrative Discussed with Dr. Aguirre. Assessment/Plan Assessment - Significant degree of pancytopenia - (+) Blast cells on peripheral blood, ? lymphoma - Altagracia-anal ulcer/lesion/abscess Recommendations - Colorectal surgery evaluation - Recommend heme-Onc consultation - follow labs and exam - zofran prn - prn transfusions - ppi The patient was seen and examined at bedside and all new and available data was reviewed in the patients chart. I agree with the above findings, impression and plan. (Patient seen earlier today. Signature stamp does not reflect patient encounter time.). - Prakash Aguirre MD Subjective Gastrointestinal/Abdominal: Reports: no symptoms Objective Last 24 Hour Vital Signs Date Time Temp Pulse Resp B/P (MAP) Pulse Ox O2 Delivery O2 Flow Rate FiO2 03/15/19 08:00 97.1 80 20 106/58 (74) 97 03/15/19 07:28 Nasal Cannula 03/15/19 07:28 Nasal Cannula 03/15/19 06:32 98.3 03/15/19 04:00 86 03/15/19 04:00 Nasal Cannula 2.0 03/15/19 04:00 98.3 83 20 118/65 (82) 100 03/15/19 01:05 85 18 94 Nasal Cannula 2.0 28 03/15/19 01:05 85 18 94 Nasal Cannula 2.0 28 03/15/19 00:00 92 03/15/19 00:00 Nasal Cannula 2.0 03/15/19 00:00 98.9 90 20 118/65 (82) 99 03/14/19 20:00 Nasal Cannula 2.0 03/14/19 20:00 86 03/14/19 20:00 97.3 84 18 128/70 (89) 99 03/14/19 19:53 83 18 98 Nasal Cannula 2.0 28 03/14/19 19:53 83 18 98 Nasal Cannula 2.0 28 03/14/19 16:00 98.2 88 24 109/50 (69) 100 03/14/19 16:00 89 03/14/19 16:00 Nasal Cannula 2.0 03/14/19 13:47 Nasal Cannula 03/14/19 13:42 Nasal Cannula 03/14/19 12:00 75 03/14/19 12:00 Nasal Cannula 2.0 03/14/19 12:00 97.9 76 20 113/68 (83) 99 Intake and Output 03/14/19 03/15/19 19:00 07:00 Intake Total 1702.5 ml Balance 1702.5 ml Intake Oral 1500 ml IV Total 202.5 ml # Voids 6 3 # Bowel Movements 1 Height (Feet): 6 Height (Inches): 3.00 Weight (Pounds): 319 General Appearance: WD/WN, no apparent distress, alert Cardiovascular: normal rate Respiratory/Chest: normal breath sounds, no respiratory distress Abdominal Exam: normal bowel sounds, non tender, soft Extremities: normal range of motion, non-tender Rachel Leyva NP March 15, 2019 10:22
--- NOTE | 2019-03-15 10:58 | NUR ---
P.T Note: P.T evaluation completed and treatment initiated. Please refer to P.T evaluation for current functional status. Pt is alert, oriented x 4, caregiver present in the room. Pt reports c/o generalized weakness , pain and tenderness on the perianal area aggravated by movement initiation, certain positioning and sitting limiting overall mobility. Pt currently require MIN A X 1 and extended time to perform and complete bed mobilities and transfer activities. Pt reports c/o dizziness upon initial standing however subsided over time. Pt was able to ambulate and tolerate 5ft : distance limited due to fatigue and dizziness. Vitals taken and were stable. Pt not able to sit in the chair recliner due to fatigue and pain and tenderness on the perianal area 05/28 . Pt however is cooperative and motivated. Skilled P.T service is warranted to improve his strength, balance and endurance to increase his activity tolerance , mobility independence and safety. Recommend SNF for further rehab or home P.T. DME to include FWW.
--- NOTE | 2019-03-15 11:04 | NUR ---
NURSE NOTES: Patient does not allow me to assess his anal laceration. Patient complains of pain in this area. Caregiver refuses to allow us to clean the patient in order to assess the wound. Will attempt to assess wound later when patient needs to be cleaned again.
[2019-03-15 12:00] VITALS: BP 111/65
--- NOTE | 2019-03-15 12:52 | Nephrology Progress Note ---
Assessment/Plan Status: stable Assessment/Plan: A/P 1) ILIA- multifact ATN from hypotension/severe anemia/NSAIDS while on GIOVANNI-I/ARB - BP improved, resolved, AM labs pending - Ok to restart either GIOVANNI-I or ARB 2) Anemia- per GI mgmt - s/p blood tx - EGD per GI 3) Pancytopenia- ?? may be secondary to NSAIDS 4) Hypotension- resolved 5) Hypokalemia- will replace prn, AM labs pending Subjective Date patient seen: March 15, 2019 Time patient seen: 12:50 ROS Limited/Unobtainable: No Allergies: Coded Allergies: No Known Allergies (Unverified , 03/24/16) Subjective Patient c/o dry mouth Objective Last 24 Hour Vital Signs Date Time Temp Pulse Resp B/P (MAP) Pulse Ox O2 Delivery O2 Flow Rate FiO2 03/15/19 08:00 97.1 80 20 106/58 (74) 97 03/15/19 08:00 Nasal Cannula 2.0 03/15/19 08:00 81 03/15/19 07:28 Nasal Cannula 03/15/19 07:28 Nasal Cannula 03/15/19 06:32 98.3 03/15/19 04:00 86 03/15/19 04:00 Nasal Cannula 2.0 03/15/19 04:00 98.3 83 20 118/65 (82) 100 03/15/19 01:05 85 18 94 Nasal Cannula 2.0 28 03/15/19 01:05 85 18 94 Nasal Cannula 2.0 03/15/19 00:00 92 03/15/19 00:00 Nasal Cannula 2.0 03/15/19 00:00 98.9 90 20 118/65 (82) 99 03/14/19 20:00 Nasal Cannula 2.0 03/14/19 20:00 86 03/14/19 20:00 97.3 84 18 128/70 (89) 99 03/14/19 19:53 83 18 98 Nasal Cannula 2.0 28 03/14/19 19:53 83 18 98 Nasal Cannula 2.0 28 03/14/19 16:00 98.2 88 24 109/50 (69) 100 03/14/19 16:00 89 03/14/19 16:00 Nasal Cannula 2.0 03/14/19 13:47 Nasal Cannula 03/14/19 13:42 Nasal Cannula Intake and Output 03/14/19 03/15/19 19:00 07:00 Intake Total 1702.5 ml 27.5 ml Balance 1702.5 ml 27.5 ml Intake Oral 1500 ml IV Total 202.5 ml 27.5 ml # Voids 6 3 # Bowel Movements 1 Height (Feet): 6 Height (Inches): 3.00 Weight (Pounds): 319 General Appearance: no apparent distress, alert EENT: normal ENT inspection Neck: normal alignment, supple Cardiovascular: normal rate, regular rhythm Respiratory/Chest: lungs clear, normal breath sounds Abdomen: non tender, soft Edema: no edema noted Arm (L), no edema noted Arm (R), no edema noted Leg (L), no edema noted Leg (R), no edema noted Pedal (L), no edema noted Pedal (R), no edema noted Generalized Stephan Santos MD March 15, 2019 12:52
--- NOTE | 2019-03-15 13:00 | NUR ---
NURSE NOTES: Patient reporting mouth pain in his upper gum at this time. Upon inspection, the gum appears red and irritated. Derrek Leyva EVENT MARKETING MANAGER notified. Per Autumn, Diet order changed to mechanical soft-chopped and glucerna added to meals for nutritional supplement. Will notify Dr Ac regarding mouth pain when he rounds on the patient.
--- NOTE | 2019-03-15 13:11 | Diagnostic Imaging Report ---
EXAM: XR Chest, 1 View CLINICAL HISTORY: ABD PAIN TECHNIQUE: Frontal view of the chest. COMPARISON: Chest radiograph on 02/06/2019 FINDINGS: Hardware: None. Lungs/pleura: Mild bibasilar atelectasis. Interstitial and hazy opacities are suggestive of pulmonary edema. No focal consolidation. No pleural effusion or pneumothorax. Heart/mediastinum: Stable enlargement of the cardiomediastinal silhouette. Soft tissues: Unremarkable. Bones: No acute fracture. Degenerative changes of the spine. Upper abdomen: Normal. IMPRESSION: Stable enlargement of the cardiomediastinal silhouette with suggestion of pulmonary edema.
--- NOTE | 2019-03-15 13:12 | Hematology/Onc Progress Note ---
Assessment/Plan Assessment/Plan Assessment and Recs: # Pancytopenia -- multiple etiologies could be related to underlying liver disease, in this case has blasts++, that are persistent, though these are new compared to prior admissions, concerning for more serious process such as leukemia given BLASTS --> FLOW CYTOMETRY has been ordered of peripheral blood (results by /thu) --> okay to discharge and if I obtain results of above, I will call patient --> BONE MARROW BIOPSY has been recommended at this time he refuses procedure, again stressed to him this is a critical issue that needs to be addressed claudia --> Medications have been reviewed, no major culprits noted --> Continue to monitor for improvement, trend cbc --> Hep panel and HIV have been ordered and are negative --> US abd shows fatty liver, no other major changes --> consider other causes, infections that could contribute --> reverse isolation if ANC is <2000 --> Give neupogen if ANC <1000 --> Transfuse if hgb <7, with 1 unit prbc --> consider bone marrow biopsy if no other causes are found # Anemia of chronic disease due to underlying chronic medical issues, multifactorial --> Anemia workup has been ordered/reviewed, ferritin is 696 --> No evidence of hemolysis is noted, peripheral smear has been reviewed. --> Hgb goal >7. Transfuse prn. --> Epogen or iron at this time is not particularly indicated --> Medications have been reviewed # Rectal pain -- unfortunately patient not able to tolerate exam from discomfort and could not perform ABE or full rectal exam at bedside. of note there a foul odor and abnormal drainage in nany-rectal area. there is also abnormal skin tissue almost like an eshcar noted. could potential be hemorrhoids but anticipate more going on --> as per surg recs # Acute bronchitis --> improved with abx, pulm has been consulted # r/o ACS (acute coronary syndrome) --> currently chest pain free # COPD (chronic obstructive pulmonary disease) --> no evidence of exacerbation # Diabetes mellitus --> accuchecks qac and qhs --> insulin as required, bs goal <120 pre-prandial The timing of this note does not necessarily reflect the time of the patient was seen. Greatly appreciate consultation. Subjective Constitutional: Denies: no symptoms, chills, fever, malaise, weakness, other HEENT: Denies: no symptoms, eye pain, blurred vision, tearing, double vision, ear pain, ear discharge, nose pain, nose congestion, throat pain, throat swelling, mouth pain, mouth swelling, other Cardiovascular: Denies: no symptoms, chest pain, edema, irregular heart rate, lightheadedness, palpitations, syncope, other Respiratory: Denies: no symptoms, cough, shortness of breath, SOB with excertion, SOB at rest, sputum, wheezing, other Gastrointestinal/Abdominal: Denies: no symptoms, abdomen distended, abdominal pain, black stools, tarry stools, blood in stool, constipated, diarrhea, difficulty swallowing, nausea, poor appetite, poor fluid intake, rectal bleeding , vomiting, other Genitourinary: Denies: no symptoms, burning, discharge, frequency, flank pain, hematuria, incontinence, pain, urgency, other Neurologic/Psychiatric: Denies: no symptoms, anxiety, depressed, emotional problems, headache, numbness, paresthesia, pre-existing deficit, seizure, tingling, tremors, weakness, other Endocrine: Denies: no symptoms, excessive sweating, flushing, intolerance to cold, intolerance to heat, increased hunger, increased thirst, increased urine, unexplained weight gain, unexplained weight loss, other Allergies: Coded Allergies: No Known Allergies (Unverified , 03/24/16) Subjective 03/15: no events to report, does not want toget a bone marrow biopsy, dw and patient Objective Objective Current Medications Medications (Trade) Dose Ordered Sig/Saima Route PRN Reason Start Time Stop Time Status Last Admin Dose Admin Acetaminophen (Tylenol) 650 mg Q4H PRN ORAL Mild Pain/Temp > 100.5 03/13/19 17:15 04/12/19 17:14 03/14/19 05:30 Acetaminophen/ Codeine Phosphate (Tylenol #3) 1 tab Q6H PRN ORAL for pain 4-10 03/14/19 22:15 03/21/19 22:14 03/15/19 12:41 Albuterol Sulfate (Proventil MDI) 1 puff Q6HRT INH 03/12/19 00:00 04/11/19 00:00 03/15/19 13:07 Famotidine (Pepcid) 20 mg BID PRN ORAL heart burn 03/11/19 23:30 04/10/19 23:29 Nitroglycerin (Ntg) 0.4 mg PRN PRN SL chest pain 03/11/19 23:30 04/10/19 23:29 Piperacillin Sod/ Tazobactam Sod 3.375 gm/Sodium Chloride 110 ml @ 27.5 mls/hr EVERY 8 HOURS IVPB 03/13/19 18:00 03/20/19 17:59 03/15/19 05:55 Last 24 Hour Vital Signs Date Time Temp Pulse Resp B/P (MAP) Pulse Ox O2 Delivery O2 Flow Rate FiO2 03/15/19 08:00 97.1 80 20 106/58 (74) 97 03/15/19 08:00 Nasal Cannula 2.0 03/15/19 08:00 81 03/15/19 07:28 Nasal Cannula 03/15/19 07:28 Nasal Cannula 03/15/19 06:32 98.3 03/15/19 04:00 86 03/15/19 04:00 Nasal Cannula 2.0 03/15/19 04:00 98.3 83 20 118/65 (82) 100 03/15/19 01:05 85 18 94 Nasal Cannula 2.0 03/15/19 01:05 85 18 94 Nasal Cannula 2.0 03/15/19 00:00 92 03/15/19 00:00 Nasal Cannula 2.0 03/15/19 00:00 98.9 90 20 118/65 (82) 99 03/14/19 20:00 Nasal Cannula 2.0 03/14/19 20:00 86 03/14/19 20:00 97.3 84 18 128/70 (89) 99 03/14/19 19:53 83 18 98 Nasal Cannula 2.0 28 03/14/19 19:53 83 18 98 Nasal Cannula 2.0 28 03/14/19 16:00 98.2 88 24 109/50 (69) 100 03/14/19 16:00 89 03/14/19 16:00 Nasal Cannula 2.0 03/14/19 13:47 Nasal Cannula 03/14/19 13:42 Nasal Cannula 03/14/19 12:00 75 03/14/19 12:00 Nasal Cannula 2.0 03/14/19 12:00 97.9 76 20 113/68 (83) 99 03/14/19 08:00 Nasal Cannula 2.0 03/14/19 08:00 81 03/14/19 08:00 99.0 80 24 104/62 (76) 100 03/14/19 07:26 85 16 96 Nasal Cannula 2.0 28 03/14/19 07:24 84 16 96 Nasal Cannula 2.0 28 03/14/19 04:00 Nasal Cannula 2.0 03/14/19 04:00 99.0 90 23 105/62 (76) 99 03/14/19 04:00 93 03/14/19 01:15 83 18 99 Nasal Cannula 2.0 28 03/14/19 01:14 83 18 99 Nasal Cannula 2.0 28 03/14/19 00:00 Nasal Cannula 2.0 03/14/19 00:00 81 03/14/19 00:00 98.1 82 23 102/53 (69) 99 03/13/19 20:00 Nasal Cannula 2.0 03/13/19 20:00 86 03/13/19 20:00 98.5 82 23 108/54 (72) 99 03/13/19 19:33 81 18 97 Nasal Cannula 2.0 28 03/13/19 19:32 82 18 97 Nasal Cannula 2.0 28 03/13/19 17:44 99.0 03/13/19 16:00 106 03/13/19 16:00 102.0 101 23 152/84 (106) 99 03/13/19 15:49 Nasal Cannula 2.0 03/13/19 13:35 86 18 96 Nasal Cannula 2.0 28 03/13/19 13:31 86 18 96 Nasal Cannula 2.0 28 Intake and Output 03/14/19 03/15/19 19:00 07:00 Intake Total 1702.5 ml 27.5 ml Balance 1702.5 ml 27.5 ml Intake Oral 1500 ml IV Total 202.5 ml 27.5 ml # Voids 6 3 # Bowel Movements 1 Labs Test 03/12/19 16:15 03/13/19 05:42 03/14/19 05:05 White Blood Count 3.3 K/UL (4.8-10.8) 3.0 K/UL (4.8-10.8) 2.6 K/UL (4.8-10.8) Red Blood Count 2.64 M/UL (4.70-6.10) 2.66 M/UL (4.70-6.10) 2.66 M/UL (4.70-6.10) Hemoglobin 8.1 G/DL (14.2-18.0) 8.0 G/DL (14.2-18.0) 8.0 G/DL (14.2-18.0) Hematocrit 23.1 % (42.0-52.0) 23.0 % (42.0-52.0) 24.2 % (42.0-52.0) Mean Corpuscular Volume 88 FL (80-99) 87 FL (80-99) 91 FL (80-99) Mean Corpuscular Hemoglobin 30.5 PG (27.0-31.0) 30.1 PG (27.0-31.0) 30.3 PG (27.0-31.0) Mean Corpuscular Hemoglobin Concent 34.8 G/DL (32.0-36.0) 34.7 G/DL (32.0-36.0) 33.2 G/DL (32.0-36.0) Red Cell Distribution Width 14.9 % (11.6-14.8) 14.7 % (11.6-14.8) 16.0 % (11.6-14.8) Platelet Count 44 K/UL (150-450) 19 K/UL (150-450) 21 K/UL (150-450) Mean Platelet Volume 11.8 FL (6.5-10.1) 11.1 FL (6.5-10.1) 11.9 FL (6.5-10.1) Neutrophils (%) (Auto) % (45.0-75.0) % (45.0-75.0) % (45.0-75.0) Lymphocytes (%) (Auto) % (20.0-45.0) % (20.0-45.0) % (20.0-45.0) Monocytes (%) (Auto) % (1.0-10.0) % (1.0-10.0) % (1.0-10.0) Eosinophils (%) (Auto) % (0.0-3.0) % (0.0-3.0) % (0.0-3.0) Basophils (%) (Auto) % (0.0-2.0) % (0.0-2.0) % (0.0-2.0) Differential Total Cells Counted 100 100 100 Neutrophils % (Manual) 34 % (45-75) 37 % (45-75) 41 % (45-75) Lymphocytes % (Manual) 43 % (20-45) 48 % (20-45) 42 % (20-45) Monocytes % (Manual) 10 % (1-10) 15 % (1-10) 17 % (1-10) Eosinophils % (Manual) 0 % (0-3) 0 % (0-3) 0 % (0-3) Basophils % (Manual) 0 % (0-2) 0 % (0-2) 0 % (0-2) Blast Cells % 9 % (0-0) Band Neutrophils 4 % (0-8) 0 % (0-8) 0 % (0-8) Nucleated Red Blood Cells /100 WBC Platelet Estimate Decreased Decreased Decreased Platelet Morphology Normal Normal Normal Hypochromasia 2+ Anisocytosis 2+ 1+ 1+ Sodium Level 135 MMOL/L (136-145) 139 MMOL/L (136-145) Potassium Level 3.6 MMOL/L (3.5-5.1) 3.4 MMOL/L (3.5-5.1) Chloride Level 100 MMOL/L (98-107) 104 MMOL/L (98-107) Carbon Dioxide Level 24 MMOL/L (21-32) 27 MMOL/L (21-32) Anion Gap 11 mmol/L (5-15) 8 mmol/L (5-15) Blood Urea Nitrogen 48 mg/dL (7-18) 30 mg/dL (7-18) Creatinine 1.7 MG/DL (0.55-1.30) 1.1 MG/DL (0.55-1.30) Estimat Glomerular Filtration Rate 49.4 mL/min (>60) > 60 mL/min (>60) Glucose Level 128 MG/DL (74-106) 119 MG/DL (74-106) Calcium Level 8.9 MG/DL (8.5-10.1) 8.8 MG/DL (8.5-10.1) Height (Feet): 6 Height (Inches): 3.00 Weight (Pounds): 319 Objective Physical Exam General appearance: alert, cooperative, no distress Head: Normocephalic, without obvious abnormality, atraumatic Eyes: conjunctivae/corneas clear. PERRL, EOM's intact. Fundi benign Throat: Lips, mucosa, and tongue normal. Teeth and gums normal Neck: supple, symmetrical, trachea midline, no adenopathy Lungs: clear to auscultation bilaterally Heart: regular rate and rhythm, S1, S2 normal, no murmur Abdomen: soft, non-tender. Bowel sounds normal. No masses Extremities: extremities normal, atraumatic, no cyanosis or edema Pulses: 2+ and symmetric Skin: Skin color, texture, turgor normal. No rashes or lesions Neurologic: Grossly normal Timoteo Stafford MD March 15, 2019 13:12
--- NOTE | 2019-03-15 13:13 | Diagnostic Imaging Report ---
EXAM: CT Abdomen and Pelvis Without Intravenous Contrast CLINICAL HISTORY: ABSCESS TECHNIQUE: Axial computed tomography images of the abdomen and pelvis without intravenous contrast. CTDI is 19.75 mGy and DLP is 1240.19 mGy-cm. One or more of the following dose reduction techniques were used: automated exposure control, adjustment of the mA and/or kV according to patient size, use of iterative reconstruction technique. COMPARISON: None FINDINGS: Evaluation of solid organs somewhat limited without IV contrast. Liver: No focal lesion. Spleen: No focal lesion. Small splenules. Gallbladder: No stones or biliary dilatation. Pancreas: No acute inflammation. No mass. Adrenal glands: No mass. Kidneys: Nonspecific bilateral perinephric fat stranding. Bilateral renal cysts. Small hyperdense lesions in the kidneys are nonspecific. Further evaluation could be performed with ultrasound if clinically indicated. Punctate nonobstructing left renal stone. No hydronephrosis or ureteral stone. Bowel: Normal appendix. No bowel obstruction or inflammation. Urinary bladder: Mild prominence of the bladder wall is nonspecific. Reproductive organs: Unremarkable. Muscles: No mass. Subcutaneous tissues: Fat-containing bilateral inguinal hernias. Soft tissue density and gas in the perianal region without discrete abscess identified. Fluid: Small amount of presacral fluid. Lymph nodes: Mildly prominent bilateral inguinal lymph nodes are nonspecific but may be reactive. Vessels: Atherosclerotic changes of the vasculature. Ectasia/mild aneurysmal dilatations of the abdominal aorta. Bones: Degenerative changes of the spine. No acute fracture or bony lesion. Lung bases: Possible trace right pleural effusion. Dependent and bibasilar atelectasis. Cardiomegaly. Coronary artery calcifications. No pericardial effusion. Other: Trace oral contrast in the distal esophagus. IMPRESSION: Soft tissue density and gas in the perianal region without discrete abscess identified. Findings are suggestive of perianal phlegmon and open wound versus changes related to manipulation. Small amount of presacral fluid.
--- NOTE | 2019-03-15 13:31 | NUR ---
*-* INSURANCE *-* ALL CLINICALS AND REVIEWS HAVE BEEN FAXED TO: [facility] P: [phone] F: [phone] (FAX CLINICALS)
--- NOTE | 2019-03-15 14:05 | NUR ---
OUTSIDE RIGGERGLOBAL PROCESS OWNER SI:PANCYTOPENIA . RECTAL PAIN VS: BP 106/58, P 80, T 97.1, RR 20, SpO2 95 NO LABS TODAY IS:ZOSYN 110ml IVPB ALBUTEROL INH TYLENOL #3 PLAN: COLORECTAL SURGERY EVAL. SDU STATUS
--- NOTE | 2019-03-15 14:44 | Surgery Progress Note ---
Surgery Progress Note Subjective Additional Comments no acute events. doing okay. CT resulted. still with perianal pain. no n/v/f/c. labs noted. refusing bone marrow biopsy Objective Last 24 Hour Vital Signs Date Time Temp Pulse Resp B/P (MAP) Pulse Ox O2 Delivery O2 Flow Rate FiO2 03/15/19 13:07 80 18 95 Nasal Cannula 2.0 28 03/15/19 13:07 80 18 95 Nasal Cannula 2.0 28 03/15/19 12:00 Nasal Cannula 2.0 03/15/19 12:00 79 03/15/19 12:00 97.9 75 20 111/65 (80) 100 03/15/19 08:00 97.1 80 20 106/58 (74) 97 03/15/19 08:00 Nasal Cannula 2.0 03/15/19 08:00 81 03/15/19 07:28 Nasal Cannula 03/15/19 07:28 Nasal Cannula 03/15/19 06:32 98.3 03/15/19 04:00 86 03/15/19 04:00 Nasal Cannula 2.0 03/15/19 04:00 98.3 83 20 118/65 (82) 100 03/15/19 01:05 85 18 94 Nasal Cannula 2.0 28 03/15/19 01:05 85 18 94 Nasal Cannula 2.0 28 03/15/19 00:00 92 03/15/19 00:00 Nasal Cannula 2.0 03/15/19 00:00 98.9 90 20 118/65 (82) 99 03/14/19 20:00 Nasal Cannula 2.0 03/14/19 20:00 86 03/14/19 20:00 97.3 84 18 128/70 (89) 99 03/14/19 19:53 83 18 98 Nasal Cannula 2.0 28 03/14/19 19:53 83 18 98 Nasal Cannula 2.0 28 03/14/19 16:00 98.2 88 24 109/50 (69) 100 03/14/19 16:00 89 03/14/19 16:00 Nasal Cannula 2.0 I&O Intake and Output 03/14/19 03/15/19 19:00 07:00 Intake Total 1702.5 ml 27.5 ml Balance 1702.5 ml 27.5 ml Intake Oral 1500 ml IV Total 202.5 ml 27.5 ml # Voids 6 3 # Bowel Movements 1 Dressing: saturated Wound: other Drains: other Cardiovascular: RSR Respiratory: clear Abdomen: soft, flat, non-tender, present bowel sounds, non-distended Extremities: no edema, no tenderness, no cyanosis Plan Problems: (1) Rectal pain Assessment & Plan: 63 M with multiple medical comorbidities, severe anemia, pancytopenia, rectal pain. unfortunately patient not able to tolerate exam from discomfort and could not perform ABE or full rectal exam at bedside. of note there a foul odor and abnormal drainage in nany-rectal area. there is also abnormal skin tissue almost like an eshcar noted. could potential be hemorrhoids but anticipate more going on CT w/ Soft tissue density and gas in the perianal region without discrete abscess identified. Findings are suggestive of perianal phlegmon and open wound versus changes related to manipulation. Recommend examination under anesthesia given findings on bedside exam need to further evaluate given abnormalities on exam and degree of pain and discomfort patient having cardiac history, will need clearance first appreciate GI input Bone marrow biopsy as per Heme but patient refusing currently and wants second opinion before consenting thank you will follow with recs. (2) Severe anemia Franklin Lim March 15, 2019 14:44
[2019-03-15 15:17] LABS: ANION GAP 8 mmol/L (5-15); BLOOD UREA NITROGEN 23 mg/dL (7-18); CALCIUM 8.5 MG/DL (8.5-10.1); CARBON DIOXIDE 28 MMOL/L (21-32); CHLORIDE 103 MMOL/L (98-107); CREATININE 1.1 MG/DL (0.55-1.30); POTASSIUM 3.6 MMOL/L (3.5-5.1); SODIUM 139 MMOL/L (136-145)
[2019-03-15 16:00] VITALS: BP 121/67
--- NOTE | 2019-03-15 19:30 | NUR ---
NURSE NOTES: Received report from Chelsey Roman RN. Patient is A/O x4, sinus rhythm on channel man. On 2L O2 via nasal cannula and saturating well. Left hand 20g IV, intact and patent, TKO. Bed alarmed, locked in lowest position with side rails up x2. Call light left within reach. Caregiver remains at bedside. Will continue to monitor.
--- NOTE | 2019-03-15 19:36 | NUR ---
HAND-OFF: Report given to GREG Clement. Patient VS stable at this time with no sign of acute distress.
[2019-03-15 20:00] VITALS: BP 125/71
--- NOTE | 2019-03-15 23:45 | Consultation ---
DATE OF CONSULTATION: 03/15/2019 CARDIOLOGY CONSULT: CONSULTING PHYSICIAN: Roberto Jimenez M.D. REFERRING PHYSICIAN: Jaskaran Ac M.D. REASON FOR CONSULTATION: Preoperative cardiovascular risk assessment. HISTORY OF PRESENT ILLNESS: This 63-year-old male with a known history of coronary artery disease presented to the hospital on 03/11/2019 with severe anemia, symptomatic with lightheaded and dizziness and a hemoglobin of 5.3, platelet count of 17,000, and creatinine of 3.1. The patient has no noted bleeding however. Since admission, he was transfused, hydrated, and had most of his medications held. His renal function has normalized. His hemoglobin remains around 8. He did have an elevated troponin level on admission as well as, but no chest pain. He is being considered for further GI and surgical evaluation under anesthesia and I have been asked to address cardiovascular risk. The patient does have a history of coronary artery disease. He has a stress test almost yearly. He had a heart attack in 2011 followed by 5 stents placed. He has not had a cardiac catheterization since, but as I said has a regular stress test. He is scheduled for a stress test as an outpatient actually tomorrow because he has had chest pain on occasion although no noted changes in his pattern since hospitalized. PAST MEDICAL HISTORY: 1. Coronary artery disease. 2. History of myocardial infarction. 3. Hypertensive heart disease. 4. Iron deficiency. 5. Vitamin D deficiency. 6. Type 2 diabetes mellitus. 7. Hyperlipidemia. 8. Chronic kidney disease. 9. Costochondritis. 10. COPD. ALLERGIES: None. MEDICATIONS: Reviewed prior to admission and presently reviewed and reconciled. FAMILY HISTORY: Notable for diabetes and hypertension. SOCIAL HISTORY: Negative for smoking or alcohol abuse. He denies substance abuse. REVIEW OF SYSTEMS: All systems negative other than noted above. PHYSICAL EXAMINATION: GENERAL: Moderately obese. Lying flat. No distress. VITAL SIGNS: Blood pressure 121/67, pulse 89, respirations 20, afebrile, and oxygen saturation on 2 liters is 95 to 100%. NECK: Jugular venous pressure normal. LUNGS: Diminished breath sounds with no wheezing or rales. CARDIAC: Reveals regular rhythm and rate. Normal S1, S2 with a fourth heart sound. ABDOMEN: Soft, nontender. Slightly distended. EXTREMITIES: No clubbing, cyanosis, or edema. EKG reveals sinus rhythm, frequent PVCs, low voltage, prolonged QT. Chest x-ray revealed no acute process. LABORATORY DATA: White count 2.6, hemoglobin 8, platelets 21,000. Potassium 3.6, BUN 23, creatinine 1.1. Troponin on admission was 0.134, repeated was 0.122. IMPRESSION: 1. Pancytopenia. 2. Ischemic heart disease with prior history of myocardial infarction and coronary stents. 3. Chronic stable angina, class 2. 4. Acute renal failure, resolved. 5. COPD. 6. Type 2 diabetes mellitus. 7. Hypertensive heart disease. 8. Acute myocardial ischemia. PLAN: 1. Continue cardiac monitoring. 2. Recheck troponin level. 3. Monitor blood counts. Transfuse if significant bleeding or drop in hemoglobin. 4. Nasal oxygen. 5. Hold anti-platelet therapy. 6. Titrate antianginal regimen. 7. Avoid GIOVANNI inhibitors and ARB drugs. 8. Defer stress test in view of severe anemia at this time. 9. Proceed with anesthesia and diagnostic GI workup with minimally increased risk if troponin level has not increased further since admission. Roberto Jimenez M.D. DR: MARILIN JOB#: [id number] CC:
[2019-03-16] VITALS (7 sets, daily range): BP systolic 100–136; BP diastolic 47–71
[2019-03-16] MEDS: Albuterol 90mcg Inhaler 8gm INH SCH ×4 (00:08→19:55)
--- NOTE | 2019-03-16 03:00 | NUR ---
NURSE NOTES: Patient refuses to be cleaned by healthcare staff. Will only allow /caregiver, [place], to help him. Charge nurse aware.
[2019-03-16 05:21] LABS: HEMATOCRIT 24.3 % (42.0-52.0); HEMOGLOBIN 7.9 G/DL (14.2-18.0); MEAN CORPUSCULAR VOLUME 92 FL (80-99); PLATELET COUNT 26 K/UL (150-450); RED BLOOD COUNT 2.63 M/UL (4.70-6.10); RED CELL DISTRIBUTION WIDTH 15.9 % (11.6-14.8); WHITE BLOOD COUNT 3.4 K/UL (4.8-10.8)
[2019-03-16 05:32] LABS: ANION GAP 8 mmol/L (5-15); BLOOD UREA NITROGEN 20 mg/dL (7-18); CARBON DIOXIDE 27 MMOL/L (21-32); CHLORIDE 104 MMOL/L (98-107); POTASSIUM 3.9 MMOL/L (3.5-5.1); SODIUM 139 MMOL/L (136-145)
[2019-03-16] MEDS: Zosyn 3.375gm q8h **Extended infusion IVPB SCH ×4 (05:40→15:09)
--- NOTE | 2019-03-16 07:10 | NUR ---
HAND-OFF: Report given to Jerry Olson RN.
--- NOTE | 2019-03-16 07:11 | NUR ---
NURSE NOTES: RECEIVED PATIENT FROM Dima FRANCE RN. PATIENT IS LYING IN BED, AWAKE, ALERT AND ORIENTED. HOOKED TO AUTOMATIC PATTERN EDGER. ON ROOM AIR. NO SIGNS OF DISTRESS. NOTED AT THE BEDSIDE. HE USES THE URINAL AND CAN AMBULATE TO BATHROOM WITH ASSISTANCE. IV ON L AC G20, SL. PATIENT REFUSED TO SHOW THE SKIN ISSUE FROM PERIANAL BUT AWARE. AWAITING CONSENT FOR PROCEDURE BED AT LOWEST POSITION. SIDE RAILS UP. CALL LIGHT WITHIN REACH. WILL CONTINUE TO MONITOR.
--- NOTE | 2019-03-16 08:03 | Nephrology Progress Note ---
Assessment/Plan Status: stable Assessment/Plan: A/P 1) ILIA- multifact ATN from hypotension/severe anemia/NSAIDS while on GIOVANNI-I/ARB - resolved - Ok to restart either GIOVANNI-I or ARB (not both) 2) Anemia- per GI mgmt - s/p blood tx -mgt per Heme and GI 3) Pancytopenia- ?? may be secondary to NSAIDS - w/u per Heme 4) Hypotension- resolved 5) Hypokalemia- will replace prn, Corrected Subjective Date patient seen: March 16, 2019 Time patient seen: 08:02 ROS Limited/Unobtainable: No Allergies: Coded Allergies: No Known Allergies (Unverified , 03/24/16) Subjective Patient resting well. No acute distress Objective Last 24 Hour Vital Signs Date Time Temp Pulse Resp B/P (MAP) Pulse Ox O2 Delivery O2 Flow Rate FiO2 03/16/19 04:00 97.7 90 20 119/54 (75) 93 03/16/19 04:00 Room Air 03/16/19 03:18 87 03/16/19 00:08 84 16 96 Nasal Cannula 2.0 03/16/19 00:08 84 14 96 Nasal Cannula 2.0 03/16/19 00:00 98.2 91 20 126/71 (89) 93 03/16/19 00:00 Nasal Cannula 2.0 03/15/19 23:26 97 03/15/19 20:00 Nasal Cannula 2.0 03/15/19 20:00 98.4 93 20 125/71 (89) 95 03/15/19 19:16 91 16 96 Nasal Cannula 2.0 03/15/19 19:16 91 16 96 Nasal Cannula 2.0 28 03/15/19 19:09 93 03/15/19 16:00 97.9 89 20 121/67 (85) 96 03/15/19 16:00 83 03/15/19 16:00 Nasal Cannula 2.0 03/15/19 13:07 80 18 95 Nasal Cannula 2.0 28 03/15/19 13:07 80 18 95 Nasal Cannula 2.0 28 03/15/19 12:00 Nasal Cannula 2.0 03/15/19 12:00 79 03/15/19 12:00 97.9 75 20 111/65 (80) 100 Intake and Output 03/15/19 03/16/19 19:00 07:00 Intake Total 582.500 ml 359.63633 ml Output Total 300 ml Balance 282.500 ml 359.98438 ml Intake Oral 390 ml 240 ml IV Total 192.500 ml 119.34335 ml Output Urine Total 300 ml # Voids 4 4 Laboratory Tests 03/15/19 14:30: Sodium Level 139, Potassium Level 3.6, Chloride Level 103, Carbon Dioxide Level 28, Anion Gap 8, Blood Urea Nitrogen 23H, Creatinine 1.1, Estimat Glomerular Filtration Rate > 60, Glucose Level 154H, Calcium Level 8.5 03/16/19 03:45: Sodium Level 139, Potassium Level 3.9, Chloride Level 104, Carbon Dioxide Level 27, Anion Gap 8, Blood Urea Nitrogen 20H, Creatinine 1.0, Estimat Glomerular Filtration Rate > 60, Glucose Level 118H, Calcium Level 9.0, White Blood Count 3.4L, Red Blood Count 2.63L, Hemoglobin 7.9L, Hematocrit 24.3L, Mean Corpuscular Volume 92, Mean Corpuscular Hemoglobin 29.9, Mean Corpuscular Hemoglobin Concent 32.4, Red Cell Distribution Width 15.9H, Platelet Count 26L, Mean Platelet Volume 15.9H, Neutrophils (%) (Auto) , Lymphocytes (%) (Auto) , Monocytes (%) (Auto) , Eosinophils (%) (Auto) , Basophils (%) (Auto) , Neutrophils % (Manual) [Pending], Lymphocytes % (Manual) [Pending], Platelet Estimate [Pending], Platelet Morphology [Pending], Troponin I 0.020 Height (Feet): 6 Height (Inches): 3.00 Weight (Pounds): 321 General Appearance: no apparent distress EENT: normal ENT inspection Neck: normal alignment, supple Cardiovascular: normal rate Respiratory/Chest: lungs clear, normal breath sounds Abdomen: non tender, soft Edema: no edema noted Arm (L), no edema noted Arm (R), no edema noted Leg (L), no edema noted Leg (R), no edema noted Pedal (L), no edema noted Pedal (R), no edema noted Generalized Stephan Santos MD March 16, 2019 08:03
--- NOTE | 2019-03-16 08:34 | General Progress Note ---
Assessment/Plan Problem List: (1) Anemia ICD Codes: D64.9 - Anemia, unspecified SNOMED: 613306458 (2) Morbid obesity ICD Codes: E66.01 - Morbid (severe) obesity due to excess calories SNOMED: 689250103 (3) COPD (chronic obstructive pulmonary disease) ICD Codes: J44.9 - Chronic obstructive pulmonary disease, unspecified SNOMED: 54179639 (4) Diabetes mellitus ICD Codes: E11.9 - Type 2 diabetes mellitus without complications SNOMED: 50853312 (5) Rectal pain ICD Codes: K62.89 - Other specified diseases of anus and rectum SNOMED: 61320827 Status: stable Assessment/Plan: fu stool ob Surg input appreciated pending patient consent for Intra op rectal exam monitor labs Subjective ROS Limited/Unobtainable: Yes Allergies: Coded Allergies: No Known Allergies (Unverified , 03/24/16) Objective Last 24 Hour Vital Signs Date Time Temp Pulse Resp B/P (MAP) Pulse Ox O2 Delivery O2 Flow Rate FiO2 03/16/19 08:13 82 16 97 Nasal Cannula 2.0 03/16/19 08:11 81 14 96 Nasal Cannula 2.0 03/16/19 04:00 97.7 90 20 119/54 (75) 93 03/16/19 04:00 Room Air 03/16/19 03:18 87 03/16/19 00:08 84 16 96 Nasal Cannula 2.0 03/16/19 00:08 84 14 96 Nasal Cannula 2.0 03/16/19 00:00 98.2 91 20 126/71 (89) 93 03/16/19 00:00 Nasal Cannula 2.0 03/15/19 23:26 97 03/15/19 20:00 Nasal Cannula 2.0 03/15/19 20:00 98.4 93 20 125/71 (89) 95 03/15/19 19:16 91 16 96 Nasal Cannula 2.0 28 03/15/19 19:16 91 16 96 Nasal Cannula 2.0 28 03/15/19 19:09 93 03/15/19 16:00 97.9 89 20 121/67 (85) 96 03/15/19 16:00 83 03/15/19 16:00 Nasal Cannula 2.0 03/15/19 13:07 80 18 95 Nasal Cannula 2.0 03/15/19 13:07 80 18 95 Nasal Cannula 2.0 28 03/15/19 12:00 Nasal Cannula 2.0 03/15/19 12:00 79 03/15/19 12:00 97.9 75 20 111/65 (80) 100 Intake and Output 03/15/19 03/16/19 19:00 07:00 Intake Total 582.500 ml 359.58286 ml Output Total 300 ml Balance 282.500 ml 359.96729 ml Intake Oral 390 ml 240 ml IV Total 192.500 ml 119.42599 ml Output Urine Total 300 ml # Voids 4 4 Laboratory Tests 03/15/19 14:30: Sodium Level 139, Potassium Level 3.6, Chloride Level 103, Carbon Dioxide Level 28, Anion Gap 8, Blood Urea Nitrogen 23H, Creatinine 1.1, Estimat Glomerular Filtration Rate > 60, Glucose Level 154H, Calcium Level 8.5 03/16/19 03:45: Sodium Level 139, Potassium Level 3.9, Chloride Level 104, Carbon Dioxide Level 27, Anion Gap 8, Blood Urea Nitrogen 20H, Creatinine 1.0, Estimat Glomerular Filtration Rate > 60, Glucose Level 118H, Calcium Level 9.0, White Blood Count 3.4L, Red Blood Count 2.63L, Hemoglobin 7.9L, Hematocrit 24.3L, Mean Corpuscular Volume 92, Mean Corpuscular Hemoglobin 29.9, Mean Corpuscular Hemoglobin Concent 32.4, Red Cell Distribution Width 15.9H, Platelet Count 26L, Mean Platelet Volume 15.9H, Neutrophils (%) (Auto) , Lymphocytes (%) (Auto) , Monocytes (%) (Auto) , Eosinophils (%) (Auto) , Basophils (%) (Auto) , Neutrophils % (Manual) [Pending], Lymphocytes % (Manual) [Pending], Platelet Estimate [Pending], Platelet Morphology [Pending], Troponin I 0.020 Height (Feet): 6 Height (Inches): 3.00 Weight (Pounds): 321 General Appearance: alert EENT: normal ENT inspection Neck: supple Cardiovascular: normal rate Respiratory/Chest: lungs clear Abdomen: normal bowel sounds, non tender, soft Extremities: non-tender Prakash Aguirre MD March 16, 2019 08:34
[2019-03-16] MEDS: Tylenol #3 tab (300mg/30mg) ORAL PRN ×3 (10:31→23:27)
--- NOTE | 2019-03-16 11:12 | NUR ---
NURSE NOTES: Patient not on isolation
--- NOTE | 2019-03-16 11:12 | NUR ---
RD ASSESSMENT & RECOMMENDATIONS SEE CARE ACTIVITY FOR COMPLETE ASSESSMENT DAILY ESTIMATED NEEDS: Needs based on Obese, DM, cardiac 100.5kg adj 20-25 kcals/kg total kcals 1-1.5 g protein/kg 101-151 g total protein 20-25ml/kcal mL/kg total fluid mLs NUTRITION DIAGNOSIS: Chewing difficulty r/t poor dentition as evidenced by pt w/ sore gums unable to wear dentures, possibly decreased po intake, now on chopped texture diet CURRENT DIET:Cardiac ms chopped PO DIET RECOMMENDATIONS: Cardiac, texture as tolerated ADDITIONAL RECOMMENDATIONS: 1) Obtain a standing weight as able 2) Glucerna 1 tetra whit w/ poor intake of meal 3) Monitor po intake
--- NOTE | 2019-03-16 11:56 | Diagnostic Imaging Report ---
Indication: Acute renal failure Technique: Grayscale and duplex images of the kidneys, retroperitoneum, and bladder were obtained. Comparison: none Findings: Right kidney measures 13.3 cm in length. Left kidney measures 14.1 cm in length. Both kidneys demonstrate normal echogenicity. No hydronephrosis. There are multiple cysts bilaterally. Normal inferior vena cava. Bladder is normal. Volume at time of exam 135 mL, patient with no urge to void. Impression: Negative for hydronephrosis Incidental finding bilateral renal cysts.
--- NOTE | 2019-03-16 12:38 | Hematology/Onc Progress Note ---
Assessment/Plan Assessment/Plan Assessment and Recs: # Pancytopenia -- multiple etiologies could be related to underlying liver disease, in this case has blasts++, that are persistent, though these are new compared to prior admissions, concerning for more serious process such as leukemia given BLASTS --> FLOW CYTOMETRY has been ordered of peripheral blood (results by /thu) --> okay to discharge and if I obtain results of above, I will call patient --> BONE MARROW BIOPSY has been recommended at this time he refuses procedure, again stressed to him this is a critical issue that needs to be addressed claudia --> Medications have been reviewed, no major culprits noted --> Continue to monitor for improvement, trend cbc --> Hep panel and HIV are negative --> US abd shows fatty liver, no other major changes --> consider other causes, infections that could contribute --> reverse isolation if ANC is <2000 --> Give neupogen if ANC <1000 --> Transfuse if hgb <7, with 1 unit prbc --> consider bone marrow biopsy if no other causes are found # Anemia of chronic disease due to underlying chronic medical issues, multifactorial --> Anemia workup has been ordered/reviewed, ferritin is 696 --> No evidence of hemolysis is noted, peripheral smear has been reviewed. --> Hgb goal >7. Transfuse prn. --> Epogen or iron at this time is not particularly indicated --> Medications have been reviewed # Rectal pain -- unfortunately patient not able to tolerate exam from discomfort and could not perform ABE or full rectal exam at bedside. of note there a foul odor and abnormal drainage in nany-rectal area. there is also abnormal skin tissue almost like an eshcar noted. could potential be hemorrhoids but anticipate more going on --> as per surg recs # Acute bronchitis --> improved with abx, pulm has been consulted # ischemic heart disease r/o ACS (acute coronary syndrome) --> currently chest pain free --> as per cards, recs reviewed # COPD (chronic obstructive pulmonary disease) --> no evidence of exacerbation # Diabetes mellitus --> accuchecks qac and qhs --> insulin as required, bs goal <120 pre-prandial The timing of this note does not necessarily reflect the time of the patient was seen. Greatly appreciate consultation. Subjective Constitutional: Denies: no symptoms, chills, fever, malaise, weakness, other Cardiovascular: Denies: no symptoms, chest pain, edema, irregular heart rate, lightheadedness, palpitations, syncope, other Gastrointestinal/Abdominal: Denies: no symptoms, abdomen distended, abdominal pain, black stools, tarry stools, blood in stool, constipated, diarrhea, difficulty swallowing, nausea, poor appetite, poor fluid intake, rectal bleeding , vomiting, other Genitourinary: Denies: no symptoms, burning, discharge, frequency, flank pain, hematuria, incontinence, pain, urgency, other Neurologic/Psychiatric: Denies: no symptoms, anxiety, depressed, emotional problems, headache, numbness, paresthesia, pre-existing deficit, seizure, tingling, tremors, weakness, other Endocrine: Denies: no symptoms, excessive sweating, flushing, intolerance to cold, intolerance to heat, increased hunger, increased thirst, increased urine, unexplained weight gain, unexplained weight loss, other Hematologic/Lymphatic: Denies: no symptoms, anemia, easy bleeding, easy bruising, adenopathy, other Allergies: Coded Allergies: No Known Allergies (Unverified , 03/24/16) Subjective 03/15: no events to report, does not want toget a bone marrow biopsy, dw and patient 03/16: no events noted, has low plt and wbc as well, no fevers or chills Objective Objective Current Medications Medications (Trade) Dose Ordered Sig/Saima Route PRN Reason Start Time Stop Time Status Last Admin Dose Admin Acetaminophen (Tylenol) 650 mg Q4H PRN ORAL Mild Pain/Temp > 100.5 03/13/19 17:15 04/12/19 17:14 03/14/19 05:30 Acetaminophen/ Codeine Phosphate (Tylenol #3) 1 tab Q6H PRN ORAL for pain 4-10 03/14/19 22:15 03/21/19 22:14 03/16/19 10:31 Albuterol Sulfate (Proventil MDI) 1 puff Q6HRT INH 03/12/19 00:00 04/11/19 00:00 03/16/19 08:10 Famotidine (Pepcid) 20 mg BID PRN ORAL heart burn 03/11/19 23:30 04/10/19 23:29 Nitroglycerin (Ntg) 0.4 mg PRN PRN SL chest pain 03/11/19 23:30 04/10/19 23:29 Piperacillin Sod/ Tazobactam Sod 3.375 gm/Sodium Chloride 110 ml @ 27.5 mls/hr EVERY 8 HOURS IVPB 03/13/19 18:00 03/20/19 17:59 03/16/19 05:40 Last 24 Hour Vital Signs Date Time Temp Pulse Resp B/P (MAP) Pulse Ox O2 Delivery O2 Flow Rate FiO2 03/16/19 08:13 82 16 97 Nasal Cannula 2.0 03/16/19 08:11 81 14 96 Nasal Cannula 2.0 03/16/19 07:37 90 03/16/19 04:00 97.7 90 20 119/54 (75) 93 03/16/19 04:00 Room Air 03/16/19 03:18 87 03/16/19 00:08 84 16 96 Nasal Cannula 2.0 03/16/19 00:08 84 14 96 Nasal Cannula 2.0 03/16/19 00:00 98.2 91 20 126/71 (89) 93 03/16/19 00:00 Nasal Cannula 2.0 03/15/19 23:26 97 03/15/19 20:00 Nasal Cannula 2.0 03/15/19 20:00 98.4 93 20 125/71 (89) 95 03/15/19 19:16 91 16 96 Nasal Cannula 2.0 03/15/19 19:16 91 16 96 Nasal Cannula 2.0 03/15/19 19:09 93 03/15/19 16:00 97.9 89 20 121/67 (85) 96 03/15/19 16:00 83 03/15/19 16:00 Nasal Cannula 2.0 03/15/19 13:07 80 18 95 Nasal Cannula 2.0 28 03/15/19 13:07 80 18 95 Nasal Cannula 2.0 03/15/19 12:00 Nasal Cannula 2.0 03/15/19 12:00 79 03/15/19 12:00 97.9 75 20 111/65 (80) 100 03/15/19 08:00 97.1 80 20 106/58 (74) 97 03/15/19 08:00 Nasal Cannula 2.0 03/15/19 08:00 81 03/15/19 07:28 Nasal Cannula 03/15/19 07:28 Nasal Cannula 03/15/19 06:32 98.3 03/15/19 04:00 86 03/15/19 04:00 Nasal Cannula 2.0 03/15/19 04:00 98.3 83 20 118/65 (82) 100 03/15/19 01:05 85 18 94 Nasal Cannula 2.0 28 03/15/19 01:05 85 18 94 Nasal Cannula 2.0 28 03/15/19 00:00 92 03/15/19 00:00 Nasal Cannula 2.0 03/15/19 00:00 98.9 90 20 118/65 (82) 99 03/14/19 20:00 Nasal Cannula 2.0 03/14/19 20:00 86 03/14/19 20:00 97.3 84 18 128/70 (89) 99 03/14/19 19:53 83 18 98 Nasal Cannula 2.0 28 03/14/19 19:53 83 18 98 Nasal Cannula 2.0 28 03/14/19 16:00 98.2 88 24 109/50 (69) 100 03/14/19 16:00 89 03/14/19 16:00 Nasal Cannula 2.0 03/14/19 13:47 Nasal Cannula 03/14/19 13:42 Nasal Cannula Intake and Output 03/15/19 03/16/19 19:00 07:00 Intake Total 582.500 ml 359.95888 ml Output Total 300 ml Balance 282.500 ml 359.53345 ml Intake Oral 390 ml 240 ml IV Total 192.500 ml 119.09363 ml Output Urine Total 300 ml # Voids 4 4 Labs Test 03/14/19 05:05 03/15/19 14:30 03/16/19 03:45 03/16/19 10:20 White Blood Count 2.6 K/UL (4.8-10.8) 3.4 K/UL (4.8-10.8) Red Blood Count 2.66 M/UL (4.70-6.10) 2.63 M/UL (4.70-6.10) Hemoglobin 8.0 G/DL (14.2-18.0) 7.9 G/DL (14.2-18.0) Hematocrit 24.2 % (42.0-52.0) 24.3 % (42.0-52.0) Mean Corpuscular Volume 91 FL (80-99) 92 FL (80-99) Mean Corpuscular Hemoglobin 30.3 PG (27.0-31.0) 29.9 PG (27.0-31.0) Mean Corpuscular Hemoglobin Concent 33.2 G/DL (32.0-36.0) 32.4 G/DL (32.0-36.0) Red Cell Distribution Width 16.0 % (11.6-14.8) 15.9 % (11.6-14.8) Platelet Count 21 K/UL (150-450) 26 K/UL (150-450) Mean Platelet Volume 11.9 FL (6.5-10.1) 15.9 FL (6.5-10.1) Neutrophils (%) (Auto) % (45.0-75.0) % (45.0-75.0) Lymphocytes (%) (Auto) % (20.0-45.0) % (20.0-45.0) Monocytes (%) (Auto) % (1.0-10.0) % (1.0-10.0) Eosinophils (%) (Auto) % (0.0-3.0) % (0.0-3.0) Basophils (%) (Auto) % (0.0-2.0) % (0.0-2.0) Differential Total Cells Counted 100 100 Neutrophils % (Manual) 41 % (45-75) 27 % (45-75) Lymphocytes % (Manual) 42 % (20-45) 56 % (20-45) Monocytes % (Manual) 17 % (1-10) 17 % (1-10) Eosinophils % (Manual) 0 % (0-3) 0 % (0-3) Basophils % (Manual) 0 % (0-2) 0 % (0-2) Band Neutrophils 0 % (0-8) 0 % (0-8) Platelet Estimate Decreased Decreased Platelet Morphology Normal Normal Anisocytosis 1+ 1+ Sodium Level 139 MMOL/L (136-145) 139 MMOL/L (136-145) 139 MMOL/L (136-145) Potassium Level 3.4 MMOL/L (3.5-5.1) 3.6 MMOL/L (3.5-5.1) 3.9 MMOL/L (3.5-5.1) Chloride Level 104 MMOL/L (98-107) 103 MMOL/L (98-107) 104 MMOL/L (98-107) Carbon Dioxide Level 27 MMOL/L (21-32) 28 MMOL/L (21-32) 27 MMOL/L (21-32) Anion Gap 8 mmol/L (5-15) 8 mmol/L (5-15) 8 mmol/L (5-15) Blood Urea Nitrogen 30 mg/dL (7-18) 23 mg/dL (7-18) 20 mg/dL (7-18) Creatinine 1.1 MG/DL (0.55-1.30) 1.1 MG/DL (0.55-1.30) 1.0 MG/DL (0.55-1.30) Estimat Glomerular Filtration Rate > 60 mL/min (>60) > 60 mL/min (>60) > 60 mL/min (>60) Glucose Level 119 MG/DL (74-106) 154 MG/DL (74-106) 118 MG/DL (74-106) Calcium Level 8.8 MG/DL (8.5-10.1) 8.5 MG/DL (8.5-10.1) 9.0 MG/DL (8.5-10.1) Nucleated Red Blood Cells 2 /100 WBC Hypochromasia 3+ Spherocytes 1+ Troponin I 0.020 ng/mL (0.000-0.056) Height (Feet): 6 Height (Inches): 3.00 Weight (Pounds): 321 Objective Physical Exam General appearance: alert, cooperative, no distress Head: Normocephalic, without obvious abnormality, atraumatic Eyes: conjunctivae/corneas clear. PERRL, EOM's intact. Fundi benign Throat: Lips, mucosa, and tongue normal. Teeth and gums normal Neck: supple, symmetrical, trachea midline, no adenopathy Lungs: clear to auscultation bilaterally Heart: regular rate and rhythm, S1, S2 normal, no murmur Abdomen: soft, non-tender. Bowel sounds normal. No masses Extremities: extremities normal, atraumatic, no cyanosis or edema Pulses: 2+ and symmetric Skin: Skin color, texture, turgor normal. No rashes or lesions Neurologic: Grossly normal Timoteo Stafford MD March 16, 2019 12:38
--- NOTE | 2019-03-16 14:06 | NUR ---
*-* INSURANCE *-* UPDATED CLINICALS AND REVIEWS HAVE BEEN FAXED TO: [facility] P: [phone] F: [phone] (FAX CLINICALS)
--- NOTE | 2019-03-16 14:21 | NUR ---
NURSE NOTES: PATIENT C/O RIGHT UPPER CHEST PAIN DUE MEDS GIVEN. WILL CONTINUE TO MONITOR.
--- NOTE | 2019-03-16 15:46 | NUR ---
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 PANCYTOPENIA VS: BP 136/69, P 95, T 97.7, RR 24, SpO2 91 oN NC 2.0L O2 WBC 3.4, RBC 2.63, H&H 7.9/24.3, Plt. COUNT 26, BUN 20 US RENAL: Incidental finding bilateral renal cysts. IS:TYLENOL #3 ZOSYN 110ml IVPB PROVENTIL INH SDU STATUS
--- NOTE | 2019-03-16 16:22 | NUR ---
TRANSFER TO FLOOR: Patient transferred to [facility]. Report given to Osmany Mcdowell RN. Belongings remained with the patient. at the bedside.
[2019-03-16] MEDS ORDERED: Nitroglycerin Subl 0.4mg tab SL PRN (16:23)
--- NOTE | 2019-03-16 16:25 | NUR ---
NURSE NOTES: PATIENT TRANSFERRED FROM [facility] AT 1602 TO TELE RM 219-1 VIA HOSPITAL BED. RECEIVED REPORT FROM AMILCAR REYES RN. PATIENT'S AT BEDSIDE. PATIENT IS ALERT AND ORIENTED X4, DENIES ANY PAIN, PATIENT HAS PERIANAL LACERATION SURGICAL WOUND, CLEAN AND DRY. IV ON LAC INTACT AND PATENT. BELONGING LIST CHECKED WITH PATIENT AND WITH PATIENT. PATIENT'S UPPER DENTURE IS WITH PATIENT'S AT BEDSIDE. BED IS ON LOWEST LEVEL, BEDSIDE RAILS UP X2, BRAKES ENGAGED FOR SAFETY, BED ALARM ON FOR SAFETY. CALL LIGHT IS WITHIN REACH. WILL CONTINUE WITH THE PLAN OF CARE.
--- NOTE | 2019-03-16 16:47 | Surgery Progress Note ---
Surgery Progress Note Subjective Additional Comments Patient seen and examined at bedside. present. Discussed CT findings. Was able to get patient to allow for more clear evaluation at the bedside of the perirectal area. We discussed CT findings and examination findings which included a perirectal abscess that has since spontaneously drained and now forming area of phlegmon with area of eschar identified around the right perirectal buttock area from a chronic infection and worsening wound. Today there is no purulent drainage identified. Patient states his perirectal area does feel little bit better but he still has tenderness. He is unsure of how long this is been ongoing but states it is been for some time now. Was not aware of perirectal drainage of purulent fluid but did notice a foul scent. He has difficulty with cleaning himself and requires care but does note that there is soilage in his perirectal area at most times. Objective Last 24 Hour Vital Signs Date Time Temp Pulse Resp B/P (MAP) Pulse Ox O2 Delivery O2 Flow Rate FiO2 03/16/19 16:00 88 03/16/19 16:00 Room Air 03/16/19 13:03 Nasal Cannula 03/16/19 13:03 Nasal Cannula 03/16/19 12:00 79 03/16/19 12:00 97.7 83 24 110/62 (78) 91 03/16/19 12:00 Room Air 03/16/19 08:13 82 16 97 Nasal Cannula 2.0 03/16/19 08:11 81 14 96 Nasal Cannula 2.0 03/16/19 08:00 98.9 95 24 136/69 (91) 92 03/16/19 08:00 Room Air 03/16/19 07:37 90 03/16/19 04:00 97.7 90 20 119/54 (75) 93 03/16/19 04:00 Room Air 03/16/19 03:18 87 03/16/19 00:08 84 16 96 Nasal Cannula 2.0 03/16/19 00:08 84 14 96 Nasal Cannula 2.0 03/16/19 00:00 98.2 91 20 126/71 (89) 93 03/16/19 00:00 Nasal Cannula 2.0 03/15/19 23:26 97 03/15/19 20:00 Nasal Cannula 2.0 5/28/19 20:00 98.4 93 20 125/71 (89) 95 03/15/19 19:16 91 16 96 Nasal Cannula 2.0 28 03/15/19 19:16 91 16 96 Nasal Cannula 2.0 28 03/15/19 19:09 93 I&O Intake and Output 03/15/19 03/16/19 19:00 07:00 Intake Total 582.500 ml 386.19740 ml Output Total 300 ml Balance 282.500 ml 386.44296 ml Intake Oral 390 ml 240 ml IV Total 192.500 ml 146.88038 ml Output Urine Total 300 ml # Voids 4 4 Dressing: saturated Wound: other Drains: other Cardiovascular: RSR Respiratory: clear Abdomen: soft, non-tender, present bowel sounds, non-distended Extremities: no edema, no tenderness, no cyanosis Laboratory Tests Test 03/16/19 03:45 03/16/19 10:20 White Blood Count 3.4 K/UL (4.8-10.8) L Red Blood Count 2.63 M/UL (4.70-6.10) L Hemoglobin 7.9 G/DL (14.2-18.0) L Hematocrit 24.3 % (42.0-52.0) L Mean Corpuscular Volume 92 FL (80-99) Mean Corpuscular Hemoglobin 29.9 PG (27.0-31.0) Mean Corpuscular Hemoglobin Concent 32.4 G/DL (32.0-36.0) Red Cell Distribution Width 15.9 % (11.6-14.8) H Platelet Count 26 K/UL (150-450) L Mean Platelet Volume 15.9 FL (6.5-10.1) H Neutrophils (%) (Auto) % (45.0-75.0) Lymphocytes (%) (Auto) % (20.0-45.0) Monocytes (%) (Auto) % (1.0-10.0) Eosinophils (%) (Auto) % (0.0-3.0) Basophils (%) (Auto) % (0.0-2.0) Differential Total Cells Counted 100 Neutrophils % (Manual) 27 % (45-75) L Lymphocytes % (Manual) 56 % (20-45) H Monocytes % (Manual) 17 % (1-10) H Eosinophils % (Manual) 0 % (0-3) Basophils % (Manual) 0 % (0-2) Band Neutrophils 0 % (0-8) Nucleated Red Blood Cells 2 /100 WBC Platelet Estimate Decreased L Platelet Morphology Normal Hypochromasia 3+ Anisocytosis 1+ Spherocytes 1+ Sodium Level 139 MMOL/L (136-145) Potassium Level 3.9 MMOL/L (3.5-5.1) Chloride Level 104 MMOL/L (98-107) Carbon Dioxide Level 27 MMOL/L (21-32) Anion Gap 8 mmol/L (5-15) Blood Urea Nitrogen 20 mg/dL (7-18) H Creatinine 1.0 MG/DL (0.55-1.30) Estimat Glomerular Filtration Rate > 60 mL/min (>60) Glucose Level 118 MG/DL (74-106) H Calcium Level 9.0 MG/DL (8.5-10.1) Troponin I 0.020 ng/mL (0.000-0.056) Stool Occult Blood Pending Plan Problems: (1) Rectal pain Assessment & Plan: 63 M with multiple medical comorbidities, severe anemia, pancytopenia, rectal pain. unfortunately patient not able to tolerate exam from discomfort and could not perform ABE or full rectal exam at bedside. of note there a foul odor and abnormal drainage in nany-rectal area. there is also abnormal skin tissue almost like an eshcar noted. could potential be hemorrhoids but anticipate more going on CT w/ Soft tissue density and gas in the perianal region without discrete abscess identified. Findings are suggestive of perianal phlegmon and open wound versus changes related to manipulation. Discussed CT findings. Was able to get patient to allow for more clear evaluation at the bedside of the perirectal area. We discussed CT findings and examination findings which included a perirectal abscess that has since spontaneously drained and now forming area of phlegmon with area of eschar identified around the right perirectal buttock area from a chronic infection and worsening wound. Today there is no purulent drainage identified. Patient states his perirectal area does feel little bit better but he still has tenderness. He is unsure of how long this is been ongoing but states it is been for some time now. Was not aware of perirectal drainage of purulent fluid but did notice a foul scent. He has difficulty with cleaning himself and requires care but does note that there is soilage in his perirectal area at most times. given above no acute surgical intervention planned. 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 no abscess on exam now and improving. recommend Abx and strict nany-rectal care for now with good hygiene, washing area, and keeping it dry and clean. will be able to allow healthy tissue to demarcate and excise minimal amounts as outpatient. if not, will worsening and require large debridement and even possible diverting colostomy. i discussed this with patient and in detail at bedside to ensure they understand how important care plan is. Bone marrow biopsy as per Heme but patient refusing currently and wants second opinion before consenting thank you d/c planning will follow with recs. (2) Severe anemia Franklin Lim March 16, 2019 16:47
--- NOTE | 2019-03-16 19:19 | NUR ---
HAND-OFF: Report given to GREG Hernandez.Endorsed plan of care.
--- NOTE | 2019-03-16 19:20 | NUR ---
NURSE NOTES: Report received from GREG Betts. Patient seen in bed in semi krishna position resting. Alert, verbally responsive able to make needs known. Denies any pain at this time. IV site noted to left AC 20g and is intact. On room air with no SOB or acute respiratory distress noted. Bed is in lowest position. Call light is within easy reach while in bed. will continue to monitor.
--- NOTE | 2019-03-16 20:43 | NUR ---
NURSE NOTES: RT checked the o2 sat and was 89% no SOB noted. Supplementary oxygen 2L/min via N/C given and o2 sat went up to 98%
[2019-03-16] MEDS: Piperacillin/Tazobactam 3.375 GM in NS 110 ML IVPB SCH (21:10)
[2019-03-17] VITALS (8 sets, daily range): BP systolic 103–144; BP diastolic 52–68
[2019-03-17] MEDS: Albuterol 90mcg Inhaler 8gm INH SCH ×4 (00:37→20:00)
--- NOTE | 2019-03-17 04:00 | Progress Note ---
DATE: 03/16/2019 CARDIOLOGY PROGRESS NOTE SUBJECTIVE: The patient has no new complaints. He does not want to proceed with a bone marrow biopsy at this time. No fevers or chills. No chest pain. OBJECTIVE: VITALS: Blood pressure 119/54, pulse 90, and respirations 20. Afebrile. LUNGS: Diminished breath sounds. No wheezing. HEART: Regular rhythm and rate. Normal S1, S2 with a fourth heart sound. ABDOMEN: Soft. EXTREMITIES: Trace dependent edema. LABORATORY DATA: White count 3.4, hemoglobin 7.9, and platelet count 26,000. Sodium 139, potassium 3.9, BUN 20, creatinine 1, and bicarb 27. Troponin negative. Stool occult blood pending. Renal ultrasound is normal other than renal cyst. IMPRESSION: 1. Pancytopenia. 2. Ischemic cardiomyopathy with stable angina. 3. Resolved renal failure. 4. Chronic obstructive pulmonary disease. 5. Type 2 diabetes mellitus. 6. Hypertensive heart disease. 7. Resolved myocardial ischemia. PLAN: 1. Cardiac monitoring. 2. Transfusion of blood products as needed. 3. Follow up stool occult blood tests. 4. Maintenance cardiovascular therapy with current regimen. 5. Consideration for a myocardial perfusion scan should any need for general anesthesia occur. Roberto Jimenez M.D. DR: VINH JOB#: [id number] CC:
[2019-03-17] MEDS: Piperacillin/Tazobactam 3.375 GM in NS 110 ML IVPB SCH ×2 (05:03→13:56)
--- NOTE | 2019-03-17 07:17 | NUR ---
HAND-OFF: Report given to GREG Dickerson.
[2019-03-17 07:20] LABS: HEMATOCRIT 23.1 % (42.0-52.0); HEMOGLOBIN 7.3 G/DL (14.2-18.0); MEAN CORPUSCULAR VOLUME 92 FL (80-99); PLATELET COUNT 19 K/UL (150-450); RED BLOOD COUNT 2.51 M/UL (4.70-6.10); RED CELL DISTRIBUTION WIDTH 15.7 % (11.6-14.8); WHITE BLOOD COUNT 3.5 K/UL (4.8-10.8)
[2019-03-17 07:25] LABS: ANION GAP 9 mmol/L (5-15); BLOOD UREA NITROGEN 23 mg/dL (7-18); CALCIUM 9.2 MG/DL (8.5-10.1); CARBON DIOXIDE 26 MMOL/L (21-32); CHLORIDE 102 MMOL/L (98-107); CREATININE 1.2 MG/DL (0.55-1.30); POTASSIUM 3.8 MMOL/L (3.5-5.1); SODIUM 137 MMOL/L (136-145)
--- NOTE | 2019-03-17 08:46 | NUR ---
NURSE NOTES: Received report from Joyce GARZA. pt is awake . 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 Bed in lowest position and locked. Call light within reach. Pt's is at bedside.
--- NOTE | 2019-03-17 09:45 | Pulmonology Progress Note ---
Assessment/Plan Assessment/Plan ASSESSMENT AND PLAN: 1. Acute kidney injury, Improved. 2. 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 Hypotension. Corrected 4. Diabetes mellitus. 5. Painful hemorrhoids; consulted surgery; recommend EUA; has ruptured nany- reectal abscess DC planning to home with HH Will transfuse today Jaskaran Ac MD Subjective Interval Events: Hgb 7.3; draining from rectal abscess Constitutional: Reports: no symptoms HEENT: Repors: no symptoms Respiratory: Reports: no symptoms Cardiovascular: Reports: no symptoms Gastrointestinal/Abdominal: Reports: no symptoms Genitourinary: Reports: no symptoms Allergies: Coded Allergies: No Known Allergies (Unverified , 03/24/16) Subjective rectal pain Objective Last 24 Hour Vital Signs Date Time Temp Pulse Resp B/P (MAP) Pulse Ox O2 Delivery O2 Flow Rate FiO2 03/17/19 07:30 80 18 97 Nasal Cannula 2.0 28 03/17/19 07:28 80 16 92 Room Air 21 03/17/19 04:00 98.4 89 20 144/58 (86) 95 03/17/19 04:00 Room Air 03/17/19 03:24 94 03/17/19 00:47 73 18 98 Nasal Cannula 2.0 28 03/17/19 00:37 73 14 98 Nasal Cannula 2.0 03/17/19 00:00 Room Air 03/16/19 23:56 98.3 88 20 104/55 (71) 94 03/16/19 23:27 89 03/16/19 20:00 Room Air 03/16/19 20:00 97.8 86 20 100/47 (64) 100 03/16/19 19:59 81 03/16/19 19:56 79 18 97 Nasal Cannula 2.0 28 03/16/19 19:55 79 14 97 Nasal Cannula 2.0 28 03/16/19 16:00 88 03/16/19 16:00 97.3 88 22 136/69 (91) 91 03/16/19 16:00 Room Air 03/16/19 13:03 Nasal Cannula 03/16/19 13:03 Nasal Cannula 03/16/19 12:00 79 03/16/19 12:00 97.7 83 24 110/62 (78) 91 03/16/19 12:00 Room Air Intake and Output 03/16/19 03/17/19 19:00 07:00 Intake Total 610.0 ml 617.5 ml Output Total 450 ml Balance 610.0 ml 167.5 ml Intake Oral 500 ml 480 ml IV Total 110.0 ml 137.5 ml Output Urine Total 450 ml # Voids 3 3 # Bowel Movements 2 2 General Appearance: no acute distress HEENT: normocephalic Respiratory/Chest: chest wall non-tender, lungs clear Cardiovascular: normal peripheral pulses, normal rate Abdomen: normal bowel sounds Laboratory Tests 03/16/19 10:20: Stool Occult Blood Negative 03/17/19 06:23: White Blood Count 3.5L, Red Blood Count 2.51L, Hemoglobin 7.3L, Hematocrit 23.1L , Mean Corpuscular Volume 92, Mean Corpuscular Hemoglobin 29.3, Mean Corpuscular Hemoglobin Concent 31.8L, Red Cell Distribution Width 15.7H, Platelet Count 19L, Mean Platelet Volume 10.2H, Neutrophils (%) (Auto) , Lymphocytes (%) (Auto) , Monocytes (%) (Auto) , Eosinophils (%) (Auto) , Basophils (%) (Auto) , Neutrophils % (Manual) [Pending], Lymphocytes % (Manual) [Pending], Platelet Estimate [Pending], Platelet Morphology [Pending], Sodium Level 137, Potassium Level 3.8, Chloride Level 102, Carbon Dioxide Level 26, Anion Gap 9, Blood Urea Nitrogen 23H, Creatinine 1.2, Estimat Glomerular Filtration Rate > 60, Glucose Level 124H, Calcium Level 9.2 Current Medications Medications (Trade) Dose Ordered Sig/Saima Route PRN Reason Start Time Stop Time Status Last Admin Dose Admin Acetaminophen (Tylenol) 650 mg Q4H PRN ORAL Mild Pain/Temp > 100.5 03/16/19 16:22 04/15/19 16:21 Acetaminophen/ Codeine Phosphate (Tylenol #3) 1 tab Q6H PRN ORAL for pain 4-10 03/16/19 16:22 03/23/19 16:21 03/16/19 23:27 Albuterol Sulfate (Proventil MDI) 1 puff Q6HRT INH 03/16/19 19:00 04/11/19 00:00 03/17/19 07:27 Famotidine (Pepcid) 20 mg BIDPRN PRN ORAL heart burn 03/16/19 16:23 04/15/19 16:22 Nitroglycerin (Ntg) 0.4 mg Q5M PRN SL chest pain 03/16/19 16:23 04/15/19 16:22 Piperacillin Sod/ Tazobactam Sod 3.375 gm/Sodium Chloride 110 ml @ 27.5 mls/hr EVERY 8 HOURS IVPB 03/16/19 22:00 03/20/19 17:59 03/17/19 05:03 Jaskaran Ac MD March 17, 2019 09:45
[2019-03-17] MEDS: Tylenol #3 tab (300mg/30mg) ORAL PRN ×3 (09:59→23:45)
--- NOTE | 2019-03-17 10:28 | GI Progress Note ---
Assessment/Plan Problems: (1) COPD (chronic obstructive pulmonary disease) ICD Codes: J44.9 - Chronic obstructive pulmonary disease, unspecified SNOMED: 78447295 (2) Vomiting ICD Codes: R11.10 - Vomiting, unspecified SNOMED: 909350576 (3) Rectal pain ICD Codes: K62.89 - Other specified diseases of anus and rectum SNOMED: 57539624 (4) Diabetes mellitus ICD Codes: E11.9 - Type 2 diabetes mellitus without complications SNOMED: 56703838 (5) Severe anemia ICD Codes: D64.9 - Anemia, unspecified SNOMED: 774223235 Status: stable Status Narrative Discussed with Dr. Aguirre. Assessment/Plan Assessment - Significant degree of pancytopenia - (+) Blast cells on peripheral blood, ? lymphoma - Altagracia-anal ulcer/lesion/abscess - OB stool negative Recommendations - Colorectal surgery evaluation - Recommend heme-Onc consultation for anemia - follow labs and exam - zofran prn - prn transfusions, 1 unit today - ppi -outpatient GI procedures The patient was seen and examined at bedside and all new and available data was reviewed in the patients chart. I agree with the above findings, impression and plan. (Patient seen earlier today. Signature stamp does not reflect patient encounter time.). - Prakash Aguirre MD Subjective Subjective buttock pain Objective Last 24 Hour Vital Signs Date Time Temp Pulse Resp B/P (MAP) Pulse Ox O2 Delivery O2 Flow Rate FiO2 03/17/19 07:30 80 18 97 Nasal Cannula 2.0 28 03/17/19 07:28 80 16 92 Room Air 21 03/17/19 04:00 98.4 89 20 144/58 (86) 95 03/17/19 04:00 Room Air 03/17/19 03:24 94 03/17/19 00:47 73 18 98 Nasal Cannula 2.0 28 03/17/19 00:37 73 14 98 Nasal Cannula 2.0 28 03/17/19 00:00 Room Air 03/16/19 23:56 98.3 88 20 104/55 (71) 94 03/16/19 23:27 89 03/16/19 20:00 Room Air 03/16/19 20:00 97.8 86 20 100/47 (64) 100 03/16/19 19:59 81 5/29/19 19:56 79 18 97 Nasal Cannula 2.0 28 03/16/19 19:55 79 14 97 Nasal Cannula 2.0 28 03/16/19 16:00 88 03/16/19 16:00 97.3 88 22 136/69 (91) 91 03/16/19 16:00 Room Air 03/16/19 13:03 Nasal Cannula 03/16/19 13:03 Nasal Cannula 03/16/19 12:00 79 03/16/19 12:00 97.7 83 24 110/62 (78) 91 03/16/19 12:00 Room Air Intake and Output 03/16/19 03/17/19 19:00 07:00 Intake Total 610.0 ml 617.5 ml Output Total 450 ml Balance 610.0 ml 167.5 ml Intake Oral 500 ml 480 ml IV Total 110.0 ml 137.5 ml Output Urine Total 450 ml # Voids 3 3 # Bowel Movements 2 2 Laboratory Tests Test 03/17/19 06:23 White Blood Count 3.5 K/UL (4.8-10.8) L Red Blood Count 2.51 M/UL (4.70-6.10) L Hemoglobin 7.3 G/DL (14.2-18.0) L Hematocrit 23.1 % (42.0-52.0) L Mean Corpuscular Volume 92 FL (80-99) Mean Corpuscular Hemoglobin 29.3 PG (27.0-31.0) Mean Corpuscular Hemoglobin Concent 31.8 G/DL (32.0-36.0) L Red Cell Distribution Width 15.7 % (11.6-14.8) H Platelet Count 19 K/UL (150-450) L Mean Platelet Volume 10.2 FL (6.5-10.1) H Neutrophils (%) (Auto) % (45.0-75.0) Lymphocytes (%) (Auto) % (20.0-45.0) Monocytes (%) (Auto) % (1.0-10.0) Eosinophils (%) (Auto) % (0.0-3.0) Basophils (%) (Auto) % (0.0-2.0) Neutrophils % (Manual) Pending Lymphocytes % (Manual) Pending Platelet Estimate Pending Platelet Morphology Pending Sodium Level 137 MMOL/L (136-145) Potassium Level 3.8 MMOL/L (3.5-5.1) Chloride Level 102 MMOL/L (98-107) Carbon Dioxide Level 26 MMOL/L (21-32) Anion Gap 9 mmol/L (5-15) Blood Urea Nitrogen 23 mg/dL (7-18) H Creatinine 1.2 MG/DL (0.55-1.30) Estimat Glomerular Filtration Rate > 60 mL/min (>60) Glucose Level 124 MG/DL (74-106) H Calcium Level 9.2 MG/DL (8.5-10.1) Height (Feet): 6 Height (Inches): 3.00 Weight (Pounds): 310 General Appearance: WD/WN, no apparent distress, alert Cardiovascular: normal rate Respiratory/Chest: normal breath sounds, no respiratory distress Abdominal Exam: normal bowel sounds, non tender, soft Extremities: normal range of motion, non-tender Rachel Leyva NP March 17, 2019 10:28
--- NOTE | 2019-03-17 11:50 | NUR ---
FUSE CUTTERHOMICIDE SQUAD CAPTAIN SI:RECTAL PAIN . SEVERE ANEMIA VS: BP 144/58, P 94, T 98.4, RR 20, SpO2 98 on 2.0L NC WBC 3.5, H&H 7.3/23.1, RBC 2.51, BUN 23 IS:TYLENOL #3 1tab ALBUTEROL HHN ZOSYN 110ml IVPB TELE STATUS
--- NOTE | 2019-03-17 11:55 | Hematology/Onc Progress Note ---
Assessment/Plan Assessment/Plan Assessment and Recs: # Pancytopenia -- multiple etiologies could be related to underlying liver disease, in this case has blasts++, that are persistent, though these are new compared to prior admissions, concerning for more serious process such as leukemia given BLASTS --> FLOW CYTOMETRY has been ordered of peripheral blood (results by /thu) --> okay to discharge and if I obtain results of above, I will call patient --> BONE MARROW BIOPSY has been recommended at this time he refuses procedure, dw him risks and benefits, again stressed to him this is a critical issue that needs to be addressed claudia --> Medications have been reviewed, no major culprits noted --> Continue to monitor for improvement, trend cbc --> Hep panel and HIV are negative --> US abd shows fatty liver, no other major changes --> consider other causes, infections that could contribute --> reverse isolation if ANC is <2000 --> Give neupogen if ANC <1000 --> Transfuse if hgb <7, with 1 unit prbc --> consider bone marrow biopsy if no other causes are found # Anemia of chronic disease due to underlying chronic medical issues, multifactorial --> Anemia workup has been ordered/reviewed, ferritin is 696 --> No evidence of hemolysis is noted, peripheral smear has been reviewed. --> Hgb goal >7. Transfuse prn. --> Epogen or iron at this time is not particularly indicated --> Medications have been reviewed # Rectal pain -- unfortunately patient not able to tolerate exam from discomfort and could not perform ABE or full rectal exam at bedside. of note there a foul odor and abnormal drainage in nany-rectal area. there is also abnormal skin tissue almost like an eshcar noted. could potential be hemorrhoids but anticipate more going on --> as per surg recs # Acute bronchitis --> improved with abx, pulm has been consulted # ischemic heart disease r/o ACS (acute coronary syndrome) --> currently chest pain free --> as per cards, recs reviewed # COPD (chronic obstructive pulmonary disease) --> no evidence of exacerbation # Diabetes mellitus --> accuchecks qac and qhs --> insulin as required, bs goal <120 pre-prandial The timing of this note does not necessarily reflect the time of the patient was seen. Greatly appreciate consultation. Subjective HEENT: Denies: no symptoms, eye pain, blurred vision, tearing, double vision, ear pain, ear discharge, nose pain, nose congestion, throat pain, throat swelling, mouth pain, mouth swelling, other Cardiovascular: Denies: no symptoms, chest pain, edema, irregular heart rate, lightheadedness, palpitations, syncope, other Respiratory: Denies: no symptoms, cough, shortness of breath, SOB with excertion, SOB at rest, sputum, wheezing, other Gastrointestinal/Abdominal: Denies: no symptoms, abdomen distended, abdominal pain, black stools, tarry stools, blood in stool, constipated, diarrhea, difficulty swallowing, nausea, poor appetite, poor fluid intake, rectal bleeding , vomiting, other Genitourinary: Denies: no symptoms, burning, discharge, frequency, flank pain, hematuria, incontinence, pain, urgency, other Neurologic/Psychiatric: Denies: no symptoms, anxiety, depressed, emotional problems, headache, numbness, paresthesia, pre-existing deficit, seizure, tingling, tremors, weakness, other Endocrine: Denies: no symptoms, excessive sweating, flushing, intolerance to cold, intolerance to heat, increased hunger, increased thirst, increased urine, unexplained weight gain, unexplained weight loss, other Hematologic/Lymphatic: Denies: no symptoms, anemia, easy bleeding, easy bruising, adenopathy, other Allergies: Coded Allergies: No Known Allergies (Unverified , 03/24/16) Subjective 03/15: no events to report, does not want toget a bone marrow biopsy, dw and patient 03/16: no events noted, has low plt and wbc as well, no fevers or chills 03/17: no events, in the room, no f/c, no night sweats, pending flow study Objective Objective Current Medications Medications (Trade) Dose Ordered Sig/Saima Route PRN Reason Start Time Stop Time Status Last Admin Dose Admin Acetaminophen (Tylenol) 650 mg Q4H PRN ORAL Mild Pain/Temp > 100.5 03/16/19 16:22 04/15/19 16:21 Acetaminophen/ Codeine Phosphate (Tylenol #3) 1 tab Q6H PRN ORAL for pain 4-10 03/16/19 16:22 03/23/19 16:21 03/17/19 09:59 Albuterol Sulfate (Proventil MDI) 1 puff Q6HRT INH 03/16/19 19:00 04/11/19 00:00 03/17/19 07:27 Famotidine (Pepcid) 20 mg BIDPRN PRN ORAL heart burn 03/16/19 16:23 04/15/19 16:22 Nitroglycerin (Ntg) 0.4 mg Q5M PRN SL chest pain 03/16/19 16:23 04/15/19 16:22 Piperacillin Sod/ Tazobactam Sod 3.375 gm/Sodium Chloride 110 ml @ 27.5 mls/hr EVERY 8 HOURS IVPB 03/16/19 22:00 03/20/19 17:59 03/17/19 05:03 Last 24 Hour Vital Signs Date Time Temp Pulse Resp B/P (MAP) Pulse Ox O2 Delivery O2 Flow Rate FiO2 03/17/19 07:30 80 18 97 Nasal Cannula 2.0 03/17/19 07:28 80 16 92 Room Air 03/17/19 04:00 98.4 89 20 144/58 (86) 95 03/17/19 04:00 Room Air 03/17/19 03:24 94 03/17/19 00:47 73 18 98 Nasal Cannula 2.0 03/17/19 00:37 73 14 98 Nasal Cannula 2.0 03/17/19 00:00 Room Air 03/16/19 23:56 98.3 88 20 104/55 (71) 94 03/16/19 23:27 89 03/16/19 20:00 Room Air 03/16/19 20:00 97.8 86 20 100/47 (64) 100 03/16/19 19:59 81 03/16/19 19:56 79 18 97 Nasal Cannula 2.0 03/16/19 19:55 79 14 97 Nasal Cannula 2.0 03/16/19 16:00 88 03/16/19 16:00 97.3 88 22 136/69 (91) 91 03/16/19 16:00 Room Air 03/16/19 13:03 Nasal Cannula 03/16/19 13:03 Nasal Cannula 03/16/19 12:00 79 03/16/19 12:00 97.7 83 24 110/62 (78) 91 03/16/19 12:00 Room Air 03/16/19 08:13 82 16 97 Nasal Cannula 2.0 28 03/16/19 08:11 81 14 96 Nasal Cannula 2.0 28 03/16/19 08:00 98.9 95 24 136/69 (91) 92 03/16/19 08:00 Room Air 03/16/19 07:37 90 03/16/19 04:00 97.7 90 20 119/54 (75) 93 03/16/19 04:00 Room Air 03/16/19 03:18 87 03/16/19 00:08 84 16 96 Nasal Cannula 2.0 28 03/16/19 00:08 84 14 96 Nasal Cannula 2.0 28 03/16/19 00:00 98.2 91 20 126/71 (89) 93 03/16/19 00:00 Nasal Cannula 2.0 03/15/19 23:26 97 03/15/19 20:00 Nasal Cannula 2.0 03/15/19 20:00 98.4 93 20 125/71 (89) 95 03/15/19 19:16 91 16 96 Nasal Cannula 2.0 28 03/15/19 19:16 91 16 96 Nasal Cannula 2.0 28 03/15/19 19:09 93 03/15/19 16:00 97.9 89 20 121/67 (85) 96 03/15/19 16:00 83 03/15/19 16:00 Nasal Cannula 2.0 03/15/19 13:07 80 18 95 Nasal Cannula 2.0 28 03/15/19 13:07 80 18 95 Nasal Cannula 2.0 28 03/15/19 12:00 Nasal Cannula 2.0 03/15/19 12:00 79 03/15/19 12:00 97.9 75 20 111/65 (80) 100 Intake and Output 03/16/19 03/17/19 19:00 07:00 Intake Total 610.0 ml 617.5 ml Output Total 450 ml Balance 610.0 ml 167.5 ml Intake Oral 500 ml 480 ml IV Total 110.0 ml 137.5 ml Output Urine Total 450 ml # Voids 3 3 # Bowel Movements 2 2 Labs Test 03/15/19 14:30 03/16/19 03:45 03/16/19 10:20 5/30/19 06:23 Sodium Level 139 MMOL/L (136-145) 139 MMOL/L (136-145) 137 MMOL/L (136-145) Potassium Level 3.6 MMOL/L (3.5-5.1) 3.9 MMOL/L (3.5-5.1) 3.8 MMOL/L (3.5-5.1) Chloride Level 103 MMOL/L (98-107) 104 MMOL/L (98-107) 102 MMOL/L (98-107) Carbon Dioxide Level 28 MMOL/L (21-32) 27 MMOL/L (21-32) 26 MMOL/L (21-32) Anion Gap 8 mmol/L (5-15) 8 mmol/L (5-15) 9 mmol/L (5-15) Blood Urea Nitrogen 23 mg/dL (7-18) 20 mg/dL (7-18) 23 mg/dL (7-18) Creatinine 1.1 MG/DL (0.55-1.30) 1.0 MG/DL (0.55-1.30) 1.2 MG/DL (0.55-1.30) Estimat Glomerular Filtration Rate > 60 mL/min (>60) > 60 mL/min (>60) > 60 mL/min (>60) Glucose Level 154 MG/DL (74-106) 118 MG/DL (74-106) 124 MG/DL (74-106) Calcium Level 8.5 MG/DL (8.5-10.1) 9.0 MG/DL (8.5-10.1) 9.2 MG/DL (8.5-10.1) White Blood Count 3.4 K/UL (4.8-10.8) 3.5 K/UL (4.8-10.8) Red Blood Count 2.63 M/UL (4.70-6.10) 2.51 M/UL (4.70-6.10) Hemoglobin 7.9 G/DL (14.2-18.0) 7.3 G/DL (14.2-18.0) Hematocrit 24.3 % (42.0-52.0) 23.1 % (42.0-52.0) Mean Corpuscular Volume 92 FL (80-99) 92 FL (80-99) Mean Corpuscular Hemoglobin 29.9 PG (27.0-31.0) 29.3 PG (27.0-31.0) Mean Corpuscular Hemoglobin Concent 32.4 G/DL (32.0-36.0) 31.8 G/DL (32.0-36.0) Red Cell Distribution Width 15.9 % (11.6-14.8) 15.7 % (11.6-14.8) Platelet Count 26 K/UL (150-450) 19 K/UL (150-450) Mean Platelet Volume 15.9 FL (6.5-10.1) 10.2 FL (6.5-10.1) Neutrophils (%) (Auto) % (45.0-75.0) % (45.0-75.0) Lymphocytes (%) (Auto) % (20.0-45.0) % (20.0-45.0) Monocytes (%) (Auto) % (1.0-10.0) % (1.0-10.0) Eosinophils (%) (Auto) % (0.0-3.0) % (0.0-3.0) Basophils (%) (Auto) % (0.0-2.0) % (0.0-2.0) Differential Total Cells Counted 100 100 Neutrophils % (Manual) 27 % (45-75) 49 % (45-75) Lymphocytes % (Manual) 56 % (20-45) 43 % (20-45) Monocytes % (Manual) 17 % (1-10) 0 % (1-10) Eosinophils % (Manual) 0 % (0-3) 0 % (0-3) Basophils % (Manual) 0 % (0-2) 0 % (0-2) Band Neutrophils 0 % (0-8) 6 % (0-8) Nucleated Red Blood Cells 2 /100 WBC Platelet Estimate Decreased Decreased Platelet Morphology Normal Normal Hypochromasia 3+ Anisocytosis 1+ 2+ Spherocytes 1+ Troponin I 0.020 ng/mL (0.000-0.056) Stool Occult Blood Negative (NEGATIVE) Myelocytes % 2 % (0-0) Height (Feet): 6 Height (Inches): 3.00 Weight (Pounds): 310 Objective Physical Exam General appearance: alert, cooperative, no distress Head: Normocephalic, without obvious abnormality, atraumatic Eyes: conjunctivae/corneas clear. PERRL, EOM's intact. Fundi benign Throat: Lips, mucosa, and tongue normal. Teeth and gums normal Neck: supple, symmetrical, trachea midline, no adenopathy Lungs: clear to auscultation bilaterally Heart: regular rate and rhythm, S1, S2 normal, no murmur Abdomen: soft, non-tender. Bowel sounds normal. No masses Extremities: extremities normal, atraumatic, no cyanosis or edema Pulses: 2+ and symmetric Skin: Skin color, texture, turgor normal. No rashes or lesions Neurologic: Grossly normal Timoteo Stafford MD March 17, 2019 11:55
[2019-03-17] MEDS ORDERED: Metoprolol 25mg tab ORAL SCH (12:00)
--- NOTE | 2019-03-17 13:06 | NUR ---
*-* INSURANCE *-* UPDATED CLINICALS AND REVIEWS HAVE BEEN FAXED TO: [facility] P: [phone] F: [phone] (FAX CLINICALS)
--- NOTE | 2019-03-17 16:01 | Surgery Progress Note ---
Surgery Progress Note Subjective Additional Comments no acute events. states anal pain improved. was able to wash much better today. no n/v/f/c. labs noted. fever with transfusion Objective Last 24 Hour Vital Signs Date Time Temp Pulse Resp B/P (MAP) Pulse Ox O2 Delivery O2 Flow Rate FiO2 03/17/19 13:21 84 18 95 Nasal Cannula 2.0 28 03/17/19 13:20 87 16 94 Nasal Cannula 2.0 28 03/17/19 12:00 98.6 94 20 140/57 (84) 96 03/17/19 12:00 89 90/58 03/17/19 09:00 Room Air 03/17/19 08:00 99.2 92 20 144/58 (86) 95 03/17/19 07:30 80 18 97 Nasal Cannula 2.0 28 03/17/19 07:28 80 16 92 Room Air 21 03/17/19 04:00 98.4 89 20 144/58 (86) 95 03/17/19 04:00 Room Air 03/17/19 03:24 94 03/17/19 00:47 73 18 98 Nasal Cannula 2.0 28 03/17/19 00:37 73 14 98 Nasal Cannula 2.0 28 03/17/19 00:00 Room Air 03/16/19 23:56 98.3 88 20 104/55 (71) 94 03/16/19 23:27 89 03/16/19 20:00 Room Air 03/16/19 20:00 97.8 86 20 100/47 (64) 100 03/16/19 19:59 81 03/16/19 19:56 79 18 97 Nasal Cannula 2.0 03/16/19 19:55 79 14 97 Nasal Cannula 2.0 28 I&O Intake and Output 03/16/19 03/17/19 19:00 07:00 Intake Total 610.0 ml 617.5 ml Output Total 450 ml Balance 610.0 ml 167.5 ml Intake Oral 500 ml 480 ml IV Total 110.0 ml 137.5 ml Output Urine Total 450 ml # Voids 3 3 # Bowel Movements 2 2 Dressing: saturated Wound: other Drains: other Cardiovascular: RSR Respiratory: clear, decreased breath sounds Abdomen: soft, flat, non-tender, present bowel sounds, non-distended Extremities: no edema, no tenderness, no cyanosis Laboratory Tests Test 03/17/19 06:23 White Blood Count 3.5 K/UL (4.8-10.8) L Red Blood Count 2.51 M/UL (4.70-6.10) L Hemoglobin 7.3 G/DL (14.2-18.0) L Hematocrit 23.1 % (42.0-52.0) L Mean Corpuscular Volume 92 FL (80-99) Mean Corpuscular Hemoglobin 29.3 PG (27.0-31.0) Mean Corpuscular Hemoglobin Concent 31.8 G/DL (32.0-36.0) L Red Cell Distribution Width 15.7 % (11.6-14.8) H Platelet Count 19 K/UL (150-450) L Mean Platelet Volume 10.2 FL (6.5-10.1) H Neutrophils (%) (Auto) % (45.0-75.0) Lymphocytes (%) (Auto) % (20.0-45.0) Monocytes (%) (Auto) % (1.0-10.0) Eosinophils (%) (Auto) % (0.0-3.0) Basophils (%) (Auto) % (0.0-2.0) Differential Total Cells Counted 100 Neutrophils % (Manual) 49 % (45-75) Lymphocytes % (Manual) 43 % (20-45) Monocytes % (Manual) 0 % (1-10) L Eosinophils % (Manual) 0 % (0-3) Basophils % (Manual) 0 % (0-2) Myelocytes % 2 % (0-0) H Band Neutrophils 6 % (0-8) Platelet Estimate Decreased L Platelet Morphology Normal Anisocytosis 2+ Sodium Level 137 MMOL/L (136-145) Potassium Level 3.8 MMOL/L (3.5-5.1) Chloride Level 102 MMOL/L (98-107) Carbon Dioxide Level 26 MMOL/L (21-32) Anion Gap 9 mmol/L (5-15) Blood Urea Nitrogen 23 mg/dL (7-18) H Creatinine 1.2 MG/DL (0.55-1.30) Estimat Glomerular Filtration Rate > 60 mL/min (>60) Glucose Level 124 MG/DL (74-106) H Calcium Level 9.2 MG/DL (8.5-10.1) Plan Problems: (1) Rectal pain Assessment & Plan: 63 M with multiple medical comorbidities, severe anemia, pancytopenia, rectal pain. unfortunately patient not able to tolerate exam from discomfort and could not perform ABE or full rectal exam at bedside. of note there a foul odor and abnormal drainage in nany-rectal area. there is also abnormal skin tissue almost like an eshcar noted. could potential be hemorrhoids but anticipate more going on CT w/ Soft tissue density and gas in the perianal region without discrete abscess identified. Findings are suggestive of perianal phlegmon and open wound versus changes related to manipulation. Discussed CT findings. Was able to get patient to allow for more clear evaluation at the bedside of the perirectal area. We discussed CT findings and examination findings which included a perirectal abscess that has since spontaneously drained and now forming area of phlegmon with area of eschar identified around the right perirectal buttock area from a chronic infection and worsening wound. Today there is no purulent drainage identified. Patient states his perirectal area does feel little bit better but he still has tenderness. He is unsure of how long this is been ongoing but states it is been for some time now. Was not aware of perirectal drainage of purulent fluid but did notice a foul scent. He has difficulty with cleaning himself and requires care but does note that there is soilage in his perirectal area at most times. given above no acute surgical intervention planned. 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 no abscess on exam now and improving. recommend Abx and strict nany-rectal care for now with good hygiene, washing area, and keeping it dry and clean. will be able to allow healthy tissue to demarcate and excise minimal amounts as outpatient. if not, will worsening and require large debridement and even possible diverting colostomy. i discussed this with patient and in detail at bedside to ensure they understand how important care plan is. Bone marrow biopsy as per Heme but patient refusing currently and wants second opinion before consenting thank you d/c planning will follow with recs. (2) Severe anemia Franklin Lim March 17, 2019 16:01
--- NOTE | 2019-03-17 16:33 | NUR ---
unable to administered blood transfusion pt is been running a fever 101.5. cooling measures have been started, applied ice to forehead under arm pits and gave tylenol for fever. reassed pt and fever was 99.5
--- NOTE | 2019-03-17 18:44 | NUR ---
informed Dr Ac about pt. high fever now is 102.0. Uncovered pt and cooling measures in place. Pt has ice on neck forehead and arm pits. Pt keeps taking ice off and covering self. Advised pt's to keep an eye on pt not to take off ice or coverself in order for pt's fever to go down.
--- NOTE | 2019-03-17 19:15 | NUR ---
NURSE NOTES: Received report from Jayla GARZA, pt. in bed awake- A/O x's 3- able to make needs known, no signs or symptoms of acute cardiac or respiratory distress noted, bed in lowest position and call light within easy reach, bed alarm on side rails up x's3 and safety brakes engaged, pt. appears to be sating well on 2L NC - no distress noted, pt. has at bedside, urinal at bed side and within easy reach, Rt. AC 20G IV is leaking- handoff nurse aware as flushed at bedside rounding- will put in another IV. per endorsement pt. is to be transfused 2U PRBC- not administered due to high temp- checked temp at bedside during rounds now 97.9 orally, Safety measures continued, will continue with plan of care.
[2019-03-17] MEDS: Metoprolol 25mg tab ORAL SCH (20:24)
--- NOTE | 2019-03-17 21:00 | NUR ---
NURSE NOTES: per blood bank tech- 1st unit of blood was spiked so unable to use again- need to order another unit- will put another order in for 1 unit PRBCs.
--- NOTE | 2019-03-17 21:05 | NUR ---
NURSE NOTES: pre blood transfusion VS- b/p 112/60, pulse 89, resp 18, pulse ox 97%, and temp 97.9-- pt. appears stable, will continue to monitor pt. and with plan of care.
--- NOTE | 2019-03-17 21:12 | NUR ---
HAND-OFF: Report given to José Miguel Camp.
--- NOTE | 2019-03-17 21:13 | NUR ---
NURSE NOTES: pt keeps bending left arm so Sozin keeps stopping advised pt to keep arm straight and put a pillow under to prevent him from folding arm. However pt keeps folding arm so Iv keeps stopping. IV was discontinued and another IV will be started by night patrol inspector. Also RBC will be run now that temperature is normal.
--- NOTE | 2019-03-17 21:20 | NUR ---
NURSE NOTES: blood transfusion 15 minutes after blood transfusion- pt appears to be tolerating blood transfusion well- will continue to monitor pt. and with plan of care- Temp 98.2, resp 18, pulse ox 97%, b/p 110/53, pulse 81.
--- NOTE | 2019-03-17 21:52 | NUR ---
NURSE NOTES: notified pharmacy that pt. has blood transfusion going now and then has another unit after that- and Zosyn is due at 2200- pt. is a hard stick- per Susana to call pipeline after 2nd transfusion to retime Zosyn.
--- NOTE | 2019-03-17 23:45 | NUR ---
NURSE NOTES: one unit PRBC complete- pt. appears to have tolerated blood transfusion well and remains free from fever- 98.2, resp 18, pulse ox 98%, and b/p 108/52- will continue to monitor pt. and with plan of care.
[2019-03-18] VITALS: BP 110/59
--- NOTE | 2019-03-18 | NUR ---
NURSE NOTES: pre transfusion Vital signs taken before transfusion 2nd unit of PRBC, pulse 84, b/p 110/59, temp 98.2, resp 18 and pulse ox 97- will continue to monitor pt. and with plan of care.
[2019-03-18 00:15] VITALS: BP 108/69
--- NOTE | 2019-03-18 00:15 | NUR ---
NURSE NOTES: Vital signs taken 15 minutes after blood transfusion started- pt. appears to be tolerating blood transfusion well- 98.2, b/p 108/69, resp 18, pulse ox 98% and pulse 79- will continue to monitor pt. and with plan of care.
[2019-03-18] MEDS: Albuterol 90mcg Inhaler 8gm INH SCH ×2 (01:14→07:00)
--- NOTE | 2019-03-18 01:30 | Progress Note ---
DATE: 03/17/2019 CARDIOLOGY PROGRESS NOTE SUBJECTIVE: The patient does not have any chest pain or shortness of breath. OBJECTIVE: VITAL SIGNS: Blood pressure 108/69, heart rate 79, and respiratory rate 18. Monitored rhythm, sinus. LUNGS: Clear. CARDIAC: Regular. ABDOMEN: Soft. EXTREMITIES: No edema. LABORATORY DATA: White count 3.5, hemoglobin 7.3, and platelets 19,000. BUN 23 and creatinine 1.2. IMPRESSION: 1. Pancytopenia. 2. Severe anemia. 3. Abnormal peripheral blood smear. 4. Ischemic heart disease with stable angina. 5. Chronic systolic and diastolic congestive heart failure. PLAN: 1. Packed red blood cell transfusion. 2. Monitor for bleeding. Consider platelet transfusion in that event. 3. No anti-platelet or anticoagulant therapy at this time. 4. Titrate anti-ischemic and antihypertensive regimen. 5. Agree with packed red blood cell transfusion. 6. Reassess for concomitant diuresis based on clinical parameters. 7. No current plan for colorectal intervention or anesthesia. 8. Would consider a stress test in future once blood cell parameters are stabilized. Roberto Jimenez M.D. DR: VINH JOB#: [id number] CC:
--- NOTE | 2019-03-18 01:47 | NUR ---
NURSE NOTES: Spoke with Azul at [facility] regarding re-scheduling Zosyn- as 2nd unit of PRBC will be transfused about 0330am- per Azul she will retime Zosyn for 0400.
[2019-03-18 03:15] VITALS: BP 124/64
--- NOTE | 2019-03-18 03:15 | NUR ---
NURSE NOTES: pt. appears to have tolerated blood transfusion well- no adverse reaction noticed, VS stable b/p 121/64, pulse ox 98%, pulse 84, resp 18, and temp 98.2 orally- will continue to monitor pt. and with plan of care.
[2019-03-18 04:00] VITALS: BP 124/64
[2019-03-18] MEDS ORDERED: Piperacillin/Tazobactam 3.375 GM in NS 110 ML IVPB SCH (04:00)
--- NOTE | 2019-03-18 07:01 | NUR ---
HAND-OFF: Report given to Jayla GARZA pt. remains stable and n signs of distress noted. Addendum: 03/18/19 at 0707 by AIRAM BOYLE RN RN correction to message above- Report given to Jayla GARZA pt. remains stable and no signs of distress noted.
--- NOTE | 2019-03-18 07:46 | NUR ---
NURSE NOTES: Received report from José Miguel GARZA. 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 Bed locked and in lowest position. Call light within reach. is at bedsite. Will continue to follow plan of care.
[2019-03-18 08:00] VITALS: BP 128/67
--- NOTE | 2019-03-18 09:18 | Pulmonology Progress Note ---
Assessment/Plan Assessment/Plan ASSESSMENT AND PLAN: 1. Acute kidney injury, Improved. 2. 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 Hypotension. Corrected 4. Diabetes mellitus. 5. Painful hemorrhoids; consulted surgery; recommend EUA; has ruptured nany- reectal abscess DC planning to home with HH Jaskaran Ac MD Subjective Interval Events: S/p 2 U prbc; feeling well Constitutional: Reports: no symptoms HEENT: Repors: no symptoms Respiratory: Reports: no symptoms Cardiovascular: Reports: no symptoms Gastrointestinal/Abdominal: Reports: no symptoms Genitourinary: Reports: no symptoms Neurologic: Reports: no symptoms Allergies: Coded Allergies: No Known Allergies (Unverified , 03/24/16) Subjective rectal pain Objective Last 24 Hour Vital Signs Date Time Temp Pulse Resp B/P (MAP) Pulse Ox O2 Delivery O2 Flow Rate FiO2 03/18/19 09:09 89 18 96 Room Air 21 03/18/19 08:58 Room Air 03/18/19 08:28 89 20 96 Nasal Cannula 2.0 28 03/18/19 08:28 96 Nasal Cannula 2.0 28 03/18/19 08:28 89 20 96 Nasal Cannula 2.0 28 03/18/19 04:00 98.2 84 18 124/64 (84) 98 03/18/19 04:00 85 03/18/19 03:15 98.2 84 18 124/64 (84) 98 03/18/19 01:14 82 20 95 Nasal Cannula 2.0 28 03/18/19 01:07 81 20 95 Nasal Cannula 2.0 28 03/18/19 00:15 98.7 03/18/19 00:15 98.7 79 18 108/69 (82) 98 03/18/19 00:00 98.2 84 18 110/59 (76) 97 03/18/19 00:00 86 03/17/19 23:45 98.2 89 18 108/52 (70) 98 03/17/19 21:20 98.2 81 18 110/53 (72) 97 03/17/19 21:05 97.9 89 18 112/60 (77) 97 03/17/19 20:24 72 103/52 03/17/19 20:01 88 20 96 Nasal Cannula 2.0 28 03/17/19 20:00 101 03/17/19 20:00 97.5 95 18 103/52 (69) 96 03/17/19 19:55 96 Nasal Cannula 2.0 28 03/17/19 19:53 86 20 95 Nasal Cannula 2.0 28 03/17/19 16:00 101.5 94 20 119/68 (85) 96 03/17/19 16:00 85 03/17/19 14:19 99.5 03/17/19 13:21 84 18 95 Nasal Cannula 2.0 28 03/17/19 13:20 87 16 94 Nasal Cannula 2.0 28 03/17/19 12:00 98.6 94 20 140/57 (84) 96 03/17/19 12:00 89 90/58 03/17/19 12:00 91 Intake and Output 03/17/19 03/18/19 19:00 07:00 Intake Total 300 ml 82.5 ml Output Total 400 ml 850 ml Balance -100 ml -767.5 ml Intake Oral 300 ml IV Total 82.5 ml Output Urine Total 400 ml 850 ml # Voids 3 # Bowel Movements 1 General Appearance: no acute distress HEENT: normocephalic Respiratory/Chest: chest wall non-tender, lungs clear Cardiovascular: normal peripheral pulses, normal rate Abdomen: normal bowel sounds, soft, non tender Extremities: no cyanosis Current Medications Medications (Trade) Dose Ordered Sig/Saima Route PRN Reason Start Time Stop Time Status Last Admin Dose Admin Acetaminophen (Tylenol) 650 mg Q4H PRN ORAL Mild Pain/Temp > 100.5 03/16/19 16:22 04/15/19 16:21 03/17/19 19:06 Acetaminophen/ Codeine Phosphate (Tylenol #3) 1 tab Q6H PRN ORAL for pain 4-10 03/16/19 16:22 03/23/19 16:21 03/17/19 23:45 Albuterol Sulfate (Proventil MDI) 1 puff Q6HRT INH 03/16/19 19:00 04/11/19 00:00 03/18/19 01:14 Famotidine (Pepcid) 20 mg BIDPRN PRN ORAL heart burn 03/16/19 16:23 04/15/19 16:22 Metoprolol Tartrate (Lopressor) 25 mg Q12HR ORAL 03/17/19 21:00 04/16/19 20:59 Nitroglycerin (Ntg) 0.4 mg Q5M PRN SL chest pain 03/16/19 16:23 04/15/19 16:22 Piperacillin Sod/ Tazobactam Sod 3.375 gm/Sodium Chloride 110 ml @ 27.5 mls/hr EVERY 8 HOURS IVPB 03/18/19 04:00 03/25/19 03:59 03/18/19 03:18 Jaskaran Ac MD March 18, 2019 09:18
[2019-03-18 09:21] VITALS: BP 128/67
[2019-03-18] MEDS: Metoprolol 25mg tab ORAL SCH (09:21)
[2019-03-18] MEDS ORDERED: METRONIDAZOLE500 MG ORAL (09:23)
[2019-03-18] MEDS ORDERED: LEVAQUIN500 MG ORAL (09:23)
[2019-03-18] MEDS: Tylenol #3 tab (300mg/30mg) ORAL PRN (09:32)
--- NOTE | 2019-03-18 09:54 | GI Progress Note ---
Assessment/Plan Problems: (1) COPD (chronic obstructive pulmonary disease) ICD Codes: J44.9 - Chronic obstructive pulmonary disease, unspecified SNOMED: 41339443 (2) Vomiting ICD Codes: R11.10 - Vomiting, unspecified SNOMED: 817531454 (3) Rectal pain ICD Codes: K62.89 - Other specified diseases of anus and rectum SNOMED: 79207553 (4) Diabetes mellitus ICD Codes: E11.9 - Type 2 diabetes mellitus without complications SNOMED: 82593247 (5) Severe anemia ICD Codes: D64.9 - Anemia, unspecified SNOMED: 424710683 Status: stable Status Narrative Discussed with Dr. Aguirre. Assessment/Plan Assessment - Significant degree of pancytopenia - (+) Blast cells on peripheral blood, ? lymphoma - Altagracia-anal ulcer/lesion/abscess - OB stool negative Recommendations - Colorectal surgery evaluation - Recommend heme-Onc consultation for anemia - follow labs and exam - zofran prn - prn transfusions - ppi -outpatient GI procedures The patient was seen and examined at bedside and all new and available data was reviewed in the patients chart. I agree with the above findings, impression and plan. (Patient seen earlier today. Signature stamp does not reflect patient encounter time.). - Prakash Aguirre MD Subjective Subjective buttock pain Objective Last 24 Hour Vital Signs Date Time Temp Pulse Resp B/P (MAP) Pulse Ox O2 Delivery O2 Flow Rate FiO2 03/18/19 09:21 91 128/67 03/18/19 09:09 89 18 96 Room Air 21 03/18/19 08:58 Room Air 03/18/19 08:28 89 20 96 Nasal Cannula 2.0 03/18/19 08:28 96 Nasal Cannula 2.0 28 03/18/19 08:28 89 20 96 Nasal Cannula 2.0 03/18/19 04:00 98.2 84 18 124/64 (84) 98 03/18/19 04:00 85 03/18/19 03:15 98.2 84 18 124/64 (84) 98 03/18/19 01:14 82 20 95 Nasal Cannula 2.0 03/18/19 01:07 81 20 95 Nasal Cannula 2.0 28 03/18/19 00:15 98.7 03/18/19 00:15 98.7 79 18 108/69 (82) 98 03/18/19 00:00 98.2 84 18 110/59 (76) 97 03/18/19 00:00 86 03/17/19 23:45 98.2 89 18 108/52 (70) 98 03/17/19 21:20 98.2 81 18 110/53 (72) 97 03/17/19 21:05 97.9 89 18 112/60 (77) 97 03/17/19 20:24 72 103/52 03/17/19 20:01 88 20 96 Nasal Cannula 2.0 28 03/17/19 20:00 101 03/17/19 20:00 97.5 95 18 103/52 (69) 96 03/17/19 19:55 96 Nasal Cannula 2.0 28 03/17/19 19:53 86 20 95 Nasal Cannula 2.0 28 03/17/19 16:00 101.5 94 20 119/68 (85) 96 03/17/19 16:00 85 03/17/19 14:19 99.5 03/17/19 13:21 84 18 95 Nasal Cannula 2.0 28 03/17/19 13:20 87 16 94 Nasal Cannula 2.0 28 03/17/19 12:00 98.6 94 20 140/57 (84) 96 03/17/19 12:00 89 90/58 03/17/19 12:00 91 Intake and Output 03/17/19 03/18/19 19:00 07:00 Intake Total 300 ml 82.5 ml Output Total 400 ml 850 ml Balance -100 ml -767.5 ml Intake Oral 300 ml IV Total 82.5 ml Output Urine Total 400 ml 850 ml # Voids 3 # Bowel Movements 1 Laboratory Tests Test 03/18/19 09:30 White Blood Count Pending Red Blood Count Pending Hemoglobin Pending Hematocrit Pending Mean Corpuscular Volume Pending Mean Corpuscular Hemoglobin Pending Mean Corpuscular Hemoglobin Concent Pending Red Cell Distribution Width Pending Platelet Count Pending Mean Platelet Volume Pending Neutrophils (%) (Auto) Pending Lymphocytes (%) (Auto) Pending Monocytes (%) (Auto) Pending Eosinophils (%) (Auto) Pending Basophils (%) (Auto) Pending Sodium Level Pending Potassium Level Pending Chloride Level Pending Carbon Dioxide Level Pending Blood Urea Nitrogen Pending Creatinine Pending Estimat Glomerular Filtration Rate Pending Glucose Level Pending Calcium Level Pending Height (Feet): 6 Height (Inches): 3.00 Weight (Pounds): 314 General Appearance: WD/WN, no apparent distress, alert Cardiovascular: normal rate Respiratory/Chest: normal breath sounds, no respiratory distress Abdominal Exam: normal bowel sounds, non tender, soft Extremities: normal range of motion, non-tender Rachel Leyva NP March 18, 2019 09:54
[2019-03-18 09:56] LABS: HEMATOCRIT 26.6 % (42.0-52.0); HEMOGLOBIN 8.7 G/DL (14.2-18.0); MEAN CORPUSCULAR VOLUME 90 FL (80-99); PLATELET COUNT 23 K/UL (150-450); RED BLOOD COUNT 2.94 M/UL (4.70-6.10); RED CELL DISTRIBUTION WIDTH 15.7 % (11.6-14.8); WHITE BLOOD COUNT 3.1 K/UL (4.8-10.8)
[2019-03-18 10:01] LABS: ANION GAP 7 mmol/L (5-15); BLOOD UREA NITROGEN 17 mg/dL (7-18); CARBON DIOXIDE 28 MMOL/L (21-32); CHLORIDE 102 MMOL/L (98-107); POTASSIUM 3.9 MMOL/L (3.5-5.1); SODIUM 137 MMOL/L (136-145)
--- NOTE | 2019-03-18 10:36 | Hematology/Onc Progress Note ---
Assessment/Plan Assessment/Plan Assessment and Recs: # Acute myeloid leukemia -- multiple etiologies could be related to underlying liver disease, in this case has blasts++, are persistent and the bone marrow results on 03/18/19 --> FLOW CYTOMETRY: 22% myeloblasts, consistent with acute myeloid leukemia --> I have discussed with RN on 03/18/19 that he needs to followup with us to get treatment either with 7+3 regimen or vidaza --> BONE MARROW BIOPSY has been recommended at this time he refuses procedure, dw him risks and benefits, again stressed to him this is a critical issue that needs to be addressed claudia --> She needs f/u with higher level of care, per patient she was considering to go [facility], I asked if she's going to have this with her --> 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 will 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 pathology 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 and biopsy report as well as tissue itself, molecular stuides --> Medications have been reviewed, no major culprits noted --> Continue to monitor for improvement, trend cbc --> Hep panel and HIV are negative --> US abd shows fatty liver, no other major changes --> consider other causes, infections that could contribute --> reverse isolation if ANC is <2000 --> Give neupogen if ANC <1000 --> Transfuse if hgb <7, with 1 unit prbc --> consider bone marrow biopsy if no other causes are found # Anemia of chronic disease due to underlying chronic medical issues, multifactorial --> Anemia workup has been ordered/reviewed, ferritin is 696 --> No evidence of hemolysis is noted, peripheral smear has been reviewed. --> Hgb goal >7. Transfuse prn. --> Epogen or iron at this time is not particularly indicated --> Medications have been reviewed --> Hgb trend: 7.3-->8.7 --> Transfusion hx: 1 unit 03/18, # Rectal pain -- unfortunately patient not able to tolerate exam from discomfort and could not perform ABE or full rectal exam at bedside. of note there a foul odor and abnormal drainage in nany-rectal area. there is also abnormal skin tissue almost like an eshcar noted. could potential be hemorrhoids but anticipate more going on --> as per surg recs # Acute bronchitis --> improved with abx, pulm has been consulted # ischemic heart disease r/o ACS (acute coronary syndrome) --> currently chest pain free --> as per cards, recs reviewed # COPD (chronic obstructive pulmonary disease) --> no evidence of exacerbation # Diabetes mellitus --> accuchecks qac and qhs --> insulin as required, bs goal <120 pre-prandial The timing of this note does not necessarily reflect the time of the patient was seen. Greatly appreciate consultation. Subjective Hematologic/Lymphatic: Reports: anemia Allergies: Coded Allergies: No Known Allergies (Unverified , 03/24/16) All Systems: reviewed and negative except above Subjective 03/15: no events to report, does not want toget a bone marrow biopsy, dw and patient 03/16: no events noted, has low plt and wbc as well, no fevers or chills 03/17: no events, in the room, no f/c, no night sweats, pending flow study 03/18: 1 unit RBC transfused overnight. Hgb improved to 8.7. FLOW CYTOMETRY: 22% myeloblasts, consistent with acute myeloid leukemia. Objective Objective Current Medications Medications (Trade) Dose Ordered Sig/Saima Route PRN Reason Start Time Stop Time Status Last Admin Dose Admin Acetaminophen (Tylenol) 650 mg Q4H PRN ORAL Mild Pain/Temp > 100.5 03/16/19 16:22 04/15/19 16:21 03/17/19 19:06 Acetaminophen/ Codeine Phosphate (Tylenol #3) 1 tab Q6H PRN ORAL for pain 4-10 03/16/19 16:22 03/23/19 16:21 03/18/19 09:32 Albuterol Sulfate (Proventil MDI) 1 puff Q6HRT INH 03/16/19 19:00 04/11/19 00:00 03/18/19 01:14 Famotidine (Pepcid) 20 mg BIDPRN PRN ORAL heart burn 03/16/19 16:23 04/15/19 16:22 Metoprolol Tartrate (Lopressor) 25 mg Q12HR ORAL 03/17/19 21:00 04/16/19 20:59 03/18/19 09:21 Nitroglycerin (Ntg) 0.4 mg Q5M PRN SL chest pain 03/16/19 16:23 04/15/19 16:22 Piperacillin Sod/ Tazobactam Sod 3.375 gm/Sodium Chloride 110 ml @ 27.5 mls/hr EVERY 8 HOURS IVPB 03/18/19 04:00 03/25/19 03:59 03/18/19 03:18 Last 24 Hour Vital Signs Date Time Temp Pulse Resp B/P (MAP) Pulse Ox O2 Delivery O2 Flow Rate FiO2 03/18/19 09:21 91 128/67 03/18/19 09:09 89 18 96 Room Air 21 03/18/19 08:58 Room Air 03/18/19 08:28 89 20 96 Nasal Cannula 2.0 03/18/19 08:28 96 Nasal Cannula 2.0 03/18/19 08:28 89 20 96 Nasal Cannula 2.0 03/18/19 04:00 98.2 84 18 124/64 (84) 98 03/18/19 04:00 85 03/18/19 03:15 98.2 84 18 124/64 (84) 98 03/18/19 01:14 82 20 95 Nasal Cannula 2.0 03/18/19 01:07 81 20 95 Nasal Cannula 2.0 28 03/18/19 00:15 98.7 03/18/19 00:15 98.7 79 18 108/69 (82) 98 03/18/19 00:00 98.2 84 18 110/59 (76) 97 03/18/19 00:00 86 03/17/19 23:45 98.2 89 18 108/52 (70) 98 03/17/19 21:20 98.2 81 18 110/53 (72) 97 03/17/19 21:05 97.9 89 18 112/60 (77) 97 03/17/19 20:24 72 103/52 03/17/19 20:01 88 20 96 Nasal Cannula 2.0 28 03/17/19 20:00 101 03/17/19 20:00 97.5 95 18 103/52 (69) 96 03/17/19 19:55 96 Nasal Cannula 2.0 03/17/19 19:53 86 20 95 Nasal Cannula 2.0 28 03/17/19 16:00 101.5 94 20 119/68 (85) 96 03/17/19 16:00 85 5/30/19 14:19 99.5 03/17/19 13:21 84 18 95 Nasal Cannula 2.0 28 03/17/19 13:20 87 16 94 Nasal Cannula 2.0 28 03/17/19 12:00 98.6 94 20 140/57 (84) 96 03/17/19 12:00 89 90/58 03/17/19 12:00 91 03/17/19 09:00 Room Air 03/17/19 08:00 89 03/17/19 08:00 99.2 92 20 144/58 (86) 95 03/17/19 07:30 80 18 97 Nasal Cannula 2.0 28 03/17/19 07:28 80 16 92 Room Air 21 03/17/19 04:00 98.4 89 20 144/58 (86) 95 03/17/19 04:00 Room Air 03/17/19 03:24 94 03/17/19 00:47 73 18 98 Nasal Cannula 2.0 28 03/17/19 00:37 73 14 98 Nasal Cannula 2.0 28 03/17/19 00:00 Room Air 03/16/19 23:56 98.3 88 20 104/55 (71) 94 03/16/19 23:27 89 03/16/19 20:00 Room Air 03/16/19 20:00 97.8 86 20 100/47 (64) 100 03/16/19 19:59 81 03/16/19 19:56 79 18 97 Nasal Cannula 2.0 28 03/16/19 19:55 79 14 97 Nasal Cannula 2.0 28 03/16/19 16:00 88 03/16/19 16:00 97.3 88 22 136/69 (91) 91 03/16/19 16:00 Room Air 03/16/19 13:03 Nasal Cannula 03/16/19 13:03 Nasal Cannula 03/16/19 12:00 79 03/16/19 12:00 97.7 83 24 110/62 (78) 91 03/16/19 12:00 Room Air Intake and Output 03/17/19 03/18/19 19:00 07:00 Intake Total 300 ml 82.5 ml Output Total 400 ml 850 ml Balance -100 ml -767.5 ml Intake Oral 300 ml IV Total 82.5 ml Output Urine Total 400 ml 850 ml # Voids 3 # Bowel Movements 1 Labs Test 03/15/19 14:30 03/16/19 03:45 03/16/19 10:20 03/17/19 06:23 Sodium Level 139 MMOL/L (136-145) 139 MMOL/L (136-145) 137 MMOL/L (136-145) Potassium Level 3.6 MMOL/L (3.5-5.1) 3.9 MMOL/L (3.5-5.1) 3.8 MMOL/L (3.5-5.1) Chloride Level 103 MMOL/L (98-107) 104 MMOL/L (98-107) 102 MMOL/L (98-107) Carbon Dioxide Level 28 MMOL/L (21-32) 27 MMOL/L (21-32) 26 MMOL/L (21-32) Anion Gap 8 mmol/L (5-15) 8 mmol/L (5-15) 9 mmol/L (5-15) Blood Urea Nitrogen 23 mg/dL (7-18) 20 mg/dL (7-18) 23 mg/dL (7-18) Creatinine 1.1 MG/DL (0.55-1.30) 1.0 MG/DL (0.55-1.30) 1.2 MG/DL (0.55-1.30) Estimat Glomerular Filtration Rate > 60 mL/min (>60) > 60 mL/min (>60) > 60 mL/min (>60) Glucose Level 154 MG/DL (74-106) 118 MG/DL (74-106) 124 MG/DL (74-106) Calcium Level 8.5 MG/DL (8.5-10.1) 9.0 MG/DL (8.5-10.1) 9.2 MG/DL (8.5-10.1) White Blood Count 3.4 K/UL (4.8-10.8) 3.5 K/UL (4.8-10.8) Red Blood Count 2.63 M/UL (4.70-6.10) 2.51 M/UL (4.70-6.10) Hemoglobin 7.9 G/DL (14.2-18.0) 7.3 G/DL (14.2-18.0) Hematocrit 24.3 % (42.0-52.0) 23.1 % (42.0-52.0) Mean Corpuscular Volume 92 FL (80-99) 92 FL (80-99) Mean Corpuscular Hemoglobin 29.9 PG (27.0-31.0) 29.3 PG (27.0-31.0) Mean Corpuscular Hemoglobin Concent 32.4 G/DL (32.0-36.0) 31.8 G/DL (32.0-36.0) Red Cell Distribution Width 15.9 % (11.6-14.8) 15.7 % (11.6-14.8) Platelet Count 26 K/UL (150-450) 19 K/UL (150-450) Mean Platelet Volume 15.9 FL (6.5-10.1) 10.2 FL (6.5-10.1) Neutrophils (%) (Auto) % (45.0-75.0) % (45.0-75.0) Lymphocytes (%) (Auto) % (20.0-45.0) % (20.0-45.0) Monocytes (%) (Auto) % (1.0-10.0) % (1.0-10.0) Eosinophils (%) (Auto) % (0.0-3.0) % (0.0-3.0) Basophils (%) (Auto) % (0.0-2.0) % (0.0-2.0) Differential Total Cells Counted 100 100 Neutrophils % (Manual) 27 % (45-75) 49 % (45-75) Lymphocytes % (Manual) 56 % (20-45) 43 % (20-45) Monocytes % (Manual) 17 % (1-10) 0 % (1-10) Eosinophils % (Manual) 0 % (0-3) 0 % (0-3) Basophils % (Manual) 0 % (0-2) 0 % (0-2) Band Neutrophils 0 % (0-8) 6 % (0-8) Nucleated Red Blood Cells 2 /100 WBC Platelet Estimate Decreased Decreased Platelet Morphology Normal Normal Hypochromasia 3+ Anisocytosis 1+ 2+ Spherocytes 1+ Troponin I 0.020 ng/mL (0.000-0.056) Stool Occult Blood Negative (NEGATIVE) Myelocytes % 2 % (0-0) Test 03/18/19 09:30 White Blood Count 3.1 K/UL (4.8-10.8) Red Blood Count 2.94 M/UL (4.70-6.10) Hemoglobin 8.7 G/DL (14.2-18.0) Hematocrit 26.6 % (42.0-52.0) Mean Corpuscular Volume 90 FL (80-99) Mean Corpuscular Hemoglobin 29.7 PG (27.0-31.0) Mean Corpuscular Hemoglobin Concent 32.9 G/DL (32.0-36.0) Red Cell Distribution Width 15.7 % (11.6-14.8) Platelet Count 23 K/UL (150-450) Mean Platelet Volume 13.3 FL (6.5-10.1) Neutrophils (%) (Auto) % (45.0-75.0) Lymphocytes (%) (Auto) % (20.0-45.0) Monocytes (%) (Auto) % (1.0-10.0) Eosinophils (%) (Auto) % (0.0-3.0) Basophils (%) (Auto) % (0.0-2.0) Sodium Level 137 MMOL/L (136-145) Potassium Level 3.9 MMOL/L (3.5-5.1) Chloride Level 102 MMOL/L (98-107) Carbon Dioxide Level 28 MMOL/L (21-32) Anion Gap 7 mmol/L (5-15) Blood Urea Nitrogen 17 mg/dL (7-18) Creatinine 1.0 MG/DL (0.55-1.30) Estimat Glomerular Filtration Rate > 60 mL/min (>60) Glucose Level 113 MG/DL (74-106) Calcium Level 9.0 MG/DL (8.5-10.1) Height (Feet): 6 Height (Inches): 3.00 Weight (Pounds): 314 Objective Physical Exam General appearance: alert, cooperative, no distress Head: Normocephalic, without obvious abnormality, atraumatic Eyes: conjunctivae/corneas clear. PERRL, EOM's intact. Fundi benign Throat: Lips, mucosa, and tongue normal. Teeth and gums normal Neck: supple, symmetrical, trachea midline, no adenopathy Lungs: clear to auscultation bilaterally Heart: regular rate and rhythm, S1, S2 normal, no murmur Abdomen: soft, non-tender. Bowel sounds normal. No masses Extremities: extremities normal, atraumatic, no cyanosis or edema Pulses: 2+ and symmetric Skin: Skin color, texture, turgor normal. No rashes or lesions Neurologic: Grossly normal Timoteo Stafford MD March 18, 2019 10:36
--- NOTE | 2019-03-18 11:09 | NUR ---
*-* INSURANCE *-* UPDATED CLINICALS HAVE BEEN FAXED TO: [facility] P: [phone] F: [phone] (FAX CLINICALS)
--- NOTE | 2019-03-18 11:21 | NUR ---
NURSE NOTES: 1125am per ph conversation Dr. Ac says that since pt is HMO anybody that is approved by them may be do the Home health visits. [facility] rehabilitation caseworker hs been notified. Also Pt family is working on the DME list of supplies pt needs. 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
--- NOTE | 2019-03-18 12:49 | Surgery Progress Note ---
Surgery Progress Note Subjective Additional Comments improving AML as per heme pain improved having BM's. helping with dressings and care. Objective Last 24 Hour Vital Signs Date Time Temp Pulse Resp B/P (MAP) Pulse Ox O2 Delivery O2 Flow Rate FiO2 03/18/19 09:21 91 128/67 03/18/19 09:09 89 18 96 Room Air 21 03/18/19 08:58 Room Air 03/18/19 08:28 89 20 96 Nasal Cannula 2.0 28 03/18/19 08:28 96 Nasal Cannula 2.0 28 03/18/19 08:28 89 20 96 Nasal Cannula 2.0 28 03/18/19 04:00 98.2 84 18 124/64 (84) 98 03/18/19 04:00 85 03/18/19 03:15 98.2 84 18 124/64 (84) 98 03/18/19 01:14 82 20 95 Nasal Cannula 2.0 28 03/18/19 01:07 81 20 95 Nasal Cannula 2.0 28 03/18/19 00:15 98.7 03/18/19 00:15 98.7 79 18 108/69 (82) 98 03/18/19 00:00 98.2 84 18 110/59 (76) 97 03/18/19 00:00 86 03/17/19 23:45 98.2 89 18 108/52 (70) 98 03/17/19 21:20 98.2 81 18 110/53 (72) 97 03/17/19 21:05 97.9 89 18 112/60 (77) 97 03/17/19 20:24 72 103/52 03/17/19 20:01 88 20 96 Nasal Cannula 2.0 28 03/17/19 20:00 101 03/17/19 20:00 97.5 95 18 103/52 (69) 96 03/17/19 19:55 96 Nasal Cannula 2.0 28 03/17/19 19:53 86 20 95 Nasal Cannula 2.0 28 03/17/19 16:00 101.5 94 20 119/68 (85) 96 03/17/19 16:00 85 03/17/19 14:19 99.5 03/17/19 13:21 84 18 95 Nasal Cannula 2.0 28 03/17/19 13:20 87 16 94 Nasal Cannula 2.0 28 I&O Intake and Output 03/17/19 03/18/19 19:00 07:00 Intake Total 300 ml 82.5 ml Output Total 400 ml 850 ml Balance -100 ml -767.5 ml Intake Oral 300 ml IV Total 82.5 ml Output Urine Total 400 ml 850 ml # Voids 3 # Bowel Movements 1 Dressing: other Wound: other Drains: other Cardiovascular: RSR Respiratory: clear Abdomen: soft, non-tender, present bowel sounds, non-distended Extremities: no edema, no tenderness, no cyanosis Laboratory Tests Test 03/18/19 09:30 White Blood Count 3.1 K/UL (4.8-10.8) L Red Blood Count 2.94 M/UL (4.70-6.10) L Hemoglobin 8.7 G/DL (14.2-18.0) L Hematocrit 26.6 % (42.0-52.0) L Mean Corpuscular Volume 90 FL (80-99) Mean Corpuscular Hemoglobin 29.7 PG (27.0-31.0) Mean Corpuscular Hemoglobin Concent 32.9 G/DL (32.0-36.0) Red Cell Distribution Width 15.7 % (11.6-14.8) H Platelet Count 23 K/UL (150-450) L Mean Platelet Volume 13.3 FL (6.5-10.1) H Neutrophils (%) (Auto) % (45.0-75.0) Lymphocytes (%) (Auto) % (20.0-45.0) Monocytes (%) (Auto) % (1.0-10.0) Eosinophils (%) (Auto) % (0.0-3.0) Basophils (%) (Auto) % (0.0-2.0) Differential Total Cells Counted 100 Neutrophils % (Manual) 52 % (45-75) Lymphocytes % (Manual) 34 % (20-45) Monocytes % (Manual) 12 % (1-10) H Eosinophils % (Manual) 0 % (0-3) Basophils % (Manual) 2 % (0-2) Band Neutrophils 0 % (0-8) Nucleated Red Blood Cells 1 /100 WBC Platelet Estimate Decreased L Platelet Morphology Normal Hypochromasia 2+ Anisocytosis 1+ Spherocytes 1+ Sodium Level 137 MMOL/L (136-145) Potassium Level 3.9 MMOL/L (3.5-5.1) Chloride Level 102 MMOL/L (98-107) Carbon Dioxide Level 28 MMOL/L (21-32) Anion Gap 7 mmol/L (5-15) Blood Urea Nitrogen 17 mg/dL (7-18) Creatinine 1.0 MG/DL (0.55-1.30) Estimat Glomerular Filtration Rate > 60 mL/min (>60) Glucose Level 113 MG/DL (74-106) H Calcium Level 9.0 MG/DL (8.5-10.1) Plan Problems: (1) Rectal pain Assessment & Plan: 63 M with multiple medical comorbidities, severe anemia, pancytopenia, rectal pain. unfortunately patient not able to tolerate exam from discomfort and could not perform ABE or full rectal exam at bedside. of note there a foul odor and abnormal drainage in nany-rectal area. there is also abnormal skin tissue almost like an eshcar noted. could potential be hemorrhoids but anticipate more going on CT w/ Soft tissue density and gas in the perianal region without discrete abscess identified. Findings are suggestive of perianal phlegmon and open wound versus changes related to manipulation. Discussed CT findings. Was able to get patient to allow for more clear evaluation at the bedside of the perirectal area. We discussed CT findings and examination findings which included a perirectal abscess that has since spontaneously drained and now forming area of phlegmon with area of eschar identified around the right perirectal buttock area from a chronic infection and worsening wound. Today there is no purulent drainage identified. Patient states his perirectal area does feel little bit better but he still has tenderness. He is unsure of how long this is been ongoing but states it is been for some time now. Was not aware of perirectal drainage of purulent fluid but did notice a foul scent. He has difficulty with cleaning himself and requires care but does note that there is soilage in his perirectal area at most times. given above no acute surgical intervention planned. 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 no abscess on exam now and improving. recommend Abx and strict nany-rectal care for now with good hygiene, washing area, and keeping it dry and clean. will be able to allow healthy tissue to demarcate and excise minimal amounts as outpatient. if not, will worsening and require large debridement and even possible diverting colostomy. i discussed this with patient and in detail at bedside to ensure they understand how important care plan is. Bone marrow biopsy as per Heme but patient refusing currently and wants second opinion before consenting cont with wound care as advised to patient and need outpatient f/u in 1 week for eval by surgeon in network must see PCP claudia upon d/c for surgical referral thank you d/c planning will follow with recs. (2) Severe anemia Franklin Lim March 18, 2019 12:49
--- NOTE | 2019-03-18 13:43 | NUR ---
NURSE NOTES: paperwork for DC has been completed and signed by pt. belonging sheet has been signed. However pt needs to be cleaned and get dress. Pt needs lost of help and only allows to clean him and help him. Therefore pt. called family to come and help because he only allows them to assist. Pt's has been constantly reminded that we are here to help Addendum: 03/18/19 at 1348 by Jayla Galloway RN paperwork for DC has been completed and signed by pt. belonging sheet has been signed. However pt needs to be cleaned and get dress. Pt needs lost of help and only allows to clean him and help him. Therefore pt. called family to come and help because he only allows them to assist. Pt's has been constantly reminded that we are here to help but they still refuse our help. Addendum: 03/18/19 at 1348 by Jayla Galloway RN paperwork for DC has been completed and signed by pt. belonging sheet has been signed. However pt needs to be cleaned and get dress. Pt needs lost of help and only allows to clean him and help him. Therefore pt. called family to come and help because he only allows them to assist. Pt's has been constantly reminded that we are here to help but they still refused our assistance.
[2019-03-18] MEDS ORDERED: Tubing IV Secondary IV ONE (16:09)
[2019-03-18] MEDS ORDERED: NS 500ML ONE (16:09)
[2019-03-18] MEDS ORDERED: NS 275ml ONE ×2 (16:09)
[2019-03-18] MEDS ORDERED: Tubing Blood Filter IV ONE (16:09)
--- NOTE | 2019-03-18 16:10 | NUR ---
NURSE NOTES: Pt was given DC instructions and pt verbalized understanding. plant associate and IV removed no signs of distress or bleeding. Pt belonging sheet was signed off by Pt's . Pt left with stable condition and left via wheel chair with family members. Pt was escorted out of the hospital by PHOTOGRAPH INSPECTOR. Wrist ID band removed.
--- NOTE | 2019-03-19 01:00 | Progress Note ---
DATE: 03/18/2019 CARDIOLOGY PROGRESS NOTE SUBJECTIVE: The patient's condition is tenuous. 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 He is not having any chest pain. OBJECTIVE: VITAL SIGNS: Blood pressure 124/64, pulse 84, respirations 18, and afebrile. T-max 101.5. LUNGS: Clear. CARDIAC: Regular rhythm and rate. Normal S1 and S2 with a fourth heart sound. ABDOMEN: Soft. EXTREMITIES: Trace edema. LABORATORY DATA: White count 3, hemoglobin 8.7, and platelets 23,000. Potassium 3.9. IMPRESSION: 1. 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 2. Stable angina. 3. Ischemic heart disease. 4. History of coronary stents. 5. Hypertensive heart disease. 6. Controlled blood pressure. 7. No signs of acute congestive heart failure. PLAN: The patient will be transferred to a tertiary care facility for acute Hematology/Oncology intervention with regard to his acute leukemia. Current cardiovascular regimen is appropriate. Roberto Jimenez M.D. DR: ISMA JOB#: [id number] CC:
--- NOTE | 2019-03-19 14:09 | Discharge Summary ---
Discharge Summary Discharge Summary _ DATE OF ADMISSION: 03/11/2019 DATE OF DISCHARGE: 03/18/2019 DISCHARGED BY: Dr. Ac REASON FOR ADMISSION: 63 years old male with past medical history of hypertension, diabetes mellitus, coronary artery disease, hyperlipidemia, iron deficiency anemia, vitamin D deficiency, presented to emergency department with complaint of dizziness and lightheadedness for the last 2-days. He denied abdominal pain. He denied chest pain or shortness of breath. He denied falls or injury. He denied black tarry stools. Patient reported recent admission for the hospital for blood transfusion. Upon evaluation vital signs revealed low blood pressure 91/41. Patient required supplemental oxygen via nasal cannula. Laboratory work-up revealed WBC 3, hemoglobin 5.3, hematocrit 15.5, MCV 88, platelet count 17. Potassium 3.4. BUN 42, creatinine 2.7. Glucose 151. Total bilirubin 1.8, direct bilirubin 1.2. Stable AST and ALT. Troponin-0.134. EKG revealed sinus rhythm, no acute ischemic changes. Albumin 2.7. Chest x-ray demonstrated stable enlargement of the cardiomediastinal silhouette with suggestion of pulmonary edema. Patient subsequently admitted to telemetry floor for further management. CONSULTANTS: GI specialist Dr. Aguirre sprue knocker Dr.De Fatima revenue audit clerk/oncologist Dr. Stafford surgery Dr. Rain [facility] COURSE: Patient admitted to telemetry floor. Patient received transfusion of packed red blood cells. Nephrology consult was requested due to acute kidney injury. Acute kidney injury was most likely due to dehydration as well as hypotension due to high dose of antihypertensive medication. Renal ultrasound revealed no evidence of hydronephrosis. Normal echogenicity of both kidneys. Electrolytes were corrected as needed. Renal parameters were closely monitored. Nephrotoxic's were avoided. Prior for discharge BUN from 42 down to 17 and creatinine from 2.7 down to 1.0. According to sprue knocker, acute kidney injury was due to multifactorial acute tubular necrosis from hypotension, severe anemia, nonsteroidal anti- inflammatory medication, high-dose of antihypertensive, and it resolved. 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 Patient started on lisinopril. Professional Engineer followed. Antiplatelet therapy was hold due to severe anemia. GIOVANNI and ARB were hold due to renal failure. Stress test was deferred in view of severe anemia. Second troponin trended down, and the last troponin negative. Telemetry showed sinus rhythm. Professional Engineer recommended to maintain current cardiovascular regimen. Blood pressure was closely monitored. As patient clinically stabilized, blood pressure improved and was managed with the multiple regimen of antihypertensive. Supplemental oxygen provided as needed to keep pulse oximetry above 92%. Pulmonary toilet provided as needed. Blood sugar was managed with sliding scale of insulin and remained stable. Impression patient noted to have painful hemorrhoids. Surgeon and GI specialist followed. Bowel regimen instituted. Patient was unable to tolerate rectal exam. Foul odor and abnormal drainage from perirectal area noted along with abnormal skin tissue . CT of the abdomen and pelvis demonstrated soft tissue density and gas in the perianal region without discrete abscess identified. Findings were suggestive of perianal phlegmon and open wound . CT scan results were discussed with patient in detail. According to the patient, he was not aware of perirectal drainage of purulent fluid but noted difficulty cleaning himself and reported that he had soilage at his perirectal area most of the time. Given the above, surgeon did not recommend any acute surgical intervention. It appeared that patient had chronic abscess, that went untreated and spontaneously drained. IV antibiotic continued. Perirectal care provided. Patient was clinically improving. Surgeon recommended complete antibiotic course and maintain strict perirectal care with good hygiene (washing area, keeping it dry and clean to allow healthy tissue to demarcate and excise minimal amount as outpatient). If patient condition will worsen , then he will require large debridement and even possible diverting colostomy. All the information was discussed with patient and his in detail in order that they understood how important the perirectal care was. Hemoglobin and hematocrit were closely monitored with goal to keep hemoglobin above 7. Stool for occult blood was negative. Nnps seen and evaluated patient. Flow cytometry revealed evidence, consistent with acute myeloid leukemia. Patient to follow-up with oncologist as outpatient for treatment for acute myeloid leukemia. Bone marrow biopsy was recommended, but at this time patient refused procedure. Patient was also informed that this was a critical issue , that need to be addressed as soon as possible. Patient was considering to go to [facility] for further outpatient work-up and management. Hepatitis panel was negative. HIV test was nonreactive. Ultrasound of the abdomen showed fatty liver, but no other major changes. Pain management was addressed. Supportive care provided. Patient clinically stabilized and was ready for discharge home. Outpatient follow-up with revenue audit clerk as soon as possible for bone marrow biopsy recommended. 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 DISCHARGE INSTRUCTIONS: Patient was discharged home . Follow up with primary care provider in one week. Follow-up with revenue audit clerk as outpatient for bone marrow biopsy LOLA. I have been assigned to dictate discharge summary for this account. I was not involved in the patient's management. Jena Lucero NP Mar 19, 2019 14:09
== END 2019-03-18 16:10 | disposition home or self-care (01) | DRG 690 ==
LOC: EMR 19:21 → EDBEDREQ 20:52 → EDBEDREQSVC 20:52 → 2W 20:55 → EDBEDREQ 21:04 → EDBEDREQSVC 21:04 → EDBEDREQ 21:15 → 2E 03-16 16:20
DX: C92.00 Acute myeloblastic leukemia, not having achieved remission (principal); N17.0 Acute kidney failure with tubular necrosis; D61.818 Other pancytopenia; E11.22 Type 2 diabetes mellitus with diabetic chronic kidney disease; K61.1 Rectal abscess; E66.01 Morbid (severe) obesity due to excess calories; I95.2 Hypotension due to drugs; T46.5X5A Adverse effect of other antihypertensive drugs, initial encounter; Y92.9 Unspecified place or not applicable; K64.9 Unspecified hemorrhoids; T39.395A Adverse effect of other nonsteroidal anti-inflammatory drugs [NSAID], initial encounter; I25.118 Atherosclerotic heart disease of native coronary artery with other forms of angina pectoris; Z95.5 Presence of coronary angioplasty implant and graft; E87.6 Hypokalemia; E86.9 Volume depletion, unspecified; I13.0 Hypertensive heart and chronic kidney disease with heart failure and stage 1 through stage 4 chronic kidney disease, or unspecified chronic kidney disease; I50.9 Heart failure, unspecified; N18.9 Chronic kidney disease, unspecified; E78.5 Hyperlipidemia, unspecified; J44.0 Chronic obstructive pulmonary disease with (acute) lower respiratory infection; J20.9 Acute bronchitis, unspecified; I25.2 Old myocardial infarction; R11.10 Vomiting, unspecified; E55.9 Vitamin D deficiency, unspecified; Z68.39 Body mass index [BMI] 39.0-39.9, adult
CPT/HCPCS: 36415; 71045; 74176; 76770; 80048; 80053; 82248; 82270; 84484; 85007; 85025; 86850; 86900; 86901; 86920; 87081; 93005; 94640; 94664; 96360; 96361; 99291; J8499